=== PATIENT | male | born 1970 | race African-American/Black ===

== ENCOUNTER 2017-08-14 06:33 | Emergency (ER) | payer SELFPAY ==
[~2017-08-14] VITALS: Ht 175.3 cm; Wt 125.2 kg
[~2017-08-14 06:33] MED LIST: ALLO300T PO; ASPI-39 PO; ATOR40TA59 PO; CLON0.1T PO; COLC0.6T34 PO; FAMO-63 PO; GLIM4TAB2 PO; HYDR-2762 PO; LABE200T2 PO; MAGN400T22 PO; METF-620 PO; MODA200T2 PO; NIFE60TA14 PO; NIFE90TA PO; ONDA4TAB7 PO; RAMI10CA PO
[2017-08-14] MEDS ORDERED: LABETALOL HCL 100 MG TABLET. PO STA (07:35)
--- NOTE | 2017-08-14 07:42 | PHYS DOC ---
Past Medical History Past Medical History: Diabetes-Type II, Hypertension, Other Additional Past Medical Histor: SLEEP APNEA, GOUT Past Surgical History: Other Additional Past Surgical Histo: HAND, FINGERS, TOES, BX CARPAL TUNNEL, L KNEE Alcohol Use: Sober Drug Use: None Adult General Chief Complaint Chief Complaint: NAUSEA/VOMITING/DIARRHA HPI HPI Patient is a 46 year old female with history of diabetes type 2, hypertension, who presents today with nausea vomiting and diarrhea one week ago. Patient states the symptoms subsided bite 2 days ago he started having nausea and a productive cough. Patient denies any fever. Denies any hematemesis or melena. Denies any abdominal pain. Review of Systems Review of Systems Constitutional: Denies fever or chills [] Eyes: Denies change in visual acuity, redness, or eye pain [] HENT: Denies nasal congestion or sore throat [] Respiratory: Reports productive cough, denies shortness of breath [] Cardiovascular: No additional information not addressed in HPI [] GI: Reports nausea vomiting and diarrhea, denies any abdominal pain : Denies dysuria or hematuria [] Musculoskeletal: Denies back pain or joint pain [] Integument: Denies rash or skin lesions [] Neurologic: Denies headache, focal weakness or sensory changes [] All other systems were reviewed and found to be within normal limits, except as documented in this note. Current Medications Current Medications Current Medications Medications (Trade) Dose Ordered Sig/Sandra Start Time Stop Time Status Last Admin Dose Admin Clonidine HCl (Catapres) 0.1 mg 1X ONCE 08/14/17 07:45 08/14/17 07:49 DC 08/14/17 08:24 0.1 MG Glimepiride (Amaryl) 4 mg DAILY 08/14/17 09:00 Labetalol HCl (Trandate) 150 mg 1X STAT 08/14/17 07:35 08/14/17 07:49 DC 08/14/17 08:25 150 MG Lisinopril (Prinivil) 20 mg 1X ONCE 08/14/17 07:45 08/14/17 07:49 DC 08/14/17 08:24 20 MG Metformin HCl (Glucophage) 1,000 mg 1X STAT 08/14/17 08:48 08/14/17 08:51 DC Nifedipine (Procardia Xl) 90 mg 1X STAT 08/14/17 07:35 08/14/17 07:49 DC 08/14/17 08:26 90 MG Ondansetron HCl (Zofran) 4 mg 1X ONCE 08/14/17 07:45 08/14/17 07:49 DC 08/14/17 08:20 4 MG Sodium Chloride 1,000 ml @ 1,000 mls/hr 1X ONCE 08/14/17 07:45 08/14/17 08:44 DC Allergies Allergies Allergies Coded Allergies Type Severity Reaction Last Updated Verified lovastatin Adverse Reaction Intermediate SEE COMMENT 06/11/15 Yes Physical Exam Physical Exam Constitutional: Well developed, well nourished, no acute distress, non-toxic appearance. [] HENT: Normocephalic, atraumatic, bilateral external ears normal, oropharynx moist, no oral exudates, nose normal. [] Eyes: PERRLA, EOMI, conjunctiva normal, no discharge. [] Neck: Normal range of motion, no tenderness, supple, no stridor. [] Cardiovascular:Heart rate regular rhythm, no murmur [] Lungs & Thorax: Bilateral breath sounds clear to auscultation [] Abdomen: Bowel sounds normal, soft, no tenderness, no masses, no pulsatile masses. [] Skin: Warm, dry, no erythema, no rash. [] Back: No tenderness, no CVA tenderness. [] Extremities: No tenderness, no cyanosis, no clubbing, ROM intact, no edema. [] Neurologic: Alert and oriented X 3, normal motor function, normal sensory function, no focal deficits noted. [] Psychologic: Affect normal, judgement normal, mood normal. [] Current Patient Data Vital Signs Vital Signs Date Time Temp Pulse Resp B/P (MAP) Pulse Ox O2 Delivery O2 Flow Rate FiO2 08/14/17 09:02 98 18 166/112 (130) 98 Room Air 08/14/17 07:23 98.2 98.2 Lab Values Laboratory Tests Test 08/14/17 07:50 08/14/17 08:35 White Blood Count 6.7 x10^3/uL (4.0-11.0) Red Blood Count 5.19 x10^6/uL (4.30-5.70) Hemoglobin 13.5 g/dL (13.0-17.5) Hematocrit 42.4 % (39.0-53.0) Mean Corpuscular Volume 82 fL (79-100) Mean Corpuscular Hemoglobin 26 pg (25-35) Mean Corpuscular Hemoglobin Concent 32 g/dL (31-37) Red Cell Distribution Width 12.6 % (11.5-14.5) Platelet Count 196 x10^3/uL (140-400) Neutrophils (%) (Auto) 69 % (31-73) Lymphocytes (%) (Auto) 22 % (24-48) L Monocytes (%) (Auto) 7 % (0-9) Eosinophils (%) (Auto) 1 % (0-3) Basophils (%) (Auto) 1 % (0-3) Neutrophils # (Auto) 4.6 x10^3uL (1.8-7.7) Lymphocytes # (Auto) 1.5 x10^3/uL (1.0-4.8) Monocytes # (Auto) 0.5 x10^3/uL (0.0-1.1) Eosinophils # (Auto) 0.1 x10^3/uL (0.0-0.7) Basophils # (Auto) 0.0 x10^3/uL (0.0-0.2) Sodium Level 135 mmol/L (136-145) L Potassium Level 3.6 mmol/L (3.5-5.1) Chloride Level 96 mmol/L (98-107) L Carbon Dioxide Level 31 mmol/L (21-32) Anion Gap 8 (6-14) Blood Urea Nitrogen 8 mg/dL (8-26) Creatinine 1.2 mg/dL (0.7-1.3) Estimated GFR (Cockcroft-Gault) 78.2 BUN/Creatinine Ratio 7 (6-20) Glucose Level 427 mg/dL (70-99) H Calcium Level 8.9 mg/dL (8.5-10.1) Total Bilirubin 0.7 mg/dL (0.2-1.0) Aspartate Amino Transferase (AST) 14 U/L (15-37) L Alanine Aminotransferase (ALT) 30 U/L (16-63) Alkaline Phosphatase 104 U/L (46-116) Total Protein 7.1 g/dL (6.4-8.2) Albumin 3.3 g/dL (3.4-5.0) L Albumin/Globulin Ratio 0.9 (1.0-1.7) L Lipase 166 U/L (73-393) Ethyl Alcohol Level < 10 mg/dL (0-10) Urine Opiates Screen Neg (NEG) Urine Methadone Screen Neg (NEG) Urine Barbiturates Neg (NEG) Urine Phencyclidine Screen Neg (NEG) Urine Amphetamine/Methamphetamine Neg (NEG) Urine Benzodiazepines Screen Neg (NEG) Urine Cocaine Screen Neg (NEG) Urine Cannabinoids Screen Neg (NEG) Urine Ethyl Alcohol Neg (NEG) Laboratory Tests 08/14/17 07:50 Laboratory Tests 08/14/17 07:50 EKG EKG [] Radiology/Procedures Radiology/Procedures []PROCEDURE: CHEST PA & LATERAL Chest x-ray Indication: Cough and fever Technique: PA and lateral views of the chest Comparison: Previous study from 02/19/2016 Findings: Heart is normal in size. Lungs are clear. No pneumothorax or pleural effusion. Visualized bony thorax is within normal limits. Impression: No acute cardiopulmonary process. DICTATED and SIGNED BY: NELA RIVERA DO DATE: 08/14/17817 CC: ADRIAN BARCLAY MD; BRUCE GARZON APRN; NON,STAFF ~ Course & Med Decision Making Course & Med Decision Making Pertinent Labs and Imaging studies reviewed. (See chart for details) This is a 46-year-old male patient presenting with nausea vomiting and diarrhea that occurred a week ago, currently his main symptoms are nausea and a productive cough. He arrived in the ED with a blood pressure of 207/137, he states he has not taken his blood pressure medicines for 2 days. Patient denies any chest pain or shortness of breath. Denies any headache. We ordered his blood pressure medicines including lisinopril, labetalol clonidine and Nifedipine. BP is down to 149/97 when i was in the room. CBC no acute findings, CMP with glucose of 427 with normal anion gap. and sodium 135 he has not taken these medications for 2 days. Patient was given his metformin and glimepiride in the ED and one liter of fluid. I talked to patient about the importance of compliance with his medications. Chest x-ray was negative for any acute findings. His cough is probably viral. Details of vomiting and diarrhea probably viral. Discharged with Zofran albuterol inhaler and Tessalon Perles. Recommended following up with the PCP next week. Provided return precautions and discharged in stable. Dragon Disclaimer Dragon Disclaimer This electronic medical record was generated, in whole or in part, using a voice recognition dictation system. Departure Departure Impression: Primary Impression: Cough Additional Impressions: Hypertension, accelerated Nausea and vomiting Diarrhea Hyperglycemia Disposition: 01 HOME, SELF-CARE Condition: STABLE Referrals: ADRIAN BARCLAY MD (PCP) follow up with your doctor next week Patient Instructions: Cough, Adult, [id number], Diabetes Meal Planning Guide , Diabetes and Exercise-SportsMed, Diarrhea, Ilxs-to-Wnhr, Hypertension, Nausea and Vomiting Additional Instructions: You were seen with a cough. Your chest x-ray is negative for any acute findings , your cough is likely viral. We will put you on albuterol inhaler and Tessalon Perles. We also put you on Zofran for nausea and vomiting. The diarrhea has subsided. Typically nausea vomiting and diarrhea of viral. Push fluids and maintain good hand hygiene at home. Follow-up with your doctor next week. Scripts Benzonatate (TESSALON PERLE) 100 Mg Capsule 1 CAP PO TID, #30 CAP Prov: BRUCE GARZON APRN 08/14/17 Albuterol Sulfate (Proair Respiclick) 90 Mcg Aer.pow.ba 1 PUFF IH PRN Q6HRS Y for SHORTNESS OF BREATH, #1 INHALER Prov: BRUCE GARZON APRN 08/14/17 Ondansetron (ZOFRAN ODT) 4 Mg Tab.rapdis 1 TAB SL Q8HRS, #15 TAB Prov: BRUCE GARZON APRN 08/14/17 Problem Qualifiers Additional Impressions: Nausea and vomiting Vomiting type: unspecified Vomiting Intractability: unspecified Qualified Codes: R11.2 - Nausea with vomiting, unspecified Diarrhea Diarrhea type: unspecified type Qualified Codes: R19.7 - Diarrhea, unspecified BRUCE GARZON APRN Aug 14, 2017 07:42
[2017-08-14] MEDS ORDERED: cloNIDine HCL 0.1 MG TABLET PO ONE (07:45)
[2017-08-14] MEDS ORDERED: IV NORMAL SALINE 1000ML BAG 1,000 ML IV ONE ×2 (07:45)
[2017-08-14] MEDS ORDERED: LISINOPRIL 10 MG TABLET PO ONE (07:45)
[2017-08-14] MEDS ORDERED: ONDANSETRON PF 4 MG/2 ML VIAL. IV ONE (07:45)
[2017-08-14 08:12] LABS: BASO % 1 % (0-3); EOS % 1 % (0-3); HEMATOCRIT 42.4 % (39.0-53.0); HEMOGLOBIN 13.5 g/dL (13.0-17.5); LYMPH # 1.5 x10^3/uL (1.0-4.8); LYMPH % 22 % (24-48); MEAN CORPUSCULAR HEMOGLOBIN 26 pg (25-35); MEAN CORPUSCULAR HGB CONC 32 g/dL (31-37); MEAN CORPUSCULAR VOLUME 82 fL (79-100); MONO % 7 % (0-9); NEUT % 69 % (31-73); PLATELET COUNT 196 x10^3/uL (140-400); RED BLOOD COUNT 5.19 x10^6/uL (4.30-5.70); RED CELL DISTRIBUTION WIDTH 12.6 % (11.5-14.5); WHITE BLOOD COUNT 6.7 x10^3/uL (4.0-11.0)
[2017-08-14 08:21] LABS: CALCIUM 8.9 mg/dL (8.5-10.1); CREATININE 1.2 mg/dL (0.7-1.3); GFR 78.2; POTASSIUM 3.6 mmol/L (3.5-5.1)
--- NOTE | 2017-08-14 08:23 | RAD ---
Chest x-ray Indication: Cough and fever Technique: PA and lateral views of the chest Comparison: Previous study from 02/19/2016 Findings: Heart is normal in size. Lungs are clear. No pneumothorax or pleural effusion. Visualized bony thorax is within normal limits. Impression: No acute cardiopulmonary process.
[2017-08-14 08:33] LABS: ALBUMIN 3.3 g/dL (3.4-5.0); ALBUMIN/GLOBULIN RATIO 0.9 (1.0-1.7); TOTAL BILIRUBIN 0.7 mg/dL (0.2-1.0); TOTAL PROTEIN 7.1 g/dL (6.4-8.2)
[2017-08-14 08:50] LABS: BILIRUBIN,URINE NEGATIVE (NEG); GLUCOSE,URINE >=1000 mg/dL (NEG); NITRITE,URINE NEGATIVE (NEG); PROTEIN,URINE NEGATIVE (NEG-TRACE); UROBILINOGEN,URINE 0.2 mg/dL (0.2 mg/dL)
[2017-08-14 09:00] LABS: BARBITURATES NEG (NEG); BENZODIAZEPINES NEG (NEG); CANNABINOIDS NEG (NEG); COCAINE NEG (NEG); METHADONE NEG (NEG); OPIATES NEG (NEG); PHENCYCLIDINE NEG (NEG)
[2017-08-14] MEDS ORDERED: GLIMEPIRIDE 2 MG TABLET. PO SCH (09:00)
[2017-08-14 09:26] LABS: BACTERIA,URINE FEW /HPF (0-FEW); RBC,URINE OCC /HPF (0-2); SQUAMOUS EPITHELIAL CELL,UR OCC /LPF; WBC,URINE RARE /HPF (0-4)
[2017-08-14] MEDS ORDERED: BENZ100C PO (09:32)
[2017-08-14] MEDS ORDERED: PROAIR RESPICL90 MCG IH (09:32)
[2017-08-14] MEDS ORDERED: ONDA4TAB10 SL (09:32)
[2017-08-14 10:13] VITALS: BP 133/84
== END 2017-08-14 10:57 | disposition home or self-care (01) ==
LOC: ER 06:33
DX: R05 Cough (principal); I10 Essential (primary) hypertension; R11.2 Nausea with vomiting, unspecified; R19.7 Diarrhea, unspecified; E11.65 Type 2 diabetes mellitus with hyperglycemia; R50.9 Fever, unspecified; G47.30 Sleep apnea, unspecified; M10.9 Gout, unspecified; Z88.8 Allergy status to other drugs, medicaments and biological substances
CPT/HCPCS: 36415; 71020; 80053; 80307; 81001; 83690; 85025; 96361; 96374; 99285; G0480; J2405; J7030; G0479

== ENCOUNTER 2017-08-26 14:28 | Inpatient (IN) | payer SELFPAY ==
[2017-08-26] VITALS (13 sets, daily range): BP systolic 140–185; BP diastolic 68–121
[~2017-08-26] VITALS: Ht 175.3 cm; Wt 126.1 kg
[~2017-08-26 14:28] MED LIST changes: +BENZ100C PO; +ONDA4TAB10 SL; +PROAIR RESPICL90 MCG IH
--- NOTE | 2017-08-26 15:47 | RAD ---
Portable chest, 08/26/2017: History: Cough, dyspnea Comparison is made to a study from 08/14/2017. The heart appears to be within normal limits in size. Mild patchy right parahilar infiltrates have developed. The underlying pulmonary vascularity is obscured. There is only minimal streaky atelectasis/infiltrate in the left base. No pleural fluid is evident. IMPRESSION: Mild right parahilar infiltrates have developed suggesting pneumonia versus pulmonary edema.
[2017-08-26 15:54] LABS: BASO % 1 % (0-3); EOS % 1 % (0-3); HEMATOCRIT 37.9 % (39.0-53.0); HEMOGLOBIN 12.1 g/dL (13.0-17.5); LYMPH # 1.4 x10^3/uL (1.0-4.8); LYMPH % 17 % (24-48); MEAN CORPUSCULAR HEMOGLOBIN 26 pg (25-35); MEAN CORPUSCULAR HGB CONC 32 g/dL (31-37); MEAN CORPUSCULAR VOLUME 82 fL (79-100); MONO % 5 % (0-9); NEUT % 77 % (31-73); PLATELET COUNT 314 x10^3/uL (140-400); RED BLOOD COUNT 4.64 x10^6/uL (4.30-5.70); RED CELL DISTRIBUTION WIDTH 13.4 % (11.5-14.5); WHITE BLOOD COUNT 8.4 x10^3/uL (4.0-11.0)
--- NOTE | 2017-08-26 16:02 | EKG ---
[facility] [address] [place] [address] Test Date: 2017-08-26 Test Time: 14:51:21 Pat Name: LATONYA MERAZ Department: Room: Gender: M Referral And Information Aide: : 1970 Requested By: KARLIE CHURCHILL Order Number: [id number] Reading MD: Jamil Rueda MD Measurements Intervals [place] Rate: 102 P: 15 AR: 192 QRS: 19 QRSD: 90 T: 64 QT: 390 QTc: 513 Interpretive Statements SINUS TACHYCARDIA NON-SPECIFIC ST/T CHANGES Electronically Signed On 09-01-2017 14:17:16 BLACKENER by Jamil Rueda MD
[2017-08-26 16:07] LABS: CALCIUM 8.6 mg/dL (8.5-10.1); GFR 96.5; POTASSIUM 3.6 mmol/L (3.5-5.1)
[2017-08-26 16:13] LABS: ALBUMIN 2.8 g/dL (3.4-5.0); ALBUMIN/GLOBULIN RATIO 0.7 (1.0-1.7); TOTAL BILIRUBIN 0.7 mg/dL (0.2-1.0)
[2017-08-26] MEDS ORDERED: AZITHROMYCIN 500 MG in IV NORMAL SALINE 250ML 250 ML IV ONE (16:15)
[2017-08-26] MEDS ORDERED: FUROSEMIDE 40 MG/4 ML VIAL. IVP ONE (16:15)
[2017-08-26] MEDS ORDERED: NITROGLYCERIN OINT 1 GM PACKET. TP ONE (16:15)
[2017-08-26] MEDS ORDERED: AZITHRMYCN 500MG IVPB FOR OMNI 250 ML IV ONE (16:15)
[2017-08-26] MEDS ORDERED: CONTRAST GIVEN MC PRN (16:30)
[2017-08-26] MEDS ORDERED: IOHEXOL 300 MG/ML 100ML VIAL. IV ONE (16:30)
--- NOTE | 2017-08-26 16:48 | PHYS DOC ---
Past Medical History Past Medical History: Diabetes-Type II, Hypertension, Other Additional Past Medical Histor: SLEEP APNEA, GOUT Past Surgical History: Other Additional Past Surgical Histo: HAND, FINGERS, TOES, BX CARPAL TUNNEL, L KNEE Alcohol Use: Sober Drug Use: None Adult General Chief Complaint Chief Complaint: SHORTNESS OF BREATH HPI HPI Patient is a 46 year old male who presents with two-week history of progressively worse dyspnea that accelerated and got worse over the last 3 days that started off as URI symptoms and cough and has progressed [place]: Now presents the emergency department with hypoxia from the doctor's office with sats in the 80s.. No previous symptoms similar to this. No chest pain fever nausea vomiting or diarrhea. Medical history includes sleep apnea type 2 diabetes and hypertension. Reports normal urinary output. PCP is Dr. Jones Review of Systems Review of Systems Constitutional: Denies fever or chills [] Eyes: Denies change in visual acuity, redness, or eye pain [] HENT: Denies nasal congestion or sore throat [] Respiratory: Denies cough or shortness of breath [] Cardiovascular: No additional information not addressed in HPI [] GI: Denies abdominal pain, nausea, vomiting, bloody stools or diarrhea [] : Denies dysuria or hematuria [] Musculoskeletal: Denies back pain or joint pain [] Integument: Denies rash or skin lesions [] Neurologic: Denies headache, focal weakness or sensory changes [] Endocrine: Denies polyuria or polydipsia [] All other systems were reviewed and found to be within normal limits, except as documented in this note. Current Medications Current Medications Current Medications Medications (Trade) Dose Ordered Sig/Sandra Start Time Stop Time Status Last Admin Dose Admin Azithromycin 250 ml @ 250 mls/hr 1X ONCE 08/26/17 16:15 08/26/17 17:14 DC 08/26/17 17:27 250 MLS/HR Azithromycin 500 mg/Sodium Chloride 250 ml @ 250 mls/hr 1X ONCE 08/26/17 16:15 08/26/17 17:14 Cancel Ceftriaxone Sodium 50 ml @ 100 mls/hr 1X ONCE 08/26/17 16:15 08/26/17 16:44 DC 08/26/17 17:07 100 MLS/HR Furosemide (Lasix) 40 mg 1X ONCE 08/26/17 16:15 08/26/17 16:16 DC 12/13/17 17:02 40 MG Info (Do NOT chart on this entry -- for MONITORING) 1 each PRN DAILY PRN 08/26/17 16:30 08/28/17 16:29 Iohexol (Omnipaque 300 Mg/ml) 75 ml 1X ONCE 08/26/17 16:30 08/26/17 16:31 DC Nitroglycerin (Nitro-Bid Oint) 1 inch 1X ONCE 08/26/17 16:15 08/26/17 16:16 DC 08/26/17 17:05 1 INCH Nitroglycerin (Nitrostat) 0.4 mg PRN Q5MIN PRN 08/26/17 16:15 08/26/17 17:48 0.4 MG Allergies Allergies Allergies Coded Allergies Type Severity Reaction Last Updated Verified lovastatin Adverse Reaction Intermediate SEE COMMENT 06/11/15 Yes Physical Exam Physical Exam Constitutional: Well developed, well nourished, no acute distress, non-toxic appearance. [] HENT: Normocephalic, atraumatic, bilateral external ears normal, oropharynx moist, no oral exudates, nose normal. [] Eyes: PERRLA, EOMI, conjunctiva normal, no discharge. [] Neck: Normal range of motion, no tenderness, supple, no stridor. [] Cardiovascular:Heart rate regular rhythm, no murmur [] Lungs & Thorax: Bilateral breath sounds clear to auscultation [] Abdomen: Bowel sounds normal, soft, no tenderness, no masses, no pulsatile masses. [] Skin: Warm, dry, no erythema, no rash. [] Back: No tenderness, no CVA tenderness. [] Extremities: No tenderness, no cyanosis, no clubbing, ROM intact, no edema. [] Neurologic: Alert and oriented X 3, normal motor function, normal sensory function, no focal deficits noted. [] Psychologic: Affect normal, judgement normal, mood normal. [] Current Patient Data Vital Signs Vital Signs Date Time Temp Pulse Resp B/P (MAP) Pulse Ox O2 Delivery O2 Flow Rate FiO2 08/26/17 16:30 98 26 173/124 (140) 100 Nasal Cannula 4.0 08/26/17 14:34 98.6 98.6 Lab Values Laboratory Tests Test 08/26/17 14:45 08/26/17 15:28 Lactic Acid Level 1.8 mmol/L (0.4-2.0) White Blood Count 8.4 x10^3/uL (4.0-11.0) Red Blood Count 4.64 x10^6/uL (4.30-5.70) Hemoglobin 12.1 g/dL (13.0-17.5) L Hematocrit 37.9 % (39.0-53.0) L Mean Corpuscular Volume 82 fL (79-100) Mean Corpuscular Hemoglobin 26 pg (25-35) Mean Corpuscular Hemoglobin Concent 32 g/dL (31-37) Red Cell Distribution Width 13.4 % (11.5-14.5) Platelet Count 314 x10^3/uL (140-400) Neutrophils (%) (Auto) 77 % (31-73) H Lymphocytes (%) (Auto) 17 % (24-48) L Monocytes (%) (Auto) 5 % (0-9) Eosinophils (%) (Auto) 1 % (0-3) Basophils (%) (Auto) 1 % (0-3) Neutrophils # (Auto) 6.5 x10^3uL (1.8-7.7) Lymphocytes # (Auto) 1.4 x10^3/uL (1.0-4.8) Monocytes # (Auto) 0.4 x10^3/uL (0.0-1.1) Eosinophils # (Auto) 0.1 x10^3/uL (0.0-0.7) Basophils # (Auto) 0.0 x10^3/uL (0.0-0.2) Sodium Level 139 mmol/L (136-145) Potassium Level 3.6 mmol/L (3.5-5.1) Chloride Level 101 mmol/L (98-107) Carbon Dioxide Level 32 mmol/L (21-32) Anion Gap 6 (6-14) Blood Urea Nitrogen 10 mg/dL (8-26) Creatinine 1.0 mg/dL (0.7-1.3) Estimated GFR (Cockcroft-Gault) 96.5 BUN/Creatinine Ratio 10 (6-20) Glucose Level 143 mg/dL (70-99) H Calcium Level 8.6 mg/dL (8.5-10.1) Total Bilirubin 0.7 mg/dL (0.2-1.0) Aspartate Amino Transferase (AST) 26 U/L (15-37) Alanine Aminotransferase (ALT) 52 U/L (16-63) Alkaline Phosphatase 112 U/L (46-116) Troponin I Quantitative < 0.017 ng/mL (0.000-0.055) FY-Vdv-N-Type Natriuretic Peptide 582 pg/mL (0-124) H Total Protein 7.0 g/dL (6.4-8.2) Albumin 2.8 g/dL (3.4-5.0) L Albumin/Globulin Ratio 0.7 (1.0-1.7) L Laboratory Tests 08/26/17 15:28 Laboratory Tests 08/26/17 15:28 EKG EKG EKG sinus tachycardia rate of 12 no STEMI QTC 513 my interpretation[] Radiology/Procedures Radiology/Procedures Chest x-ray shows multilobar infiltrates and cardiomegaly possible pneumonia and /or CHF images reviewed by me interpretation reviewed by radiology[] Course & Med Decision Making Course & Med Decision Making Pertinent Labs and Imaging studies reviewed. (See chart for details) [] Dragon Disclaimer Dragon Disclaimer This electronic medical record was generated, in whole or in part, using a voice recognition dictation system. Departure Departure Impression: Primary Impression: Pneumonia Additional Impressions: CHF (congestive heart failure) Hypoxia Disposition: ADMITTED INPATIENT Condition: STABLE Referrals: ADRIAN BARCLAY MD (PCP) Problem Qualifiers KARLIE CHURCHILL MD Aug 26, 2017 16:48
[2017-08-26] MEDS ORDERED: MORPHINE SULFATE 2 MG/ML DISP.SYRIN. IV PRN (17:00)
[2017-08-26] MEDS ORDERED: ONDANSETRON PF 4 MG/2 ML VIAL. IV PRN (17:00)
--- NOTE | 2017-08-26 17:18 | RAD ---
CTA of the chest with contrast, 08/26/2017: History: Shortness of breath, recent pulmonary emboli, patient on blood thinners Multidetector CT imaging was performed following an IV bolus injection of iodinated contrast material. Multiplanar reconstructions were produced including coronal and sagittal MIP images. No filling defects are seen in the central pulmonary arteries to suggest pulmonary emboli. The heart is enlarged. Minimal coronary artery calcification is present. The thoracic aorta is unremarkable. There are tiny scattered nodular densities in the mediastinal fat similar to those seen on 06/10/2015. There is mild right paratracheal, subcarinal and right hilar adenopathy. The nodes are slightly larger than on the previous exam. There is a small amount of left-sided pleural fluid and a moderate volume of right-sided pleural fluid. There are moderate dense patchy infiltrates in the lungs, most extensive in the right parahilar region. There is considerable interlobular septal thickening, particularly in the lower chest, most compatible with interstitial pulmonary edema. There are are also hazy groundglass type opacities in the lung bases. IMPRESSION: 1. No CT evidence of central pulmonary emboli. 2. Moderate pulmonary infiltrates, right greater than left, and interlobular septal thickening most compatible with pulmonary edema. A component of pneumonia cannot be excluded. 3. Small left pleural effusion and moderate sized right pleural effusion. 4. Mild mediastinal and right hilar adenopathy. PQRS Compliance Statement: One or more of the following individualized dose reduction techniques were utilized for this examination: 1. Automated exposure control 2. Adjustment of the mA and/or kV according to patient size 3. Use of iterative reconstruction technique
[2017-08-26] MEDS: NITROGLYCERIN SUBLINGUAL 0.4 MG BOTTLE OF 25. SL PRN ×3 (17:36→17:48)
[2017-08-26] MEDS ORDERED: NITROGLYCERIN PREMIX 250 ML IV ONE ×2 (17:45→17:47)
--- NOTE | 2017-08-26 19:39 | PDOC1 ---
History and Physical Date of Admission Date of Admission DATE: 08/26/17 TIME: 19:34 History of Present Illness History of Present Illness HPI HPI Patient is a 46 year old male who presents with two-week history of progressively worse dyspnea that accelerated and got worse over the last 3 days that started as URI symptoms and cough and has progressed MT: Now presents WITH hypoxia from the doctor's office with sats in the 80s.. No previous symptoms similar to this. No chest pain fever nausea vomiting or diarrhea. IS NONCOMPLIANT WITH CPAP Medical history includes sleep apnea type 2 diabetes and hypertension. Reports normal urinary output. PCP is Dr. Jones SEEN IN ER WITH PULMONARY EDEMA ON CT CHEST Review of Systems Review of Systems Constitutional: Denies fever or chills [] Eyes: Denies change in visual acuity, redness, or eye pain [] HENT: Denies nasal congestion or sore throat [] Respiratory: Denies cough or shortness of breath [] Cardiovascular: No additional information not addressed in HPI [] GI: Denies abdominal pain, nausea, vomiting, bloody stools or diarrhea [] : Denies dysuria or hematuria [] Musculoskeletal: Denies back pain or joint pain [] Integument: Denies rash or skin lesions [] Neurologic: Denies headache, focal weakness or sensory changes [] Endocrine: Denies polyuria or polydipsia [] 14 POINT systems were reviewed and found to be within normal limits, except as documented in this note. Current Medications Current Medications Medications (Trade) Dose Ordered Sig/Sandra Start Time Stop Time Status Last Admin Dose Admin Azithromycin 250 ml @ 250 mls/hr 1X ONCE 08/26/17 16:15 08/26/17 17:14 Azithromycin 500 mg/Sodium Chloride 250 ml @ 250 mls/hr 1X ONCE 08/26/17 16:15 08/26/17 17:14 Cancel Ceftriaxone Sodium 50 ml @ 100 mls/hr 1X ONCE 08/26/17 16:15 08/26/17 16:44 DC Furosemide (Lasix) 40 mg 1X ONCE 08/26/17 16:15 08/26/17 16:16 DC Info (Do NOT chart on this entry -- for MONITORING) 1 each PRN DAILY PRN 08/26/17 16:30 08/28/17 16:29 Iohexol (Omnipaque 300 Mg/ml) 75 ml 1X ONCE 08/26/17 16:30 08/26/17 16:31 DC Nitroglycerin (Nitro-Bid Oint) 1 inch 1X ONCE 08/26/17 16:15 08/26/17 16:16 DC Nitroglycerin (Nitrostat) 0.4 mg PRN Q5MIN PRN 08/26/17 16:15 Allergies Allergies Allergies Coded Allergies Type Severity Reaction Last Updated Verified lovastatin Adverse Reaction Intermediate SEE COMMENT 06/11/15 Yes Physical Exam Physical Exam Constitutional: Well developed, well nourished, no acute distress, non-toxic appearance. [] HENT: Normocephalic, atraumatic, bilateral external ears normal, oropharynx moist, no oral exudates, nose normal. [] Eyes: PERRLA, EOMI, conjunctiva normal, no discharge. [] Neck: Normal range of motion, no tenderness, supple, no stridor. [] Cardiovascular:Heart rate regular rhythm, no murmur [] Lungs & Thorax: Bilateral breath sounds BASILAR CRACKLES[] Abdomen: Bowel sounds normal, soft, no tenderness, no masses, no pulsatile masses. [] Skin: Warm, dry, no erythema, no rash. [] Back: No tenderness, no CVA tenderness. [] Extremities: No tenderness, no cyanosis, no clubbing, ROM intact, no edema. [] Neurologic: Alert and oriented X 3, normal motor function, normal sensory function, no focal deficits noted. [] Psychologic: Affect normal, judgement normal, mood normal. [] Past Medical History Cardiovascular: HTN, Hyperlipidemia CENTRAL NERVOUS SYSTEM: Other Endocrine: Diabetes Social History ALCOHOL: rare Drugs: None Current Problem List Problem List Problems Medical Problems: (1) CHF (congestive heart failure) Status: Acute (2) Hypoxia Status: Acute (3) Pneumonia Status: Acute Problems: Current Medications Current Medications Current Medications Ceftriaxone Sodium 50 ml @ 100 mls/hr 1X ONCE IV Last administered on 17:07; Start 08/26/17 at 16:15; Stop 08/26/17 at 16:44; Status DC Azithromycin 500 mg/Sodium Chloride 250 ml @ 250 mls/hr 1X ONCE IV ; Start at 16:15; Stop 08/26/17 at 17:14; Status Cancel Furosemide (Lasix) 40 mg 1X ONCE IVP Last administered on 08/26/17 17:02; Start 08/26/17 at 16:15; Stop 08/26/17 at 16:16; Status DC Nitroglycerin (Nitrostat) 0.4 mg PRN Q5MIN PRN SL CHEST PAIN Last administered on 08/26/17 17:48; Start 08/26/17 at 16:15 Nitroglycerin (Nitro-Bid Oint) 1 inch 1X ONCE TP Last administered on 17:05; Start 08/26/17 at 16:15; Stop 08/26/17 at 16:16; Status DC Azithromycin 250 ml @ 250 mls/hr 1X ONCE IV Last administered on 08/26/17 17:27; Start 08/26/17 at 16:15; Stop 08/26/17 at 17:14; Status DC Iohexol (Omnipaque 300 Mg/ml) 75 ml 1X ONCE IV ; Start 08/26/17 at 16:30; Stop 08/26/17 at 16:31; Status DC Info (Do NOT chart on this entry -- for MONITORING) 1 each PRN DAILY PRN MC SEE COMMENTS; Start 08/26/17 at 16:30; Stop 08/28/17 at 16:29 Ondansetron HCl (Zofran) 4 mg PRN Q8HRS PRN IV NAUSEA/VOMITING; Start at 17:00; Stop 08/27/17 at 16:59 Morphine Sulfate 2 mg PRN Q2HR PRN IV PAIN; Start 08/26/17 at 17:00; Stop at 16:59 Nitroglycerin/ Dextrose 250 ml @ 0 mls/hr 1X ONCE IV Last administered on 17:53; Start 08/26/17 at 17:45; Stop 08/26/17 at 17:46; Status DC Nitroglycerin/ Dextrose 250 ml @ As Directed STK-MED ONCE IV ; Start 08/26/17 at 17:47; Stop 08/26/17 at 17:48; Status DC Active Scripts Active Tessalon Perle (Benzonatate) 100 Mg Capsule 1 Cap PO TID Proair Respiclick (Albuterol Sulfate) 90 Mcg Aer.pow.ba 1 Puff IH PRN Q6HRS PRN Zofran Odt (Ondansetron) 4 Mg Tab.rapdis 1 Tab SL Q8HRS Zofran (Ondansetron Hcl) 4 Mg Tablet 4 Mg PO BID PRN Pepcid (Famotidine) 20 Mg Tablet 20 Mg PO BID Colcrys (Colchicine) 0.6 Mg Tablet 0.6 Mg PO UD Take 2 tablets x1 then 1 tab 1 hour later. Do not repeat for 3 days. May take 1 tab daily after 3 days. Hydrocodone-Apap 7.5-325 (Hydrocodone Bit/Acetaminophen) 1 Each Tablet 1-2 Tab PO Q4-6HRS Reported Atorvastatin Calcium 40 Mg Tablet 1 Tab PO QHS Nifedipine Er (Nifedipine) 60 Mg Tablet.er 90 Mg PO DAILY Gary Chewable (Aspirin) 81 Mg Tab.chew 81 Mg PO Modafinil 200 Mg Tablet 200 Mg PO BID Metformin Hcl 1,000 Mg Tablet 1,000 Mg PO BID Labetalol Hcl 200 Mg Tablet 300 Mg PO BID Glimepiride 4 Mg Tablet 4 Mg PO DAILY Allopurinol 300 Mg Tablet 300 Mg PO DAILY Ramipril 10 Mg Capsule 20 Mg PO DAILY Clonidine Hcl 0.1 Mg Tablet 0.1 Mg PO TID Allergies Allergies: Coded Allergies: lovastatin (Verified Adverse Reaction, Intermediate, SEE COMMENT, 06/11/15) body aches Vitals Vitals Vital Signs Date Time Temp Pulse Resp B/P (MAP) Pulse Ox O2 Delivery O2 Flow Rate FiO2 08/26/17 18:20 118 28 158/111 (127) 100 Nasal Cannula 4.0 08/26/17 14:34 98.6 98.6 Labs Labs Laboratory Tests Test 08/26/17 14:45 08/26/17 15:28 Lactic Acid Level 1.8 mmol/L (0.4-2.0) White Blood Count 8.4 x10^3/uL (4.0-11.0) Red Blood Count 4.64 x10^6/uL (4.30-5.70) Hemoglobin 12.1 g/dL (13.0-17.5) Hematocrit 37.9 % (39.0-53.0) Mean Corpuscular Volume 82 fL (79-100) Mean Corpuscular Hemoglobin 26 pg (25-35) Mean Corpuscular Hemoglobin Concent 32 g/dL (31-37) Red Cell Distribution Width 13.4 % (11.5-14.5) Platelet Count 314 x10^3/uL (140-400) Neutrophils (%) (Auto) 77 % (31-73) Lymphocytes (%) (Auto) 17 % (24-48) Monocytes (%) (Auto) 5 % (0-9) Eosinophils (%) (Auto) 1 % (0-3) Basophils (%) (Auto) 1 % (0-3) Neutrophils # (Auto) 6.5 x10^3uL (1.8-7.7) Lymphocytes # (Auto) 1.4 x10^3/uL (1.0-4.8) Monocytes # (Auto) 0.4 x10^3/uL (0.0-1.1) Eosinophils # (Auto) 0.1 x10^3/uL (0.0-0.7) Basophils # (Auto) 0.0 x10^3/uL (0.0-0.2) Sodium Level 139 mmol/L (136-145) Potassium Level 3.6 mmol/L (3.5-5.1) Chloride Level 101 mmol/L (98-107) Carbon Dioxide Level 32 mmol/L (21-32) Anion Gap 6 (6-14) Blood Urea Nitrogen 10 mg/dL (8-26) Creatinine 1.0 mg/dL (0.7-1.3) Estimated GFR (Cockcroft-Gault) 96.5 BUN/Creatinine Ratio 10 (6-20) Glucose Level 143 mg/dL (70-99) Calcium Level 8.6 mg/dL (8.5-10.1) Total Bilirubin 0.7 mg/dL (0.2-1.0) Aspartate Amino Transf (AST/SGOT) 26 U/L (15-37) Alanine Aminotransferase (ALT/SGPT) 52 U/L (16-63) Alkaline Phosphatase 112 U/L (46-116) Troponin I Quantitative < 0.017 ng/mL (0.000-0.055) FT-Vya-J-Type Natriuretic Peptide 582 pg/mL (0-124) Total Protein 7.0 g/dL (6.4-8.2) Albumin 2.8 g/dL (3.4-5.0) Albumin/Globulin Ratio 0.7 (1.0-1.7) Laboratory Tests Test 08/26/17 14:45 08/26/17 15:28 Lactic Acid Level 1.8 mmol/L (0.4-2.0) White Blood Count 8.4 x10^3/uL (4.0-11.0) Red Blood Count 4.64 x10^6/uL (4.30-5.70) Hemoglobin 12.1 g/dL (13.0-17.5) Hematocrit 37.9 % (39.0-53.0) Mean Corpuscular Volume 82 fL (79-100) Mean Corpuscular Hemoglobin 26 pg (25-35) Mean Corpuscular Hemoglobin Concent 32 g/dL (31-37) Red Cell Distribution Width 13.4 % (11.5-14.5) Platelet Count 314 x10^3/uL (140-400) Neutrophils (%) (Auto) 77 % (31-73) Lymphocytes (%) (Auto) 17 % (24-48) Monocytes (%) (Auto) 5 % (0-9) Eosinophils (%) (Auto) 1 % (0-3) Basophils (%) (Auto) 1 % (0-3) Neutrophils # (Auto) 6.5 x10^3uL (1.8-7.7) Lymphocytes # (Auto) 1.4 x10^3/uL (1.0-4.8) Monocytes # (Auto) 0.4 x10^3/uL (0.0-1.1) Eosinophils # (Auto) 0.1 x10^3/uL (0.0-0.7) Basophils # (Auto) 0.0 x10^3/uL (0.0-0.2) Sodium Level 139 mmol/L (136-145) Potassium Level 3.6 mmol/L (3.5-5.1) Chloride Level 101 mmol/L (98-107) Carbon Dioxide Level 32 mmol/L (21-32) Anion Gap 6 (6-14) Blood Urea Nitrogen 10 mg/dL (8-26) Creatinine 1.0 mg/dL (0.7-1.3) Estimated GFR (Cockcroft-Gault) 96.5 BUN/Creatinine Ratio 10 (6-20) Glucose Level 143 mg/dL (70-99) Calcium Level 8.6 mg/dL (8.5-10.1) Total Bilirubin 0.7 mg/dL (0.2-1.0) Aspartate Amino Transf (AST/SGOT) 26 U/L (15-37) Alanine Aminotransferase (ALT/SGPT) 52 U/L (16-63) Alkaline Phosphatase 112 U/L (46-116) Troponin I Quantitative < 0.017 ng/mL (0.000-0.055) KS-Rdc-Z-Type Natriuretic Peptide 582 pg/mL (0-124) Total Protein 7.0 g/dL (6.4-8.2) Albumin 2.8 g/dL (3.4-5.0) Albumin/Globulin Ratio 0.7 (1.0-1.7) Images Images PATIENT: LATONYA MERAZ ACCOUNT: [id number] : 1970 LOCATION: ER AGE: 46 SEX: M EXAM STATUS: REG ER ORD. PHYSICIAN: KARLIE CHURCHILL MD REASON: eval for PE vs chf/pneumonia PROCEDURE: CT ANGIOGRAPHY CHEST CTA of the chest with contrast, 08/26/2017: History: Shortness of breath, recent pulmonary emboli, patient on blood thinners Multidetector CT imaging was performed following an IV bolus injection of iodinated contrast material. Multiplanar reconstructions were produced including coronal and sagittal MIP images. No filling defects are seen in the central pulmonary arteries to suggest pulmonary emboli. The heart is enlarged. Minimal coronary artery calcification is present. The thoracic aorta is unremarkable. There are tiny scattered nodular densities in the mediastinal fat similar to those seen on 06/10/2015. There is mild right paratracheal, subcarinal and right hilar adenopathy. The nodes are slightly larger than on the previous exam. There is a small amount of left-sided pleural fluid and a moderate volume of right-sided pleural fluid. There are moderate dense patchy infiltrates in the lungs, most extensive in the right parahilar region. There is considerable interlobular septal thickening, particularly in the lower chest, most compatible with interstitial pulmonary edema. There are are also hazy groundglass type opacities in the lung bases. IMPRESSION: 1. No CT evidence of central pulmonary emboli. 2. Moderate pulmonary infiltrates, right greater than left, and interlobular septal thickening most compatible with pulmonary edema. A component of pneumonia cannot be excluded. 3. Small left pleural effusion and moderate sized right pleural effusion. 4. Mild mediastinal and right hilar adenopathy. VTE Prophylaxis Ordered VTE Prophylaxis Devices: No VTE Pharmacological Prophylaxi: Yes Assessment/Plan Assessment/Plan IMPRESSION 1. CHF WITH ACUTE PULMONARY EDEMA 2. Possible pneumonia/ pneumonitis 3. morbid obesity 4. acute hypoxic respiratory failure 5. hypertensive urgency 6. obstructive sleep apnea with CPAP NONCOMPLIANCE plan 1. lasix drip 5 MG / HR 2. icu bed 3. o2 support prn 4. serial troponin i 5. echo 6. cardiology consult 7. PULM CONSULT 8. TSH 9. LOVENOX DVT prophylaxis 10. restart home meds 43 min cc time DUC GRACIA MD Aug 26, 2017 19:39
[2017-08-26] MEDS ORDERED: FUROSEMIDE INJ 100 MG in IV NORMAL SALINE 100ML 100 ML IV PRN (20:00)
[2017-08-26] MEDS ORDERED: hydrALAZINE 20 MG/ML VIAL. IVP PRN (20:00)
[2017-08-26] MEDS: LABETALOL HCL 200 MG TABLET PO SCH (20:19)
[2017-08-26] MEDS: FAMOTIDINE 20 MG TABLET. PO SCH (20:19)
[2017-08-26] MEDS: ATORVASTATIN CALCIUM 40 MG TABLET. PO SCH (20:19)
[2017-08-26] MEDS: cloNIDine HCL 0.1 MG TABLET PO SCH (20:21)
[2017-08-26] MEDS: BENZONATATE 100 MG CAPSULE. PO SCH (20:21)
[2017-08-26] MEDS: ENOXAPARIN 40 MG/0.4 ML SYRINGE. SQ SCH (20:22)
[2017-08-27] VITALS (17 sets, daily range): BP systolic 109–157; BP diastolic 69–105
[2017-08-27] MEDS ORDERED: oxyCODONE/APAP 5/325 1 TAB TABLET PO PRN (09:00)
[2017-08-27] MEDS ORDERED: guaiFENesin DM 200MG/20MG 10 ML SYRUP PO PRN (09:00)
[2017-08-27] MEDS ORDERED: ALBUTEROL SULFATE 2.5 MG/3 ML NEBU. NEB PRN (09:00)
[2017-08-27] MEDS: ENOXAPARIN 40 MG/0.4 ML SYRINGE. SQ SCH ×2 (09:04→20:30)
[2017-08-27] MEDS: ONDANSETRON ODT 4 MG TAB.RAPDIS. PO SCH (09:05)
[2017-08-27] MEDS: FAMOTIDINE 20 MG TABLET. PO SCH ×2 (09:05→20:27)
[2017-08-27] MEDS: LISINOPRIL 40 MG TABLET. PO SCH (09:05)
[2017-08-27] MEDS: LABETALOL HCL 200 MG TABLET PO SCH ×2 (09:06→20:29)
[2017-08-27] MEDS: GLIMEPIRIDE 2 MG TABLET. PO SCH (09:06)
[2017-08-27] MEDS: ALLOPURINOL 300 MG TABLET. PO SCH (09:06)
[2017-08-27] MEDS: BENZONATATE 100 MG CAPSULE. PO SCH ×3 (09:07→20:27)
[2017-08-27] MEDS: ASPIRIN CHEWABLE 81 MG TABLET. PO SCH (09:07)
[2017-08-27] MEDS: cloNIDine HCL 0.1 MG TABLET PO SCH ×3 (09:12→20:27)
--- NOTE | 2017-08-27 12:02 | PDOC2 ---
CARDIAC CONSULT DATE OF CONSULT Date of Consult DATE: 08/27/17 TIME: 11:54 REASON FOR CONSULT Reason for Consult: CHF/HTN REFERRING PHYSICIAN Referring Physician: Fullbright SOURCE Source: Chart review, Patient HISTORY OF PRESENT ILLNESS HISTORY OF PRESENT ILLNESS This is a pleasant 46 yo male admitted for complains of SOA. Reports that he was in ED last Thursday and was noted with high BP. He was given Rx and was sent home. Over the weekend, he started feeling SOA, DRAPER with increasing leg edema. Has nonproductive cough. He thought that this was just an extension of his URI that happened about 2 weeks ago. He did see his PCP and recommended for him to go to ED. He has been compliant with his medications. Denies any CP, frequent dizziness, palpitations. No prior CAD, VTE, falls, injury or any prior arrhythmias. PAST MEDICAL HISTORY Cardiovascular: HTN, Hyperlipidemia Pulmonary: Other (YANG) Musculoskeletal: Osteoarthritis, Other (morbid obesity) Rheumatologic: Gout Endocrine: Diabetes (2) PAST SURGICAL HISTORY Past Surgical History: Other (carpal tunnel decompression) FAMILY HISTORY Family History: Hypertension SOCIAL HISTORY Smoke: No ALCOHOL: none Drugs: None Lives: with Family CURRENT MEDICATIONS CURRENT MEDICATIONS Current Medications Medications (Trade) Dose Ordered Sig/Sandra Route PRN Reason Start Time Stop Time Status Last Admin Dose Admin Ceftriaxone Sodium 50 ml @ 100 mls/hr 1X ONCE IV 08/26/17 16:15 08/26/17 16:44 DC 08/26/17 17:07 Furosemide (Lasix) 40 mg 1X ONCE IVP 08/26/17 16:15 08/26/17 16:16 DC 08/26/17 17:02 Nitroglycerin (Nitrostat) 0.4 mg PRN Q5MIN PRN SL CHEST PAIN 08/26/17 16:15 08/26/17 17:48 Nitroglycerin (Nitro-Bid Oint) 1 inch 1X ONCE TP 08/26/17 16:15 08/26/17 16:16 DC 08/26/17 17:05 Azithromycin 250 ml @ 250 mls/hr 1X ONCE IV 08/26/17 16:15 08/26/17 17:14 DC 08/26/17 17:27 Nitroglycerin/ Dextrose 250 ml @ 0 mls/hr 1X ONCE IV 08/26/17 17:45 08/26/17 17:46 DC 08/26/17 17:53 Furosemide 100 mg/ Sodium Chloride 100 ml @ 0 mls/hr CONT PRN IV SEE I/O RECORD 08/26/17 20:00 08/26/17 20:33 Allopurinol (Zyloprim) 300 mg DAILY PO 08/27/17 09:00 08/27/17 09:06 Aspirin (Children'S Aspirin) 81 mg DAILY07 PO 08/27/17 07:00 08/27/17 09:07 Atorvastatin Calcium (Lipitor) 40 mg QHS PO 08/26/17 21:00 08/26/17 20:19 Benzonatate (Tessalon Perle) 100 mg TID PO 08/26/17 21:00 08/27/17 09:07 Clonidine HCl (Catapres) 0.1 mg TID PO 08/26/17 21:00 08/27/17 09:12 Famotidine (Pepcid) 20 mg BID PO 08/26/17 21:00 08/27/17 09:05 Labetalol HCl (Trandate) 300 mg BID PO 08/26/17 21:00 08/27/17 09:06 Ondansetron HCl (Zofran Odt) 4 mg DAILY PO 08/27/17 09:00 08/27/17 09:05 Glimepiride (Amaryl) 4 mg DAILYWBKFT PO 08/27/17 08:00 08/27/17 09:06 Nifedipine (Procardia Xl) 90 mg DAILY PO 08/27/17 09:00 08/27/17 09:07 Lisinopril (Prinivil) 40 mg DAILY PO 08/27/17 09:00 08/27/17 09:05 Enoxaparin Sodium (Lovenox 40mg Syringe) 40 mg BID SQ 08/26/17 21:00 08/27/17 09:04 ALLERGIES ALLERGIES: Coded Allergies: lovastatin (Verified Adverse Reaction, Intermediate, SEE COMMENT, 06/11/15) body aches ROS Review of System 14 point ROS evaluated with pertinent positives noted per HPI VITALS VITALS Vital Signs Date Time Temp Pulse Resp B/P (MAP) Pulse Ox O2 Delivery O2 Flow Rate FiO2 08/27/17 10:02 93 Room Air 08/27/17 09:12 99 154/103 08/27/17 06:00 22 2.0 08/27/17 04:00 98.6 98.6 LABS Lab: Laboratory Tests Test 08/26/17 14:45 08/26/17 15:28 08/27/17 08:25 Lactic Acid Level 1.8 mmol/L (0.4-2.0) White Blood Count 8.4 x10^3/uL (4.0-11.0) Red Blood Count 4.64 x10^6/uL (4.30-5.70) Hemoglobin 12.1 g/dL (13.0-17.5) Hematocrit 37.9 % (39.0-53.0) Mean Corpuscular Volume 82 fL (79-100) Mean Corpuscular Hemoglobin 26 pg (25-35) Mean Corpuscular Hemoglobin Concent 32 g/dL (31-37) Red Cell Distribution Width 13.4 % (11.5-14.5) Platelet Count 314 x10^3/uL (140-400) Neutrophils (%) (Auto) 77 % (31-73) Lymphocytes (%) (Auto) 17 % (24-48) Monocytes (%) (Auto) 5 % (0-9) Eosinophils (%) (Auto) 1 % (0-3) Basophils (%) (Auto) 1 % (0-3) Neutrophils # (Auto) 6.5 x10^3uL (1.8-7.7) Lymphocytes # (Auto) 1.4 x10^3/uL (1.0-4.8) Monocytes # (Auto) 0.4 x10^3/uL (0.0-1.1) Eosinophils # (Auto) 0.1 x10^3/uL (0.0-0.7) Basophils # (Auto) 0.0 x10^3/uL (0.0-0.2) Sodium Level 139 mmol/L (136-145) Potassium Level 3.6 mmol/L (3.5-5.1) Chloride Level 101 mmol/L (98-107) Carbon Dioxide Level 32 mmol/L (21-32) Anion Gap 6 (6-14) Blood Urea Nitrogen 10 mg/dL (8-26) Creatinine 1.0 mg/dL (0.7-1.3) Estimated GFR (Cockcroft-Gault) 96.5 BUN/Creatinine Ratio 10 (6-20) Glucose Level 143 mg/dL (70-99) Calcium Level 8.6 mg/dL (8.5-10.1) Total Bilirubin 0.7 mg/dL (0.2-1.0) Aspartate Amino Transf (AST/SGOT) 26 U/L (15-37) Alanine Aminotransferase (ALT/SGPT) 52 U/L (16-63) Alkaline Phosphatase 112 U/L (46-116) Troponin I Quantitative < 0.017 ng/mL (0.000-0.055) HB-Xdh-T-Type Natriuretic Peptide 582 pg/mL (0-124) Total Protein 7.0 g/dL (6.4-8.2) Albumin 2.8 g/dL (3.4-5.0) Albumin/Globulin Ratio 0.7 (1.0-1.7) Thyroid Stimulating Hormone (TSH) 1.280 uIU/mL (0.358-3.74) Glucose (Fingerstick) 120 mg/dL (70-99) ASSESSMENT/PLAN ASSESSMENT/PLAN 1. Acute CHF with possible diastolic dysfunction 2. Accelerated HTN: improved. 3. YANG: noncompliant with CPAP 4. DM2/HLP 5. Morbid obesity Recommendations 1. TTE. Continue current BP regimen 2. Continue with lasix therapy 3. Mg and lipid panel 4. Discussed CPAP compliance. Wt loss. Problems: VALERIY VANESSA APRN Aug 27, 2017 12:02
--- NOTE | 2017-08-27 12:02 | PDOC ---
PROGRESS NOTES Chief Complaint Chief Complaint 1. CHF WITH ACUTE PULMONARY EDEMA 2. Possible pneumonia/ pneumonitis 3. morbid obesity 4. acute hypoxic respiratory failure 5. hypertensive urgency 6. obstructive sleep apnea with CPAP NONCOMPLIANCE History of Present Illness History of Present Illness Doing okay, seen in ICU. Not needing the BiPAP He claims he has a CPAP at home and admits to noncompliance He denies any sick travel but there is some sick contacts at home. He has been having this chronic cough and URI symptoms. For the past 2 weeks but no fevers at home. Status post Rocephin at emergency room. BNP IV 82, TSH normal, albumin 2.8 PLAN: We'll continue IV Rocephin for now. Okay to transfer out of ICU. Continue Lasix. Follow cardiology recommendation possible echocardiogram. Vitals Vitals Vital Signs Date Time Temp Pulse Resp B/P (MAP) Pulse Ox O2 Delivery O2 Flow Rate FiO2 08/27/17 10:02 93 Room Air 08/27/17 09:12 99 154/103 08/27/17 06:00 22 2.0 08/27/17 04:00 98.6 98.6 Physical Exam General: Alert, Oriented X3, Cooperative Heart: Regular rate, Normal S1, Normal S2 Lungs: Clear Abdomen: Normal bowel sounds, Soft Extremities: No clubbing, No cyanosis Skin: No rashes, No breakdown Labs LABS Laboratory Tests Test 08/26/17 14:45 08/26/17 15:28 08/27/17 08:25 08/27/17 11:43 Lactic Acid Level 1.8 mmol/L (0.4-2.0) White Blood Count 8.4 x10^3/uL (4.0-11.0) Red Blood Count 4.64 x10^6/uL (4.30-5.70) Hemoglobin 12.1 g/dL (13.0-17.5) Hematocrit 37.9 % (39.0-53.0) Mean Corpuscular Volume 82 fL (79-100) Mean Corpuscular Hemoglobin 26 pg (25-35) Mean Corpuscular Hemoglobin Concent 32 g/dL (31-37) Red Cell Distribution Width 13.4 % (11.5-14.5) Platelet Count 314 x10^3/uL (140-400) Neutrophils (%) (Auto) 77 % (31-73) Lymphocytes (%) (Auto) 17 % (24-48) Monocytes (%) (Auto) 5 % (0-9) Eosinophils (%) (Auto) 1 % (0-3) Basophils (%) (Auto) 1 % (0-3) Neutrophils # (Auto) 6.5 x10^3uL (1.8-7.7) Lymphocytes # (Auto) 1.4 x10^3/uL (1.0-4.8) Monocytes # (Auto) 0.4 x10^3/uL (0.0-1.1) Eosinophils # (Auto) 0.1 x10^3/uL (0.0-0.7) Basophils # (Auto) 0.0 x10^3/uL (0.0-0.2) Sodium Level 139 mmol/L (136-145) Potassium Level 3.6 mmol/L (3.5-5.1) Chloride Level 101 mmol/L (98-107) Carbon Dioxide Level 32 mmol/L (21-32) Anion Gap 6 (6-14) Blood Urea Nitrogen 10 mg/dL (8-26) Creatinine 1.0 mg/dL (0.7-1.3) Estimated GFR (Cockcroft-Gault) 96.5 BUN/Creatinine Ratio 10 (6-20) Glucose Level 143 mg/dL (70-99) Calcium Level 8.6 mg/dL (8.5-10.1) Total Bilirubin 0.7 mg/dL (0.2-1.0) Aspartate Amino Transf (AST/SGOT) 26 U/L (15-37) Alanine Aminotransferase (ALT/SGPT) 52 U/L (16-63) Alkaline Phosphatase 112 U/L (46-116) Troponin I Quantitative < 0.017 ng/mL (0.000-0.055) KG-Fna-M-Type Natriuretic Peptide 582 pg/mL (0-124) Total Protein 7.0 g/dL (6.4-8.2) Albumin 2.8 g/dL (3.4-5.0) Albumin/Globulin Ratio 0.7 (1.0-1.7) Thyroid Stimulating Hormone (TSH) 1.280 uIU/mL (0.358-3.74) Glucose (Fingerstick) 120 mg/dL (70-99) 208 mg/dL (70-99) Review of Systems Review of Systems A 14 point ROS was completed with the following noted as positive: Other systems reviewed and negative. \CONSTITUTIONAL: No fever or chills EYES: No recent changes SKIN: No rash or itching CARDIOVASCULAR: No chest pain, syncope, palpitations, or edema RESPIRATORY: No SOB or cough GASTROINTESTINAL: No nausea, vomiting or abdominal pain NEUROLOGICAL: No headaches or weakness ENDOCRINE: No cold or heat intolerance GENITOURINARY: No urgency or frequency of urination MUSCULOSKELETAL: No back pain or joint pain LYMPHATICS: No enlarged lymph nodes PSYCHIATRIC: No anxiety or depression Assessment and Plan Assessmemt and Plan Problems Medical Problems: (1) CHF (congestive heart failure) Status: Acute (2) Hypoxia Status: Acute (3) Pneumonia Status: Acute Problems: Comment Review of Relevant I have reviewed the following items pascual (where applicable) has been applied. Labs Laboratory Tests Test 08/26/17 14:45 08/26/17 15:28 08/27/17 08:25 08/27/17 11:43 Lactic Acid Level 1.8 mmol/L (0.4-2.0) White Blood Count 8.4 x10^3/uL (4.0-11.0) Red Blood Count 4.64 x10^6/uL (4.30-5.70) Hemoglobin 12.1 g/dL (13.0-17.5) Hematocrit 37.9 % (39.0-53.0) Mean Corpuscular Volume 82 fL (79-100) Mean Corpuscular Hemoglobin 26 pg (25-35) Mean Corpuscular Hemoglobin Concent 32 g/dL (31-37) Red Cell Distribution Width 13.4 % (11.5-14.5) Platelet Count 314 x10^3/uL (140-400) Neutrophils (%) (Auto) 77 % (31-73) Lymphocytes (%) (Auto) 17 % (24-48) Monocytes (%) (Auto) 5 % (0-9) Eosinophils (%) (Auto) 1 % (0-3) Basophils (%) (Auto) 1 % (0-3) Neutrophils # (Auto) 6.5 x10^3uL (1.8-7.7) Lymphocytes # (Auto) 1.4 x10^3/uL (1.0-4.8) Monocytes # (Auto) 0.4 x10^3/uL (0.0-1.1) Eosinophils # (Auto) 0.1 x10^3/uL (0.0-0.7) Basophils # (Auto) 0.0 x10^3/uL (0.0-0.2) Sodium Level 139 mmol/L (136-145) Potassium Level 3.6 mmol/L (3.5-5.1) Chloride Level 101 mmol/L (98-107) Carbon Dioxide Level 32 mmol/L (21-32) Anion Gap 6 (6-14) Blood Urea Nitrogen 10 mg/dL (8-26) Creatinine 1.0 mg/dL (0.7-1.3) Estimated GFR (Cockcroft-Gault) 96.5 BUN/Creatinine Ratio 10 (6-20) Glucose Level 143 mg/dL (70-99) Calcium Level 8.6 mg/dL (8.5-10.1) Total Bilirubin 0.7 mg/dL (0.2-1.0) Aspartate Amino Transf (AST/SGOT) 26 U/L (15-37) Alanine Aminotransferase (ALT/SGPT) 52 U/L (16-63) Alkaline Phosphatase 112 U/L (46-116) Troponin I Quantitative < 0.017 ng/mL (0.000-0.055) AB-Ejw-G-Type Natriuretic Peptide 582 pg/mL (0-124) Total Protein 7.0 g/dL (6.4-8.2) Albumin 2.8 g/dL (3.4-5.0) Albumin/Globulin Ratio 0.7 (1.0-1.7) Thyroid Stimulating Hormone (TSH) 1.280 uIU/mL (0.358-3.74) Glucose (Fingerstick) 120 mg/dL (70-99) 208 mg/dL (70-99) Laboratory Tests Test 08/26/17 14:45 08/26/17 15:28 08/27/17 08:25 08/27/17 11:43 Lactic Acid Level 1.8 mmol/L (0.4-2.0) White Blood Count 8.4 x10^3/uL (4.0-11.0) Red Blood Count 4.64 x10^6/uL (4.30-5.70) Hemoglobin 12.1 g/dL (13.0-17.5) Hematocrit 37.9 % (39.0-53.0) Mean Corpuscular Volume 82 fL (79-100) Mean Corpuscular Hemoglobin 26 pg (25-35) Mean Corpuscular Hemoglobin Concent 32 g/dL (31-37) Red Cell Distribution Width 13.4 % (11.5-14.5) Platelet Count 314 x10^3/uL (140-400) Neutrophils (%) (Auto) 77 % (31-73) Lymphocytes (%) (Auto) 17 % (24-48) Monocytes (%) (Auto) 5 % (0-9) Eosinophils (%) (Auto) 1 % (0-3) Basophils (%) (Auto) 1 % (0-3) Neutrophils # (Auto) 6.5 x10^3uL (1.8-7.7) Lymphocytes # (Auto) 1.4 x10^3/uL (1.0-4.8) Monocytes # (Auto) 0.4 x10^3/uL (0.0-1.1) Eosinophils # (Auto) 0.1 x10^3/uL (0.0-0.7) Basophils # (Auto) 0.0 x10^3/uL (0.0-0.2) Sodium Level 139 mmol/L (136-145) Potassium Level 3.6 mmol/L (3.5-5.1) Chloride Level 101 mmol/L (98-107) Carbon Dioxide Level 32 mmol/L (21-32) Anion Gap 6 (6-14) Blood Urea Nitrogen 10 mg/dL (8-26) Creatinine 1.0 mg/dL (0.7-1.3) Estimated GFR (Cockcroft-Gault) 96.5 BUN/Creatinine Ratio 10 (6-20) Glucose Level 143 mg/dL (70-99) Calcium Level 8.6 mg/dL (8.5-10.1) Total Bilirubin 0.7 mg/dL (0.2-1.0) Aspartate Amino Transf (AST/SGOT) 26 U/L (15-37) Alanine Aminotransferase (ALT/SGPT) 52 U/L (16-63) Alkaline Phosphatase 112 U/L (46-116) Troponin I Quantitative < 0.017 ng/mL (0.000-0.055) UT-Opz-B-Type Natriuretic Peptide 582 pg/mL (0-124) Total Protein 7.0 g/dL (6.4-8.2) Albumin 2.8 g/dL (3.4-5.0) Albumin/Globulin Ratio 0.7 (1.0-1.7) Thyroid Stimulating Hormone (TSH) 1.280 uIU/mL (0.358-3.74) Glucose (Fingerstick) 120 mg/dL (70-99) 208 mg/dL (70-99) Medications Current Medications Ceftriaxone Sodium 50 ml @ 100 mls/hr 1X ONCE IV Last administered on 17:07; Start 08/26/17 at 16:15; Stop 08/26/17 at 16:44; Status DC Azithromycin 500 mg/Sodium Chloride 250 ml @ 250 mls/hr 1X ONCE IV ; Start at 16:15; Stop 08/26/17 at 17:14; Status Cancel Furosemide (Lasix) 40 mg 1X ONCE IVP Last administered on 08/26/17 17:02; Start 08/26/17 at 16:15; Stop 08/26/17 at 16:16; Status DC Nitroglycerin (Nitrostat) 0.4 mg PRN Q5MIN PRN SL CHEST PAIN Last administered on 08/26/17 17:48; Start 08/26/17 at 16:15 Nitroglycerin (Nitro-Bid Oint) 1 inch 1X ONCE TP Last administered on 17:05; Start 08/26/17 at 16:15; Stop 08/26/17 at 16:16; Status DC Azithromycin 250 ml @ 250 mls/hr 1X ONCE IV Last administered on 08/26/17 17:27; Start 08/26/17 at 16:15; Stop 08/26/17 at 17:14; Status DC Iohexol (Omnipaque 300 Mg/ml) 75 ml 1X ONCE IV ; Start 08/26/17 at 16:30; Stop 08/26/17 at 16:31; Status DC Info (Do NOT chart on this entry -- for MONITORING) 1 each PRN DAILY PRN MC SEE COMMENTS; Start 08/26/17 at 16:30; Stop 08/28/17 at 16:29 Ondansetron HCl (Zofran) 4 mg PRN Q8HRS PRN IV NAUSEA/VOMITING; Start at 17:00; Stop 08/27/17 at 16:59 Morphine Sulfate 2 mg PRN Q2HR PRN IV PAIN; Start 08/26/17 at 17:00; Stop at 16:59 Nitroglycerin/ Dextrose 250 ml @ 0 mls/hr 1X ONCE IV Last administered on 17:53; Start 08/26/17 at 17:45; Stop 08/26/17 at 17:46; Status DC Nitroglycerin/ Dextrose 250 ml @ As Directed STK-MED ONCE IV ; Start 08/26/17 at 17:47; Stop 08/26/17 at 17:48; Status DC Furosemide 100 mg/ Sodium Chloride 100 ml @ 0 mls/hr CONT PRN IV SEE I/O RECORD Last administered on 08/26/17 20:33; Start 08/26/17 at 20:00 Hydralazine HCl (Apresoline Inj) 10 mg PRN Q4HRS PRN IVP ELEVATED BP, SEE COMMENTS; Start 08/26/17 at 20:00 Allopurinol (Zyloprim) 300 mg DAILY PO Last administered on 08/27/17 09:06; Start 08/27/17 at 09:00 Aspirin (Children'S Aspirin) 81 mg DAILY07 PO Last administered on 08/27/17 09:07; Start 08/27/17 at 07:00 Atorvastatin Calcium (Lipitor) 40 mg QHS PO Last administered on 08/26/17 20: 19; Start 08/26/17 at 21:00 Benzonatate (Tessalon Perle) 100 mg TID PO Last administered on 08/27/17 09: 07; Start 08/26/17 at 21:00 Clonidine HCl (Catapres) 0.1 mg TID PO Last administered on 08/27/17 09:12; Start 08/26/17 at 21:00 Famotidine (Pepcid) 20 mg BID PO Last administered on 08/27/17 09:05; Start 08/26/17 at 21:00 Labetalol HCl (Trandate) 300 mg BID PO Last administered on 08/27/17 09:06; Start 08/26/17 at 21:00 Metformin HCl (Glucophage) 1,000 mg BIDWMEALS PO ; Start 08/29/17 at 08:00 Ondansetron HCl (Zofran Odt) 4 mg DAILY PO Last administered on 08/27/17 09: 05; Start 08/27/17 at 09:00 Glimepiride (Amaryl) 4 mg DAILYWBKFT PO Last administered on 08/27/17 09:06; Start 08/27/17 at 08:00 Nifedipine (Procardia Xl) 90 mg DAILY PO Last administered on 08/27/17 09:07 ; Start 08/27/17 at 09:00 Lisinopril (Prinivil) 40 mg DAILY PO Last administered on 08/27/17 09:05; Start 08/27/17 at 09:00 Enoxaparin Sodium (Lovenox 40mg Syringe) 40 mg BID SQ Last administered on 09:04; Start 08/26/17 at 21:00 Albuterol Sulfate (Ventolin Neb Soln) 2.5 mg PRN Q4HRS PRN NEB SHORTNESS OF BREATH; Start 08/27/17 at 09:00 Guaifenesin (Robitussin Dm) 10 ml PRN Q6HRS PRN PO COUGH; Start 08/27/17 at 09 :00 Oxycodone/ Acetaminophen (Percocet 5/325) 1 tab PRN Q4HRS PRN PO PAIN; Start 08/27/17 at 09:00 Active Scripts Active Tessalon Perle (Benzonatate) 100 Mg Capsule 1 Cap PO TID Proair Respiclick (Albuterol Sulfate) 90 Mcg Aer.pow.ba 1 Puff IH PRN Q6HRS PRN Zofran Odt (Ondansetron) 4 Mg Tab.rapdis 1 Tab SL Q8HRS Zofran (Ondansetron Hcl) 4 Mg Tablet 4 Mg PO BID PRN Pepcid (Famotidine) 20 Mg Tablet 20 Mg PO BID Colcrys (Colchicine) 0.6 Mg Tablet 0.6 Mg PO UD Take 2 tablets x1 then 1 tab 1 hour later. Do not repeat for 3 days. May take 1 tab daily after 3 days. Hydrocodone-Apap 7.5-325 (Hydrocodone Bit/Acetaminophen) 1 Each Tablet 1-2 Tab PO Q4-6HRS Reported Atorvastatin Calcium 40 Mg Tablet 1 Tab PO QHS Nifedipine Er (Nifedipine) 60 Mg Tablet.er 90 Mg PO DAILY Gary Chewable (Aspirin) 81 Mg Tab.chew 81 Mg PO Modafinil 200 Mg Tablet 200 Mg PO BID Metformin Hcl 1,000 Mg Tablet 1,000 Mg PO BID Labetalol Hcl 200 Mg Tablet 300 Mg PO BID Glimepiride 4 Mg Tablet 4 Mg PO DAILY Allopurinol 300 Mg Tablet 300 Mg PO DAILY Ramipril 10 Mg Capsule 20 Mg PO DAILY Clonidine Hcl 0.1 Mg Tablet 0.1 Mg PO TID Vitals/I & O Vital Sign - Last 24 Hours 08/26/17 08/26/17 08/26/17 08/26/17 14:34 15:30 16:30 17:00 Temp 98.6 98.6 Pulse 108 100 98 98 Resp 20 26 B/P (MAP) 208/134 (158) 196/123 (147) 173/124 (140) 189/30 (82) Pulse Ox 77 100 100 100 O2 Delivery Room Air Nasal Cannula Nasal Cannula Nasal Cannula O2 Flow Rate 4.0 4.0 4.0 08/26/17 08/26/17 08/26/17 08/26/17 17:05 17:30 17:36 17:42 Pulse 102 106 114 128 Resp B/P (MAP) 195/133 202/36 (91) 202/136 206/141 Pulse Ox 100 O2 Delivery Nasal Cannula O2 Flow Rate 4.0 08/26/17 08/26/17 08/26/17 08/26/17 17:45 17:48 18:00 18:15 Pulse 116 116 116 116 Resp 29 28 B/P (MAP) 175/122 (139) 175/122 172/118 (136) 160/115 (130) Pulse Ox 99 99 100 O2 Delivery Nasal Cannula Nasal Cannula Nasal Cannula O2 Flow Rate 4.0 4.0 4.0 08/26/17 08/26/17 08/26/17 08/26/17 18:20 19:00 19:10 19:15 Temp 98.0 98.0 Pulse 118 110 108 Resp 28 18 22 B/P (MAP) 158/111 (127) 165/94 (117) 159/101 (120) Pulse Ox 100 98 97 O2 Delivery Nasal Cannula Room Air O2 Flow Rate 4.0 4.0 4.0 08/26/17 08/26/17 08/26/17 08/26/17 19:30 19:45 20:00 20:00 Pulse 110 110 108 Resp B/P (MAP) 175/121 (139) 169/118 (135) 157/110 (126) Pulse Ox 96 95 95 O2 Flow Rate 4.0 4.0 4.0 4.0 08/26/17 08/26/17 08/26/17 08/26/17 20:15 20:19 20:21 20:30 Pulse 108 108 110 112 B/P (MAP) 185/94 (124) 185/94 185/94 174/98 (123) Pulse Ox 96 95 O2 Flow Rate 4.0 4.0 08/26/17 08/26/17 08/26/17 08/26/17 20:45 21:00 21:30 22:00 Pulse 104 106 110 100 Resp B/P (MAP) 173/110 (131) 173/96 (121) 151/96 (114) 140/68 (92) Pulse Ox 96 95 96 96 O2 Flow Rate 4.0 4.0 4.0 4.0 08/26/17 08/26/17 08/26/17 08/27/17 23:00 23:59 23:59 01:00 Temp 98.8 98.8 Pulse 99 98 97 Resp B/P (MAP) 150/86 (107) 142/96 (111) 150/89 (109) Pulse Ox 96 96 94 O2 Flow Rate 4.0 4.0 4.0 4.0 08/27/17 08/27/17 08/27/17 08/27/17 02:00 03:00 04:00 04:00 Temp 98.6 98.6 Pulse 94 95 103 Resp B/P (MAP) 143/93 (110) 155/98 (117) 142/94 (110) Pulse Ox 94 96 96 O2 Flow Rate 4.0 4.0 4.0 4.0 08/27/17 08/27/17 08/27/17 08/27/17 05:00 06:00 09:05 09:06 Pulse 90 94 94 94 Resp 22 22 B/P (MAP) 153/91 (111) 143/99 (114) 150/65 154/103 Pulse Ox 96 96 O2 Flow Rate 4.0 2.0 08/27/17 08/27/17 08/27/17 09:07 09:12 10:02 Pulse 99 99 B/P (MAP) 154/103 154/103 Pulse Ox 93 O2 Delivery Room Air Intake and Output 08/26/17 08/26/17 08/27/17 15:00 23:00 07:00 Intake Total 600 ml 12 ml Output Total 3270 ml 1860 ml Balance -2670 ml -1848 ml MARJORIE HUDSON MD Aug 27, 2017 12:01
--- NOTE | 2017-08-27 12:29 | CONS ---
DATE OF CONSULTATION: ATTENDING PHYSICIAN: Gil Lakhani MD REASON FOR CONSULTATION: Respiratory failure. HISTORY OF PRESENT ILLNESS: The patient is a 46-year-old obese male with no significant history of tobacco use. He presented with increasing dyspnea. He also had a mild cough with some chest congestion. No fever. He was noted to be hypoxic with saturation in the 80s. His chest x-ray was consistent with asymmetric congestive heart failure. He underwent CT chest, which was reviewed by me, there were bilateral pleural effusions. There were also moderate pulmonary infiltrates, more on the right than on the left, and also interlobular septal thickening consistent with pulmonary edema. He has felt better since he has been diuresed. He was also placed empirically on antibiotics. PAST MEDICAL HISTORY: History of congestive heart failure. No history of tobacco use. History of hypertension. PAST SURGICAL HISTORY: No recent surgeries. ALLERGIES: LOVASTATIN. MEDICATIONS: Reviewed as listed in the MRAD. REVIEW OF SYSTEMS: Twelve-point system obtained. Pertinent positives discussed in my history of present illness, otherwise noncontributory. All systems that were negative were reviewed as well. SOCIAL HISTORY: Nonsmoker. PHYSICAL EXAMINATION: VITAL SIGNS: Reviewed. Blood pressure 153/91, pulse ox 96% on 4 liters. NECK: Supple. LUNGS: Diminished breath sounds. CARDIOVASCULAR: Regular rate and rhythm. ABDOMEN: Soft, obese. EXTREMITIES: With 1+ pitting edema. LABORATORY DATA: Reviewed. White cell count 8.4, hemoglobin 12.1. IMPRESSION: 1. Acute hypoxic respiratory failure secondary to acute systolic and diastolic heart failure. 2. Clinically less likely pneumonia. 3. Abnormal echo with an ejection fraction of 40-45% and diastolic dysfunction. 4. Hypertension, suboptimal control, triggering congestive heart failure. RECOMMENDATIONS: 1. Continue to wean off oxygen. 2. Diuresis. 3. We will deescalate antibiotic soon. 4. Follow chest x-ray in next 24 hours. 5. Follow Cardiology recommendations. 6. Weight loss is advised. Critical care time 35 minutes. LAVELL HOWELL MD DR: AIMEE/alva JOB#: [id number] / [id number]
[2017-08-27] MEDS ORDERED: DEXTROSE 50% 25 GM / 50ML DISP.SYRIN. IV PRN ×2 (13:00→13:15)
[2017-08-27] MEDS ORDERED: cefTRIAXone IV Push 1 GM VIAL. IVP SCH (13:00)
--- NOTE | 2017-08-27 14:24 | CARD ---
APPROVED REPORT EXAM: Two-dimensional and M-mode echocardiogram with Doppler and color Doppler. Other Information Quality : Good INDICATION Dyspnea Congestive Heart Failure 2D DIMENSIONS Left Atrium(2D)4.1 (1.6-4.0cm)IVSd1.5 (0.7-1.1cm) Aortic Root(2D)3.3 (2.0-3.7cm)LVDd6.0 (3.9-5.9cm) LVOT Diameter2.0 (1.8-2.4cm)PWd1.6 (0.7-1.1cm) LVDs4.8 (2.5-4.0cm)FS (%) 19.6 % SV71.0 mlLVEF(%)39.5 (>50%) Aortic Valve AoV Peak Mateo.168.9cm/sAoV VTI26.1cm AO Peak GR.11.4mmHgLVOT Peak Mateo.100.1cm/s AO Mean GR.6mmHgAVA (VMAX)1.83cm2 GIORGI (VTI)1.90cm2 Mitral Valve MV E Jyuykjbd779.1cm/sMV DECEL [id number] MV A Xkecnvzr25.3cm/sE/A Ratio3.0 Tricuspid Valve TR P. Yuysqowk518ah/sRAP [id number] TR Peak Gr.87klOqEFPJ26ybDx LEFT VENTRICLE The Left Ventricle is mildly dilated. There is moderate concentric left ventricular hypertrophy. Left ventricle systolic function is severely impaired. EF 25-30% There is global hypokinesis of the left ventricle. [place] appears akinetic. Tissue Doppler imaging reveals moderate left ventricular diastolic dysfunction. RIGHT VENTRICLE The right ventricle is normal size. The right ventricular systolic function is normal. ATRIA The left atrium is mildly dilated. The right atrium size is normal. The interatrial septum is intact with no evidence for an atrial septal defect or patent foramen ovale as noted on 2-D or Doppler imagi ng. AORTIC VALVE The aortic valve is calcified but opens well. Doppler and Color Flow revealed trace to mild aortic re gurgitation. There is no significant aortic valvular stenosis. MITRAL VALVE The mitral valve is calcified but opens well. There is no evidence of mitral valve prolapse. There is no mitral valve stenosis. Doppler and Color-flow revealed mild mitral regurgitation. TRICUSPID VALVE The tricuspid valve is normal in structure. Doppler and Color Flow revealed mild tricuspid regurgitat ion. There is no pulmonary hypertension. The PA pressure was estimated at 23 mmHg. There is no tricus pid valve prolapse or vegetation. There is no tricuspid valve stenosis. PULMONIC VALVE Doppler and Color Flow revealed trace pulmonic valvular regurgitation. There is no pulmonic valvular stenosis. GREAT VESSELS The aortic root is normal in size. The ascending aorta is normal in size. The IVC is mildly dilated i n size and collapses >50% with inspiration. PERICARDIAL EFFUSION Possible moderate right sided pleural effusion present. There is no evidence of significant pericardi al effusion. Critical Notification Critical Value: No <Conclusion> Left ventricle systolic function is severely impaired. EF 25-30% There is global hypokinesis of the left ventricle. [place] appears akinetic. Tissue Doppler imaging reveals moderate left ventricular diastolic dysfunction.
[2017-08-27 14:29] LABS: OBC FLU VALID
[2017-08-27] MEDS ORDERED: MAGNESIUM SULFATE 2GM 50 ML IV ONE (15:00)
[2017-08-27] MEDS ORDERED: INSULIN ASPART 300 UNITS/3 ML INSULN.PEN SQ SCH (17:00)
[2017-08-27] MEDS: INSULIN ASPART 300 UNITS/3 ML INSULN.PEN SQ SCH (17:56)
[2017-08-27] MEDS ORDERED: FUROSEMIDE 40 MG/4 ML VIAL. IVP ONE (19:30)
[2017-08-27] MEDS ORDERED: POTASSIUM CHLORIDE 20 MEQ TABLET.ER. PO ONE (19:30)
[2017-08-27] MEDS: LACTOBACILLUS RHAMNOSUS GG 1 CAPSULE. PO SCH (20:26)
[2017-08-27] MEDS: ATORVASTATIN CALCIUM 40 MG TABLET. PO SCH (20:27)
[2017-08-27 23:24] LABS: BARBITURATES NEG (NEG); BENZODIAZEPINES NEG (NEG); CANNABINOIDS NEG (NEG); COCAINE NEG (NEG); METHADONE NEG (NEG); OPIATES NEG (NEG); PHENCYCLIDINE NEG (NEG)
[2017-08-28 03:10] VITALS: BP 117/82
[2017-08-28 04:48] LABS: CALCIUM 8.6 mg/dL (8.5-10.1); GFR 96.5; MAGNESIUM 1.7 mg/dL (1.8-2.4); POTASSIUM 3.5 mmol/L (3.5-5.1)
[2017-08-28] MEDS: ASPIRIN CHEWABLE 81 MG TABLET. PO SCH (05:29)
[2017-08-28 07:00] VITALS: BP 115/78
--- NOTE | 2017-08-28 07:57 | RAD ---
Frontal view of the Chest 08/28/2017 9:00 AM Indication: Congestive heart failure Comparison: Comparison radiograph August 26, 2017 Findings: Lordotic projection noted, similar to prior exam. No pneumothorax or significant effusion is identified. There is interval improvement of interstitial edema and central vascular congestion. Mild residual edema or infiltrate in right upper lung noted. Heart size is mildly enlarged. No acute osseous changes are identified. Impression: Interval improved interstitial edema and central vascular congestion. Mild residual infiltrate or edema is seen in the right upper lung
[2017-08-28] MEDS: INSULIN ASPART 300 UNITS/3 ML INSULN.PEN SQ SCH ×3 (08:00→18:48)
[2017-08-28] MEDS ORDERED: POTASSIUM CHLORIDE 20 MEQ TABLET.ER. PO SCH (08:00)
[2017-08-28] MEDS: POTASSIUM CHLORIDE 20 MEQ TABLET.ER. PO SCH (08:00)
[2017-08-28] MEDS: GLIMEPIRIDE 2 MG TABLET. PO SCH (08:00)
[2017-08-28] MEDS: FUROSEMIDE 40 MG/4 ML VIAL. IVP SCH (08:59)
[2017-08-28] MEDS: ENOXAPARIN 40 MG/0.4 ML SYRINGE. SQ SCH (08:59)
[2017-08-28] MEDS: FAMOTIDINE 20 MG TABLET. PO SCH ×2 (09:00→21:31)
[2017-08-28] MEDS: BENZONATATE 100 MG CAPSULE. PO SCH ×3 (09:00→21:31)
[2017-08-28] MEDS: LACTOBACILLUS RHAMNOSUS GG 1 CAPSULE. PO SCH ×2 (09:00→21:32)
[2017-08-28] MEDS: LABETALOL HCL 200 MG TABLET PO SCH ×2 (09:00→21:34)
--- NOTE | 2017-08-28 09:43 | PDOC ---
CARDIO Progress Notes Date and Time Date of Service 08/28/2017 Time of Evaluation 0915 Subjective Subjective: No Chest Pain, No shortness of breath, No Palpitations Vitals Vitals Vital Signs Date Time Temp Pulse Resp B/P (MAP) Pulse Ox O2 Delivery O2 Flow Rate FiO2 08/28/17 08:00 Nasal Cannula 2.0 08/28/17 07:00 98.0 86 18 115/78 (90) 94 98.0 Weight Weight [ ] Input and Output Intake and Output Intake and Output 08/28/17 06:59 Intake Total 990 ml Output Total 1150 ml Balance -160 ml Intake Oral 990 ml Output Urine Total 1150 ml # Voids 1 Laboratory Labs Laboratory Tests Test 08/27/17 11:43 08/27/17 13:00 08/27/17 13:15 08/27/17 16:34 Glucose (Fingerstick) 208 mg/dL (70-99) 152 mg/dL (70-99) Magnesium Level 1.4 mg/dL (1.8-2.4) Triglycerides Level 82 mg/dL (0-150) Cholesterol Level 148 mg/dL (0-200) LDL Cholesterol, Calculated 95 mg/dL (0-100) VLDL Cholesterol, Calculated 16 mg/dL (0-40) Non-HDL Cholesterol Calculated 111 mg/dL (0-129) HDL Cholesterol 37 mg/dL (40-60) Cholesterol/HDL Ratio 4.0 Influenza Type A Antigen Negative (NEGATIVE) Influenza Type B Antigen Negative (NEGATIVE) Test 08/27/17 21:11 08/27/17 21:13 08/28/17 03:30 08/28/17 07:40 Glucose (Fingerstick) 264 mg/dL (70-99) 156 mg/dL (70-99) Urine Opiates Screen Neg (NEG) Urine Methadone Screen Neg (NEG) Urine Barbiturates Neg (NEG) Urine Phencyclidine Screen Neg (NEG) Urine Amphetamine/Methamphetamine Neg (NEG) Urine Benzodiazepines Screen Neg (NEG) Urine Cocaine Screen Neg (NEG) Urine Cannabinoids Screen Neg (NEG) Urine Ethyl Alcohol Neg (NEG) Sodium Level 141 mmol/L (136-145) Potassium Level 3.5 mmol/L (3.5-5.1) Chloride Level 100 mmol/L (98-107) Carbon Dioxide Level 33 mmol/L (21-32) Anion Gap 8 (6-14) Blood Urea Nitrogen 11 mg/dL (8-26) Creatinine 1.0 mg/dL (0.7-1.3) Estimated GFR (Cockcroft-Gault) 96.5 Glucose Level 162 mg/dL (70-99) Calcium Level 8.6 mg/dL (8.5-10.1) Magnesium Level 1.7 mg/dL (1.8-2.4) Microbiology Micro Microbiology 08/26/17 Blood Culture - Preliminary, Resulted NO GROWTH AFTER 1 DAY Physical Exam HEENT: Neck Supple W Full Motion Chest: Symmetric Heart: S1S2, RRR (SR without significant rhythm ectopies) Abdomen: Soft N/T Extremities: No Calf Tenderness Neurology: alert, oriented, follow commands Assessment Assessment 1. Acute CHF with systolic/diastolic dysfunction 2. Accelerated HTN: controlled 3. YANG: noncompliant with CPAP 4. DM2/HLP 5. Morbid obesity 6. Cardiomyopathy: EF 25-30% NEW. [place] appears akinetic Recommendations 1. DC nifedipine. Start on metoprolol and eventually change to coreg and optimize BB Monitor BP will titrate to DC gradually the clonidine. 2. Continue with lasix therapy. Start on statin 3. Replace Mg and K. 4. Discussed CPAP compliance. Wt loss. 2gm Na diet FR 2L. 5. MPI today, likely 2 day 6. Will continue with optimization. VALERIY VANESSA APRN Aug 28, 2017 09:43
[2017-08-28] MEDS ORDERED: MAGNESIUM SULFATE 2GM 50 ML IV ONE (10:00)
[2017-08-28] MEDS ORDERED: POTASSIUM CHLORIDE 20 MEQ TABLET.ER. PO ONE (10:00)
[2017-08-28] MEDS: METOPROLOL TART IMMED RELEASE 25 MG TABLET. PO SCH ×2 (10:00→21:32)
[2017-08-28 10:54] VITALS: BP 110/77
[2017-08-28] MEDS ORDERED: REGADENOSON 0.4 MG/5 ML DISP.SYRIN. IV ONE (11:15)
--- NOTE | 2017-08-28 13:47 | PDOC ---
PROGRESS NOTES Chief Complaint Chief Complaint Acute hypoxic respir failure ASSESSMENT AND PLAN: 1. CHF exacerbation: systolic (EF25-30%) -NEW. meds changed as per card recommendations. MPI pending. stop Abx 2. HTN urgency: better controlled 3. HLD: start statin 4. Hypomagnesemia: replete IV 5. DM2: well controlled on current regimen 6. YANG: noncompliant with CPAP 7. Morbid obesity History of Present Illness History of Present Illness feels better, no SOB. no CP. no OG Vitals Vitals Vital Signs Date Time Temp Pulse Resp B/P (MAP) Pulse Ox O2 Delivery O2 Flow Rate FiO2 08/28/17 10:54 98.2 94 18 110/77 (88) 94 Nasal Cannula 2.0 98.2 Physical Exam General: Alert, Oriented X3, Cooperative, No acute distress Heart: Regular rate Lungs: Clear Abdomen: Normal bowel sounds, Soft Extremities: No edema Skin: No rashes Labs LABS Laboratory Tests Test 08/27/17 16:34 08/27/17 21:11 08/27/17 21:13 08/28/17 03:30 Glucose (Fingerstick) 152 mg/dL (70-99) 264 mg/dL (70-99) Urine Opiates Screen Neg (NEG) Urine Methadone Screen Neg (NEG) Urine Barbiturates Neg (NEG) Urine Phencyclidine Screen Neg (NEG) Urine Amphetamine/Methamphetamine Neg (NEG) Urine Benzodiazepines Screen Neg (NEG) Urine Cocaine Screen Neg (NEG) Urine Cannabinoids Screen Neg (NEG) Urine Ethyl Alcohol Neg (NEG) Sodium Level 141 mmol/L (136-145) Potassium Level 3.5 mmol/L (3.5-5.1) Chloride Level 100 mmol/L (98-107) Carbon Dioxide Level 33 mmol/L (21-32) Anion Gap 8 (6-14) Blood Urea Nitrogen 11 mg/dL (8-26) Creatinine 1.0 mg/dL (0.7-1.3) Estimated GFR (Cockcroft-Gault) 96.5 Glucose Level 162 mg/dL (70-99) Calcium Level 8.6 mg/dL (8.5-10.1) Magnesium Level 1.7 mg/dL (1.8-2.4) Test 08/28/17 07:40 08/28/17 11:47 Glucose (Fingerstick) 156 mg/dL (70-99) 150 mg/dL (70-99) DALLIN RIVERS MD Aug 28, 2017 13:47
[2017-08-28] MEDS ORDERED: FAMOTIDINE 20 MG TABLET. PO SCH (14:00)
[2017-08-28] MEDS ORDERED: ENOXAPARIN 40 MG/0.4 ML SYRINGE. SQ SCH (14:00)
--- NOTE | 2017-08-28 14:12 | PDOC ---
PULMONARY PROGRESS NOTES Subjective feels better Vitals Vital Signs Date Time Temp Pulse Resp B/P (MAP) Pulse Ox O2 Delivery O2 Flow Rate FiO2 08/28/17 10:54 98.2 94 18 110/77 (88) 94 Nasal Cannula 2.0 98.2 General: Alert, No acute distress Lungs: Clear Cardiovascular: S1 Abdomen: Soft Neuro Exam: Alert Extremities: Other (1+edema) Labs Laboratory Tests Test 08/26/17 14:45 08/26/17 15:28 08/27/17 06:00 08/27/17 08:25 Lactic Acid Level 1.8 mmol/L (0.4-2.0) White Blood Count 8.4 x10^3/uL (4.0-11.0) Red Blood Count 4.64 x10^6/uL (4.30-5.70) Hemoglobin 12.1 g/dL (13.0-17.5) Hematocrit 37.9 % (39.0-53.0) Mean Corpuscular Volume 82 fL (79-100) Mean Corpuscular Hemoglobin 26 pg (25-35) Mean Corpuscular Hemoglobin Concent 32 g/dL (31-37) Red Cell Distribution Width 13.4 % (11.5-14.5) Platelet Count 314 x10^3/uL (140-400) Neutrophils (%) (Auto) 77 % (31-73) Lymphocytes (%) (Auto) 17 % (24-48) Monocytes (%) (Auto) 5 % (0-9) Eosinophils (%) (Auto) 1 % (0-3) Basophils (%) (Auto) 1 % (0-3) Neutrophils # (Auto) 6.5 x10^3uL (1.8-7.7) Lymphocytes # (Auto) 1.4 x10^3/uL (1.0-4.8) Monocytes # (Auto) 0.4 x10^3/uL (0.0-1.1) Eosinophils # (Auto) 0.1 x10^3/uL (0.0-0.7) Basophils # (Auto) 0.0 x10^3/uL (0.0-0.2) Sodium Level 139 mmol/L (136-145) Potassium Level 3.6 mmol/L (3.5-5.1) Chloride Level 101 mmol/L (98-107) Carbon Dioxide Level 32 mmol/L (21-32) Anion Gap 6 (6-14) Blood Urea Nitrogen 10 mg/dL (8-26) Creatinine 1.0 mg/dL (0.7-1.3) Estimated GFR (Cockcroft-Gault) 96.5 BUN/Creatinine Ratio 10 (6-20) Glucose Level 143 mg/dL (70-99) Calcium Level 8.6 mg/dL (8.5-10.1) Total Bilirubin 0.7 mg/dL (0.2-1.0) Aspartate Amino Transf (AST/SGOT) 26 U/L (15-37) Alanine Aminotransferase (ALT/SGPT) 52 U/L (16-63) Alkaline Phosphatase 112 U/L (46-116) Troponin I Quantitative < 0.017 ng/mL (0.000-0.055) QD-Oyg-M-Type Natriuretic Peptide 582 pg/mL (0-124) Total Protein 7.0 g/dL (6.4-8.2) Albumin 2.8 g/dL (3.4-5.0) Albumin/Globulin Ratio 0.7 (1.0-1.7) Thyroid Stimulating Hormone (TSH) 1.280 uIU/mL (0.358-3.74) Nasal Screen MRSA (PCR) Negative (Negative) Glucose (Fingerstick) 120 mg/dL (70-99) Test 08/27/17 11:43 08/27/17 13:00 08/27/17 13:15 08/27/17 16:34 Glucose (Fingerstick) 208 mg/dL (70-99) 152 mg/dL (70-99) Magnesium Level 1.4 mg/dL (1.8-2.4) Triglycerides Level 82 mg/dL (0-150) Cholesterol Level 148 mg/dL (0-200) LDL Cholesterol, Calculated 95 mg/dL (0-100) VLDL Cholesterol, Calculated 16 mg/dL (0-40) Non-HDL Cholesterol Calculated 111 mg/dL (0-129) HDL Cholesterol 37 mg/dL (40-60) Cholesterol/HDL Ratio 4.0 Influenza Type A Antigen Negative (NEGATIVE) Influenza Type B Antigen Negative (NEGATIVE) Test 08/27/17 21:11 08/27/17 21:13 08/28/17 03:30 08/28/17 07:40 Glucose (Fingerstick) 264 mg/dL (70-99) 156 mg/dL (70-99) Urine Opiates Screen Neg (NEG) Urine Methadone Screen Neg (NEG) Urine Barbiturates Neg (NEG) Urine Phencyclidine Screen Neg (NEG) Urine Amphetamine/Methamphetamine Neg (NEG) Urine Benzodiazepines Screen Neg (NEG) Urine Cocaine Screen Neg (NEG) Urine Cannabinoids Screen Neg (NEG) Urine Ethyl Alcohol Neg (NEG) Sodium Level 141 mmol/L (136-145) Potassium Level 3.5 mmol/L (3.5-5.1) Chloride Level 100 mmol/L (98-107) Carbon Dioxide Level 33 mmol/L (21-32) Anion Gap 8 (6-14) Blood Urea Nitrogen 11 mg/dL (8-26) Creatinine 1.0 mg/dL (0.7-1.3) Estimated GFR (Cockcroft-Gault) 96.5 Glucose Level 162 mg/dL (70-99) Calcium Level 8.6 mg/dL (8.5-10.1) Magnesium Level 1.7 mg/dL (1.8-2.4) Test 08/28/17 11:47 Glucose (Fingerstick) 150 mg/dL (70-99) Laboratory Tests Test 08/27/17 16:34 08/27/17 21:11 08/27/17 21:13 08/28/17 03:30 Glucose (Fingerstick) 152 mg/dL (70-99) 264 mg/dL (70-99) Urine Opiates Screen Neg (NEG) Urine Methadone Screen Neg (NEG) Urine Barbiturates Neg (NEG) Urine Phencyclidine Screen Neg (NEG) Urine Amphetamine/Methamphetamine Neg (NEG) Urine Benzodiazepines Screen Neg (NEG) Urine Cocaine Screen Neg (NEG) Urine Cannabinoids Screen Neg (NEG) Urine Ethyl Alcohol Neg (NEG) Sodium Level 141 mmol/L (136-145) Potassium Level 3.5 mmol/L (3.5-5.1) Chloride Level 100 mmol/L (98-107) Carbon Dioxide Level 33 mmol/L (21-32) Anion Gap 8 (6-14) Blood Urea Nitrogen 11 mg/dL (8-26) Creatinine 1.0 mg/dL (0.7-1.3) Estimated GFR (Cockcroft-Gault) 96.5 Glucose Level 162 mg/dL (70-99) Calcium Level 8.6 mg/dL (8.5-10.1) Magnesium Level 1.7 mg/dL (1.8-2.4) Test 08/28/17 07:40 08/28/17 11:47 Glucose (Fingerstick) 156 mg/dL (70-99) 150 mg/dL (70-99) Medications Active Scripts Medications Dose Route/Sig Max Daily Dose Days Date Category Dose Instructions Tessalon Perle (Benzonatate) 100 Mg Capsule 1 Cap PO TID 08/14/17 Rx Proair Respiclick (Albuterol Sulfate) 90 Mcg Aer.pow.ba 1 Puff IH PRN Q6HRS PRN 08/14/17 Rx Zofran Odt (Ondansetron) 4 Mg Tab.rapdis 1 Tab SL Q8HRS 08/14/17 Rx Zofran (Ondansetron Hcl) 4 Mg Tablet 4 Mg PO BID PRN 05/07/16 Rx Pepcid (Famotidine) 20 Mg Tablet 20 Mg PO BID 05/07/16 Rx Colcrys (Colchicine) 0.6 Mg Tablet 0.6 Mg PO UD 02/05/16 Rx Take 2 tablets x1 then 1 tab 1 hour later. Do not repeat for 3 days. May take 1 tab daily after 3 days. Atorvastatin Calcium 40 Mg Tablet 1 Tab PO QHS 06/10/15 Reported Hydrocodone-Apap 7.5-325 (Hydrocodone Bit/Acetaminophen) 1 Each Tablet 1-2 Tab PO Q4-6HRS 01/05/15 Rx Nifedipine Er (Nifedipine) 60 Mg Tablet.er 90 Mg PO DAILY 01/02/15 Reported Gary Chewable (Aspirin) 81 Mg Tab.chew 81 Mg PO 05/01/14 Reported Modafinil 200 Mg Tablet 200 Mg PO BID 05/01/14 Reported Metformin Hcl 1,000 Mg Tablet 1,000 Mg PO BID 05/01/14 Reported Labetalol Hcl 200 Mg Tablet 300 Mg PO BID 05/01/14 Reported Glimepiride 4 Mg Tablet 4 Mg PO DAILY 05/01/14 Reported Allopurinol 300 Mg Tablet 300 Mg PO DAILY 05/01/14 Reported Ramipril 10 Mg Capsule 20 Mg PO DAILY 05/01/14 Reported Clonidine Hcl 0.1 Mg Tablet 0.1 Mg PO TID 05/01/14 Reported Impression . 1. Acute hypoxic respiratory failure secondary to acute systolic and diastolic heart failure. 2. Clinically less likely pneumonia. 3. Abnormal echo with an ejection fraction of 25-30% and diastolic dysfunction. 4. Hypertension, suboptimal control, triggering congestive heart failure. Plan . 1. Continue to wean off oxygen. 2. Diuresis 3. dc antibiotic. cxr clear post diuresis 4. No further pulmonary recommendations. 5. Follow Cardiology recommendations. 6. Weight loss is advised. will sign off LAVELL HOWELL MD Aug 28, 2017 14:12
[2017-08-28 15:00] VITALS: BP 141/94
[2017-08-28] MEDS: ALLOPURINOL 300 MG TABLET. PO SCH (15:08)
[2017-08-28] MEDS: ONDANSETRON ODT 4 MG TAB.RAPDIS. PO SCH (15:08)
[2017-08-28] MEDS: LISINOPRIL 40 MG TABLET. PO SCH (15:09)
[2017-08-28 19:26] VITALS: BP 114/74
[2017-08-28] MEDS ORDERED: ATORVASTATIN CALCIUM 20 MG TABLET PO SCH (21:00)
[2017-08-28] MEDS: ATORVASTATIN CALCIUM 40 MG TABLET. PO SCH (21:31)
[2017-08-28] MEDS: cloNIDine HCL 0.1 MG TABLET PO SCH (21:33)
[2017-08-28 23:55] VITALS: BP 146/94
[2017-08-29 03:44] VITALS: BP 112/65
[2017-08-29 07:00] VITALS: BP 137/61
--- NOTE | 2017-08-29 07:07 | PDOC ---
CARDIO Progress Notes Date and Time Date of Service 08/29/2017 Time of Evaluation 0650 Subjective Subjective: No Chest Pain, No shortness of breath, No Palpitations Vitals Vitals Vital Signs Date Time Temp Pulse Resp B/P (MAP) Pulse Ox O2 Delivery O2 Flow Rate FiO2 08/29/17 03:44 98.7 73 18 112/65 (81) 91 Nasal Cannula 2.0 98.7 Weight Weight [ ] Input and Output Intake and Output Intake and Output 08/29/17 07:00 Intake Total 1200 ml Output Total 550 ml Balance 650 ml Intake Oral 1200 ml Output Urine Total 550 ml Laboratory Labs Laboratory Tests Test 08/28/17 07:40 08/28/17 11:47 08/28/17 17:17 08/28/17 22:00 Glucose (Fingerstick) 156 mg/dL (70-99) 150 mg/dL (70-99) 194 mg/dL (70-99) 162 mg/dL (70-99) Microbiology Micro Microbiology 08/26/17 Blood Culture - Preliminary, Resulted NO GROWTH AFTER 2 DAYS Physical Exam HEENT: Neck Supple W Full Motion Chest: Symmetric LUNGS: Other (faint basial crackles) Heart: S1S2, RRR (SR without significant rhythm ectopies) Abdomen: Soft N/T Extremities: No Calf Tenderness, Other (2+ bilateral LE pitting edema) Neurology: alert, oriented, follow commands Assessment Assessment 1. Acute CHF with systolic/diastolic dysfunction: compensated 2. Accelerated HTN: controlled 3. YANG: noncompliant with CPAP 4. DM2/HLP 5. Morbid obesity 6. Cardiomyopathy: EF 25-30% NEW. [place] appears akinetic Recommendations 1. Continue with current regimen, no nifedipine. Uptitrate metoprolol per BP trend and eventually change to coreg. Will continue to titrate off po clonidine as an outpt for BB transition. 2. Continue with lasix therapy transition to PO tomorrow 3. Replace Mg and K as warranted. BMP, Mg today 4. Again Discussed CPAP compliance. Wt loss. 2gm Na diet FR 2L, home BP monitoring to be reinforced by staff 5. MPI completion today, if no reversible defects, then may DC this afternoon. 6. Pt has financial constraints. I did have significant discussion regarding treatment compliance. Also mentioned about lifevest but due to financial issues, pt wont be able to afford this. AICD is a consideration pending his compliance and will reassess in 3 months for consideration Also discussed appointments and encourage to follow up in 3-4 weeks VALERIY VANESSA APRN Aug 29, 2017 07:07
[2017-08-29 07:42] LABS: BASO % 0 % (0-3); EOS % 3 % (0-3); HEMATOCRIT 37.1 % (39.0-53.0); HEMOGLOBIN 11.6 g/dL (13.0-17.5); LYMPH # 1.3 x10^3/uL (1.0-4.8); LYMPH % 22 % (24-48); MEAN CORPUSCULAR HEMOGLOBIN 26 pg (25-35); MEAN CORPUSCULAR HGB CONC 31 g/dL (31-37); MEAN CORPUSCULAR VOLUME 82 fL (79-100); MONO % 8 % (0-9); NEUT % 67 % (31-73); PLATELET COUNT 359 x10^3/uL (140-400); RED BLOOD COUNT 4.51 x10^6/uL (4.30-5.70); RED CELL DISTRIBUTION WIDTH 13.6 % (11.5-14.5); WHITE BLOOD COUNT 6.1 x10^3/uL (4.0-11.0)
[2017-08-29 07:57] LABS: CALCIUM 8.6 mg/dL (8.5-10.1); CREATININE 0.9 mg/dL (0.7-1.3); POTASSIUM 3.9 mmol/L (3.5-5.1)
[2017-08-29] MEDS: POTASSIUM CHLORIDE 20 MEQ TABLET.ER. PO SCH (08:00)
[2017-08-29] MEDS: INSULIN ASPART 300 UNITS/3 ML INSULN.PEN SQ SCH ×2 (08:00→11:10)
[2017-08-29] MEDS ORDERED: FUROSEMIDE 40 MG TABLET. PO SCH (09:00)
[2017-08-29] MEDS ORDERED: ENOXAPARIN 40 MG/0.4 ML SYRINGE. SQ SCH (09:00)
[2017-08-29] MEDS ORDERED: POTA20TA4 PO (09:29)
[2017-08-29] MEDS ORDERED: FURO40TA4 PO (09:29)
[2017-08-29] MEDS ORDERED: METO25TA4 PO (09:29)
--- NOTE | 2017-08-29 09:35 | PDOC3 ---
Discharge Summary Visit Information Date of Admission: Aug 26, 2017 Date of Discharge: Aug 29, 2017 Admitting Diagnosis: shortness of breath Final Diagnosis ASSESSMENT AND PLAN: 1. CHF exacerbation: systolic (EF25-30%) -NEW diagnosis, . meds changed 2. HTN urgency: better controlled 3. HLD: start statin 4. Hypomagnesemia: replete IV 5. DM2: well controlled on current regimen 6. YANG: noncompliant with CPAP 7. Morbid obesity Problems Medical Problems: (1) CHF (congestive heart failure) Status: Acute (2) Hypoxia Status: Acute (3) Pneumonia Status: Acute Brief Hospital Course Allergies Allergies Coded Allergies Type Severity Reaction Last Updated Verified No Known Medication Allergies Allergy Unknown 08/28/17 Yes lovastatin Adverse Reaction Intermediate SEE COMMENT 06/11/15 Yes Vital Signs Vital Signs Date Time Temp Pulse Resp B/P (MAP) Pulse Ox O2 Delivery O2 Flow Rate FiO2 08/29/17 07:00 98.1 84 20 137/61 (86) 94 Nasal Cannula 2.0 98.1 Lab Results Laboratory Tests Test 08/27/17 11:43 08/27/17 13:00 08/27/17 13:15 08/27/17 16:34 Glucose (Fingerstick) 208 mg/dL (70-99) 152 mg/dL (70-99) Magnesium Level 1.4 mg/dL (1.8-2.4) Triglycerides Level 82 mg/dL (0-150) Cholesterol Level 148 mg/dL (0-200) LDL Cholesterol, Calculated 95 mg/dL (0-100) VLDL Cholesterol, Calculated 16 mg/dL (0-40) Non-HDL Cholesterol Calculated 111 mg/dL (0-129) HDL Cholesterol 37 mg/dL (40-60) Cholesterol/HDL Ratio 4.0 Influenza Type A Antigen Negative (NEGATIVE) Influenza Type B Antigen Negative (NEGATIVE) Test 08/27/17 21:11 08/27/17 21:13 08/28/17 03:30 08/28/17 07:40 Glucose (Fingerstick) 264 mg/dL (70-99) 156 mg/dL (70-99) Urine Opiates Screen Neg (NEG) Urine Methadone Screen Neg (NEG) Urine Barbiturates Neg (NEG) Urine Phencyclidine Screen Neg (NEG) Urine Amphetamine/Methamphetamine Neg (NEG) Urine Benzodiazepines Screen Neg (NEG) Urine Cocaine Screen Neg (NEG) Urine Cannabinoids Screen Neg (NEG) Urine Ethyl Alcohol Neg (NEG) Sodium Level 141 mmol/L (136-145) Potassium Level 3.5 mmol/L (3.5-5.1) Chloride Level 100 mmol/L (98-107) Carbon Dioxide Level 33 mmol/L (21-32) Anion Gap 8 (6-14) Blood Urea Nitrogen 11 mg/dL (8-26) Creatinine 1.0 mg/dL (0.7-1.3) Estimated GFR (Cockcroft-Gault) 96.5 Glucose Level 162 mg/dL (70-99) Calcium Level 8.6 mg/dL (8.5-10.1) Magnesium Level 1.7 mg/dL (1.8-2.4) Test 08/28/17 11:47 08/28/17 17:17 08/28/17 22:00 08/29/17 07:10 Glucose (Fingerstick) 150 mg/dL (70-99) 194 mg/dL (70-99) 162 mg/dL (70-99) White Blood Count 6.1 x10^3/uL (4.0-11.0) Red Blood Count 4.51 x10^6/uL (4.30-5.70) Hemoglobin 11.6 g/dL (13.0-17.5) Hematocrit 37.1 % (39.0-53.0) Mean Corpuscular Volume 82 fL (79-100) Mean Corpuscular Hemoglobin 26 pg (25-35) Mean Corpuscular Hemoglobin Concent 31 g/dL (31-37) Red Cell Distribution Width 13.6 % (11.5-14.5) Platelet Count 359 x10^3/uL (140-400) Neutrophils (%) (Auto) 67 % (31-73) Lymphocytes (%) (Auto) 22 % (24-48) Monocytes (%) (Auto) 8 % (0-9) Eosinophils (%) (Auto) 3 % (0-3) Basophils (%) (Auto) 0 % (0-3) Neutrophils # (Auto) 4.1 x10^3uL (1.8-7.7) Lymphocytes # (Auto) 1.3 x10^3/uL (1.0-4.8) Monocytes # (Auto) 0.5 x10^3/uL (0.0-1.1) Eosinophils # (Auto) 0.2 x10^3/uL (0.0-0.7) Basophils # (Auto) 0.0 x10^3/uL (0.0-0.2) Sodium Level 139 mmol/L (136-145) Potassium Level 3.9 mmol/L (3.5-5.1) Chloride Level 100 mmol/L (98-107) Carbon Dioxide Level 34 mmol/L (21-32) Anion Gap 5 (6-14) Blood Urea Nitrogen 10 mg/dL (8-26) Creatinine 0.9 mg/dL (0.7-1.3) Estimated GFR (Cockcroft-Gault) 109.0 Glucose Level 172 mg/dL (70-99) Calcium Level 8.6 mg/dL (8.5-10.1) Magnesium Level 2.0 mg/dL (1.8-2.4) Test 08/29/17 08:02 Glucose (Fingerstick) 164 mg/dL (70-99) Laboratory Tests Test 08/28/17 11:47 08/28/17 17:17 08/28/17 22:00 08/29/17 07:10 Glucose (Fingerstick) 150 mg/dL (70-99) 194 mg/dL (70-99) 162 mg/dL (70-99) White Blood Count 6.1 x10^3/uL (4.0-11.0) Red Blood Count 4.51 x10^6/uL (4.30-5.70) Hemoglobin 11.6 g/dL (13.0-17.5) Hematocrit 37.1 % (39.0-53.0) Mean Corpuscular Volume 82 fL (79-100) Mean Corpuscular Hemoglobin 26 pg (25-35) Mean Corpuscular Hemoglobin Concent 31 g/dL (31-37) Red Cell Distribution Width 13.6 % (11.5-14.5) Platelet Count 359 x10^3/uL (140-400) Neutrophils (%) (Auto) 67 % (31-73) Lymphocytes (%) (Auto) 22 % (24-48) Monocytes (%) (Auto) 8 % (0-9) Eosinophils (%) (Auto) 3 % (0-3) Basophils (%) (Auto) 0 % (0-3) Neutrophils # (Auto) 4.1 x10^3uL (1.8-7.7) Lymphocytes # (Auto) 1.3 x10^3/uL (1.0-4.8) Monocytes # (Auto) 0.5 x10^3/uL (0.0-1.1) Eosinophils # (Auto) 0.2 x10^3/uL (0.0-0.7) Basophils # (Auto) 0.0 x10^3/uL (0.0-0.2) Sodium Level 139 mmol/L (136-145) Potassium Level 3.9 mmol/L (3.5-5.1) Chloride Level 100 mmol/L (98-107) Carbon Dioxide Level 34 mmol/L (21-32) Anion Gap 5 (6-14) Blood Urea Nitrogen 10 mg/dL (8-26) Creatinine 0.9 mg/dL (0.7-1.3) Estimated GFR (Cockcroft-Gault) 109.0 Glucose Level 172 mg/dL (70-99) Calcium Level 8.6 mg/dL (8.5-10.1) Magnesium Level 2.0 mg/dL (1.8-2.4) Test 08/29/17 08:02 Glucose (Fingerstick) 164 mg/dL (70-99) Brief Hospital Course Mr. Cordova is a 46 old obese male with no significant history of tobacco use , admitted with increasing dyspnea. He was noted to be His chest x-ray was consistent with asymmetric congestive heart failure. CT chest, had bilateral pleural effusions. Echo showed EF 25%, sx imrpoved with lasix, toprol, better heart failure management Stress test done before discharge, results pending Discharge Information Follow Up: Weeks Disposition/Orders: D/C to Home Scheduled Allopurinol (Allopurinol), 300 MG PO DAILY, (Reported) Atorvastatin Calcium (Atorvastatin Calcium), 1 TAB PO QHS, (Reported) Benzonatate (Tessalon Perle), 1 CAP PO TID Clonidine Hcl (Clonidine Hcl), 0.1 MG PO TID, (Reported) Colchicine (Colcrys), 0.6 MG PO UD Famotidine (Pepcid), 20 MG PO BID Glimepiride (Glimepiride), 4 MG PO DAILY, (Reported) Hydrocodone Bit/Acetaminophen (Hydrocodone-Apap 7.5-325 ), 1-2 TAB PO Q4-6HRS Labetalol Hcl (Labetalol Hcl), 300 MG PO BID, (Reported) Metformin Hcl (Metformin Hcl), 1,000 MG PO BID, (Reported) Modafinil (Modafinil), 200 MG PO BID, (Reported) Nifedipine (Nifedipine Er), 90 MG PO DAILY, (Reported) Ondansetron (Zofran Odt), 1 TAB SL Q8HRS Ramipril (Ramipril), 20 MG PO DAILY, (Reported) Scheduled PRN Albuterol Sulfate (Proair Respiclick), 1 PUFF IH PRN Q6HRS PRN for SHORTNESS OF BREATH Ondansetron Hcl (Zofran), 4 MG PO BID PRN for NAUSEA/VOMITING Miscellaneous Medications Aspirin (Gary Chewable), 81 MG PO, (Reported) Patient Instructions Patient Instructions >3 0 min NKECHI LANDA MD Aug 29, 2017 09:35
[2017-08-29] MEDS: FUROSEMIDE 40 MG/4 ML VIAL. IVP SCH (11:01)
[2017-08-29] MEDS: FAMOTIDINE 20 MG TABLET. PO SCH (11:01)
[2017-08-29] MEDS: BENZONATATE 100 MG CAPSULE. PO SCH ×2 (11:01→14:00)
[2017-08-29] MEDS: ALLOPURINOL 300 MG TABLET. PO SCH (11:01)
[2017-08-29] MEDS: LABETALOL HCL 200 MG TABLET PO SCH (11:03)
[2017-08-29] MEDS: ASPIRIN CHEWABLE 81 MG TABLET. PO SCH (11:03)
[2017-08-29] MEDS: ONDANSETRON ODT 4 MG TAB.RAPDIS. PO SCH (11:03)
[2017-08-29] MEDS: GLIMEPIRIDE 2 MG TABLET. PO SCH (11:04)
[2017-08-29] MEDS: LISINOPRIL 40 MG TABLET. PO SCH (11:05)
[2017-08-29] MEDS: LACTOBACILLUS RHAMNOSUS GG 1 CAPSULE. PO SCH (11:06)
[2017-08-29] MEDS: cloNIDine HCL 0.1 MG TABLET PO SCH (11:06)
[2017-08-29] MEDS: METOPROLOL TART IMMED RELEASE 25 MG TABLET. PO SCH (11:07)
[2017-08-29 12:00] VITALS: BP 131/92
--- NOTE | 2017-08-29 13:41 | RAD ---
APPROVED REPORT Test Type: Pharmacological Stress Nurse/Tech: Jailyn Osborne Test Indications: cardiomyopathy Cardiac History: HTN, See EMR Medications: See EMR Medical History: HTN, on blood thinner, See EMR Resting ECG: SR with T inversion in lead II Resting Heart Rate: 90 bpm Resting Blood Pressure: 112/65mmHg Pretest Chest Pain: No chest pain Nurse/Tech Notes S1, S2 wnl. lungs cta. Pt denies any pain or sob. Consent: The procedure was explained to the patient in lay terms. Informed consent was witnessed. Nic eout was entered into AWAK. History and Stress Test performed by RT Cortez (R) (N) Pharm. Details Pharmacologic stress testing was performed using 0.4mg per 5ml of regadenoson given intravenously ove r 7-10 seconds. Stress Symptoms none POST EXERCISE Reason for Termination: Infusion complete Max HR: 106 bpm Max Blood Pressure: 121/71mmHg Chest Pain: No. Arrhythmia: No. ST Change: No. INTERPRETATION Stress EKG Conclusion: The resting EKG shows a sinus rhythm, nonspecific ST segment changes and a mil dly prolonged QT. The stress EKG shows no significant changes from baseline. No EKG evidence of stressed induced ischemia. Imaging Protocol IMAGE PROTOCOL: Stress Tc-99m/rest Tc-99m 2 days Rest: Stress: Viability: Radiopharm.Tc99m [id number] Sestamibi Dose33.1mCi 33mCi Duration 15min. 15min. Img Date 08/29/2017 08/28/2017 Inj-Img Qvzu29erb. 60min. Rest Admin Site:IV - Right HandAdministrator:BRYN Lobo Stress Admin Site: IV - Right AntecubitalAdministrator: RT Malcom (R)(N) STRESS DATA End Diast. Vol.244.5mlAv. Heart Rate95.0bpm End Syst. Vol.145.5mlCO Index BSA0.0L/min Myocardial Mixg038.5gEject. Zslsklij70.5% Stress Rates Pk. Fill Rate2.45EDV/secLVtime Pk. Fill 72.62msec Pk. Empty Rate2.31ESV/secLVtime Pk. Kawjp368.94msec 1/3 Pk. Fill1.77EDV/sec Stress Scores Regional WT2.00Summed WT28.00 Regional WM0.00Summed WM15.00 LV Perfusion The stress scans showed mild inferior wall thinning. The rest scans showed mild inferior wall thinning. Nuclear imaging shows no reversible ischemia. Nuclear imaging shows mild fixed inferior wall thickening possibly due to a small previous infarct or diaphragmatic attenuation. Wall Motion Ventricular systolic fluid systolic function is decreased on a global basis. Left ventricular ejectio n fraction is 40%. LV Perf. Quant 17 Seg. SSS2.50 17 Seg. SRS4.00 17 Seg. SDS1.00 Stress Defect Extent (% LAD)0.95Rest Defect Extent (% LAD)2.50Rev. Defect Extent (% LAD)0.00 Stress Defect Extent (% LCX) 0.00Rest Defect Extent (% LCX)0.00Rev. Defect Extent (% LCX)0.00 Stress Defect Extent (% RCA)6.65Rest Defect Extent (% RCA)20.00Rev. Defect Extent (% RCA)0.00 Stress Defect Extent (% CELIA)1.75Rest Defect Extent (% CELIA)6.70Rev. Defect Extent (% CELIA)0.00 Conclusion 1. Abnormal baseline EKG but no EKG evidence of stressed induced ischemia. 2. Nuclear imaging shows no reversible ischemia. 3. Nuclear imaging shows fixed inferior wall thinning probably due to diaphragmatic attenuation but a small infarct cannot be excluded. 4. LV systolic function is decreased on a global basis with an ejection fraction of 40%. 5. Moderate to moderately low risk Lexiscan nuclear stress test.
[2017-08-29 15:00] VITALS: BP 124/84
[2017-08-30] MEDS ORDERED: FUROSEMIDE 40 MG TABLET. PO SCH (09:00)
== END 2017-08-29 17:11 | disposition home or self-care (01) | DRG 291 ==
LOC: ER 14:28 → 5 NORTH 16:57 → 1 WEST ICU 18:22 → 6 SOUTH 08-27 15:02
PROVIDERS: ADMIT Family Medicine; ATTEND Family Medicine
DX: I50.43 Acute on chronic combined systolic (congestive) and diastolic (congestive) heart failure (principal); J96.01 Acute respiratory failure with hypoxia; I42.9 Cardiomyopathy, unspecified; I11.0 Hypertensive heart disease with heart failure; E66.01 Morbid (severe) obesity due to excess calories; E83.42 Hypomagnesemia; E11.9 Type 2 diabetes mellitus without complications; E78.5 Hyperlipidemia, unspecified; E87.6 Hypokalemia; M19.90 Unspecified osteoarthritis, unspecified site; G47.33 Obstructive sleep apnea (adult) (pediatric); I16.0 Hypertensive urgency; M10.9 Gout, unspecified; Z82.49 Family history of ischemic heart disease and other diseases of the circulatory system; Z86.711 Personal history of pulmonary embolism; Z91.19 Patient's noncompliance with other medical treatment and regimen; Z88.8 Allergy status to other drugs, medicaments and biological substances; Z79.899 Other long term (current) drug therapy
CPT/HCPCS: 36415; 71010; 71275; 78452; 80048; 80053; 80061; 80307; 82962; 83605; 83735; 83880; 84443; 84484; 85025; 87040; 87641; 87804; 93005; 93017; 93306; 94620; 96365; 96368; 96374; 96375; 96376; A9500; J0456; J0690; J0696; J1650; J1815; J1940; J2785; J3490; J7060; Q0162; 99285-25; G0479

== ENCOUNTER → 2017-12-21 | Outpatient (CLI) | payer OTHER | END | disposition home or self-care (01) | LOC: ECHO 08:36 | DX: I42.9 Cardiomyopathy, unspecified (principal); I51.7 Cardiomegaly | CPT/HCPCS: 93306 ==

== ENCOUNTER 2018-12-01 11:58 | Inpatient (IN) | payer OTHER ==
[~2018-12-01] VITALS: Ht 175.3 cm; Wt 124.7 kg
[~2018-12-01 11:58] MED LIST changes: +FURO40TA4 PO; -HYDR-2762 PO; +HYDR-2765 PO; -LABE200T2 PO; +LABE200T4 PO; -METF-620 PO; +METF10007 PO; +METO25TA4 PO; +POTA20TA4 PO; -RAMI10CA PO; +RAMI10CA53 PO
[2018-12-01] MEDS ORDERED: dilTIAZem IV PUSH 25 MG/5 ML VIAL IVP ONE (12:15)
--- NOTE | 2018-12-01 12:19 | EKG ---
[facility] [address] [place] [address] Test Date: 2018-12-01 Test Time: 12:06:30 Pat Name: LATONYA MERAZ Department: Room: Gender: M [employer] Department: [place] : 1970 Requested By: BETHANY FLORES Order Number: [id number] Reading MD: Jamil Rueda MD Measurements Intervals [place] Rate: 150 P: 90 IA: 66 QRS: -8 QRSD: 86 T: -70 QT: 312 QTc: 495 Interpretive Statements ATRIAL FIBRILLATION/SVT NON-SPECIFIC ST/T CHANGES Electronically Signed On 12-03-2018 16:29:26 CDT by Jamil Rueda MD
[2018-12-01 12:20] LABS: BASO # 0.1 x10^3/uL (0.0-0.2); BASO % 1 % (0-3); EOS % 0 % (0-3); HEMATOCRIT 38.9 % (39.0-53.0); HEMOGLOBIN 12.2 g/dL (13.0-17.5); LYMPH # 1.7 x10^3/uL (1.0-4.8); LYMPH % 21 % (24-48); MEAN CORPUSCULAR HEMOGLOBIN 26 pg (25-35); MEAN CORPUSCULAR HGB CONC 31 g/dL (31-37); MEAN CORPUSCULAR VOLUME 82 fL (79-100); MONO # 0.4 x10^3/uL (0.0-1.1); MONO % 5 % (0-9); NEUT # 5.8 x10^3uL (1.8-7.7); NEUT % 73 % (31-73); PLATELET COUNT 246 x10^3/uL (140-400); RED BLOOD COUNT 4.74 x10^6/uL (4.30-5.70); RED CELL DISTRIBUTION WIDTH 13.3 % (11.5-14.5)
--- NOTE | 2018-12-01 12:23 | EKG ---
[facility] [address] [place] [address] Test Date: 2018-12-01 Test Time: 12:14:19 Pat Name: LATONYA MERAZ Department: Room: Gender: M [employer]: [place] : 1970 Requested By: BETHANY FLORES Order Number: [id number] Reading MD: Jamil Rueda MD Measurements Intervals [place] Rate: 121 P: [place]: QRS: 34 QRSD: 86 T: 124 QT: 312 QTc: 445 Interpretive Statements ATRIAL FLUTTER NON-SPECIFIC ST/T CHANGES Electronically Signed On 12-03-2018 16:29:36 CDT by Jamil Rueda MD
[2018-12-01 12:29] LABS: PROTHROMBIN TIME PATIENT 13.3 SEC (11.7-14.0)
[2018-12-01 12:39] LABS: CALCIUM 9.1 mg/dL (8.5-10.1); CREATININE 1.4 mg/dL (0.7-1.3); GFR 64.9
[2018-12-01 12:43] LABS: ALBUMIN 3.4 g/dL (3.4-5.0); ALBUMIN/GLOBULIN RATIO 0.9 (1.0-1.7); MAGNESIUM 1.5 mg/dL (1.8-2.4); TOTAL BILIRUBIN 0.7 mg/dL (0.2-1.0); TOTAL PROTEIN 7.4 g/dL (6.4-8.2)
--- NOTE | 2018-12-01 12:43 | RAD ---
Examination: PORTABLE CHEST 1V History: CHEST PAIN Comparison/Correlation: 08/28/2017 portable chest x-ray exam Findings: Portable upright frontal view of the chest was obtained. Heart size and pulmonary vasculature are normal. No infiltrate or pleural effusion. No pneumothorax. Bony structures are unremarkable. Impression: No active disease. Electronically signed by: Rylan Morocho MD (12/01/2018 12:40 PM) [id number]
[2018-12-01] MEDS: dilTIAZem INJ 125 MG in IV DEXTROSE 5% 100ML 100 ML IV PRN ×2 (12:47→21:19)
[2018-12-01] MEDS ORDERED: MAGNESIUM SULFATE 2GM 50 ML IV ONE (13:15)
--- NOTE | 2018-12-01 13:29 | PHYS DOC ---
Past Medical History Past Medical History: Diabetes-Type II, Hypertension, Other Additional Past Medical Histor: SLEEP APNEA, GOUT Past Surgical History: Other Additional Past Surgical Histo: HAND, FINGERS, TOES, BX CARPAL TUNNEL, L KNEE Alcohol Use: Sober Drug Use: None Adult General Chief Complaint Chief Complaint: CHEST PAIN HPI HPI Patient is a 48 year old presented to ER today for evaluation of heart palpitation off and on for several weeks. Patient also feels short of air with exertion. Patient denies any chest pain, no abdominal pain, no nausea vomiting. he denies any cough or fever. Review of Systems Review of Systems Constitutional: Denies fever or chills [] Eyes: Denies change in visual acuity, redness, or eye pain [] HENT: Denies nasal congestion or sore throat [] Respiratory: Denies cough or shortness of breath [] Cardiovascular: No additional information not addressed in HPI [] GI: Denies abdominal pain, nausea, vomiting, bloody stools or diarrhea [] : Denies dysuria or hematuria [] Musculoskeletal: Denies back pain or joint pain [] Integument: Denies rash or skin lesions [] Neurologic: Denies headache, focal weakness or sensory changes [] Endocrine: Denies polyuria or polydipsia [] All other systems were reviewed and found to be within normal limits, except as documented in this note. Current Medications Current Medications Current Medications Medications (Trade) Dose Ordered Sig/[facility] Start Time Stop Time Status Last Admin Dose Admin Diltiazem HCl (Cardizem Iv Push) 20 mg 1X ONCE 12/01/18 12:15 12/01/18 12:18 DC 12/01/18 12:45 20 MG Diltiazem HCl 125 mg/Dextrose 125 ml @ 5 mls/hr CONT PRN 12/01/18 12:45 12/01/18 12:47 5 MLS/HR Magnesium Sulfate 50 ml @ 25 mls/hr 1X ONCE 12/01/18 13:15 12/01/18 15:14 DC 12/01/18 13:49 25 MLS/HR Allergies Allergies Physical Exam Physical Exam Constitutional: Well developed, well nourished, no acute distress, non-toxic appearance. [] HENT: Normocephalic, atraumatic, bilateral external ears normal, oropharynx moist, no oral exudates, nose normal. [] Eyes: PERRLA, EOMI, conjunctiva normal, no discharge. [] Neck: Normal range of motion, no tenderness, supple, no stridor. [] Cardiovascular:irregular irregular rhythm, Tachycardia, no murmur [] Lungs & Thorax: Bilateral breath sounds clear to auscultation [] Abdomen: Bowel sounds normal, soft, no tenderness, no masses, no pulsatile masses. [] Skin: Warm, dry, no erythema, no rash. [] Back: No tenderness, no CVA tenderness. [] Extremities: No tenderness, no cyanosis, no clubbing, ROM intact, no edema. [] Neurologic: Alert and oriented X 3, normal motor function, normal sensory function, no focal deficits noted. [] Psychologic: Affect normal, judgement normal, mood normal. [] Current Patient Data Vital Signs Vital Signs Date Time Temp Pulse Resp B/P (MAP) Pulse Ox O2 Delivery O2 Flow Rate FiO2 12/01/18 13:20 76 20 139/98 (112) 95 Room Air 12/01/18 12:05 98.3 98.3 Lab Values Laboratory Tests Test 12/01/18 06:08 12/01/18 12:05 12/01/18 12:14 Triglycerides Level 65 mg/dL (0-150) Cholesterol Level 197 mg/dL (0-200) LDL Cholesterol, Calculated 136 mg/dL (0-100) H VLDL Cholesterol, Calculated 13 mg/dL (0-40) Non-HDL Cholesterol Calculated 149 mg/dL (0-129) H HDL Cholesterol 48 mg/dL (40-60) Cholesterol/HDL Ratio 4.1 White Blood Count 8.0 x10^3/uL (4.0-11.0) Red Blood Count 4.74 x10^6/uL (4.30-5.70) Hemoglobin 12.2 g/dL (13.0-17.5) L Hematocrit 38.9 % (39.0-53.0) L Mean Corpuscular Volume 82 fL (79-100) Mean Corpuscular Hemoglobin 26 pg (25-35) Mean Corpuscular Hemoglobin Concent 31 g/dL (31-37) Red Cell Distribution Width 13.3 % (11.5-14.5) Platelet Count 246 x10^3/uL (140-400) Neutrophils (%) (Auto) 73 % (31-73) Lymphocytes (%) (Auto) 21 % (24-48) L Monocytes (%) (Auto) 5 % (0-9) Eosinophils (%) (Auto) 0 % (0-3) Basophils (%) (Auto) 1 % (0-3) Neutrophils # (Auto) 5.8 x10^3uL (1.8-7.7) Lymphocytes # (Auto) 1.7 x10^3/uL (1.0-4.8) Monocytes # (Auto) 0.4 x10^3/uL (0.0-1.1) Eosinophils # (Auto) 0.0 x10^3/uL (0.0-0.7) Basophils # (Auto) 0.1 x10^3/uL (0.0-0.2) Prothrombin Time 13.3 SEC (11.7-14.0) Prothrombin Time INR 1.0 (0.8-1.1) PTT 30 SEC (24-38) Sodium Level 136 mmol/L (136-145) Potassium Level 4.0 mmol/L (3.5-5.1) Chloride Level 96 mmol/L (98-107) L Carbon Dioxide Level 31 mmol/L (21-32) Anion Gap 9 (6-14) Blood Urea Nitrogen 17 mg/dL (8-26) Creatinine 1.4 mg/dL (0.7-1.3) H Estimated GFR (Cockcroft-Gault) 64.9 BUN/Creatinine Ratio 12 (6-20) Glucose Level 424 mg/dL (70-99) H Calcium Level 9.1 mg/dL (8.5-10.1) Magnesium Level 1.5 mg/dL (1.8-2.4) L Total Bilirubin 0.7 mg/dL (0.2-1.0) Aspartate Amino Transferase (AST) 38 U/L (15-37) H Alanine Aminotransferase (ALT) 61 U/L (16-63) Alkaline Phosphatase 135 U/L (46-116) H Creatine Kinase 231 U/L (39-308) Creatine Kinase MB (Mass) 3.8 ng/mL (0.0-3.6) H Creatine Kinase MB Relative Index 1.6 % (0-4) Troponin I Quantitative < 0.017 ng/mL (0.000-0.055) NH-Xwi-U-Type Natriuretic Peptide 1000 pg/mL (0-124) H Total Protein 7.4 g/dL (6.4-8.2) Albumin 3.4 g/dL (3.4-5.0) Albumin/Globulin Ratio 0.9 (1.0-1.7) L Lipase 137 U/L (73-393) Thyroid Stimulating Hormone (TSH) 1.899 uIU/mL (0.358-3.74) POC Troponin I 0.01 ng/ml (<0.08) Laboratory Tests 12/01/18 12:05 Laboratory Tests 12/01/18 12:05 EKG EKG EKG WAS READ BY THIS PHYSICIAN AT 1208, RATE OF 150 BPM, ATRIAL FLUTTER. NO STEMI. Radiology/Procedures Radiology/Procedures chest xray: no acute disease. Course & Med Decision Making Course & Med Decision Making Pertinent Labs and Imaging studies reviewed. (See chart for details) [] Dragon Disclaimer Dragon Disclaimer This electronic medical record was generated, in whole or in part, using a voice recognition dictation system. Departure Departure Impression: Primary Impression: Atrial flutter with rapid ventricular response Disposition: ADMITTED INPATIENT Admitting Physician: Sacha Mendez Condition: STABLE Referrals: ADRIAN BARCLAY MD (PCP) BETHANY FLORES DO Dec 01, 2018 13:29
[2018-12-01] MEDS ORDERED: ONDANSETRON PF 4 MG/2 ML VIAL. IV PRN (13:45)
[2018-12-01 15:18] LABS: CHOLESTEROL/HDL RATIO 4.1
--- NOTE | 2018-12-01 15:29 | PDOC2 ---
CARDIAC CONSULT DATE OF CONSULT Date of Consult DATE: 12/01/18 TIME: 15:20 REASON FOR CONSULT Reason for Consult: Atrial flutter REFERRING PHYSICIAN Referring Physician: Ion SOURCE Source: Chart review, Patient HISTORY OF PRESENT ILLNESS HISTORY OF PRESENT ILLNESS This is a pleasant 48 yo mael admitted for complains of chest pain and palpitations. Reports that he has been having intermittent palpitations in the last month. Also with some dizzy spells at times. No falls or any injury. His medications in the EMR is inaccurate and will try to obtain his accurate med list. He reports that last night he felt palpitations which stayed and did not get better. He was feeling SOA and felt some chest tightness. Also felt some cramp to his right neck. He drinks adequately. No recent fever chills but has been feeling some hot flushed at times. He has DM but has not been checking his BG. Also has YANG but has not been using his CPAP. He has been complaint with his medications though. No past hx of arrhythmia but with past CHF and no definitive CAD in the past. PAST MEDICAL HISTORY Past Medical History Cardiovascular: HTN, Hyperlipidemia Pulmonary: Other (YANG), pneumonia Musculoskeletal: Osteoarthritis, Other (morbid obesity) Rheumatologic: Gout Endocrine: Diabetes (2) PAST SURGICAL HISTORY Past Surgical History Left knee arthroscopy carpal tunnel decompression FAMILY HISTORY Family History: Hypertension SOCIAL HISTORY Smoke: No ALCOHOL: none Drugs: None Lives: with Family CURRENT MEDICATIONS CURRENT MEDICATIONS Current Medications Medications (Trade) Dose Ordered Sig/Sandra Route PRN Reason Start Time Stop Time Status Last Admin Dose Admin Diltiazem HCl (Cardizem Iv Push) 20 mg 1X ONCE IVP 12/01/18 12:15 12/01/18 12:18 DC 12/01/18 12:45 Diltiazem HCl 125 mg/Dextrose 125 ml @ 5 mls/hr CONT PRN IV SEE I/O RECORD 12/01/18 12:45 12/01/18 12:47 Magnesium Sulfate 50 ml @ 25 mls/hr 1X ONCE IV 12/01/18 13:15 12/01/18 15:14 DC 12/01/18 13:49 ALLERGIES ALLERGIES: Coded Allergies: No Known Medication Allergies (Verified Allergy, Unknown, 08/28/17) lovastatin (Verified Adverse Reaction, Intermediate, SEE COMMENT, 06/11/15) body aches ROS Review of System 14 point ROS evaluated with pertinent positives noted per HPI PHYSICAL EXAM General: Alert, Oriented X3, Cooperative, No acute distress HEENT: Atraumatic, Mucous membr. moist/pink Lungs: Clear to auscultation, Normal air movement Heart: Regular rate (4: atrial flutter) Abdomen: Soft, No tenderness, Other (truncal obesity) Extremities: No cyanosis Skin: No breakdown, No significant lesion Neuro: Normal speech, Sensation intact Psych/Mental Status: Mental status NL, Mood NL MUSCULOSKELETAL: Osteoarthritic changes both hands VITALS VITALS Vital Signs Date Time Temp Pulse Resp B/P (MAP) Pulse Ox O2 Delivery O2 Flow Rate FiO2 12/01/18 14:20 76 20 144/96 (112) 94 Room Air 12/01/18 12:05 98.3 98.3 LABS Lab: Laboratory Tests Test 12/01/18 06:08 12/01/18 12:05 12/01/18 12:14 Triglycerides Level 65 mg/dL (0-150) Cholesterol Level 197 mg/dL (0-200) LDL Cholesterol, Calculated 136 mg/dL (0-100) VLDL Cholesterol, Calculated 13 mg/dL (0-40) Non-HDL Cholesterol Calculated 149 mg/dL (0-129) HDL Cholesterol 48 mg/dL (40-60) Cholesterol/HDL Ratio 4.1 White Blood Count 8.0 x10^3/uL (4.0-11.0) Red Blood Count 4.74 x10^6/uL (4.30-5.70) Hemoglobin 12.2 g/dL (13.0-17.5) Hematocrit 38.9 % (39.0-53.0) Mean Corpuscular Volume 82 fL (79-100) Mean Corpuscular Hemoglobin 26 pg (25-35) Mean Corpuscular Hemoglobin Concent 31 g/dL (31-37) Red Cell Distribution Width 13.3 % (11.5-14.5) Platelet Count 246 x10^3/uL (140-400) Neutrophils (%) (Auto) 73 % (31-73) Lymphocytes (%) (Auto) 21 % (24-48) Monocytes (%) (Auto) 5 % (0-9) Eosinophils (%) (Auto) 0 % (0-3) Basophils (%) (Auto) 1 % (0-3) Neutrophils # (Auto) 5.8 x10^3uL (1.8-7.7) Lymphocytes # (Auto) 1.7 x10^3/uL (1.0-4.8) Monocytes # (Auto) 0.4 x10^3/uL (0.0-1.1) Eosinophils # (Auto) 0.0 x10^3/uL (0.0-0.7) Basophils # (Auto) 0.1 x10^3/uL (0.0-0.2) Prothrombin Time 13.3 SEC (11.7-14.0) Prothromb Time International Ratio 1.0 (0.8-1.1) Activated Partial Thromboplast Time 30 SEC (24-38) Sodium Level 136 mmol/L (136-145) Potassium Level 4.0 mmol/L (3.5-5.1) Chloride Level 96 mmol/L (98-107) Carbon Dioxide Level 31 mmol/L (21-32) Anion Gap 9 (6-14) Blood Urea Nitrogen 17 mg/dL (8-26) Creatinine 1.4 mg/dL (0.7-1.3) Estimated GFR (Cockcroft-Gault) 64.9 BUN/Creatinine Ratio 12 (6-20) Glucose Level 424 mg/dL (70-99) Calcium Level 9.1 mg/dL (8.5-10.1) Magnesium Level 1.5 mg/dL (1.8-2.4) Total Bilirubin 0.7 mg/dL (0.2-1.0) Aspartate Amino Transf (AST/SGOT) 38 U/L (15-37) Alanine Aminotransferase (ALT/SGPT) 61 U/L (16-63) Alkaline Phosphatase 135 U/L (46-116) Creatine Kinase 231 U/L (39-308) Creatine Kinase MB (Mass) 3.8 ng/mL (0.0-3.6) Creatine Kinase MB Relative Index 1.6 % (0-4) Troponin I Quantitative < 0.017 ng/mL (0.000-0.055) LC-Etr-J-Type Natriuretic Peptide 1000 pg/mL (0-124) Total Protein 7.4 g/dL (6.4-8.2) Albumin 3.4 g/dL (3.4-5.0) Albumin/Globulin Ratio 0.9 (1.0-1.7) Lipase 137 U/L (73-393) Thyroid Stimulating Hormone (TSH) 1.899 uIU/mL (0.358-3.74) Bedside Troponin I 0.01 ng/ml (<0.08) ECHOCARDIOGRAM ECHOCARDIOGRAM <Conclusion> Left ventricle systolic function is low normal. The Ejection Fraction is 50-55%. There is normal LV segmental wall motion. The IVC is dilated and collapses <50% with inspiration. DATE: 12/21/17 1349 STRESS TEST STRESS TEST Conclusion 1. Abnormal baseline EKG but no EKG evidence of stressed induced ischemia. 2. Nuclear imaging shows no reversible ischemia. 3. Nuclear imaging shows fixed inferior wall thinning probably due to diaphragmatic attenuation but a small infarct cannot be excluded. 4. LV systolic function is decreased on a global basis with an ejection fraction of 40%. 5. Moderate to moderately low risk Lexiscan nuclear stress test. DATE: 08/29/17 1340 ASSESSMENT/PLAN ASSESSMENT/PLAN 1. Atrial flutter with RVR: Rate better with cardizem drip. 4:1 rate controlled. NEW 2. Chest pain: due to above 3. HTN: controlled 4. DM2: BG not controlled, has not been checking his BG at home per PCP1. 5. Chronic diastolic CHF: compensated 6. HLP 7. Morbid obesity Recommendations 1. Inaccurate meds. Discussed with staff to obtain accurate med list. TTE 2. Continue cardizem drip. Start on Heparin drip and will consider for JOSE/CVN tomorrow. 3. Replace Mg. Will review eds once updated and resume as appropriate 4. Encouraged to be compliant with his home CPAP. 5. Wt loss and better BG control. Dietitian consult. VALERIY VANESSA APRN Dec 01, 2018 15:29
[2018-12-01] MEDS ORDERED: HEPARIN for IV BOLUS 10,000 UNIT/10 ML VIAL. IV PRN (15:30)
--- NOTE | 2018-12-01 15:49 | HP ---
ADMIT DATE: 12/01/2018 CHIEF COMPLAINT: Chest discomfort, palpitations, shortness of breath. HISTORY OF PRESENT ILLNESS: The patient is a pleasant 48-year-old male who had shortness of breath, palpitations and chest discomfort, rates it at 10/10. He has associated anxiety. When he got to the ER, we have noticed that he is in atrial flutter with a rapid ventricular response. I discussed the case with the ER physician. We are going to admit the patient, do a full cardiac workup and consult Cardiology. PAST MEDICAL HISTORY: Diabetes, hypertension, sleep apnea, gout. He has had surgery on his hands and toes and carpal tunnel surgery, left knee surgery. Probable prior arrhythmias (he is on multiple drugs that have a negative chronotropic effect). ALLERGIES: LOVASTATIN. FAMILY HISTORY: Hypertension. SOCIAL HISTORY: He still works. He is . He does not drink, smoke or take drugs. MEDICATIONS: Reviewed. He is on ProAir, atorvastatin, clonidine, labetalol, metoprolol, nifedipine, ramipril, aspirin, hydrocodone. Modafinil, potassium, Lasix, Tessalon, Zofran, Pepcid, metformin, allopurinol. REVIEW OF SYSTEMS: GENERAL: No history of weight change, weakness or fevers. SKIN: No bruising, hair changes or rashes. EYES: No blurred, double or loss of vision. NOSE AND THROAT: No history of nosebleeds, hoarseness or sore throat. HEART: He complains of palpitations. LUNGS: Denies cough, hemoptysis, wheezing or shortness of breath. GASTROINTESTINAL: Denies changes in appetite, nausea, vomiting, diarrhea or constipation. GENITOURINARY: No history of frequency, urgency, hesitancy or nocturia. NEUROLOGIC: Denies history of numbness, tingling, tremor or weakness. PSYCHIATRIC: No history of panic, anxiety or depression. ENDOCRINE: No history of heat or cold intolerance, polyuria or polydipsia. EXTREMITIES: Denies muscle weakness, joint pain, pain on walking or stiffness. PHYSICAL EXAMINATION: VITAL SIGNS: Temperature afebrile, pulse 140-100, respirations 20, blood pressure 124/86. GENERAL: He is alert, cooperative. His is present. HEART: Distant S1, S2, it is irregular, tachycardic. LUNGS: Clear. ABDOMEN: Soft, obese. EXTREMITIES: Trace edema. SKIN: No rash. ENDOCRINE: No thyromegaly. LYMPHATICS: No cervical nodes. HEMATOPOIETIC: No bruising. PSYCHIATRIC: Stable. LABORATORY DATA: Hemoglobin is 12. Creatinine is 1.4, glucose is 424, alkaline phosphatase little high at 135. CK-MB 38, creatinine kinase 231. BNP 1000. Troponin is 0. INR is 1. ASSESSMENT AND PLAN: Atrial flutter with rapid ventricular response, anemia, chronic renal insufficiency, hyperglycemia. Acute on chronic systolic and diastolic heart failure, elevated alkaline phosphatase and AST. Hypomagnesemia. The patient has been admitted. We will consult Cardiology, cardiac monitoring, serial enzymes, serial EKGs, echocardiogram, home meds, deep venous thrombosis prophylaxis. Full code. Replace his magnesium. Consult GI for the transaminitis. Frequent labs. PROGNOSIS: Guarded. NOHELIAL Ting HOOD DO DR: EUFEMIA/alva JOB#: [id number] / [id number]
[2018-12-01] MEDS: HEPARIN 25,000UTS/500ML PREMIX 500 ML IV PRN ×2 (16:03→22:41)
[2018-12-01] MEDS ORDERED: POTA20TA82 PO (16:21)
[2018-12-01] MEDS ORDERED: AMLO5TAB10 PO (16:21)
[2018-12-01] MEDS ORDERED: HEPARIN for IV BOLUS 10,000 UNIT/10 ML VIAL. IV ONE (17:00)
--- NOTE | 2018-12-01 17:18 | PDOC2 ---
GI CONSULT Reason For Consult: Transaminitis HPI: HPI: 48 y/o admitted w/ atrial flutter. Reports SOA, chest pain (describes as "racing and fluttering"), and dizziness x 1 month, worsening. GI asked to see for AST 38, Alk Phos 135. He denies reflux/heartburn, dysphagia, n/v, hematemesis, abd pain, diarrhea, constipation, hematochezia, melena, or change in appetite. Lost ~14 pounds recently intentionally. Reports EGD years ago (not sure where) for "an infection in my stomach when I used to drink a lot" - denies PUD, H. pylori does not sound familiar to him. Recalls taking a pill for awhile. Reports normal colonoscopy (says "at [facility]") a couple years ago. No GB, liver, or pancreas history. Normal liver on CT in 2016. No NSAIDs. PMH: PMH: HTN, HLD, YANG (doesn't use CPAP), OA, DM, gout bilateral CTR, left knee surgery, right toe surgery FH: Family History: Cancer (cousin - stomach) Social History: Smoke: No ALCOHOL: none (used drink drink heavily, none since 1999) Drugs: None ROS: GEN: Denies fevers, chills, sweats HEENT: Denies blurred vision, sore throat CV: +chest pain RESP: +SOA GI: Per HPI : Denies hematuria, dysuria ENDO: Denies weight changes NEURO: +dizziness MSK: Denies weakness, joint pain/swelling SKIN: Denies jaundice, pruritus Vitals: Vitals: Vital Signs Date Time Temp Pulse Resp B/P (MAP) Pulse Ox O2 Delivery O2 Flow Rate FiO2 12/01/18 14:20 76 20 144/96 (112) 94 Room Air 12/01/18 12:05 98.3 98.3 Labs: Labs: Laboratory Tests Test 12/01/18 06:08 12/01/18 12:05 12/01/18 12:14 Triglycerides Level 65 mg/dL (0-150) Cholesterol Level 197 mg/dL (0-200) LDL Cholesterol, Calculated 136 mg/dL (0-100) VLDL Cholesterol, Calculated 13 mg/dL (0-40) Non-HDL Cholesterol Calculated 149 mg/dL (0-129) HDL Cholesterol 48 mg/dL (40-60) Cholesterol/HDL Ratio 4.1 White Blood Count 8.0 x10^3/uL (4.0-11.0) Red Blood Count 4.74 x10^6/uL (4.30-5.70) Hemoglobin 12.2 g/dL (13.0-17.5) Hematocrit 38.9 % (39.0-53.0) Mean Corpuscular Volume 82 fL (79-100) Mean Corpuscular Hemoglobin 26 pg (25-35) Mean Corpuscular Hemoglobin Concent 31 g/dL (31-37) Red Cell Distribution Width 13.3 % (11.5-14.5) Platelet Count 246 x10^3/uL (140-400) Neutrophils (%) (Auto) 73 % (31-73) Lymphocytes (%) (Auto) 21 % (24-48) Monocytes (%) (Auto) 5 % (0-9) Eosinophils (%) (Auto) 0 % (0-3) Basophils (%) (Auto) 1 % (0-3) Neutrophils # (Auto) 5.8 x10^3uL (1.8-7.7) Lymphocytes # (Auto) 1.7 x10^3/uL (1.0-4.8) Monocytes # (Auto) 0.4 x10^3/uL (0.0-1.1) Eosinophils # (Auto) 0.0 x10^3/uL (0.0-0.7) Basophils # (Auto) 0.1 x10^3/uL (0.0-0.2) Prothrombin Time 13.3 SEC (11.7-14.0) Prothromb Time International Ratio 1.0 (0.8-1.1) Activated Partial Thromboplast Time 30 SEC (24-38) Sodium Level 136 mmol/L (136-145) Potassium Level 4.0 mmol/L (3.5-5.1) Chloride Level 96 mmol/L (98-107) Carbon Dioxide Level 31 mmol/L (21-32) Anion Gap 9 (6-14) Blood Urea Nitrogen 17 mg/dL (8-26) Creatinine 1.4 mg/dL (0.7-1.3) Estimated GFR (Cockcroft-Gault) 64.9 BUN/Creatinine Ratio 12 (6-20) Glucose Level 424 mg/dL (70-99) Calcium Level 9.1 mg/dL (8.5-10.1) Magnesium Level 1.5 mg/dL (1.8-2.4) Total Bilirubin 0.7 mg/dL (0.2-1.0) Aspartate Amino Transf (AST/SGOT) 38 U/L (15-37) Alanine Aminotransferase (ALT/SGPT) 61 U/L (16-63) Alkaline Phosphatase 135 U/L (46-116) Creatine Kinase 231 U/L (39-308) Creatine Kinase MB (Mass) 3.8 ng/mL (0.0-3.6) Creatine Kinase MB Relative Index 1.6 % (0-4) Troponin I Quantitative < 0.017 ng/mL (0.000-0.055) SP-Pcr-D-Type Natriuretic Peptide 1000 pg/mL (0-124) Total Protein 7.4 g/dL (6.4-8.2) Albumin 3.4 g/dL (3.4-5.0) Albumin/Globulin Ratio 0.9 (1.0-1.7) Lipase 137 U/L (73-393) Thyroid Stimulating Hormone (TSH) 1.899 uIU/mL (0.358-3.74) Bedside Troponin I 0.01 ng/ml (<0.08) Allergies: Uncoded Allergies: flu vacc (Allergy, Severe, 12/01/18) Medications: Current Medications Medications (Trade) Dose Ordered Sig/Sandra Route PRN Reason Start Time Stop Time Status Last Admin Dose Admin Diltiazem HCl (Cardizem Iv Push) 20 mg 1X ONCE IVP 12/01/18 12:15 12/01/18 12:18 DC 12/01/18 12:45 Diltiazem HCl 125 mg/Dextrose 125 ml @ 5 mls/hr CONT PRN IV SEE I/O RECORD 12/01/18 12:45 12/01/18 12:47 Magnesium Sulfate 50 ml @ 25 mls/hr 1X ONCE IV 12/01/18 13:15 12/01/18 15:14 DC 12/01/18 13:49 Heparin Sodium/ Dextrose 500 ml @ 20 mls/hr CONT PRN IV SEE I/O RECORD 12/01/18 15:30 12/01/18 16:03 Imaging: Imaging: CXR Impression: No active disease. PE: GEN: NAD HEENT: Atraumatic, PERRL LUNGS: CTAB anteriorly HEART: irregular ABD: obese, NABS, non-tender, soft EXTREMITY: No edema SKIN: No rashes, no jaundice NEURO/PSYCH: A & O 3 A/P: A/P: Atrial flutter Mildly elevated AST and Alk Phos - h/o obesity, DM, HLD, and alcohol use ( though now sober) Mild anemia, AGUSTÍN H/o "stomach infection" CRC screen - reportedly normal a couple years ago -- Continue per cardiology. Check Hep serologies and abd US. GARRETT TEMPLE Dec 01, 2018 17:18
--- NOTE | 2018-12-01 18:56 | NUR ---
Call placed to Dr Mendez regarding patients home medications. Orders received. Will continue.
[2018-12-01 19:00] VITALS: BP 147/101
[2018-12-01] MEDS ORDERED: ANTI-COAG MONITOR BY PHARMACY. MC PRN (19:00)
[2018-12-01] MEDS ORDERED: DEXTROSE 50% 25 GM / 50ML DISP.SYRIN. IV PRN ×2 (19:00)
--- NOTE | 2018-12-01 19:11 | NUR ---
pt arrived to floor at 1430 via gurney in stable condition. pt is alert and oriented. pt is not complaining of any pain. is at bedside. pt ambulated to bathroom without any difficulties. pt is on cardizem drip at 5ml/hr. pt is in aflutter. will continue to monitor. Addendum: 12/01/18 at 1914 by JACLYN CLEANING RN RN received report from cori bueno in er
[2018-12-01 20:09] VITALS: BP 149/100
[2018-12-01] MEDS: METOPROLOL TART IMMED RELEASE 25 MG TABLET. PO SCH (20:12)
[2018-12-01] MEDS: LISINOPRIL 10 MG TABLET PO SCH (20:12)
[2018-12-01 20:45] VITALS: BP 155/103
[2018-12-01] MEDS ORDERED: LABETALOL HCL 100 MG TABLET. PO SCH (21:00)
[2018-12-01] MEDS ORDERED: INSULIN REGULAR 100 UNIT/ML 3ML VIAL. IV ONE (21:15)
[2018-12-01] MEDS ORDERED: INSULIN LISPRO 300 UNITS/3 ML INSULN.PEN. SQ ONE (21:30)
[2018-12-01 21:46] VITALS: BP 157/106
[2018-12-01 23:00] VITALS: BP 184/120
[2018-12-02] VITALS (11 sets, daily range): BP systolic 129–194; BP diastolic 90–134
--- NOTE | 2018-12-02 01:14 | NUR ---
Pt blood pressure 190/136. Call to Dr Reynolds told of patient converting to Sinus Rhythm. Orders received Will continue to monitor.
[2018-12-02] MEDS ORDERED: NITROGLYCERIN OINT 1 GM PACKET. TP ONE (01:30)
[2018-12-02] MEDS ORDERED: LISINOPRIL 20 MG TABLET PO ONE (01:30)
[2018-12-02 04:21] LABS: HEMOGLOBIN A1C 15.4 % (4.8-5.6)
[2018-12-02 05:23] LABS: HEMATOCRIT 35.9 % (39.0-53.0); HEMOGLOBIN 11.4 g/dL (13.0-17.5); RED BLOOD COUNT 4.36 x10^6/uL (4.30-5.70); RED CELL DISTRIBUTION WIDTH 13.5 % (11.5-14.5); WHITE BLOOD COUNT 6.5 x10^3/uL (4.0-11.0)
[2018-12-02 05:41] LABS: ALBUMIN 2.8 g/dL (3.4-5.0); DIRECT BILIRUBIN 0.2 mg/dL (0.0-0.2); TOTAL BILIRUBIN 0.8 mg/dL (0.2-1.0); TOTAL PROTEIN 6.7 g/dL (6.4-8.2)
[2018-12-02] MEDS: GLIMEPIRIDE 2 MG TABLET. PO SCH (07:53)
[2018-12-02] MEDS: dilTIAZem INJ 125 MG in IV DEXTROSE 5% 100ML 100 ML IV PRN (07:53)
[2018-12-02] MEDS: FUROSEMIDE 40 MG TABLET. PO SCH (07:53)
[2018-12-02] MEDS: LISINOPRIL 10 MG TABLET PO SCH ×2 (07:54→20:10)
[2018-12-02] MEDS: POTASSIUM CHLORIDE 20 MEQ TABLET.ER. PO SCH (07:55)
[2018-12-02] MEDS: ASPIRIN CHEWABLE 81 MG TABLET. PO SCH (07:55)
[2018-12-02] MEDS: METOPROLOL TART IMMED RELEASE 25 MG TABLET. PO SCH ×2 (07:55→20:10)
[2018-12-02] MEDS: INSULIN LISPRO 300 UNITS/3 ML INSULN.PEN. SQ SCH ×3 (07:56→17:35)
[2018-12-02] MEDS ORDERED: amLODIPine BESYLATE 5 MG TABLET PO SCH (09:00)
--- NOTE | 2018-12-02 10:42 | EKG ---
[facility] [address] [place] [address] Test Date: 2018-12-02 Test Time: 10:33:33 Pat Name: LATONYA MERAZ Department: Room: 246 1 Gender: M [employer]: MARJORIE : 1970 Requested By: DOUG TEJEDA Order Number: [id number] Reading MD: Jamil Rueda MD Measurements Intervals [place] Rate: 75 P: 52 NV: 250 QRS: 31 QRSD: 86 T: 66 QT: 416 QTc: 467 Interpretive Statements SINUS RHYTHM PROLONGED NV INTERVAL Electronically Signed On 12-03-2018 17:22:02 CDT by Jamil Rueda MD
--- NOTE | 2018-12-02 11:55 | CARD ---
MR#: [id number] Date of Study: 12/02/2018 Ordering Physician: VALERIY VANESSA, Referring Physician: GIA HOOD Tech: Arin Faustin ANNIKA APPROVED REPORT EXAM: Two-dimensional and M-mode echocardiogram with Doppler and color Doppler. Other Information Quality : GoodHR: 68bpm Rhythm : NSR INDICATION Cardiomyopathy 2D DIMENSIONS RVDd3.1 (2.9-3.5cm)Left Atrium(2D)3.9 (1.6-4.0cm) IVSd1.2 (0.7-1.1cm)Aortic Root(2D)3.3 (2.0-3.7cm) LVDd5.5 (3.9-5.9cm)LVOT Diameter2.1 (1.8-2.4cm) PWd1.3 (0.7-1.1cm)LVDs4.2 (2.5-4.0cm) FS (%) 23.4 %SV68.8 ml LVEF(%)45.0 (>50%) M-Mode DIMENSIONS Left Atrium(MM)3.95 (2.5-4.0cm)Aortic Root3.54 (2.2-3.7cm) Aortic Valve AoV Peak Mateo.122.4cm/sAoV VTI22.3cm AO Peak GR.6.0mmHgLVOT Peak Mateo.88.6cm/s AO Mean GR.3mmHgAVA (VMAX)2.57cm2 GIORGI (VTI)2.60cm2 Mitral Valve MV E Wtmkmxbu143.3cm/sMV DECEL [id number] MV A Piqhyhwc90.7cm/sE/A Ratio2.0 MV A Jtnnckzb01nw Pulmonary Valve PV Peak Mzlpxyfi67.4cm/s Tricuspid Valve TR P. Wnuxlbzl521xb/sRAP SZOJJANP93oaHl TR Peak Gr.50wpHdGQNH55zfWc LEFT VENTRICLE The left ventricle is normal size. There is mild concentric left ventricular hypertrophy. Left ventri jose systolic function is severely impaired. EF 25-30%. There is global hypokinesis of the left ventri jose. Tissue Doppler imaging reveals moderate left ventricular diastolic dysfunction. RIGHT VENTRICLE The right ventricle is normal size. There is normal right ventricular wall thickness. The right ventr icular systolic function is normal. ATRIA The left atrium is borderline dilated. The right atrium size is normal. The interatrial septum is int act with no evidence for an atrial septal defect or patent foramen ovale as noted on 2-D or Doppler i maging. AORTIC VALVE The aortic valve is thickened but opens well. The aortic valve is trileaflet. Doppler and Color Flow revealed trace aortic regurgitation. There is no significant aortic valvular stenosis. There is no ao rtic valvular vegetation. MITRAL VALVE The mitral valve is thickened but opens well. There is no evidence of mitral valve prolapse. There is no mitral valve stenosis. Doppler and Color-flow revealed trace mitral regurgitation. TRICUSPID VALVE The tricuspid valve is normal in structure and function. Doppler and Color Flow revealed trace tricus pid regurgitation. The PA pressure was estimated at 28 mmHg. There is no tricuspid valve prolapse or vegetation. There is no tricuspid valve stenosis. PULMONIC VALVE The pulmonary valve is normal in structure and function. Doppler and Color Flow revealed trace pulmon ic valvular regurgitation. There is no pulmonic valvular stenosis. GREAT VESSELS The aortic root is normal in size. The ascending aorta is normal in size. The IVC is dilated and aaron apses <50% with inspiration. PERICARDIAL EFFUSION There is no evidence of significant pericardial effusion. Critical Notification Critical Value: No <Conclusion> Left ventricle systolic function is severely impaired. EF 25-30%. There is global hypokinesis of the left ventricle. Signed by : Jamil Rueda, Electronically Approved : 12/02/2018 11:55:18
--- NOTE | 2018-12-02 11:59 | PDOC ---
PROGRESS NOTES History of Present Illness History of Present Illness ASSESSMENT AND PLAN: Atrial flutter with rapid ventricular response, anemia, chronic renal insufficiency, UNCONTROLLED DIABETES hyperglycemia. Acute on chronic systolic and diastolic heart failure, elevated alkaline phosphatase and AST. Hypomagnesemia. MORBID OBESITY admitted. consult Cardiology, CVC cardiac monitoring, serial enzymes, serial EKGs, echocardiogram, home meds, deep venous thrombosis prophylaxis. Full code. Replace magnesium. Consult GI //transaminitis. Frequent labs. ABDOMINAL SONO 35 MIN VISIT > 50% of time with exam, chart review, lab review, pt care coordination Vitals Vitals Vital Signs Date Time Temp Pulse Resp B/P (MAP) Pulse Ox O2 Delivery O2 Flow Rate FiO2 12/02/18 08:00 Room Air 12/02/18 07:55 74 180/117 12/02/18 07:00 98.2 95 98.2 12/01/18 14:20 20 Physical Exam General: Alert, Oriented X3, Cooperative, No acute distress Heart: Regular rate (4: atrial flutter) Lungs: Clear Abdomen: Normal bowel sounds, Soft, No tenderness, Other (truncal obesity) Extremities: No clubbing, No cyanosis Skin: No breakdown, No significant lesion Labs LABS PROCEDURE: PORTABLE CHEST 1V Examination: PORTABLE CHEST 1V History: CHEST PAIN Comparison/Correlation: 08/28/2017 portable chest x-ray exam Findings: Portable upright frontal view of the chest was obtained. Heart size and pulmonary vasculature are normal. No infiltrate or pleural effusion. No pneumothorax. Bony structures are unremarkable. Impression: No active disease. Electronically signed by: Rylan Morocho MD (12/01/2018 12:40 PM) [id number] Laboratory Tests Test 12/01/18 12:05 12/01/18 12:14 12/01/18 20:11 12/01/18 22:00 White Blood Count 8.0 x10^3/uL (4.0-11.0) Red Blood Count 4.74 x10^6/uL (4.30-5.70) Hemoglobin 12.2 g/dL (13.0-17.5) Hematocrit 38.9 % (39.0-53.0) Mean Corpuscular Volume 82 fL (79-100) Mean Corpuscular Hemoglobin 26 pg (25-35) Mean Corpuscular Hemoglobin Concent 31 g/dL (31-37) Red Cell Distribution Width 13.3 % (11.5-14.5) Platelet Count 246 x10^3/uL (140-400) Neutrophils (%) (Auto) 73 % (31-73) Lymphocytes (%) (Auto) 21 % (24-48) Monocytes (%) (Auto) 5 % (0-9) Eosinophils (%) (Auto) 0 % (0-3) Basophils (%) (Auto) 1 % (0-3) Neutrophils # (Auto) 5.8 x10^3uL (1.8-7.7) Lymphocytes # (Auto) 1.7 x10^3/uL (1.0-4.8) Monocytes # (Auto) 0.4 x10^3/uL (0.0-1.1) Eosinophils # (Auto) 0.0 x10^3/uL (0.0-0.7) Basophils # (Auto) 0.1 x10^3/uL (0.0-0.2) Prothrombin Time 13.3 SEC (11.7-14.0) Prothromb Time International Ratio 1.0 (0.8-1.1) Activated Partial Thromboplast Time 30 SEC (24-38) Sodium Level 136 mmol/L (136-145) Potassium Level 4.0 mmol/L (3.5-5.1) Chloride Level 96 mmol/L (98-107) Carbon Dioxide Level 31 mmol/L (21-32) Anion Gap 9 (6-14) Blood Urea Nitrogen 17 mg/dL (8-26) Creatinine 1.4 mg/dL (0.7-1.3) Estimated GFR (Cockcroft-Gault) 64.9 BUN/Creatinine Ratio 12 (6-20) Glucose Level 424 mg/dL (70-99) Hemoglobin A1c 15.4 % (4.8-5.6) Calcium Level 9.1 mg/dL (8.5-10.1) Magnesium Level 1.5 mg/dL (1.8-2.4) Total Bilirubin 0.7 mg/dL (0.2-1.0) Aspartate Amino Transf (AST/SGOT) 38 U/L (15-37) Alanine Aminotransferase (ALT/SGPT) 61 U/L (16-63) Alkaline Phosphatase 135 U/L (46-116) Creatine Kinase 231 U/L (39-308) Creatine Kinase MB (Mass) 3.8 ng/mL (0.0-3.6) Creatine Kinase MB Relative Index 1.6 % (0-4) Troponin I Quantitative < 0.017 ng/mL (0.000-0.055) AO-Uvm-G-Type Natriuretic Peptide 1000 pg/mL (0-124) Total Protein 7.4 g/dL (6.4-8.2) Albumin 3.4 g/dL (3.4-5.0) Albumin/Globulin Ratio 0.9 (1.0-1.7) Lipase 137 U/L (73-393) Thyroid Stimulating Hormone (TSH) 1.899 uIU/mL (0.358-3.74) Hepatitis A IgM Antibody Nonreactive (Nonreactive) Hepatitis B Surface Antigen Nonreactive (Nonreactive) Hepatitis B Core IgM Antibody Nonreactive (Nonreactive) Hepatitis C IgG Antibody Nonreactive (Nonreactive) Bedside Troponin I 0.01 ng/ml (<0.08) Glucose (Fingerstick) 389 mg/dL (70-99) Heparin Anti-Xa Act, Unfractionated 0.17 IU/mL (0.30-0.70) Test 12/02/18 05:15 12/02/18 05:17 12/02/18 07:56 Iron Level 58 ug/dL (65-175) Total Iron Binding Capacity 296 ug/dL (250-450) Iron Saturation 20 % (15-34) White Blood Count 6.5 x10^3/uL (4.0-11.0) Red Blood Count 4.36 x10^6/uL (4.30-5.70) Hemoglobin 11.4 g/dL (13.0-17.5) Hematocrit 35.9 % (39.0-53.0) Mean Corpuscular Volume 82 fL (79-100) Mean Corpuscular Hemoglobin 26 pg (25-35) Mean Corpuscular Hemoglobin Concent 32 g/dL (31-37) Red Cell Distribution Width 13.5 % (11.5-14.5) Platelet Count 233 x10^3/uL (140-400) Heparin Anti-Xa Act, Unfractionated 0.33 IU/mL (0.30-0.70) Total Bilirubin 0.8 mg/dL (0.2-1.0) Direct Bilirubin 0.2 mg/dL (0.0-0.2) Aspartate Amino Transf (AST/SGOT) 28 U/L (15-37) Alanine Aminotransferase (ALT/SGPT) 55 U/L (16-63) Alkaline Phosphatase 98 U/L (46-116) Total Protein 6.7 g/dL (6.4-8.2) Albumin 2.8 g/dL (3.4-5.0) Glucose (Fingerstick) 249 mg/dL (70-99) Assessment and Plan Assessmemt and Plan Problems Medical Problems: (1) Atrial flutter with rapid ventricular response Status: Acute Comment Review of Relevant I have reviewed the following items pascual (where applicable) has been applied. Labs Laboratory Tests Test 12/01/18 06:08 12/01/18 12:05 12/01/18 12:14 12/01/18 20:11 Triglycerides Level 65 mg/dL (0-150) Cholesterol Level 197 mg/dL (0-200) LDL Cholesterol, Calculated 136 mg/dL (0-100) VLDL Cholesterol, Calculated 13 mg/dL (0-40) Non-HDL Cholesterol Calculated 149 mg/dL (0-129) HDL Cholesterol 48 mg/dL (40-60) Cholesterol/HDL Ratio 4.1 White Blood Count 8.0 x10^3/uL (4.0-11.0) Red Blood Count 4.74 x10^6/uL (4.30-5.70) Hemoglobin 12.2 g/dL (13.0-17.5) Hematocrit 38.9 % (39.0-53.0) Mean Corpuscular Volume 82 fL (79-100) Mean Corpuscular Hemoglobin 26 pg (25-35) Mean Corpuscular Hemoglobin Concent 31 g/dL (31-37) Red Cell Distribution Width 13.3 % (11.5-14.5) Platelet Count 246 x10^3/uL (140-400) Neutrophils (%) (Auto) 73 % (31-73) Lymphocytes (%) (Auto) 21 % (24-48) Monocytes (%) (Auto) 5 % (0-9) Eosinophils (%) (Auto) 0 % (0-3) Basophils (%) (Auto) 1 % (0-3) Neutrophils # (Auto) 5.8 x10^3uL (1.8-7.7) Lymphocytes # (Auto) 1.7 x10^3/uL (1.0-4.8) Monocytes # (Auto) 0.4 x10^3/uL (0.0-1.1) Eosinophils # (Auto) 0.0 x10^3/uL (0.0-0.7) Basophils # (Auto) 0.1 x10^3/uL (0.0-0.2) Prothrombin Time 13.3 SEC (11.7-14.0) Prothromb Time International Ratio 1.0 (0.8-1.1) Activated Partial Thromboplast Time 30 SEC (24-38) Sodium Level 136 mmol/L (136-145) Potassium Level 4.0 mmol/L (3.5-5.1) Chloride Level 96 mmol/L (98-107) Carbon Dioxide Level 31 mmol/L (21-32) Anion Gap 9 (6-14) Blood Urea Nitrogen 17 mg/dL (8-26) Creatinine 1.4 mg/dL (0.7-1.3) Estimated GFR (Cockcroft-Gault) 64.9 BUN/Creatinine Ratio 12 (6-20) Glucose Level 424 mg/dL (70-99) Hemoglobin A1c 15.4 % (4.8-5.6) Calcium Level 9.1 mg/dL (8.5-10.1) Magnesium Level 1.5 mg/dL (1.8-2.4) Total Bilirubin 0.7 mg/dL (0.2-1.0) Aspartate Amino Transf (AST/SGOT) 38 U/L (15-37) Alanine Aminotransferase (ALT/SGPT) 61 U/L (16-63) Alkaline Phosphatase 135 U/L (46-116) Creatine Kinase 231 U/L (39-308) Creatine Kinase MB (Mass) 3.8 ng/mL (0.0-3.6) Creatine Kinase MB Relative Index 1.6 % (0-4) Troponin I Quantitative < 0.017 ng/mL (0.000-0.055) BI-Mxj-G-Type Natriuretic Peptide 1000 pg/mL (0-124) Total Protein 7.4 g/dL (6.4-8.2) Albumin 3.4 g/dL (3.4-5.0) Albumin/Globulin Ratio 0.9 (1.0-1.7) Lipase 137 U/L (73-393) Thyroid Stimulating Hormone (TSH) 1.899 uIU/mL (0.358-3.74) Hepatitis A IgM Antibody Nonreactive (Nonreactive) Hepatitis B Surface Antigen Nonreactive (Nonreactive) Hepatitis B Core IgM Antibody Nonreactive (Nonreactive) Hepatitis C IgG Antibody Nonreactive (Nonreactive) Bedside Troponin I 0.01 ng/ml (<0.08) Glucose (Fingerstick) 389 mg/dL (70-99) Test 12/01/18 22:00 12/02/18 05:15 12/02/18 05:17 12/02/18 07:56 Heparin Anti-Xa Act, Unfractionated 0.17 IU/mL (0.30-0.70) 0.33 IU/mL (0.30-0.70) Iron Level 58 ug/dL (65-175) Total Iron Binding Capacity 296 ug/dL (250-450) Iron Saturation 20 % (15-34) White Blood Count 6.5 x10^3/uL (4.0-11.0) Red Blood Count 4.36 x10^6/uL (4.30-5.70) Hemoglobin 11.4 g/dL (13.0-17.5) Hematocrit 35.9 % (39.0-53.0) Mean Corpuscular Volume 82 fL (79-100) Mean Corpuscular Hemoglobin 26 pg (25-35) Mean Corpuscular Hemoglobin Concent 32 g/dL (31-37) Red Cell Distribution Width 13.5 % (11.5-14.5) Platelet Count 233 x10^3/uL (140-400) Total Bilirubin 0.8 mg/dL (0.2-1.0) Direct Bilirubin 0.2 mg/dL (0.0-0.2) Aspartate Amino Transf (AST/SGOT) 28 U/L (15-37) Alanine Aminotransferase (ALT/SGPT) 55 U/L (16-63) Alkaline Phosphatase 98 U/L (46-116) Total Protein 6.7 g/dL (6.4-8.2) Albumin 2.8 g/dL (3.4-5.0) Glucose (Fingerstick) 249 mg/dL (70-99) Laboratory Tests Test 12/01/18 12:05 12/01/18 12:14 12/01/18 20:11 12/01/18 22:00 White Blood Count 8.0 x10^3/uL (4.0-11.0) Red Blood Count 4.74 x10^6/uL (4.30-5.70) Hemoglobin 12.2 g/dL (13.0-17.5) Hematocrit 38.9 % (39.0-53.0) Mean Corpuscular Volume 82 fL (79-100) Mean Corpuscular Hemoglobin 26 pg (25-35) Mean Corpuscular Hemoglobin Concent 31 g/dL (31-37) Red Cell Distribution Width 13.3 % (11.5-14.5) Platelet Count 246 x10^3/uL (140-400) Neutrophils (%) (Auto) 73 % (31-73) Lymphocytes (%) (Auto) 21 % (24-48) Monocytes (%) (Auto) 5 % (0-9) Eosinophils (%) (Auto) 0 % (0-3) Basophils (%) (Auto) 1 % (0-3) Neutrophils # (Auto) 5.8 x10^3uL (1.8-7.7) Lymphocytes # (Auto) 1.7 x10^3/uL (1.0-4.8) Monocytes # (Auto) 0.4 x10^3/uL (0.0-1.1) Eosinophils # (Auto) 0.0 x10^3/uL (0.0-0.7) Basophils # (Auto) 0.1 x10^3/uL (0.0-0.2) Prothrombin Time 13.3 SEC (11.7-14.0) Prothromb Time International Ratio 1.0 (0.8-1.1) Activated Partial Thromboplast Time 30 SEC (24-38) Sodium Level 136 mmol/L (136-145) Potassium Level 4.0 mmol/L (3.5-5.1) Chloride Level 96 mmol/L (98-107) Carbon Dioxide Level 31 mmol/L (21-32) Anion Gap 9 (6-14) Blood Urea Nitrogen 17 mg/dL (8-26) Creatinine 1.4 mg/dL (0.7-1.3) Estimated GFR (Cockcroft-Gault) 64.9 BUN/Creatinine Ratio 12 (6-20) Glucose Level 424 mg/dL (70-99) Hemoglobin A1c 15.4 % (4.8-5.6) Calcium Level 9.1 mg/dL (8.5-10.1) Magnesium Level 1.5 mg/dL (1.8-2.4) Total Bilirubin 0.7 mg/dL (0.2-1.0) Aspartate Amino Transf (AST/SGOT) 38 U/L (15-37) Alanine Aminotransferase (ALT/SGPT) 61 U/L (16-63) Alkaline Phosphatase 135 U/L (46-116) Creatine Kinase 231 U/L (39-308) Creatine Kinase MB (Mass) 3.8 ng/mL (0.0-3.6) Creatine Kinase MB Relative Index 1.6 % (0-4) Troponin I Quantitative < 0.017 ng/mL (0.000-0.055) DU-Lsf-D-Type Natriuretic Peptide 1000 pg/mL (0-124) Total Protein 7.4 g/dL (6.4-8.2) Albumin 3.4 g/dL (3.4-5.0) Albumin/Globulin Ratio 0.9 (1.0-1.7) Lipase 137 U/L (73-393) Thyroid Stimulating Hormone (TSH) 1.899 uIU/mL (0.358-3.74) Hepatitis A IgM Antibody Nonreactive (Nonreactive) Hepatitis B Surface Antigen Nonreactive (Nonreactive) Hepatitis B Core IgM Antibody Nonreactive (Nonreactive) Hepatitis C IgG Antibody Nonreactive (Nonreactive) Bedside Troponin I 0.01 ng/ml (<0.08) Glucose (Fingerstick) 389 mg/dL (70-99) Heparin Anti-Xa Act, Unfractionated 0.17 IU/mL (0.30-0.70) Test 12/02/18 05:15 12/02/18 05:17 12/02/18 07:56 Iron Level 58 ug/dL (65-175) Total Iron Binding Capacity 296 ug/dL (250-450) Iron Saturation 20 % (15-34) White Blood Count 6.5 x10^3/uL (4.0-11.0) Red Blood Count 4.36 x10^6/uL (4.30-5.70) Hemoglobin 11.4 g/dL (13.0-17.5) Hematocrit 35.9 % (39.0-53.0) Mean Corpuscular Volume 82 fL (79-100) Mean Corpuscular Hemoglobin 26 pg (25-35) Mean Corpuscular Hemoglobin Concent 32 g/dL (31-37) Red Cell Distribution Width 13.5 % (11.5-14.5) Platelet Count 233 x10^3/uL (140-400) Heparin Anti-Xa Act, Unfractionated 0.33 IU/mL (0.30-0.70) Total Bilirubin 0.8 mg/dL (0.2-1.0) Direct Bilirubin 0.2 mg/dL (0.0-0.2) Aspartate Amino Transf (AST/SGOT) 28 U/L (15-37) Alanine Aminotransferase (ALT/SGPT) 55 U/L (16-63) Alkaline Phosphatase 98 U/L (46-116) Total Protein 6.7 g/dL (6.4-8.2) Albumin 2.8 g/dL (3.4-5.0) Glucose (Fingerstick) 249 mg/dL (70-99) Medications Current Medications Diltiazem HCl (Cardizem Iv Push) 20 mg 1X ONCE IVP Last administered on at 12:45; Start 12/01/18 at 12:15; Stop 12/01/18 at 12:18; Status DC Diltiazem HCl 125 mg/Dextrose 125 ml @ 5 mls/hr CONT PRN IV SEE I/O RECORD Last administered on 12/02/18at 07:53; Start 12/01/18 at 12:45 Magnesium Sulfate 50 ml @ 25 mls/hr 1X ONCE IV Last administered on 12/01/18at 13:49; Start 12/01/18 at 13:15; Stop 12/01/18 at 15:14; Status DC Ondansetron HCl (Zofran) 4 mg PRN Q8HRS PRN IV NAUSEA/VOMITING; Start 12/01/18 at 13:45; Stop 12/02/18 at 13:44 Heparin Sodium/ Dextrose 500 ml @ 20 mls/hr CONT PRN IV SEE I/O RECORD Last administered on 12/01/18at 22:41; Start 12/01/18 at 15:30 Heparin Sodium (Porcine) (Heparin Sodium) 3,000 unit PRN Q6HRS PRN IV FOR UFH LEVEL LESS THAN 0.2 Last administered on 12/01/18at 22:36; Start 12/01/18 at 15: 30 Heparin Sodium (Porcine) (Heparin Sodium) 4,000 unit 1X ONCE IV Last administered on 12/01/18at 17:23; Start 12/01/18 at 17:00; Stop 12/01/18 at 17:01 ; Status DC Amlodipine Besylate (Norvasc) 5 mg BID PO ; Start 12/02/18 at 09:00; Stop at 09:00; Status DC Aspirin (Children'S Aspirin) 81 mg DAILY PO Last administered on 12/02/18at 07: 55; Start 12/02/18 at 09:00 Furosemide (Lasix) 40 mg DAILY PO Last administered on 12/02/18at 07:53; Start 12/02/18 at 09:00 Metoprolol Tartrate (Lopressor) 25 mg BID PO Last administered on 12/02/18at 07: 55; Start 12/01/18 at 21:00 Glimepiride (Amaryl) 4 mg DAILY08 PO Last administered on 12/02/18at 07:53; Start 12/02/18 at 08:00 Labetalol HCl (Trandate) 300 mg BID PO ; Start 12/01/18 at 21:00; Stop 12/01/18 at 21:00; Status DC Potassium Chloride (Klor-Con) 20 meq DAILYWBKFT PO Last administered on at 07:55; Start 12/02/18 at 08:00 Lisinopril (Prinivil) 10 mg BID PO Last administered on 12/02/18at 07:54; Start 12/01/18 at 21:00 Dextrose (Dextrose 50%-Water Syringe) 12.5 gm PRN Q15MIN PRN IV SEE COMMENTS; Start 12/01/18 at 19:00; Status UNV Insulin Human Lispro (HumaLOG) 0-5 UNITS TIDWMEALS SQ ; Start 12/02/18 at 08:00 Dextrose (Dextrose 50%-Water Syringe) 12.5 gm PRN Q15MIN PRN IV SEE COMMENTS; Start 12/01/18 at 19:00 Info (Anti-Coagulation Monitoring By Pharmacy) 1 each PRN DAILY PRN MC SEE COMMENTS; Start 12/01/18 at 19:00 Insulin Human Regular (HumuLIN R VIAL) 4 unit 1X ONCE IV ; Start 12/01/18 at 21 :15; Stop 12/01/18 at 21:16; Status UNV Insulin Human Lispro (HumaLOG) 4 units ONCE ONCE SQ Last administered on at 21:26; Start 12/01/18 at 21:30; Stop 12/01/18 at 21:31; Status DC Nitroglycerin (Nitro-Bid Oint) 2 inch 1X ONCE TP Last administered on at 01:29; Start 12/02/18 at 01:30; Stop 12/02/18 at 01:31; Status DC Lisinopril (Prinivil) 20 mg 1X ONCE PO Last administered on 12/02/18at 01:28; Start 12/02/18 at 01:30; Stop 12/02/18 at 01:31; Status DC Active Scripts Active Metoprolol Tartrate 25 Mg Tablet 25 Mg PO BID Furosemide 40 Mg Tablet 40 Mg PO DAILY Reported Amlodipine Besylate 5 Mg Tablet 5 Mg PO BID Potassium Chloride 20 Meq Tablet.er 20 Meq PO DAILY Gary Chewable (Aspirin) 81 Mg Tab.chew 81 Mg PO Metformin Hcl 1,000 Mg Tablet 1,000 Mg PO DAILY Labetalol Hcl 200 Mg Tablet 300 Mg PO BID Glimepiride 4 Mg Tablet 4 Mg PO DAILY Ramipril 10 Mg Capsule 10 Mg PO BID Vitals/I & O Vital Sign - Last 24 Hours 12/01/18 12/01/18 12/01/18 12/01/18 12:05 12:12 12:35 12:45 Temp 98.3 98.3 Pulse 146 146 120 147 Resp 20 20 20 B/P (MAP) 123/102 (109) 124/105 (111) 127/89 (102) 127/89 Pulse Ox 95 96 97 O2 Delivery Room Air Room Air Room Air 12/01/18 12/01/18 12/01/18 12/01/18 12:50 13:20 13:50 14:20 Pulse 100 76 76 76 Resp 20 20 20 20 B/P (MAP) 124/86 (99) 139/98 (112) 130/100 (110) 144/96 (112) Pulse Ox 96 95 96 94 O2 Delivery Room Air Room Air Room Air Room Air 12/01/18 12/01/18 12/01/18 12/01/18 15:00 19:00 19:25 20:09 Pulse 104 76 B/P (MAP) 147/101 (116) 149/100 (116) O2 Delivery Room Air Room Air 12/01/18 12/01/18 12/01/18 12/01/18 20:12 20:12 20:45 21:46 Pulse 76 76 75 75 B/P (MAP) 149/100 149/100 155/103 (120) 157/106 (123) 12/01/18 12/02/18 12/02/18 12/02/18 23:00 00:09 00:34 01:28 Pulse 76 75 75 75 B/P (MAP) 184/120 (141) 171/112 (131) 179/121 (140) 190/136 12/02/18 12/02/18 12/02/18 12/02/18 01:29 02:04 03:00 04:04 Pulse 78 71 B/P (MAP) 190/136 183/130 (147) 194/134 (154) 173/115 (134) 12/02/18 12/02/18 12/02/18 12/02/18 05:06 07:00 07:54 07:55 Temp 98.2 98.2 Pulse 72 74 73 74 B/P (MAP) 176/111 (132) 180/117 (138) 180/117 180/117 Pulse Ox 95 O2 Delivery Room Air 12/02/18 08:00 O2 Delivery Room Air Intake and Output 12/01/18 12/01/18 12/02/18 14:59 22:59 06:59 Intake Total 430 ml 200 ml Output Total 450 ml Balance -20 ml 200 ml DUC GRACIA MD Dec 02, 2018 11:59
--- NOTE | 2018-12-02 12:13 | PDOC ---
Subjective: Subjective: Feels fine, not too talkative. Objective: Vital Signs: Vital Signs Date Time Temp Pulse Resp B/P (MAP) Pulse Ox O2 Delivery O2 Flow Rate FiO2 12/02/18 11:00 98.0 73 129/90 (103) 97 Room Air 98.0 12/01/18 14:20 20 Labs: Laboratory Tests Test 12/01/18 12:14 12/01/18 20:11 12/01/18 22:00 12/02/18 05:15 Bedside Troponin I 0.01 ng/ml Glucose (Fingerstick) 389 mg/dL Heparin Anti-Xa Act, Unfractionated 0.17 IU/mL Iron Level 58 ug/dL Total Iron Binding Capacity 296 ug/dL Iron Saturation 20 % Test 12/02/18 05:17 12/02/18 07:56 12/02/18 12:02 White Blood Count 6.5 x10^3/uL Red Blood Count 4.36 x10^6/uL Hemoglobin 11.4 g/dL Hematocrit 35.9 % Mean Corpuscular Volume 82 fL Mean Corpuscular Hemoglobin 26 pg Mean Corpuscular Hemoglobin Concent 32 g/dL Red Cell Distribution Width 13.5 % Platelet Count 233 x10^3/uL Heparin Anti-Xa Act, Unfractionated 0.33 IU/mL Total Bilirubin 0.8 mg/dL Direct Bilirubin 0.2 mg/dL Aspartate Amino Transf (AST/SGOT) 28 U/L Alanine Aminotransferase (ALT/SGPT) 55 U/L Alkaline Phosphatase 98 U/L Total Protein 6.7 g/dL Albumin 2.8 g/dL Glucose (Fingerstick) 249 mg/dL 315 mg/dL Imaging: Abd US pending Echo <Conclusion> Left ventricle systolic function is severely impaired. EF 25-30%. There is global hypokinesis of the left ventricle. PE: GEN: NAD, sitting on edge of bed w/ family visiting LUNGS: room air ABD: S/ND/NT NEURO/PSYCH: A & O 3 A/P: Atrial flutter Mildly elevated AST and Alk Phos - resolved, viral Hep panel neg Mild anemia - not iron deficient -- US pending. Continue per cardiology. GARRETT TEMPLE Dec 02, 2018 12:13
--- NOTE | 2018-12-02 12:51 | NUR ---
SS following up with discharge planning. SS reviewed pt chart. Pt is from home with spouse and is currently on room air. No discharge needs noted at this time. SS will continue to follow for pending discharge needs.
--- NOTE | 2018-12-02 12:54 | PDOC ---
CARDIO Progress Notes Date and Time Date of Service 12/02/18 Subjective Subjective: No Chest Pain, No shortness of breath, No Palpitations Vitals Vitals Vital Signs Date Time Temp Pulse Resp B/P (MAP) Pulse Ox O2 Delivery O2 Flow Rate FiO2 12/02/18 11:00 98.0 73 129/90 (103) 97 Room Air 98.0 12/01/18 14:20 20 Weight Weight [ ] Input and Output Intake and Output Intake and Output 12/02/18 06:59 Intake Total 630 ml Output Total 450 ml Balance 180 ml Intake Oral 630 ml Output Urine Total 450 ml Laboratory Labs Laboratory Tests Test 12/01/18 20:11 12/01/18 22:00 12/02/18 05:15 12/02/18 05:17 Glucose (Fingerstick) 389 mg/dL (70-99) Heparin Anti-Xa Act, Unfractionated 0.17 IU/mL (0.30-0.70) 0.33 IU/mL (0.30-0.70) Iron Level 58 ug/dL (65-175) Total Iron Binding Capacity 296 ug/dL (250-450) Iron Saturation 20 % (15-34) White Blood Count 6.5 x10^3/uL (4.0-11.0) Red Blood Count 4.36 x10^6/uL (4.30-5.70) Hemoglobin 11.4 g/dL (13.0-17.5) Hematocrit 35.9 % (39.0-53.0) Mean Corpuscular Volume 82 fL (79-100) Mean Corpuscular Hemoglobin 26 pg (25-35) Mean Corpuscular Hemoglobin Concent 32 g/dL (31-37) Red Cell Distribution Width 13.5 % (11.5-14.5) Platelet Count 233 x10^3/uL (140-400) Total Bilirubin 0.8 mg/dL (0.2-1.0) Direct Bilirubin 0.2 mg/dL (0.0-0.2) Aspartate Amino Transf (AST/SGOT) 28 U/L (15-37) Alanine Aminotransferase (ALT/SGPT) 55 U/L (16-63) Alkaline Phosphatase 98 U/L (46-116) Total Protein 6.7 g/dL (6.4-8.2) Albumin 2.8 g/dL (3.4-5.0) Test 12/02/18 07:56 12/02/18 11:50 12/02/18 12:02 Glucose (Fingerstick) 249 mg/dL (70-99) 315 mg/dL (70-99) Heparin Anti-Xa Act, Unfractionated 0.11 IU/mL (0.30-0.70) Physical Exam HEENT: Neck Supple W Full Motion Chest: Symmetric LUNGS: Clear to Auscultation Heart: S1S2, RRR Abdomen: Soft N/T, Other (obese) Extremities: No Calf Tenderness Neurology: alert, oriented, follow commands Assessment Assessment 1. Atrial flutter with RVR; converted to NSR overnight with cardizem gtt ad oral metoprolol. On heparin gtt 2. Chest pain: AMI ruled out. Most probably due to above. 3. HTN: labile this am 4. DM2: uncontrolled 5. Chronic diastolic CHF: compensated 6. HLP 7. Morbid obesity/YANG; not complaint with CPAP Recommendations Covert Cardizem to oral Discontinue heparin gtt. [id number] 3 correlating with a 3.2% risk for stroke. Will start Eliquis for stroke prophylaxis and arrange for outpatient event monitor to note AFIB burden and guide OAC therapy. Discussed/encouraged compliance with CPAP Weight loss Supportive care. Follow up in our office with Dr. Donald as previously scheduled. DOUG TEJEDA APRN Dec 02, 2018 12:54
--- NOTE | 2018-12-02 23:12 | NUR ---
Dr. Rueda notified regarding patient elevated BP 156/106 and patient not on any anticoagulant. Dr. Rueda returned call no orders received cardiology will follow up with patient in the AM.
[2018-12-03 03:41] VITALS: BP 148/105
[2018-12-03 07:27] VITALS: BP 160/101
[2018-12-03] MEDS: GLIMEPIRIDE 2 MG TABLET. PO SCH (07:53)
[2018-12-03] MEDS: POTASSIUM CHLORIDE 20 MEQ TABLET.ER. PO SCH (07:54)
[2018-12-03] MEDS: ASPIRIN CHEWABLE 81 MG TABLET. PO SCH (07:54)
[2018-12-03] MEDS: FUROSEMIDE 40 MG TABLET. PO SCH (07:54)
[2018-12-03] MEDS: METOPROLOL TART IMMED RELEASE 25 MG TABLET. PO SCH (07:55)
[2018-12-03] MEDS: LISINOPRIL 10 MG TABLET PO SCH (07:55)
[2018-12-03] MEDS: INSULIN LISPRO 300 UNITS/3 ML INSULN.PEN. SQ SCH ×2 (08:01→11:49)
[2018-12-03 09:04] VITALS: BP 154/98
--- NOTE | 2018-12-03 09:06 | RAD ---
Indication:ELEVATED LFTS TECHNIQUE: Grayscale, color Doppler and spectral waveform is of the abdomen obtained. COMPARISON:None FINDINGS:Visualized pancreas is within normal limits. Pancreatic tail not visualized due to overlying bowel gas. IVC is within normal limits. No aortic aneurysm. Liver is mildly enlarged measuring 19 cm in longest dimension with mildly increased echogenicity. Right kidney measures 10 cm in length without hydronephrosis. No gallstones, pericholecystic fluid or gallbladder wall thickening. Main portal vein is patent with hepatopedal flow. CBD measures 3 mm in diameter and is within normal limits. Spleen measures 10 cm in length and is normal in size. Left kidney measures 12 cm in length without hydronephrosis. IMPRESSION: 1. Mild hepatomegaly with hepatic steatosis. 2. No cholelithiasis. Electronically signed by: Perfecto Mckeon DO (12/03/2018 9:03 AM) [facility]
[2018-12-03] MEDS ORDERED: LISINOPRIL 10 MG TABLET PO ONE (09:15)
--- NOTE | 2018-12-03 09:20 | PDOC ---
CARDIO Progress Notes Date and Time Date of Service 12/03/18 Time of Evaluation 0915 Subjective Subjective: No Chest Pain, No shortness of breath, No Palpitations Vitals Vitals Vital Signs Date Time Temp Pulse Resp B/P (MAP) Pulse Ox O2 Delivery O2 Flow Rate FiO2 12/03/18 09:04 70 154/98 (116) 12/03/18 08:04 Room Air 12/03/18 07:27 96.4 17 92 96.4 Weight Weight [ ] Input and Output Intake and Output Intake and Output 12/03/18 07:00 Intake Total 700 ml Balance 700 ml Intake Oral 700 ml # Voids 2 # Bowel Movements 1 Laboratory Labs Laboratory Tests Test 12/02/18 11:50 12/02/18 12:02 12/02/18 17:05 12/02/18 20:10 Heparin Anti-Xa Act, Unfractionated 0.11 IU/mL (0.30-0.70) Glucose (Fingerstick) 315 mg/dL (70-99) 158 mg/dL (70-99) 250 mg/dL (70-99) Test 12/03/18 07:09 Glucose (Fingerstick) 221 mg/dL (70-99) Physical Exam HEENT: Neck Supple W Full Motion Chest: Symmetric LUNGS: Clear to Auscultation Heart: S1S2, RRR Abdomen: Soft N/T, Other (obese) Extremities: No Calf Tenderness Neurology: alert, oriented, follow commands Assessment Assessment 1. Atrial flutter with RVR; converted to NSR and is maintaining. 2. Chest pain: AMI ruled out. Most probably due to above. 3. HTN: elevated 4. DM2: uncontrolled 5. Chronic diastolic CHF: compensated 6. HLP 7. Morbid obesity/YANG; not complaint with CPAP Recommendations Continue Cardizem and BB for rate control Increase ACEi for better BP control [id number] 3 correlating with a 3.2% risk for stroke. Eliquis for stroke prophylaxis. Will arrange from outpatient event monitor to note AFIB burden and guide OAC therapy. Discussed/encouraged compliance with CPAP Weight loss Supportive care. Follow up in our office with Dr. Donald as scheduled. DOUG TEJEDA APRN Dec 03, 2018 09:20
[2018-12-03] MEDS ORDERED: APIXABAN 5 MG TABLET. PO SCH (10:00)
--- NOTE | 2018-12-03 10:43 | PDOC ---
PROGRESS NOTES History of Present Illness History of Present Illness ASSESSMENT AND PLAN: Atrial flutter with rapid ventricular response, anemia, chronic renal insufficiency, UNCONTROLLED DIABETES hyperglycemia. Acute on chronic systolic and diastolic heart failure, elevated alkaline phosphatase and AST. Hypomagnesemia. MORBID OBESITY UNCONTROLLED HTN admitted. consult Cardiology, CVC cardiac monitoring, serial enzymes, serial EKGs, echocardiogram, home meds, deep venous thrombosis prophylaxis. Full code. Replace magnesium. Consult GI //transaminitis. Frequent labs. ABDOMINAL SONO INC LISINOPRIL TO 20 MG PO BID D/C TODAY, D/C PLANNING 32 MIN 35 MIN VISIT > 50% of time with exam, chart review, lab review, pt care coordination Vitals Vitals Vital Signs Date Time Temp Pulse Resp B/P (MAP) Pulse Ox O2 Delivery O2 Flow Rate FiO2 12/03/18 09:27 74 154/98 12/03/18 08:04 Room Air 12/03/18 07:27 96.4 17 92 96.4 Physical Exam General: Alert, Oriented X3, Cooperative, No acute distress Heart: Regular rate (4: atrial flutter), Normal S1 Lungs: Clear Abdomen: Normal bowel sounds, Soft, No tenderness, Other (truncal obesity) Extremities: No clubbing, No cyanosis Skin: No breakdown, No significant lesion Labs LABS Laboratory Tests Test 12/02/18 11:50 12/02/18 12:02 12/02/18 17:05 12/02/18 20:10 Heparin Anti-Xa Act, Unfractionated 0.11 IU/mL (0.30-0.70) Glucose (Fingerstick) 315 mg/dL (70-99) 158 mg/dL (70-99) 250 mg/dL (70-99) Test 12/03/18 07:09 Glucose (Fingerstick) 221 mg/dL (70-99) Assessment and Plan Assessmemt and Plan Problems Medical Problems: (1) Atrial flutter with rapid ventricular response Status: Acute Comment Review of Relevant I have reviewed the following items pascual (where applicable) has been applied. Labs Laboratory Tests Test 12/01/18 12:05 12/01/18 12:14 12/01/18 20:11 12/01/18 22:00 White Blood Count 8.0 x10^3/uL (4.0-11.0) Red Blood Count 4.74 x10^6/uL (4.30-5.70) Hemoglobin 12.2 g/dL (13.0-17.5) Hematocrit 38.9 % (39.0-53.0) Mean Corpuscular Volume 82 fL (79-100) Mean Corpuscular Hemoglobin 26 pg (25-35) Mean Corpuscular Hemoglobin Concent 31 g/dL (31-37) Red Cell Distribution Width 13.3 % (11.5-14.5) Platelet Count 246 x10^3/uL (140-400) Neutrophils (%) (Auto) 73 % (31-73) Lymphocytes (%) (Auto) 21 % (24-48) Monocytes (%) (Auto) 5 % (0-9) Eosinophils (%) (Auto) 0 % (0-3) Basophils (%) (Auto) 1 % (0-3) Neutrophils # (Auto) 5.8 x10^3uL (1.8-7.7) Lymphocytes # (Auto) 1.7 x10^3/uL (1.0-4.8) Monocytes # (Auto) 0.4 x10^3/uL (0.0-1.1) Eosinophils # (Auto) 0.0 x10^3/uL (0.0-0.7) Basophils # (Auto) 0.1 x10^3/uL (0.0-0.2) Prothrombin Time 13.3 SEC (11.7-14.0) Prothromb Time International Ratio 1.0 (0.8-1.1) Activated Partial Thromboplast Time 30 SEC (24-38) Sodium Level 136 mmol/L (136-145) Potassium Level 4.0 mmol/L (3.5-5.1) Chloride Level 96 mmol/L (98-107) Carbon Dioxide Level 31 mmol/L (21-32) Anion Gap 9 (6-14) Blood Urea Nitrogen 17 mg/dL (8-26) Creatinine 1.4 mg/dL (0.7-1.3) Estimated GFR (Cockcroft-Gault) 64.9 BUN/Creatinine Ratio 12 (6-20) Glucose Level 424 mg/dL (70-99) Hemoglobin A1c 15.4 % (4.8-5.6) Calcium Level 9.1 mg/dL (8.5-10.1) Magnesium Level 1.5 mg/dL (1.8-2.4) Total Bilirubin 0.7 mg/dL (0.2-1.0) Aspartate Amino Transf (AST/SGOT) 38 U/L (15-37) Alanine Aminotransferase (ALT/SGPT) 61 U/L (16-63) Alkaline Phosphatase 135 U/L (46-116) Creatine Kinase 231 U/L (39-308) Creatine Kinase MB (Mass) 3.8 ng/mL (0.0-3.6) Creatine Kinase MB Relative Index 1.6 % (0-4) Troponin I Quantitative < 0.017 ng/mL (0.000-0.055) QS-Mga-D-Type Natriuretic Peptide 1000 pg/mL (0-124) Total Protein 7.4 g/dL (6.4-8.2) Albumin 3.4 g/dL (3.4-5.0) Albumin/Globulin Ratio 0.9 (1.0-1.7) Lipase 137 U/L (73-393) Thyroid Stimulating Hormone (TSH) 1.899 uIU/mL (0.358-3.74) Hepatitis A IgM Antibody Nonreactive (Nonreactive) Hepatitis B Surface Antigen Nonreactive (Nonreactive) Hepatitis B Core IgM Antibody Nonreactive (Nonreactive) Hepatitis C IgG Antibody Nonreactive (Nonreactive) Bedside Troponin I 0.01 ng/ml (<0.08) Glucose (Fingerstick) 389 mg/dL (70-99) Heparin Anti-Xa Act, Unfractionated 0.17 IU/mL (0.30-0.70) Test 12/02/18 05:15 12/02/18 05:17 12/02/18 07:56 12/02/18 11:50 Iron Level 58 ug/dL (65-175) Total Iron Binding Capacity 296 ug/dL (250-450) Iron Saturation 20 % (15-34) White Blood Count 6.5 x10^3/uL (4.0-11.0) Red Blood Count 4.36 x10^6/uL (4.30-5.70) Hemoglobin 11.4 g/dL (13.0-17.5) Hematocrit 35.9 % (39.0-53.0) Mean Corpuscular Volume 82 fL (79-100) Mean Corpuscular Hemoglobin 26 pg (25-35) Mean Corpuscular Hemoglobin Concent 32 g/dL (31-37) Red Cell Distribution Width 13.5 % (11.5-14.5) Platelet Count 233 x10^3/uL (140-400) Heparin Anti-Xa Act, Unfractionated 0.33 IU/mL (0.30-0.70) 0.11 IU/mL (0.30-0.70) Total Bilirubin 0.8 mg/dL (0.2-1.0) Direct Bilirubin 0.2 mg/dL (0.0-0.2) Aspartate Amino Transf (AST/SGOT) 28 U/L (15-37) Alanine Aminotransferase (ALT/SGPT) 55 U/L (16-63) Alkaline Phosphatase 98 U/L (46-116) Total Protein 6.7 g/dL (6.4-8.2) Albumin 2.8 g/dL (3.4-5.0) Glucose (Fingerstick) 249 mg/dL (70-99) Test 12/02/18 12:02 12/02/18 17:05 12/02/18 20:10 12/03/18 07:09 Glucose (Fingerstick) 315 mg/dL (70-99) 158 mg/dL (70-99) 250 mg/dL (70-99) 221 mg/dL (70-99) Laboratory Tests Test 12/02/18 11:50 12/02/18 12:02 12/02/18 17:05 12/02/18 20:10 Heparin Anti-Xa Act, Unfractionated 0.11 IU/mL (0.30-0.70) Glucose (Fingerstick) 315 mg/dL (70-99) 158 mg/dL (70-99) 250 mg/dL (70-99) Test 12/03/18 07:09 Glucose (Fingerstick) 221 mg/dL (70-99) Medications Current Medications Diltiazem HCl (Cardizem Iv Push) 20 mg 1X ONCE IVP Last administered on at 12:45; Start 12/01/18 at 12:15; Stop 12/01/18 at 12:18; Status DC Diltiazem HCl 125 mg/Dextrose 125 ml @ 5 mls/hr CONT PRN IV SEE I/O RECORD Last administered on 12/02/18 07:53; Start 12/01/18 at 12:45; Stop 12/02/18 at 15:49; Status DC Magnesium Sulfate 50 ml @ 25 mls/hr 1X ONCE IV Last administered on 12/01/18at 13:49; Start 12/01/18 at 13:15; Stop 12/01/18 at 15:14; Status DC Ondansetron HCl (Zofran) 4 mg PRN Q8HRS PRN IV NAUSEA/VOMITING; Start 12/01/18 at 13:45; Stop 12/02/18 at 13:44; Status DC Heparin Sodium/ Dextrose 500 ml @ 20 mls/hr CONT PRN IV SEE I/O RECORD Last administered on 12/01/18at 22:41; Start 12/01/18 at 15:30; Stop 12/02/18 at 16:04 ; Status DC Heparin Sodium (Porcine) (Heparin Sodium) 3,000 unit PRN Q6HRS PRN IV FOR UFH LEVEL LESS THAN 0.2 Last administered on 12/01/18at 22:36; Start 12/01/18 at 15: 30; Stop 12/03/18 at 09:18; Status DC Heparin Sodium (Porcine) (Heparin Sodium) 4,000 unit 1X ONCE IV Last administered on 12/01/18at 17:23; Start 12/01/18 at 17:00; Stop 12/01/18 at 17:01 ; Status DC Amlodipine Besylate (Norvasc) 5 mg BID PO ; Start 12/02/18 at 09:00; Stop at 09:00; Status DC Aspirin (Children'S Aspirin) 81 mg DAILY PO Last administered on 12/03/18at 07: 54; Start 12/02/18 at 09:00 Furosemide (Lasix) 40 mg DAILY PO Last administered on 12/03/18 07:54; Start 12/02/18 at 09:00 Metoprolol Tartrate (Lopressor) 25 mg BID PO Last administered on 12/03/18 07: 55; Start 12/01/18 at 21:00 Glimepiride (Amaryl) 4 mg DAILY08 PO Last administered on 12/03/18 07:53; Start 12/02/18 at 08:00 Labetalol HCl (Trandate) 300 mg BID PO ; Start 12/01/18 at 21:00; Stop 12/01/18 at 21:00; Status DC Potassium Chloride (Klor-Con) 20 meq DAILYWBKFT PO Last administered on at 07:54; Start 12/02/18 at 08:00 Lisinopril (Prinivil) 10 mg BID PO Last administered on 12/03/18at 07:55; Start 12/01/18 at 21:00; Stop 12/03/18 at 09:17; Status DC Dextrose (Dextrose 50%-Water Syringe) 12.5 gm PRN Q15MIN PRN IV SEE COMMENTS; Start 12/01/18 at 19:00; Status UNV Insulin Human Lispro (HumaLOG) 0-5 UNITS TIDWMEALS SQ Last administered on 12/03at 08:01; Start 12/02/18 at 08:00 Dextrose (Dextrose 50%-Water Syringe) 12.5 gm PRN Q15MIN PRN IV SEE COMMENTS; Start 12/01/18 at 19:00 Info (Anti-Coagulation Monitoring By Pharmacy) 1 each PRN DAILY PRN MC SEE COMMENTS; Start 12/01/18 at 19:00 Insulin Human Regular (HumuLIN R VIAL) 4 unit 1X ONCE IV ; Start 12/01/18 at 21 :15; Stop 12/01/18 at 21:16; Status UNV Insulin Human Lispro (HumaLOG) 4 units ONCE ONCE SQ Last administered on at 21:26; Start 12/01/18 at 21:30; Stop 12/01/18 at 21:31; Status DC Nitroglycerin (Nitro-Bid Oint) 2 inch 1X ONCE TP Last administered on at 01:29; Start 12/02/18 at 01:30; Stop 12/02/18 at 01:31; Status DC Lisinopril (Prinivil) 20 mg 1X ONCE PO Last administered on 12/02/18at 01:28; Start 12/02/18 at 01:30; Stop 12/02/18 at 01:31; Status DC Diltiazem HCl (Cardizem 24hr Cd) 240 mg 1X ONCE PO Last administered on at 14:43; Start 12/02/18 at 09:00; Stop 12/02/18 at 14:13; Status DC Diltiazem HCl (Cardizem 24hr Cd) 240 mg 1X ONCE PO ; Start 12/02/18 at 14:45; Stop 12/02/18 at 14:46; Status DC Diltiazem HCl (Cardizem 24hr Cd) 240 mg DAILY PO Last administered on at 07:54; Start 12/03/18 at 09:00 Apixaban (Eliquis) 5 mg BID PO Last administered on 12/03/18at 09:26; Start at 10:00 Lisinopril (Prinivil) 20 mg BID PO ; Start 12/03/18 at 21:00 Lisinopril (Prinivil) 10 mg 1X ONCE PO Last administered on 12/03/18at 09:27; Start 12/03/18 at 09:15; Stop 12/03/18 at 09:19; Status DC Active Scripts Active Metoprolol Tartrate 25 Mg Tablet 25 Mg PO BID Furosemide 40 Mg Tablet 40 Mg PO DAILY Reported Amlodipine Besylate 5 Mg Tablet 5 Mg PO BID Potassium Chloride 20 Meq Tablet.er 20 Meq PO DAILY Gary Chewable (Aspirin) 81 Mg Tab.chew 81 Mg PO Metformin Hcl 1,000 Mg Tablet 1,000 Mg PO DAILY Labetalol Hcl 200 Mg Tablet 300 Mg PO BID Glimepiride 4 Mg Tablet 4 Mg PO DAILY Ramipril 10 Mg Capsule 10 Mg PO BID Vitals/I & O Vital Sign - Last 24 Hours 12/02/18 12/02/18 12/02/18 12/02/18 11:00 14:43 15:06 19:00 Temp 98.0 98.1 98.3 98.0 98.1 98.3 Pulse 73 81 78 78 Resp 18 B/P (MAP) 129/90 (103) 138/92 138/92 (107) 149/103 (118) Pulse Ox 97 93 92 O2 Delivery Room Air Room Air Room Air 12/02/18 12/02/18 12/02/18 12/02/18 20:00 20:10 20:10 23:06 Temp 98.6 98.6 Pulse 80 80 70 Resp 18 B/P (MAP) 149/103 149/103 156/106 (123) Pulse Ox 91 O2 Delivery Room Air Room Air 12/03/18 12/03/18 12/03/18/22/19 03:41 07:27 07:54 07:55 Temp 97.7 96.4 97.7 96.4 Pulse 78 76 69 69 Resp 17 17 B/P (MAP) 148/105 (119) 160/101 (120) 160/101 160/101 Pulse Ox 93 92 O2 Delivery Room Air Room Air 12/03/18 12/03/18 12/03/18 12/03/18 07:55 08:04 09:04 09:27 Pulse 69 70 74 B/P (MAP) 160/101 154/98 (116) 154/98 O2 Delivery Room Air Intake and Output 12/02/18 12/02/18 12/03/18 15:00 23:00 07:00 Intake Total 250 ml 450 ml 0 ml Balance 250 ml 450 ml 0 ml DUC GRACIA MD Dec 03, 2018 10:43
[2018-12-03 11:02] VITALS: BP 149/96
--- NOTE | 2018-12-03 11:50 | PDOC ---
Subjective: Subjective: Asked if he was feeling okay. "I guess." Objective: Objective: No GI concerns per RN, probable DC today. Vital Signs: Vital Signs Date Time Temp Pulse Resp B/P (MAP) Pulse Ox O2 Delivery O2 Flow Rate FiO2 12/03/18 11:02 97.2 68 17 149/96 (113) 93 Room Air 97.2 Labs: Laboratory Tests Test 12/02/18 11:50 12/02/18 12:02 12/02/18 17:05 12/02/18 20:10 Heparin Anti-Xa Act, Unfractionated 0.11 IU/mL Glucose (Fingerstick) 315 mg/dL 158 mg/dL 250 mg/dL Test 12/03/18 07:09 12/03/18 10:48 Glucose (Fingerstick) 221 mg/dL 234 mg/dL Imaging: Abd US IMPRESSION: 1. Mild hepatomegaly with hepatic steatosis. 2. No cholelithiasis. PE: GEN: NAD, sitting on edge of bed NEURO/PSYCH: A & O 3, not talkative, flat A/P: Atrial flutter converted to sinus Hepatic steatosis Uncontrolled DM -- DC per primary. GARRETT TEMPLE Dec 03, 2018 11:50
--- NOTE | 2018-12-03 14:42 | PDOC3 ---
Discharge Summary Date of Admission: Dec 01, 2018 Date of Discharge: Dec 03, 2018 Follow-Up: 3-5 days Admitting Diagnosis comment: DISCHARGE DX Atrial flutter with rapid ventricular response, anemia, chronic renal insufficiency, UNCONTROLLED DIABETES hyperglycemia. Acute on chronic systolic and diastolic heart failure, elevated alkaline phosphatase and AST. Hypomagnesemia. MORBID OBESITY UNCONTROLLED HTN admitted. consult Cardiology, CVC cardiac monitoring, serial enzymes, serial EKGs, echocardiogram, home meds, deep venous thrombosis prophylaxis. Full code. Replace magnesium. Consult GI //transaminitis. Frequent labs. ABDOMINAL SONO INC LISINOPRIL TO 20 MG PO BID D/C TODAY, D/C PLANNING 32 MIN 32 MIN VISIT D/C PLANNING > 50% of time with exam, chart review, lab review, pt care coordination Vitals Vitals Vital Signs Date Time Temp Pulse Resp B/P (MAP) Pulse Ox O2 Delivery O2 Flow Rate FiO2 12/03/18 09:27 74 154/98 12/03/18 08:04 Room Air 12/03/18 07:27 96.4 17 92 96.4 Physical Exam General: Alert, Oriented X3, Cooperative, No acute distress Heart: Regular rate (4: atrial flutter), Normal S1 Lungs: Clear Abdomen: Normal bowel sounds, Soft, No tenderness, Other (truncal obesity) Extremities: No clubbing, No cyanosis Skin: No breakdown, No significant lesion FINAL DIAGNOSIS Problems Medical Problems: (1) Atrial flutter with rapid ventricular response Status: Acute Brief Hospital Course Mr. Cordova is a 48 old [sex] who presented with [ ATRIAL FLUTTER] CONDITION AT DISCHARGE: Improved Discharge Medications Current Medications Diltiazem HCl (Cardizem Iv Push) 20 mg 1X ONCE IVP Last administered on at 12:45; Start 12/01/18 at 12:15; Stop 12/01/18 at 12:18; Status DC Diltiazem HCl 125 mg/Dextrose 125 ml @ 5 mls/hr CONT PRN IV SEE I/O RECORD Last administered on 12/02/18at 07:53; Start 12/01/18 at 12:45; Stop 12/02/18 at 15:49; Status DC Magnesium Sulfate 50 ml @ 25 mls/hr 1X ONCE IV Last administered on 12/01/18at 13:49; Start 12/01/18 at 13:15; Stop 12/01/18 at 15:14; Status DC Ondansetron HCl (Zofran) 4 mg PRN Q8HRS PRN IV NAUSEA/VOMITING; Start 12/01/18 at 13:45; Stop 12/02/18 at 13:44; Status DC Heparin Sodium/ Dextrose 500 ml @ 20 mls/hr CONT PRN IV SEE I/O RECORD Last administered on 12/01/18at 22:41; Start 12/01/18 at 15:30; Stop 12/02/18 at 16:04 ; Status DC Heparin Sodium (Porcine) (Heparin Sodium) 3,000 unit PRN Q6HRS PRN IV FOR UFH LEVEL LESS THAN 0.2 Last administered on 12/01/18at 22:36; Start 12/01/18 at 15: 30; Stop 12/03/18 at 09:18; Status DC Heparin Sodium (Porcine) (Heparin Sodium) 4,000 unit 1X ONCE IV Last administered on 12/01/18at 17:23; Start 12/01/18 at 17:00; Stop 12/01/18 at 17:01 ; Status DC Amlodipine Besylate (Norvasc) 5 mg BID PO ; Start 12/02/18 at 09:00; Stop at 09:00; Status DC Aspirin (Children'S Aspirin) 81 mg DAILY PO Last administered on 12/03/18at 07: 54; Start 12/02/18 at 09:00 Furosemide (Lasix) 40 mg DAILY PO Last administered on 12/03/18at 07:54; Start 12/02/18 at 09:00 Metoprolol Tartrate (Lopressor) 25 mg BID PO Last administered on 12/03/18at 07: 55; Start 12/01/18 at 21:00 Glimepiride (Amaryl) 4 mg DAILY08 PO Last administered on 12/03/18at 07:53; Start 12/02/18 at 08:00 Labetalol HCl (Trandate) 300 mg BID PO ; Start 12/01/18 at 21:00; Stop 12/01/18 at 21:00; Status DC Potassium Chloride (Klor-Con) 20 meq DAILYWBKFT PO Last administered on at 07:54; Start 12/02/18 at 08:00 Lisinopril (Prinivil) 10 mg BID PO Last administered on 12/03/18at 07:55; Start 12/01/18 at 21:00; Stop 12/03/18 at 09:17; Status DC Dextrose (Dextrose 50%-Water Syringe) 12.5 gm PRN Q15MIN PRN IV SEE COMMENTS; Start 12/01/18 at 19:00; Status UNV Insulin Human Lispro (HumaLOG) 0-5 UNITS TIDWMEALS SQ Last administered on 12/03at 11:49; Start 12/02/18 at 08:00 Dextrose (Dextrose 50%-Water Syringe) 12.5 gm PRN Q15MIN PRN IV SEE COMMENTS; Start 12/01/18 at 19:00 Info (Anti-Coagulation Monitoring By Pharmacy) 1 each PRN DAILY PRN MC SEE COMMENTS; Start 12/01/18 at 19:00 Insulin Human Regular (HumuLIN R VIAL) 4 unit 1X ONCE IV ; Start 12/01/18 at 21 :15; Stop 12/01/18 at 21:16; Status UNV Insulin Human Lispro (HumaLOG) 4 units ONCE ONCE SQ Last administered on at 21:26; Start 12/01/18 at 21:30; Stop 12/01/18 at 21:31; Status DC Nitroglycerin (Nitro-Bid Oint) 2 inch 1X ONCE TP Last administered on at 01:29; Start 12/02/18 at 01:30; Stop 12/02/18 at 01:31; Status DC Lisinopril (Prinivil) 20 mg 1X ONCE PO Last administered on 12/02/18at 01:28; Start 12/02/18 at 01:30; Stop 12/02/18 at 01:31; Status DC Diltiazem HCl (Cardizem 24hr Cd) 240 mg 1X ONCE PO Last administered on at 14:43; Start 12/02/18 at 09:00; Stop 12/02/18 at 14:13; Status DC Diltiazem HCl (Cardizem 24hr Cd) 240 mg 1X ONCE PO ; Start 12/02/18 at 14:45; Stop 12/02/18 at 14:46; Status DC Diltiazem HCl (Cardizem 24hr Cd) 240 mg DAILY PO Last administered on at 07:54; Start 12/03/18 at 09:00 Apixaban (Eliquis) 5 mg BID PO Last administered on 12/03/18at 09:26; Start at 10:00 Lisinopril (Prinivil) 20 mg BID PO ; Start 12/03/18 at 21:00 Lisinopril (Prinivil) 10 mg 1X ONCE PO Last administered on 12/03/18at 09:27; Start 12/03/18 at 09:15; Stop 12/03/18 at 09:19; Status DC Hydralazine HCl (Apresoline) 50 mg BID PO ; Start 12/03/18 at 21:00 Active Scripts Active Metoprolol Tartrate 25 Mg Tablet 25 Mg PO BID Furosemide 40 Mg Tablet 40 Mg PO DAILY Reported Amlodipine Besylate 5 Mg Tablet 5 Mg PO BID Potassium Chloride 20 Meq Tablet.er 20 Meq PO DAILY Gary Chewable (Aspirin) 81 Mg Tab.chew 81 Mg PO Metformin Hcl 1,000 Mg Tablet 1,000 Mg PO DAILY Labetalol Hcl 200 Mg Tablet 300 Mg PO BID Glimepiride 4 Mg Tablet 4 Mg PO DAILY Ramipril 10 Mg Capsule 10 Mg PO BID Vital Signs Vital Signs Date Time Temp Pulse Resp B/P (MAP) Pulse Ox O2 Delivery O2 Flow Rate FiO2 12/03/18 11:02 97.2 68 17 149/96 (113) 93 Room Air 97.2 Labs Laboratory Tests Test 12/01/18 20:11 12/01/18 22:00 12/02/18 05:15 12/02/18 05:17 Glucose (Fingerstick) 389 mg/dL (70-99) Heparin Anti-Xa Act, Unfractionated 0.17 IU/mL (0.30-0.70) 0.33 IU/mL (0.30-0.70) Iron Level 58 ug/dL (65-175) Total Iron Binding Capacity 296 ug/dL (250-450) Iron Saturation 20 % (15-34) White Blood Count 6.5 x10^3/uL (4.0-11.0) Red Blood Count 4.36 x10^6/uL (4.30-5.70) Hemoglobin 11.4 g/dL (13.0-17.5) Hematocrit 35.9 % (39.0-53.0) Mean Corpuscular Volume 82 fL (79-100) Mean Corpuscular Hemoglobin 26 pg (25-35) Mean Corpuscular Hemoglobin Concent 32 g/dL (31-37) Red Cell Distribution Width 13.5 % (11.5-14.5) Platelet Count 233 x10^3/uL (140-400) Total Bilirubin 0.8 mg/dL (0.2-1.0) Direct Bilirubin 0.2 mg/dL (0.0-0.2) Aspartate Amino Transf (AST/SGOT) 28 U/L (15-37) Alanine Aminotransferase (ALT/SGPT) 55 U/L (16-63) Alkaline Phosphatase 98 U/L (46-116) Total Protein 6.7 g/dL (6.4-8.2) Albumin 2.8 g/dL (3.4-5.0) Test 12/02/18 07:56 12/02/18 11:50 12/02/18 12:02 12/02/18 17:05 Glucose (Fingerstick) 249 mg/dL (70-99) 315 mg/dL (70-99) 158 mg/dL (70-99) Heparin Anti-Xa Act, Unfractionated 0.11 IU/mL (0.30-0.70) Test 12/02/18 20:10 12/03/18 07:09 12/03/18 10:48 Glucose (Fingerstick) 250 mg/dL (70-99) 221 mg/dL (70-99) 234 mg/dL (70-99) Laboratory Tests Test 12/02/18 17:05 12/02/18 20:10 12/03/18 07:09 12/03/18 10:48 Glucose (Fingerstick) 158 mg/dL (70-99) 250 mg/dL (70-99) 221 mg/dL (70-99) 234 mg/dL (70-99) Allergies Allergies Coded Allergies Type Severity Reaction Last Updated Verified Influenza Virus Vaccines Allergy Severe 12/02/18 Yes Disposition/Orders: D/C to Home Patient Instructions D/C PLANNING 34 MIN DUC GRACIA MD Dec 03, 2018 14:42
[2018-12-03] MEDS ORDERED: HYDR-2869 PO (14:47)
[2018-12-03] MEDS ORDERED: DILTIAZEM HCL PO (14:47)
[2018-12-03] MEDS ORDERED: APIX5TAB PO (14:47)
[2018-12-03] MEDS ORDERED: LISI-334 PO (14:50)
--- NOTE | 2018-12-03 14:50 | DISCH ---
DISCHARGE INSTRUCTIONS Condition on Discharge Condition on Discharge: Stable Activity After Discharge Activity Instructions for Disc: Activity as tolerated Lifting Instructions after Dis: No heavy lifting Exercise Instruction after Dis: Walk 10 min, 3 x per day, Progress as tolerated Driving Instructions after Dis: Do not drive Weight Bearing Status after Di: As tolerated Diet after Discharge Diet after Discharge: Cardiac, Diabetic No Calorie Level Checks after Discharge Checks after discharge: Check blood press - daily Contacting the DR. after DC Call your doctor for: If your condition worsens Treatment/Equipment after DC Adaptive Equipment Issued: None DUC GRACIA MD Dec 03, 2018 14:50
[2018-12-03 15:00] VITALS: BP 174/106
[2018-12-03] MEDS ORDERED: LISINOPRIL 20 MG TABLET PO SCH (21:00)
== END 2018-12-03 16:05 | disposition home or self-care (01) | DRG 291 ==
LOC: ER 11:58 → 2 SOUTH 13:28
PROVIDERS: ADMIT Internal Medicine; ATTEND Internal Medicine
DX: I13.0 Hypertensive heart and chronic kidney disease with heart failure and stage 1 through stage 4 chronic kidney disease, or unspecified chronic kidney disease (principal); I50.43 Acute on chronic combined systolic (congestive) and diastolic (congestive) heart failure; I48.92 Unspecified atrial flutter; Z68.41 Body mass index [BMI] 40.0-44.9, adult; N17.9 Acute kidney failure, unspecified; M10.9 Gout, unspecified; G47.33 Obstructive sleep apnea (adult) (pediatric); F41.9 Anxiety disorder, unspecified; E11.65 Type 2 diabetes mellitus with hyperglycemia; N18.9 Chronic kidney disease, unspecified; E11.22 Type 2 diabetes mellitus with diabetic chronic kidney disease; E83.42 Hypomagnesemia; E78.5 Hyperlipidemia, unspecified; M19.90 Unspecified osteoarthritis, unspecified site; E66.01 Morbid (severe) obesity due to excess calories; K76.0 Fatty (change of) liver, not elsewhere classified; D64.9 Anemia, unspecified; Z82.49 Family history of ischemic heart disease and other diseases of the circulatory system; Z88.8 Allergy status to other drugs, medicaments and biological substances; Z79.01 Long term (current) use of anticoagulants; Z88.7 Allergy status to serum and vaccine
CPT/HCPCS: 36415; 71045; 76700; 80053; 80061; 80076; 82550; 82553; 82962; 83036; 83540; 83550; 83690; 83735; 83880; 84443; 84484; 85025; 85027; 85520; 85610; 85730; 86705; 86709; 86803; 87340; 93005; 93306; 96365; 96375; J1644; J1815; J3475; J3490; 99285-25

== ENCOUNTER 2018-12-27 20:43 | Inpatient (IN) | payer OTHER ==
[~2018-12-27] VITALS: Ht 175.3 cm; Wt 125.0 kg
[~2018-12-27 20:43] MED LIST changes: +AMLO5TAB10 PO; +APIX5TAB PO; +DILTIAZEM HCL PO; +HYDR-2869 PO; +LISI-334 PO; +POTA20TA82 PO
[2018-12-28] VITALS (7 sets, daily range): BP systolic 156–190; BP diastolic 77–124
[2018-12-28] MEDS ORDERED: MAGNESIUM OXIDE 400 MG TABLET PO ONE (00:45)
[2018-12-28] MEDS ORDERED: MAGNESIUM SULFATE 1GM 100 ML IV ONE ×2 (00:45→00:52)
[2018-12-28] MEDS ORDERED: IPRATRPIUM/ALBUTEROL 0.5/2.5MG 3 ML NEBU. NEB ONE (00:45)
[2018-12-28] MEDS ORDERED: MAGNESIUM OXIDE 400 MG TABLET ONE (00:52)
[2018-12-28] MEDS ORDERED: IPRATRPIUM/ALBUTEROL 0.5/2.5MG 3 ML NEBU. ONE (00:53)
[2018-12-28 01:37] LABS: ALBUMIN 3.3 g/dL (3.4-5.0); ALBUMIN/GLOBULIN RATIO 0.9 (1.0-1.7); CALCIUM 8.7 mg/dL (8.5-10.1); GFR 95.7; POTASSIUM 3.6 mmol/L (3.5-5.1); TOTAL BILIRUBIN 0.2 mg/dL (0.2-1.0)
[2018-12-28 01:38] LABS: MAGNESIUM 1.3 mg/dL (1.8-2.4)
[2018-12-28 01:40] LABS: BASO % 0 % (0-3); EOS % 1 % (0-3); HEMATOCRIT 38.5 % (39.0-53.0); HEMOGLOBIN 12.1 g/dL (13.0-17.5); LYMPH # 2.1 x10^3/uL (1.0-4.8); LYMPH % 27 % (24-48); MEAN CORPUSCULAR HEMOGLOBIN 26 pg (25-35); MEAN CORPUSCULAR HGB CONC 32 g/dL (31-37); MEAN CORPUSCULAR VOLUME 82 fL (79-100); MONO # 0.6 x10^3/uL (0.0-1.1); MONO % 7 % (0-9); NEUT # 5.1 x10^3uL (1.8-7.7); NEUT % 65 % (31-73); PLATELET COUNT 250 x10^3/uL (140-400); RED BLOOD COUNT 4.69 x10^6/uL (4.30-5.70); RED CELL DISTRIBUTION WIDTH 13.7 % (11.5-14.5); WHITE BLOOD COUNT 7.9 x10^3/uL (4.0-11.0)
[2018-12-28 01:41] LABS: BACTERIA,URINE 0 /HPF (0-FEW); BILIRUBIN,URINE NEGATIVE (NEG); CLARITY,URINE CLEAR; COLOR,URINE YELLOW; HYALINE CASTS, URINE OCCASIONAL /HPF; NITRITE,URINE NEGATIVE (NEG); PH,URINE 6.5; PROTEIN,URINE NEGATIVE (NEG-TRACE); RBC,URINE OCC /HPF (0-2); SQUAMOUS EPITHELIAL CELL,UR FEW /LPF; WBC,URINE OCC /HPF (0-4)
[2018-12-28] MEDS: IV NORMAL SALINE 1000ML BAG 1,000 ML IV SCH ×2 (08:44→18:54)
--- NOTE | 2018-12-28 08:58 | PDOC2 ---
CARDIAC CONSULT DATE OF CONSULT Date of Consult DATE: 12/28/18 TIME: 08:48 REASON FOR CONSULT Reason for Consult: Chest pain REFERRING PHYSICIAN Referring Physician: Yakov SOURCE Source: Chart review, Patient HISTORY OF PRESENT ILLNESS HISTORY OF PRESENT ILLNESS This is a pleasant 48 yo male admitted for complains of chest pain. He has been having chest tightness in the last week and some jaw tightness. Also reports of SOA and occasional sensation of palpitations. Reports on nausea but no vomiting. Reports no recent falls or injury. He has not been checking his BG and BP and has missed his appointment citing that he forgot. He has been complaint with his meds as he reports and also his CPAP. He has been working on trying to lose wt. PAST MEDICAL HISTORY Past Medical History Cardiovascular: HTN, Hyperlipidemia, cardiomyopathy, PAFIB, CHF Pulmonary: Other (YANG), pneumonia Musculoskeletal: Osteoarthritis, Other (morbid obesity) Rheumatologic: Gout Endocrine: Diabetes (2) PAST SURGICAL HISTORY Past Surgical History Left knee arthroscopy carpal tunnel decompression FAMILY HISTORY Family History: Hypertension SOCIAL HISTORY Smoke: No ALCOHOL: none Drugs: None Lives: with Family CURRENT MEDICATIONS CURRENT MEDICATIONS Current Medications Medications (Trade) Dose Ordered Sig/Sandra Route PRN Reason Start Time Stop Time Status Last Admin Dose Admin Albuterol/ Ipratropium (Duoneb) 3 ml 1X ONCE NEB 12/28/18 00:45 12/28/18 02:30 DC 12/28/18 00:55 Sodium Chloride 1,000 ml @ 100 mls/hr Q10H IV 12/28/18 08:45 12/28/18 08:44 ALLERGIES ALLERGIES: Coded Allergies: Influenza Virus Vaccines (Verified Allergy, Severe, 12/02/18) ROS Review of System 14 point ROS evaluated with pertinent positives noted per HPI PHYSICAL EXAM General: Alert, Oriented X3, Cooperative, No acute distress HEENT: Atraumatic, Mucous membr. moist/pink Lungs: Clear to auscultation, Normal air movement Heart: Regular rate, Other (distnat heart sounds) Abdomen: Soft, No tenderness Extremities: No cyanosis, Other (1-2+ bilateral Le pitting edema) Skin: No breakdown, No significant lesion Neuro: Normal speech, Sensation intact Psych/Mental Status: Mental status NL, Mood NL MUSCULOSKELETAL: Osteoarthritic changes both hands VITALS VITALS Vital Signs Date Time Temp Pulse Resp B/P (MAP) Pulse Ox O2 Delivery O2 Flow Rate FiO2 12/28/18 07:00 98.0 87 16 156/102 (120) 96 Room Air 98.0 LABS Lab: Laboratory Tests Test 12/27/18 22:00 12/27/18 23:15 12/28/18 06:30 12/28/18 07:35 White Blood Count 7.9 x10^3/uL (4.0-11.0) Red Blood Count 4.69 x10^6/uL (4.30-5.70) Hemoglobin 12.1 g/dL (13.0-17.5) Hematocrit 38.5 % (39.0-53.0) Mean Corpuscular Volume 82 fL (79-100) Mean Corpuscular Hemoglobin 26 pg (25-35) Mean Corpuscular Hemoglobin Concent 32 g/dL (31-37) Red Cell Distribution Width 13.7 % (11.5-14.5) Platelet Count 250 x10^3/uL (140-400) Neutrophils (%) (Auto) 65 % (31-73) Lymphocytes (%) (Auto) 27 % (24-48) Monocytes (%) (Auto) 7 % (0-9) Eosinophils (%) (Auto) 1 % (0-3) Basophils (%) (Auto) 0 % (0-3) Neutrophils # (Auto) 5.1 x10^3uL (1.8-7.7) Lymphocytes # (Auto) 2.1 x10^3/uL (1.0-4.8) Monocytes # (Auto) 0.6 x10^3/uL (0.0-1.1) Eosinophils # (Auto) 0.0 x10^3/uL (0.0-0.7) Basophils # (Auto) 0.0 x10^3/uL (0.0-0.2) Sodium Level 140 mmol/L (136-145) Potassium Level 3.6 mmol/L (3.5-5.1) Chloride Level 102 mmol/L (98-107) Carbon Dioxide Level 31 mmol/L (21-32) Anion Gap 7 (6-14) Blood Urea Nitrogen 13 mg/dL (8-26) Creatinine 1.0 mg/dL (0.7-1.3) Estimated GFR (Cockcroft-Gault) 95.7 BUN/Creatinine Ratio 13 (6-20) Glucose Level 88 mg/dL (70-99) Calcium Level 8.7 mg/dL (8.5-10.1) Magnesium Level 1.3 mg/dL (1.8-2.4) Total Bilirubin 0.2 mg/dL (0.2-1.0) Aspartate Amino Transf (AST/SGOT) 12 U/L (15-37) Alanine Aminotransferase (ALT/SGPT) 21 U/L (16-63) Alkaline Phosphatase 86 U/L (46-116) Troponin I Quantitative < 0.017 ng/mL (0.000-0.055) < 0.017 ng/mL (0.000-0.055) PC-Itj-Y-Type Natriuretic Peptide 60 pg/mL (0-124) Total Protein 7.0 g/dL (6.4-8.2) Albumin 3.3 g/dL (3.4-5.0) Albumin/Globulin Ratio 0.9 (1.0-1.7) Urine Collection Type Unknown Urine Color Yellow Urine Clarity Clear Urine pH 6.5 Urine Specific [place] 1.025 Urine Protein Negative mg/dL (NEG-TRACE) Urine Glucose (UA) Negative mg/dL (NEG) Urine Ketones (Stick) Trace mg/dL (NEG) Urine Blood Negative (NEG) Urine Nitrite Negative (NEG) Urine Bilirubin Negative (NEG) Urine Urobilinogen Dipstick 1.0 mg/dL (0.2 mg/dL) Urine Leukocyte Esterase Negative (NEG) Urine RBC Occ /HPF (0-2) Urine WBC Occ /HPF (0-4) Urine Squamous Epithelial Cells Few /LPF Urine Bacteria 0 /HPF (0-FEW) Urine Hyaline Casts Occasional /HPF Urine Mucus Mod /LPF Glucose (Fingerstick) 98 mg/dL (70-99) ECHOCARDIOGRAM ECHOCARDIOGRAM <Conclusion> Left ventricle systolic function is severely impaired. EF 25-30%. There is global hypokinesis of the left ventricle. DATE: 12/02/18 1155 STRESS TEST STRESS TEST Conclusion 1. Abnormal baseline EKG but no EKG evidence of stressed induced ischemia. 2. Nuclear imaging shows no reversible ischemia. 3. Nuclear imaging shows fixed inferior wall thinning probably due to diaphragmatic attenuation but a small infarct cannot be excluded. 4. LV systolic function is decreased on a global basis with an ejection fraction of 40%. 5. Moderate to moderately low risk Lexiscan nuclear stress test. DATE: 08/29/17 1340 ASSESSMENT/PLAN ASSESSMENT/PLAN 1. Chest pain: UA features 2. PAF: SR 3. HTN: labile 4. DM2: Recent A1C at 15.4 5. HLP 6. Morbid obesity/YANG; noted previously as not complaint with CPAP 7. Hypomagnesemia 8. Cardiomyopathy: EF 25% with prior AFIB RVR from recent admission Recommendations Limited TTE Restart home BP meds. hold eliquis. replace Mg. ASA, statin LHC, risks and benefits explained and agreeable to proceed tomorrow. Dietitian consult Discussed home BG and BP monitoring complaince. VALERIY VANESSA APRN Dec 28, 2018 08:58
[2018-12-28 09:19] LABS: CALCIUM 8.8 mg/dL (8.5-10.1); GFR 95.7; MAGNESIUM 1.7 mg/dL (1.8-2.4); POTASSIUM 3.9 mmol/L (3.5-5.1)
--- NOTE | 2018-12-28 09:22 | EKG ---
[facility] [address] [place] [address] Test Date: 2018-12-28 Test Time: 09:16:56 Pat Name: LATONYA MERAZ Department: Room: 260 1 Gender: M Control Room Helper: ANTONIETA : 1970 Requested By: VALERIY VANESSA Order Number: [id number] Reading MD: Ezekiel Matthews Measurements Intervals [place] Rate: 74 P: 53 AL: 232 QRS: 32 QRSD: 86 T: 43 QT: 396 QTc: 444 Interpretive Statements SINUS RHYTHM PROLONGED AL INTERVAL NON SPECIFIC T ABNORMALITY ABNORMAL ECG Electronically Signed On 01-03-2019 13:04:22 CDT by Ezekiel Matthews
[2018-12-28 09:25] LABS: PROTHROMBIN TIME PATIENT 13.2 SEC (11.7-14.0)
[2018-12-28] MEDS: ASPIRIN CHEWABLE 81 MG TABLET. PO SCH (09:25)
[2018-12-28] MEDS: METOPROLOL TART IMMED RELEASE 25 MG TABLET. PO SCH ×2 (09:26→20:27)
[2018-12-28] MEDS: LISINOPRIL 20 MG TABLET PO SCH ×2 (09:26→20:28)
[2018-12-28] MEDS: FUROSEMIDE 40 MG TABLET. PO SCH (09:27)
--- NOTE | 2018-12-28 09:36 | EKG ---
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
[2018-12-28] MEDS ORDERED: MAGNESIUM SULFATE 2GM 50 ML IV ONE (10:30)
--- NOTE | 2018-12-28 10:56 | CARD ---
MR#: [id number] Date of Study: 12/28/2018 Ordering Physician: VALERIY VANESSA, Referring Physician: XUAN GERONIMO Tech: Arin Faustin RDCS APPROVED REPORT EXAM: LIMITED Two-dimensional and M-mode echocardiogram. Other Information Quality : GoodHR: 70bpm Rhythm : NSR INDICATION Dyspnea 2D DIMENSIONS RVDd3.5 (2.9-3.5cm)Left Atrium(2D)3.9 (1.6-4.0cm) IVSd1.6 (0.7-1.1cm)Aortic Root(2D)3.8 (2.0-3.7cm) LVDd5.3 (3.9-5.9cm)PWd1.2 (0.7-1.1cm) LVDs4.1 (2.5-4.0cm)FS (%) 22.6 % SV62.1 mlLVEF(%)45.1 (>50%) LEFT VENTRICLE The left ventricle is normal size. There is mild to moderate concentric left ventricular hypertrophy. Left ventricle systolic function is mildly impaired. The Ejection Fraction is 45%. There is global h ypokinesis of the left ventricle. RIGHT VENTRICLE The right ventricle is borderline dilated. There is normal right ventricular wall thickness. Systolic function is borderline reduced. ATRIA The left atrium is borderline dilated. The right atrium size is normal. The interatrial septum is int act with no evidence for an atrial septal defect or patent foramen ovale as noted on 2-D or Doppler i maging. AORTIC VALVE The aortic valve is normal in structure and function. The aortic valve is trileaflet. MITRAL VALVE The mitral valve is normal in structure and function. There is no evidence of mitral valve prolapse. There is no mitral valve stenosis. Doppler and Color-flow revealed trace mitral regurgitation. TRICUSPID VALVE The tricuspid valve is normal in structure and function. Doppler and Color Flow revealed no tricuspid valve regurgitation noted. There is no tricuspid valve prolapse or vegetation. PULMONIC VALVE The pulmonic valve is not well visualized. GREAT VESSELS The aortic root is mildly enlarged. PERICARDIAL EFFUSION There is no evidence of significant pericardial effusion. Critical Notification Critical Value: No <Conclusion> Left ventricle systolic function is mildly impaired. The Ejection Fraction is 45%. Doppler and Color-flow revealed trace mitral regurgitation. There is no evidence of significant pericardial effusion. Signed by : Ezekiel Matthews, Electronically Approved : 12/28/2018 10:55:26
[2018-12-28] MEDS: POTASSIUM CHLORIDE 20 MEQ TABLET.ER. PO SCH (11:52)
[2018-12-28] MEDS ORDERED: LABETALOL 20 MG/4 ML DISP.SYRIN. IVP ONE (12:15)
--- NOTE | 2018-12-28 13:04 | NUR ---
SS following for discharge planning. SS reviewed pt chart. Pt is from home with spouse and is currently on room air. No discharge needs noted at this time. SS will continue to follow for discharge planning.
--- NOTE | 2018-12-28 14:13 | PDOC1 ---
History and Physical Date of Admission Date of Admission DATE: 12/28/18 TIME: 13:55 Identification/Chief Complaint Chief Complaint chest pain Problems: (1) Chest pain (2) Hypomagnesemia (3) Dyspnea Source Source: Patient History of Present Illness History of Present Illness 48 yo male with chief complaint of midsternal CP with associated jaw tightness since 1 week. hx of HTN, Hyperlipidemia, cardiomyopathy, PAFIB, CHF. reports compliance with medications. EKG without acute changes, no elevated trop. no falls or association with chest pain. hospitalist called for ACS rule out Past Medical History Cardiovascular: HTN, Hyperlipidemia Pulmonary: Other CENTRAL NERVOUS SYSTEM: Other Musculoskeletal: Osteoarthritis, Other Rheumatologic: Gout Endocrine: Diabetes Past Surgical History Past Surgical History: Other Family History Family History: Hypertension Social History Smoke: No ALCOHOL: none Drugs: None Current Problem List Problem List Problems Medical Problems: (1) Chest pain Status: Acute Current Medications Current Medications Current Medications Albuterol/ Ipratropium (Duoneb) 3 ml 1X ONCE NEB Last administered on at 00:55; Start 12/28/18 at 00:45; Stop 12/28/18 at 02:30; Status DC Magnesium Oxide (Magnesium Oxide) 400 mg 1X ONCE PO ; Start 12/28/18 at 00:45; Stop 12/28/18 at 02:30; Status DC Magnesium Sulfate/ Dextrose 100 ml @ 100 mls/hr 1X ONCE IV ; Start 12/28/18 at 00:45; Stop 12/28/18 at 02:30; Status DC Sodium Chloride 1,000 ml @ 100 mls/hr Q10H IV Last administered on 12/28/18at 08:44; Start 12/28/18 at 08:45 Aspirin (Children'S Aspirin) 81 mg DAILY PO Last administered on 12/28/18at 09: 25; Start 12/28/18 at 09:00 Furosemide (Lasix) 40 mg DAILY PO Last administered on 12/28/18at 09:27; Start 12/28/18 at 09:00 Lisinopril (Prinivil) 20 mg BID PO Last administered on 12/28/18at 09:26; Start 12/28/18 at 09:00 Metoprolol Tartrate (Lopressor) 25 mg BID PO Last administered on 12/28/18at 09: 26; Start 12/28/18 at 09:00 Potassium Chloride (Klor-Con) 20 meq DAILYWBKFT PO Last administered on at 11:52; Start 12/28/18 at 08:00 Hydralazine HCl (Apresoline) 50 mg TID PO Last administered on 12/28/18at 09:27 ; Start 12/28/18 at 09:00 Atorvastatin Calcium (Lipitor) 40 mg QHS PO ; Start 12/28/18 at 21:00 Magnesium Sulfate 50 ml @ 25 mls/hr 1X ONCE IV Last administered on 12/28/18at 11:48; Start 12/28/18 at 10:30; Stop 12/28/18 at 12:29; Status DC Labetalol HCl (Normodyne Iv Push) 20 mg 1X ONCE IVP Last administered on at 12:45; Start 12/28/18 at 12:15; Stop 12/28/18 at 12:24; Status DC Active Scripts Active Lisinopril 20 Mg Tablet 1 Tab PO BID 30 Days [Diltiazem Hcl] 240 MG Cap.er.24h 240 Mg PO DAILY 30 Days Hydralazine Hcl 50 Mg Tablet 50 Mg PO BID 30 Days Eliquis (Apixaban) 5 Mg Tablet 5 Mg PO BID 30 Days Metoprolol Tartrate 25 Mg Tablet 25 Mg PO BID Furosemide 40 Mg Tablet 40 Mg PO DAILY Reported Potassium Chloride 20 Meq Tablet.er 20 Meq PO DAILY Gary Chewable (Aspirin) 81 Mg Tab.chew 81 Mg PO Metformin Hcl 1,000 Mg Tablet 1,000 Mg PO DAILY Glimepiride 4 Mg Tablet 4 Mg PO DAILY Allergies Allergies: Coded Allergies: Influenza Virus Vaccines (Verified Allergy, Severe, 12/02/18) ROS Review of System CONSTITUTIONAL: No fever or chills EYES: No recent changes SKIN: No rash or itching CARDIOVASCULAR: No chest pain, syncope, palpitations, or edema RESPIRATORY: No SOB or cough GASTROINTESTINAL: No nausea, vomiting or abdominal pain NEUROLOGICAL: No headaches or weakness ENDOCRINE: No cold or heat intolerance GENITOURINARY: No urgency or frequency of urination MUSCULOSKELETAL: No back pain or joint pain LYMPHATICS: No enlarged lymph nodes PSYCHIATRIC: No anxiety or depression Physical Exam Physical Exam GENERAL: No apparent distress. Alert and oriented. HEENT: Head normocephalic, atraumatic. NECK: Supple LUNGS: Clear to auscultation. HEART: RRR, S1, S2 present, pulses intact ABDOMEN: Soft, positive bowel sounds. EXTREMITIES: No cyanosis or edema. NEUROLOGIC: Normal speech, normal tone PSYCHIATRIC: Normal affect, normal mood. SKIN: No ulceration. Vitals Vitals Vital Signs Date Time Temp Pulse Resp B/P (MAP) Pulse Ox O2 Delivery O2 Flow Rate FiO2 12/28/18 12:45 83 170/106 12/28/18 11:00 98.2 18 96 Room Air 98.2 Labs Labs Laboratory Tests Test 12/27/18 22:00 12/27/18 23:15 12/28/18 06:30 12/28/18 07:35 White Blood Count 7.9 x10^3/uL (4.0-11.0) Red Blood Count 4.69 x10^6/uL (4.30-5.70) Hemoglobin 12.1 g/dL (13.0-17.5) Hematocrit 38.5 % (39.0-53.0) Mean Corpuscular Volume 82 fL (79-100) Mean Corpuscular Hemoglobin 26 pg (25-35) Mean Corpuscular Hemoglobin Concent 32 g/dL (31-37) Red Cell Distribution Width 13.7 % (11.5-14.5) Platelet Count 250 x10^3/uL (140-400) Neutrophils (%) (Auto) 65 % (31-73) Lymphocytes (%) (Auto) 27 % (24-48) Monocytes (%) (Auto) 7 % (0-9) Eosinophils (%) (Auto) 1 % (0-3) Basophils (%) (Auto) 0 % (0-3) Neutrophils # (Auto) 5.1 x10^3uL (1.8-7.7) Lymphocytes # (Auto) 2.1 x10^3/uL (1.0-4.8) Monocytes # (Auto) 0.6 x10^3/uL (0.0-1.1) Eosinophils # (Auto) 0.0 x10^3/uL (0.0-0.7) Basophils # (Auto) 0.0 x10^3/uL (0.0-0.2) Sodium Level 140 mmol/L (136-145) 141 mmol/L (136-145) Potassium Level 3.6 mmol/L (3.5-5.1) 3.9 mmol/L (3.5-5.1) Chloride Level 102 mmol/L (98-107) 102 mmol/L (98-107) Carbon Dioxide Level 31 mmol/L (21-32) 31 mmol/L (21-32) Anion Gap 7 (6-14) 8 (6-14) Blood Urea Nitrogen 13 mg/dL (8-26) 16 mg/dL (8-26) Creatinine 1.0 mg/dL (0.7-1.3) 1.0 mg/dL (0.7-1.3) Estimated GFR (Cockcroft-Gault) 95.7 95.7 BUN/Creatinine Ratio 13 (6-20) Glucose Level 88 mg/dL (70-99) 89 mg/dL (70-99) Calcium Level 8.7 mg/dL (8.5-10.1) 8.8 mg/dL (8.5-10.1) Magnesium Level 1.3 mg/dL (1.8-2.4) 1.7 mg/dL (1.8-2.4) Total Bilirubin 0.2 mg/dL (0.2-1.0) Aspartate Amino Transf (AST/SGOT) 12 U/L (15-37) Alanine Aminotransferase (ALT/SGPT) 21 U/L (16-63) Alkaline Phosphatase 86 U/L (46-116) Troponin I Quantitative < 0.017 ng/mL (0.000-0.055) < 0.017 ng/mL (0.000-0.055) VO-Etm-O-Type Natriuretic Peptide 60 pg/mL (0-124) Total Protein 7.0 g/dL (6.4-8.2) Albumin 3.3 g/dL (3.4-5.0) Albumin/Globulin Ratio 0.9 (1.0-1.7) Urine Collection Type Unknown Urine Color Yellow Urine Clarity Clear Urine pH 6.5 Urine Specific [place] 1.025 Urine Protein Negative mg/dL (NEG-TRACE) Urine Glucose (UA) Negative mg/dL (NEG) Urine Ketones (Stick) Trace mg/dL (NEG) Urine Blood Negative (NEG) Urine Nitrite Negative (NEG) Urine Bilirubin Negative (NEG) Urine Urobilinogen Dipstick 1.0 mg/dL (0.2 mg/dL) Urine Leukocyte Esterase Negative (NEG) Urine RBC Occ /HPF (0-2) Urine WBC Occ /HPF (0-4) Urine Squamous Epithelial Cells Few /LPF Urine Bacteria 0 /HPF (0-FEW) Urine Hyaline Casts Occasional /HPF Urine Mucus Mod /LPF Prothrombin Time 13.2 SEC (11.7-14.0) Prothromb Time International Ratio 1.0 (0.8-1.1) Glucose (Fingerstick) 98 mg/dL (70-99) Laboratory Tests Test 12/27/18 22:00 12/27/18 23:15 12/28/18 06:30 12/28/18 07:35 White Blood Count 7.9 x10^3/uL (4.0-11.0) Red Blood Count 4.69 x10^6/uL (4.30-5.70) Hemoglobin 12.1 g/dL (13.0-17.5) Hematocrit 38.5 % (39.0-53.0) Mean Corpuscular Volume 82 fL (79-100) Mean Corpuscular Hemoglobin 26 pg (25-35) Mean Corpuscular Hemoglobin Concent 32 g/dL (31-37) Red Cell Distribution Width 13.7 % (11.5-14.5) Platelet Count 250 x10^3/uL (140-400) Neutrophils (%) (Auto) 65 % (31-73) Lymphocytes (%) (Auto) 27 % (24-48) Monocytes (%) (Auto) 7 % (0-9) Eosinophils (%) (Auto) 1 % (0-3) Basophils (%) (Auto) 0 % (0-3) Neutrophils # (Auto) 5.1 x10^3uL (1.8-7.7) Lymphocytes # (Auto) 2.1 x10^3/uL (1.0-4.8) Monocytes # (Auto) 0.6 x10^3/uL (0.0-1.1) Eosinophils # (Auto) 0.0 x10^3/uL (0.0-0.7) Basophils # (Auto) 0.0 x10^3/uL (0.0-0.2) Sodium Level 140 mmol/L (136-145) 141 mmol/L (136-145) Potassium Level 3.6 mmol/L (3.5-5.1) 3.9 mmol/L (3.5-5.1) Chloride Level 102 mmol/L (98-107) 102 mmol/L (98-107) Carbon Dioxide Level 31 mmol/L (21-32) 31 mmol/L (21-32) Anion Gap 7 (6-14) 8 (6-14) Blood Urea Nitrogen 13 mg/dL (8-26) 16 mg/dL (8-26) Creatinine 1.0 mg/dL (0.7-1.3) 1.0 mg/dL (0.7-1.3) Estimated GFR (Cockcroft-Gault) 95.7 95.7 BUN/Creatinine Ratio 13 (6-20) Glucose Level 88 mg/dL (70-99) 89 mg/dL (70-99) Calcium Level 8.7 mg/dL (8.5-10.1) 8.8 mg/dL (8.5-10.1) Magnesium Level 1.3 mg/dL (1.8-2.4) 1.7 mg/dL (1.8-2.4) Total Bilirubin 0.2 mg/dL (0.2-1.0) Aspartate Amino Transf (AST/SGOT) 12 U/L (15-37) Alanine Aminotransferase (ALT/SGPT) 21 U/L (16-63) Alkaline Phosphatase 86 U/L (46-116) Troponin I Quantitative < 0.017 ng/mL (0.000-0.055) < 0.017 ng/mL (0.000-0.055) BJ-Mix-V-Type Natriuretic Peptide 60 pg/mL (0-124) Total Protein 7.0 g/dL (6.4-8.2) Albumin 3.3 g/dL (3.4-5.0) Albumin/Globulin Ratio 0.9 (1.0-1.7) Urine Collection Type Unknown Urine Color Yellow Urine Clarity Clear Urine pH 6.5 Urine Specific [place] 1.025 Urine Protein Negative mg/dL (NEG-TRACE) Urine Glucose (UA) Negative mg/dL (NEG) Urine Ketones (Stick) Trace mg/dL (NEG) Urine Blood Negative (NEG) Urine Nitrite Negative (NEG) Urine Bilirubin Negative (NEG) Urine Urobilinogen Dipstick 1.0 mg/dL (0.2 mg/dL) Urine Leukocyte Esterase Negative (NEG) Urine RBC Occ /HPF (0-2) Urine WBC Occ /HPF (0-4) Urine Squamous Epithelial Cells Few /LPF Urine Bacteria 0 /HPF (0-FEW) Urine Hyaline Casts Occasional /HPF Urine Mucus Mod /LPF Prothrombin Time 13.2 SEC (11.7-14.0) Prothromb Time International Ratio 1.0 (0.8-1.1) Glucose (Fingerstick) 98 mg/dL (70-99) VTE Prophylaxis Ordered VTE Prophylaxis Devices: No VTE Pharmacological Prophylaxi: Yes Assessment/Plan Assessment/Plan ASSESSMENT Unstable Angina Hx of PAF HTN: DM2: A1C 15.4 HLP Morbid obesity/OSAP Hypomagnesemia Cardiomyopathy: EF 25% from prior AFIB RVR from recent admission Plan follow on tele cards consult check TTE Restart home BP meds. replace Mg. ASA, statin [facility] planned for trae hold eloquis DM education NPO past midnight XUAN Alcantara MD Dec 28, 2018 14:13
[2018-12-28 14:58] LABS: CHOLESTEROL/HDL RATIO 3.5
[2018-12-28] MEDS ORDERED: APIXABAN 5 MG TABLET. PO SCH (15:00)
[2018-12-28] MEDS ORDERED: metFORMIN 500 MG TABLET PO SCH (17:00)
[2018-12-28] MEDS: ATORVASTATIN CALCIUM 40 MG TABLET. PO SCH (20:26)
[2018-12-29] VITALS (21 sets, daily range): BP systolic 142–178; BP diastolic 86–111
[2018-12-29 02:13] LABS: HEMOGLOBIN A1C 13.1 % (4.8-5.6)
[2018-12-29 05:44] LABS: CALCIUM 8.3 mg/dL (8.5-10.1); CREATININE 0.9 mg/dL (0.7-1.3); GFR 108.1; MAGNESIUM 1.7 mg/dL (1.8-2.4); POTASSIUM 3.7 mmol/L (3.5-5.1)
[2018-12-29] MEDS: ASPIRIN CHEWABLE 81 MG TABLET. PO SCH (07:38)
[2018-12-29] MEDS: LISINOPRIL 20 MG TABLET PO SCH ×2 (07:39→21:36)
[2018-12-29] MEDS ORDERED: HEPARIN for ARTERIAL LINE 1,500 ML ONE (07:44)
[2018-12-29] MEDS ORDERED: IOHEXOL 300 MG/ML 100ML VIAL. ONE (07:44)
[2018-12-29] MEDS ORDERED: LIDOCAINE 1% Multi-Dose 20 ML VIAL. ONE (07:44)
[2018-12-29] MEDS ORDERED: DEXTROSE 50% 25 GM / 50ML DISP.SYRIN. IV PRN (08:00)
[2018-12-29] MEDS: IV NORMAL SALINE 1000ML BAG 1,000 ML IV SCH (08:14)
[2018-12-29] MEDS: METOPROLOL TART IMMED RELEASE 25 MG TABLET. PO SCH ×2 (08:23→21:36)
--- NOTE | 2018-12-29 08:29 | RAD ---
Chest, 2 views, 12/27/2018: HISTORY: Chest pain, shortness of breath Comparison is made to a study from 12/01/2018. The heart size and pulmonary vascularity are within normal limits. No pulmonary infiltrate is seen. There is no evidence of pleural fluid. Moderate spurring is present in the spine. IMPRESSION: No acute cardiopulmonary abnormality is detected. Electronically signed by: Harry Grewal MD (12/29/2018 8:26 AM) [facility]
--- NOTE | 2018-12-29 11:52 | PDOC ---
PROGRESS NOTES Chief Complaint Chief Complaint ASSESSMENT Unstable Angina Hx of PAF HTN: DM2: A1C 15.4 HLP Morbid obesity/OSAP Hypomagnesemia Cardiomyopathy: EF 25% from prior AFIB RVR from recent admission Plan follow on tele check TTE: Left ventricle systolic function is mildly impaired; The Ejection Fraction is 45%. Restarted home BP meds. replaced Mg. ASA, statin [facility] planned for today hold eloquis DM education dc today if [facility] normal Vitals Vitals Vital Signs Date Time Temp Pulse Resp B/P (MAP) Pulse Ox O2 Delivery O2 Flow Rate FiO2 12/29/18 11:15 98.0 74 16 164/101 (122) 97 Room Air 98.0 Physical Exam General: Alert, Oriented X3, Cooperative, No acute distress Heart: Regular rate, Other (distnat heart sounds) Lungs: Clear Abdomen: Soft, No tenderness Extremities: No cyanosis, Other (1-2+ bilateral Le pitting edema) Skin: No breakdown, No significant lesion Labs LABS Laboratory Tests Test 12/28/18 17:17 12/28/18 21:04 12/29/18 03:35 12/29/18 07:19 Glucose (Fingerstick) 214 mg/dL (70-99) 184 mg/dL (70-99) 167 mg/dL (70-99) Sodium Level 139 mmol/L (136-145) Potassium Level 3.7 mmol/L (3.5-5.1) Chloride Level 101 mmol/L (98-107) Carbon Dioxide Level 28 mmol/L (21-32) Anion Gap 10 (6-14) Blood Urea Nitrogen 14 mg/dL (8-26) Creatinine 0.9 mg/dL (0.7-1.3) Estimated GFR (Cockcroft-Gault) 108.1 Glucose Level 132 mg/dL (70-99) Calcium Level 8.3 mg/dL (8.5-10.1) Magnesium Level 1.7 mg/dL (1.8-2.4) Assessment and Plan Assessmemt and Plan Problems Medical Problems: (1) Chest pain Status: Acute Comment Review of Relevant I have reviewed the following items pascual (where applicable) has been applied. Labs Laboratory Tests Test 12/27/18 22:00 12/27/18 23:15 12/28/18 06:30 12/28/18 07:35 White Blood Count 7.9 x10^3/uL (4.0-11.0) Red Blood Count 4.69 x10^6/uL (4.30-5.70) Hemoglobin 12.1 g/dL (13.0-17.5) Hematocrit 38.5 % (39.0-53.0) Mean Corpuscular Volume 82 fL (79-100) Mean Corpuscular Hemoglobin 26 pg (25-35) Mean Corpuscular Hemoglobin Concent 32 g/dL (31-37) Red Cell Distribution Width 13.7 % (11.5-14.5) Platelet Count 250 x10^3/uL (140-400) Neutrophils (%) (Auto) 65 % (31-73) Lymphocytes (%) (Auto) 27 % (24-48) Monocytes (%) (Auto) 7 % (0-9) Eosinophils (%) (Auto) 1 % (0-3) Basophils (%) (Auto) 0 % (0-3) Neutrophils # (Auto) 5.1 x10^3uL (1.8-7.7) Lymphocytes # (Auto) 2.1 x10^3/uL (1.0-4.8) Monocytes # (Auto) 0.6 x10^3/uL (0.0-1.1) Eosinophils # (Auto) 0.0 x10^3/uL (0.0-0.7) Basophils # (Auto) 0.0 x10^3/uL (0.0-0.2) Sodium Level 140 mmol/L (136-145) 141 mmol/L (136-145) Potassium Level 3.6 mmol/L (3.5-5.1) 3.9 mmol/L (3.5-5.1) Chloride Level 102 mmol/L (98-107) 102 mmol/L (98-107) Carbon Dioxide Level 31 mmol/L (21-32) 31 mmol/L (21-32) Anion Gap 7 (6-14) 8 (6-14) Blood Urea Nitrogen 13 mg/dL (8-26) 16 mg/dL (8-26) Creatinine 1.0 mg/dL (0.7-1.3) 1.0 mg/dL (0.7-1.3) Estimated GFR (Cockcroft-Gault) 95.7 95.7 BUN/Creatinine Ratio 13 (6-20) Glucose Level 88 mg/dL (70-99) 89 mg/dL (70-99) Calcium Level 8.7 mg/dL (8.5-10.1) 8.8 mg/dL (8.5-10.1) Magnesium Level 1.3 mg/dL (1.8-2.4) 1.7 mg/dL (1.8-2.4) Total Bilirubin 0.2 mg/dL (0.2-1.0) Aspartate Amino Transf (AST/SGOT) 12 U/L (15-37) Alanine Aminotransferase (ALT/SGPT) 21 U/L (16-63) Alkaline Phosphatase 86 U/L (46-116) Troponin I Quantitative < 0.017 ng/mL (0.000-0.055) < 0.017 ng/mL (0.000-0.055) RG-Mqj-[id number]-Type Natriuretic Peptide 60 pg/mL (0-124) Total Protein 7.0 g/dL (6.4-8.2) Albumin 3.3 g/dL (3.4-5.0) Albumin/Globulin Ratio 0.9 (1.0-1.7) Urine Collection Type Unknown Urine Color Yellow Urine Clarity Clear Urine pH 6.5 Urine Specific [place] 1.025 Urine Protein Negative mg/dL (NEG-TRACE) Urine Glucose (UA) Negative mg/dL (NEG) Urine Ketones (Stick) Trace mg/dL (NEG) Urine Blood Negative (NEG) Urine Nitrite Negative (NEG) Urine Bilirubin Negative (NEG) Urine Urobilinogen Dipstick 1.0 mg/dL (0.2 mg/dL) Urine Leukocyte Esterase Negative (NEG) Urine RBC Occ /HPF (0-2) Urine WBC Occ /HPF (0-4) Urine Squamous Epithelial Cells Few /LPF Urine Bacteria 0 /HPF (0-FEW) Urine Hyaline Casts Occasional /HPF Urine Mucus Mod /LPF Prothrombin Time 13.2 SEC (11.7-14.0) Prothromb Time International Ratio 1.0 (0.8-1.1) Hemoglobin A1c 13.1 % (4.8-5.6) Triglycerides Level 38 mg/dL (0-150) Cholesterol Level 212 mg/dL (0-200) LDL Cholesterol, Calculated 144 mg/dL (0-100) VLDL Cholesterol, Calculated 8 mg/dL (0-40) Non-HDL Cholesterol Calculated 152 mg/dL (0-129) HDL Cholesterol 60 mg/dL (40-60) Cholesterol/HDL Ratio 3.5 Thyroid Stimulating Hormone (TSH) 1.590 uIU/mL (0.358-3.74) Glucose (Fingerstick) 98 mg/dL (70-99) Test 12/28/18 11:26 12/28/18 17:17 12/28/18 21:04 12/29/18 03:35 Glucose (Fingerstick) 104 mg/dL (70-99) 214 mg/dL (70-99) 184 mg/dL (70-99) Sodium Level 139 mmol/L (136-145) Potassium Level 3.7 mmol/L (3.5-5.1) Chloride Level 101 mmol/L (98-107) Carbon Dioxide Level 28 mmol/L (21-32) Anion Gap 10 (6-14) Blood Urea Nitrogen 14 mg/dL (8-26) Creatinine 0.9 mg/dL (0.7-1.3) Estimated GFR (Cockcroft-Gault) 108.1 Glucose Level 132 mg/dL (70-99) Calcium Level 8.3 mg/dL (8.5-10.1) Magnesium Level 1.7 mg/dL (1.8-2.4) Test 12/29/18 07:19 Glucose (Fingerstick) 167 mg/dL (70-99) Laboratory Tests Test 12/28/18 17:17 12/28/18 21:04 12/29/18 03:35 12/29/18 07:19 Glucose (Fingerstick) 214 mg/dL (70-99) 184 mg/dL (70-99) 167 mg/dL (70-99) Sodium Level 139 mmol/L (136-145) Potassium Level 3.7 mmol/L (3.5-5.1) Chloride Level 101 mmol/L (98-107) Carbon Dioxide Level 28 mmol/L (21-32) Anion Gap 10 (6-14) Blood Urea Nitrogen 14 mg/dL (8-26) Creatinine 0.9 mg/dL (0.7-1.3) Estimated GFR (Cockcroft-Gault) 108.1 Glucose Level 132 mg/dL (70-99) Calcium Level 8.3 mg/dL (8.5-10.1) Magnesium Level 1.7 mg/dL (1.8-2.4) Medications Current Medications Albuterol/ Ipratropium (Duoneb) 3 ml 1X ONCE NEB Last administered on at 00:55; Start 12/28/18 at 00:45; Stop 12/28/18 at 02:30; Status DC Magnesium Oxide (Magnesium Oxide) 400 mg 1X ONCE PO ; Start 12/28/18 at 00:45; Stop 12/28/18 at 02:30; Status DC Magnesium Sulfate/ Dextrose 100 ml @ 100 mls/hr 1X ONCE IV ; Start 12/28/18 at 00:45; Stop 12/28/18 at 02:30; Status DC Sodium Chloride 1,000 ml @ 75 mls/hr [id number] IV Last administered on at 08:44; Start 12/28/18 at 08:45 Aspirin (Children'S Aspirin) 81 mg DAILY PO Last administered on 12/29/18 07: 38; Start 12/28/18 at 09:00 Furosemide (Lasix) 40 mg DAILY PO Last administered on 12/28/18 09:27; Start 12/28/18 at 09:00 Lisinopril (Prinivil) 20 mg BID PO Last administered on 12/29/18at 07:39; Start 12/28/18 at 09:00 Metoprolol Tartrate (Lopressor) 25 mg BID PO Last administered on 12/29/18 08: 23; Start 12/28/18 at 09:00 Potassium Chloride (Klor-Con) 20 meq DAILYWBKFT PO Last administered on at 11:52; Start 12/28/18 at 08:00 Hydralazine HCl (Apresoline) 50 mg TID PO Last administered on 12/29/18 07:38 ; Start 12/28/18 at 09:00 Atorvastatin Calcium (Lipitor) 40 mg QHS PO Last administered on 12/28/18at 20: 26; Start 12/28/18 at 21:00 Magnesium Sulfate 50 ml @ 25 mls/hr 1X ONCE IV Last administered on 12/28/18at 11:48; Start 12/28/18 at 10:30; Stop 12/28/18 at 12:29; Status DC Labetalol HCl (Normodyne Iv Push) 20 mg 1X ONCE IVP Last administered on at 12:45; Start 12/28/18 at 12:15; Stop 12/28/18 at 12:24; Status DC Apixaban (Eliquis) 5 mg BID PO ; Start 12/28/18 at 15:00; Stop 12/28/18 at 15:00 ; Status DC Glimepiride (Amaryl) 4 mg DAILY PO ; Start 12/29/18 at 09:00 Metformin HCl (Glucophage) 1,000 mg DAILYWBKFT PO ; Start 12/28/18 at 17:00; Stop 12/28/18 at 17:00; Status DC Diltiazem HCl (Cardizem 24hr Cd) 240 mg DAILY PO Last administered on at 08:23; Start 12/28/18 at 15:00 Iohexol (Omnipaque 300 Mg/ml) 100 ml STK-MED ONCE .ROUTE ; Start 12/29/18 at 07: 44; Stop 12/29/18 at 07:45; Status DC Lidocaine HCl (Lidocaine 1% 20ml Vial) 20 ml STK-MED ONCE .ROUTE ; Start at 07:44; Stop 12/29/18 at 07:45; Status DC Heparin Sodium/ Sodium Chloride 1,500 ml @ As Directed STK-MED ONCE .ROUTE ; Start 12/29/18 at 07:44; Stop 12/29/18 at 07:45; Status DC Dextrose (Dextrose 50%-Water Syringe) 12.5 gm PRN Q15MIN PRN IV SEE COMMENTS; Start 12/29/18 at 08:00 Active Scripts Active Lisinopril 20 Mg Tablet 1 Tab PO BID 30 Days [Diltiazem Hcl] 240 MG Cap.er.24h 240 Mg PO DAILY 30 Days Hydralazine Hcl 50 Mg Tablet 50 Mg PO BID 30 Days Eliquis (Apixaban) 5 Mg Tablet 5 Mg PO BID 30 Days Metoprolol Tartrate 25 Mg Tablet 25 Mg PO BID Furosemide 40 Mg Tablet 40 Mg PO DAILY Reported Potassium Chloride 20 Meq Tablet.er 20 Meq PO DAILY Gary Chewable (Aspirin) 81 Mg Tab.chew 81 Mg PO Metformin Hcl 1,000 Mg Tablet 1,000 Mg PO DAILY Glimepiride 4 Mg Tablet 4 Mg PO DAILY Vitals/I & O Vital Sign - Last 24 Hours 12/28/18 12/28/18 12/28/18 12/28/18 12:45 15:02 15:05 15:09 Temp 98.1 98.1 Pulse 83 81 81 81 Resp 16 B/P (MAP) 170/106 166/103 (124) 166/103 166/103 Pulse Ox 96 O2 Delivery Room Air 12/28/18 12/28/18 12/28/18 12/28/18 19:25 20:00 20:27 20:27 Temp 98.3 98.3 Pulse 81 81 81 Resp 18 B/P (MAP) 190/115 (140) 190/115 190/115 Pulse Ox 94 O2 Delivery Room Air Room Air 12/28/18 12/28/18 12/28/18 12/29/18 20:28 23:05 23:42 03:43 Temp 98.2 98.0 98.2 98.0 Pulse 81 78 65 75 Resp B/P (MAP) 190/115 182/124 (143) 166/109 (128) 157/104 (121) Pulse Ox 95 95 O2 Delivery Room Air Room Air 12/29/18 12/29/18 12/29/18 12/29/18 07:00 07:38 07:39 08:00 Temp 97.6 97.6 Pulse 69 90 70 18 B/P (MAP) 156/106 (123) 156/106 156/106 Pulse Ox 97 O2 Delivery Room Air Room Air 12/29/18 12/29/18 12/29/18 08:23 08:23 11:15 Temp 98.0 98.0 Pulse 92 78 74 Resp 16 B/P (MAP) 156/106 156/106 164/101 (122) Pulse Ox 97 O2 Delivery Room Air Intake and Output 12/28/18 12/28/18 12/29/18 15:00 23:00 07:00 Intake Total 360 ml 360 ml 1000 ml Output Total 950 ml 800 ml 1250 ml Balance -590 ml -440 ml -250 ml XUAN GERONIMO MD Dec 29, 2018 11:52
[2018-12-29] MEDS ORDERED: fentaNYL PF VIAL 100 MCG/2 ML VIAL ONE (13:41)
[2018-12-29] MEDS ORDERED: MIDAZOLAM HCL/PF 5 MG/5 ML VIAL. ONE (13:41)
--- NOTE | 2018-12-29 13:45 | PDOC ---
MODERATE SEDATION ASSESSMENT RISKS/ALTERNATIVES Risks/Alternatives Risks and alternatives of this type of sedation and procedure discussed with: RISK/ALTERNATIVES: Patient H & P ON CHART H & P H & P on chart and reviewed for co-morbid conditions and appropriate labs. H&P ON CHART: Yes STATUS PREG STATUS ASSESSED: N/A MEDS/ALLERGIES REVIEWED Meds/Allergies Reviewed Medications and Allergies including time and route of recently administered narcotics and sedatives. MEDS/ALLERGIES REVIEWED: Yes ASA RATING ASA RATING: II AIRWAY ASSESSMENT Airway Assessment Airway patency, oral function limitations, presence of caps, crowns, dentures, partials, and ability to extend neck assessed. AIRWAY ASSESSMENT: Yes MALLAMPATI SCORE MALLAMPATI SCORE: II PRE-SEDATION ASSESSMENT PRE-SEDATION ASSESSMENT: Yes WILLIAMS REAL MD Dec 29, 2018 13:45
[2018-12-29] MEDS ORDERED: NITROGLYCERIN OINT 1 GM PACKET. ONE (13:52)
[2018-12-29] MEDS ORDERED: MIDAZOLAM HCL/PF 5 MG/5 ML VIAL. IV ONE (14:00)
[2018-12-29] MEDS ORDERED: LIDOCAINE 1% Multi-Dose 20 ML VIAL. INJ ONE (14:00)
[2018-12-29] MEDS ORDERED: NITROGLYCERIN OINT 1 GM PACKET. TP ONE (14:00)
[2018-12-29] MEDS ORDERED: fentaNYL PF VIAL 100 MCG/2 ML VIAL IV ONE (14:00)
[2018-12-29] MEDS ORDERED: CONTRAST GIVEN. MC PRN (14:00)
[2018-12-29] MEDS ORDERED: IOHEXOL 300 MG/ML 100ML VIAL. IART ONE (14:00)
[2018-12-29] MEDS ORDERED: hydrALAZINE 20 MG/ML VIAL. ONE (14:14)
[2018-12-29] MEDS ORDERED: hydrALAZINE 20 MG/ML VIAL. IVP ONE (14:30)
[2018-12-29] MEDS ORDERED: IV NORMAL SALINE 1000ML BAG 1,000 ML IV SCH (14:32)
[2018-12-29] MEDS ORDERED: 0.9 % SODIUM CHLORIDE 10 ML DISP.SYRIN. IV PRN (14:45)
[2018-12-29] MEDS ORDERED: NITROGLYCERIN SUBLINGUAL 0.4 MG BOTTLE OF 25. SL PRN (14:45)
--- NOTE | 2018-12-29 14:50 | NUR ---
Patient arrived back to room from cardiac cath at 1450. Patient alert but a little drowsy. R groin dressing CDI. Pulses present. BLE warm to touch. No complaints of pain. Patient educated to lay flat for 3 hours. Will continue to monitor.
--- NOTE | 2018-12-29 16:46 | CARD ---
MR#: [id number] Date of Study: 12/29/2018 Ordering Physician: WILLIAMS REYNOLDS, Referring Physician: Beni PILLAI: Deirdre Byers RT (R) APPROVED REPORT Procedures Left heart catheterization Selective coronary angiogram Left ventriculogram The patient is a 48-year-old male with systolic heart failure secondary to decreased ejection fractio n. He was admitted with episodes of chest pain. In this setting cardiac catheterization was recommend ed. Risks and benefits of the procedure were discussed with the patient. He agreed to proceed. After informed consent was obtained the patient was brought to the heart catheterization lab. The are a of the right femoral artery was prepared usual manner with Betadine, sterile draping and local anes thetic. An 18-gauge needle was used to enter the right femoral artery, a wire placed the 6 Persian she ath placed over the wire. With the assistance the J-wire for exchanges a 6 Persian JL4 diagnostic cath eter was used to engage the left system and sequential injections in various views were obtained. A 6 Persian Ishmael right diagnostic catheter was used to engage the right coronary artery system and se quential injections in various views were obtained. A pigtail catheter was advanced to the left ventr icle. Pressures were obtained. A 30 KWON left ventriculogram was performed. Pullback pressures were m easured. The catheter was removed the patient. Injection of the sheath showed normal placement. The s millie was removed and sealed with an Angio-Seal product. The patient was moved to the holding area in stable condition. Findings. Hemodynamics. Left ventricular pressures of 150/6, 14. Aortic root pressure 148/86. Coronaries. Left main. Left main was a normal-size vessel with no lesions. Left anterior descending. The left anterior descending was a moderate to moderately large vessel with normal distribution. It had a proximal 25% lesion, a mid 20% lesion and a distal 25% lesion. Left circumflex. The left circumflex was a large dominant vessel. Obtuse marginal 1 branch had a 20% lesion. In the mid left circumflex there is a 20% lesion. Right coronary artery. The right coronary was a moderately large vessel but nondominant. It had a mid 3035% lesion. Left ventriculogram. The left ventricle showed global hypokinesis most significant near the apex. Ejection fraction was 3 5-40%. <Conclusion> Mild coronary artery disease in the left anterior descending and left circumflex vessels. Moderate coronary artery disease in the right coronary artery. Decreased ejection fraction at 35-40%. Signed by : Williams Reynolds MD Electronically Approved : 12/29/2018 16:45:25
[2018-12-29] MEDS: FUROSEMIDE 40 MG TABLET. PO SCH (17:00)
[2018-12-29] MEDS: POTASSIUM CHLORIDE 20 MEQ TABLET.ER. PO SCH (17:01)
[2018-12-29] MEDS: GLIMEPIRIDE 2 MG TABLET. PO SCH (17:11)
[2018-12-29] MEDS: ATORVASTATIN CALCIUM 40 MG TABLET. PO SCH (21:37)
[2018-12-30] VITALS (23 sets, daily range): BP systolic 122–196; BP diastolic 49–123
--- NOTE | 2018-12-30 03:43 | NUR ---
Pts B/P at 0300 VS, 196/123, paged Dr. Donald for medication orders. Call back received and nitro gtt ordered for systolic less than 150. Will initiate and continue to monitor closely.
[2018-12-30] MEDS ORDERED: NITROGLYCERIN PREMIX 250 ML IV PRN (04:00)
[2018-12-30] MEDS: GLIMEPIRIDE 2 MG TABLET. PO SCH (08:33)
[2018-12-30] MEDS: POTASSIUM CHLORIDE 20 MEQ TABLET.ER. PO SCH (08:33)
[2018-12-30] MEDS: LISINOPRIL 20 MG TABLET PO SCH (08:34)
[2018-12-30] MEDS: FUROSEMIDE 40 MG TABLET. PO SCH (08:34)
[2018-12-30] MEDS: METOPROLOL TART IMMED RELEASE 25 MG TABLET. PO SCH (08:34)
[2018-12-30] MEDS: ASPIRIN CHEWABLE 81 MG TABLET. PO SCH (08:35)
[2018-12-30] MEDS ORDERED: METOPROLOL TART IMMED RELEASE 25 MG TABLET. PO SCH (12:30)
[2018-12-30] MEDS ORDERED: CARVEDILOL 12.5 MG TABLET. PO SCH (12:30)
[2018-12-30] MEDS ORDERED: amLODIPine BESYLATE 10 MG TABLET PO SCH (12:30)
--- NOTE | 2018-12-30 12:32 | PDOC ---
PROGRESS NOTES Chief Complaint Chief Complaint ASSESSMENT Unstable Angina Hx of PAF HTN: DM2: A1C 15.4 HLP Morbid obesity/OSAP Hypomagnesemia Cardiomyopathy: EF 25% from prior AFIB RVR from recent admission Plan follow on tele check TTE: Left ventricle systolic function is mildly impaired; The Ejection Fraction is 45%. Restarted home BP meds. replaced Mg. ASA, statin [facility] planned for today hold eloquis DM education dc today if [facility] normal History of Present Illness History of Present Illness 48 yo male with chief complaint of midsternal CP with associated jaw tightness since 1 week. hx of HTN, Hyperlipidemia, cardiomyopathy, PAFIB, CHF. reports compliance with medications. EKG without acute changes, no elevated trop. no falls or association with chest pain. 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 Left main was a normal-size vessel with no lesions. Left anterior descending. The left anterior descending was a moderate to moderately large vessel with normal distribution. It had a proximal 25% lesion, a mid 20% lesion and a distal 25% lesion. Left circumflex. The left circumflex was a large dominant vessel. Obtuse marginal 1 branch had a 20% lesion. In the mid left circumflex there is a 20% lesion. Right coronary artery. The right coronary was a moderately large vessel but nondominant. It had a mid 3035% lesion. Left ventriculogram. The left ventricle showed global hypokinesis most significant near the apex. Ejection fraction was 35-40%. He is pain free currently. Had elevated BP overnight, started on NTG GTT per cardiology, still with some BP elevations. Plan: change to coreg 12.5mg BID up hydralazine Vitals Vitals Vital Signs Date Time Temp Pulse Resp B/P (MAP) Pulse Ox O2 Delivery O2 Flow Rate FiO2 12/30/18 10:50 98.1 89 19 155/101 (119) 93 Room Air 98.1 Physical Exam General: Alert, Oriented X3, Cooperative, No acute distress Heart: Regular rate, Other (distnat heart sounds) Lungs: Clear Abdomen: Soft, No tenderness Extremities: No cyanosis, Other (1-2+ bilateral Le pitting edema) Skin: No breakdown, No significant lesion Labs LABS Laboratory Tests Test 12/29/18 16:56 12/29/18 20:28 12/30/18 07:08 12/30/18 11:37 Glucose (Fingerstick) 129 mg/dL (70-99) 198 mg/dL (70-99) 145 mg/dL (70-99) 189 mg/dL (70-99) Assessment and Plan Assessmemt and Plan Problems Medical Problems: (1) Chest pain Status: Acute Comment Review of Relevant I have reviewed the following items pascual (where applicable) has been applied. Labs Laboratory Tests Test 12/28/18 17:17 12/28/18 21:04 12/29/18 03:35 12/29/18 07:19 Glucose (Fingerstick) 214 mg/dL (70-99) 184 mg/dL (70-99) 167 mg/dL (70-99) Sodium Level 139 mmol/L (136-145) Potassium Level 3.7 mmol/L (3.5-5.1) Chloride Level 101 mmol/L (98-107) Carbon Dioxide Level 28 mmol/L (21-32) Anion Gap 10 (6-14) Blood Urea Nitrogen 14 mg/dL (8-26) Creatinine 0.9 mg/dL (0.7-1.3) Estimated GFR (Cockcroft-Gault) 108.1 Glucose Level 132 mg/dL (70-99) Calcium Level 8.3 mg/dL (8.5-10.1) Magnesium Level 1.7 mg/dL (1.8-2.4) Test 12/29/18 12:07 12/29/18 16:56 12/29/18 20:28 12/30/18 07:08 Glucose (Fingerstick) 136 mg/dL (70-99) 129 mg/dL (70-99) 198 mg/dL (70-99) 145 mg/dL (70-99) Test 12/30/18 11:37 Glucose (Fingerstick) 189 mg/dL (70-99) Laboratory Tests Test 12/29/18 16:56 12/29/18 20:28 12/30/18 07:08 12/30/18 11:37 Glucose (Fingerstick) 129 mg/dL (70-99) 198 mg/dL (70-99) 145 mg/dL (70-99) 189 mg/dL (70-99) Medications Current Medications Albuterol/ Ipratropium (Duoneb) 3 ml 1X ONCE NEB Last administered on at 00:55; Start 12/28/18 at 00:45; Stop 12/28/18 at 02:30; Status DC Magnesium Oxide (Magnesium Oxide) 400 mg 1X ONCE PO ; Start 12/28/18 at 00:45; Stop 12/28/18 at 02:30; Status DC Magnesium Sulfate/ Dextrose 100 ml @ 100 mls/hr 1X ONCE IV ; Start 12/28/18 at 00:45; Stop 12/28/18 at 02:30; Status DC Sodium Chloride 1,000 ml @ 75 mls/hr [id number] IV Last administered on at 08:44; Start 12/28/18 at 08:45; Stop 12/29/18 at 19:53; Status DC Aspirin (Children'S Aspirin) 81 mg DAILY PO Last administered on 12/30/18at 08: 35; Start 12/28/18 at 09:00 Furosemide (Lasix) 40 mg DAILY PO Last administered on 12/30/18 08:34; Start 12/28/18 at 09:00 Lisinopril (Prinivil) 20 mg BID PO Last administered on 12/30/18at 08:34; Start 12/28/18 at 09:00 Metoprolol Tartrate (Lopressor) 25 mg BID PO Last administered on 12/30/18 08: 34; Start 12/28/18 at 09:00 Potassium Chloride (Klor-Con) 20 meq DAILYWBKFT PO Last administered on at 08:33; Start 12/28/18 at 08:00 Hydralazine HCl (Apresoline) 50 mg TID PO Last administered on 12/30/18at 08:33 ; Start 12/28/18 at 09:00 Atorvastatin Calcium (Lipitor) 40 mg QHS PO Last administered on 12/29/18at 21: 37; Start 12/28/18 at 21:00 Magnesium Sulfate 50 ml @ 25 mls/hr 1X ONCE IV Last administered on 12/28/18at 11:48; Start 12/28/18 at 10:30; Stop 12/28/18 at 12:29; Status DC Labetalol HCl (Normodyne Iv Push) 20 mg 1X ONCE IVP Last administered on at 12:45; Start 12/28/18 at 12:15; Stop 12/28/18 at 12:24; Status DC Apixaban (Eliquis) 5 mg BID PO ; Start 12/28/18 at 15:00; Stop 12/28/18 at 15:00 ; Status DC Glimepiride (Amaryl) 4 mg DAILY PO Last administered on 12/30/18at 08:33; Start 12/29/18 at 09:00 Metformin HCl (Glucophage) 1,000 mg DAILYWBKFT PO ; Start 12/28/18 at 17:00; Stop 12/28/18 at 17:00; Status DC Diltiazem HCl (Cardizem 24hr Cd) 240 mg DAILY PO Last administered on at 08:35; Start 12/28/18 at 15:00 Iohexol (Omnipaque 300 Mg/ml) 100 ml STK-MED ONCE .ROUTE ; Start 12/29/18 at 07: 44; Stop 12/29/18 at 07:45; Status DC Lidocaine HCl (Lidocaine 1% 20ml Vial) 20 ml STK-MED ONCE .ROUTE ; Start at 07:44; Stop 12/29/18 at 07:45; Status DC Heparin Sodium/ Sodium Chloride 1,500 ml @ As Directed STK-MED ONCE .ROUTE ; Start 12/29/18 at 07:44; Stop 12/29/18 at 07:45; Status DC Dextrose (Dextrose 50%-Water Syringe) 12.5 gm PRN Q15MIN PRN IV SEE COMMENTS; Start 12/29/18 at 08:00 Fentanyl Citrate (Fentanyl 2ml Vial) 100 mcg STK-MED ONCE .ROUTE ; Start at 13:41; Stop 12/29/18 at 13:42; Status DC Midazolam HCl (Versed) 5 mg STK-MED ONCE .ROUTE ; Start 12/29/18 at 13:41; Stop 12/29/18 at 13:42; Status DC Heparin Sodium/ Sodium Chloride (HEPARIN for ARTERIAL LINE FLUSH) 1,000 unit 1X ONCE IART Last administered on 12/29/18at 14:31; Start 12/29/18 at 14:00; Stop 12/29/18 at 14:01; Status DC Heparin Sodium/ Sodium Chloride (HEPARIN for ARTERIAL LINE FLUSH) 1,000 unit 1X ONCE IART Last administered on 12/29/18at 14:31; Start 12/29/18 at 14:00; Stop 12/29/18 at 14:01; Status DC Midazolam HCl (Versed) 5 mg 1X ONCE IV Last administered on 12/29/18at 14:32; Start 12/29/18 at 14:00; Stop 12/29/18 at 14:01; Status DC Fentanyl Citrate (Fentanyl 2ml Vial) 100 mcg 1X ONCE IV Last administered on at 14:33; Start 12/29/18 at 14:00; Stop 12/29/18 at 14:01; Status DC Iohexol (Omnipaque 300 Mg/ml) 100 ml 1X ONCE IART Last administered on at 14:31; Start 12/29/18 at 14:00; Stop 12/29/18 at 14:01; Status DC Lidocaine HCl (Lidocaine 1% 20ml Vial) 20 ml 1X ONCE INJ Last administered on 12/29/18at 14:31; Start 12/29/18 at 14:00; Stop 12/29/18 at 14:01; Status DC Info (CONTRAST GIVEN -- Rx MONITORING) 1 each PRN DAILY PRN MC SEE COMMENTS; Start 12/29/18 at 14:00; Stop 12/31/18 at 13:59 Nitroglycerin (Nitro-Bid Oint) 1 inch STK-MED ONCE .ROUTE ; Start 12/29/18 at 13 :52; Stop 12/29/18 at 13:53; Status DC Nitroglycerin (Nitro-Bid Oint) 2 inch 1X ONCE TP Last administered on at 14:34; Start 12/29/18 at 14:00; Stop 12/29/18 at 14:01; Status DC Hydralazine HCl (Apresoline Inj) 20 mg STK-MED ONCE .ROUTE ; Start 12/29/18 at 14:14; Stop 12/29/18 at 14:15; Status DC Hydralazine HCl (Apresoline Inj) 10 mg 1X ONCE IVP Last administered on at 14:32; Start 12/29/18 at 14:30; Stop 12/29/18 at 14:31; Status DC Sodium Chloride (Normal Saline Flush) 3 ml QSHIFT PRN IV AFTER MEDS AND BLOOD DRAWS; Start 12/29/18 at 14:45 Sodium Chloride 1,000 ml @ 60 mls/hr [id number] IV ; Start 12/29/18 at 14:32; Stop 12/29/18 at 18:31; Status DC Nitroglycerin (Nitrostat) 0.4 mg PRN Q5MIN PRN SL CHEST PAIN; Start 12/29/18 at 14:45 Nitroglycerin/ Dextrose 250 ml @ 1.5 mls/hr CONT PRN IV SEE I/O RECORD Last administered on 12/30/18at 04:32; Start 12/30/18 at 04:00 Magnesium Sulfate/ Dextrose 100 ml @ As Directed STK-MED ONCE IV ; Start at 00:52; Stop 12/30/18 at 11:48; Status DC Magnesium Oxide (Magnesium Oxide) 400 mg STK-MED ONCE .ROUTE ; Start 12/28/18 at 00:52; Stop 12/30/18 at 11:48; Status DC Albuterol/ Ipratropium (Duoneb) 3 ml STK-MED ONCE .ROUTE ; Start 12/28/18 at 00: 53; Stop 12/30/18 at 11:48; Status DC Amlodipine Besylate (Norvasc) 10 mg DAILY PO ; Start 12/30/18 at 12:30 Active Scripts Active Lisinopril 20 Mg Tablet 1 Tab PO BID 30 Days [Diltiazem Hcl] 240 MG Cap.er.24h 240 Mg PO DAILY 30 Days Hydralazine Hcl 50 Mg Tablet 50 Mg PO BID 30 Days Eliquis (Apixaban) 5 Mg Tablet 5 Mg PO BID 30 Days Metoprolol Tartrate 25 Mg Tablet 25 Mg PO BID Furosemide 40 Mg Tablet 40 Mg PO DAILY Reported Potassium Chloride 20 Meq Tablet.er 20 Meq PO DAILY Gary Chewable (Aspirin) 81 Mg Tab.chew 81 Mg PO Metformin Hcl 1,000 Mg Tablet 1,000 Mg PO DAILY Glimepiride 4 Mg Tablet 4 Mg PO DAILY Vitals/I & O Vital Sign - Last 24 Hours 12/29/18 12/29/18 12/29/18 12/29/18 14:27 14:32 14:33 14:34 Pulse 80 82 67 Resp 18 18 B/P (MAP) 165/109 177/105 Pulse Ox 97 96 O2 Delivery Room Air Room Air 4/1712/29/18 12/29/18 12/29/18 14:45 15:00 15:15 15:30 Pulse 80 80 80 80 B/P (MAP) 159/94 (115) 175/92 (119) 177/90 (119) 165/89 (114) 12/29/18 12/29/18 12/29/18 12/29/18 15:35 15:45 16:00 16:15 Temp 97.6 97.6 Pulse 85 75 81 79 Resp 18 B/P (MAP) 142/102 (115) 155/86 (109) 158/88 (111) 155/100 (118) Pulse Ox 95 O2 Delivery Room Air 12/29/18 12/29/18 12/29/18 12/29/18 16:30 16:45 17:00 17:00 Pulse 81 80 94 92 B/P (MAP) 171/96 (121) 160/104 (122) 169/109 (129) 169/109 12/29/18 12/29/18 12/29/18 12/29/18 17:30 18:00 18:30 19:50 Temp 98.5 98.5 Pulse 92 97 100 98 Resp 16 B/P (MAP) 178/95 (122) 173/100 (124) 165/102 (123) 160/105 (123) Pulse Ox 94 O2 Delivery Room Air 12/29/18 12/29/18 12/29/18 12/29/18 20:00 20:00 21:36 21:36 Pulse 78 98 98 B/P (MAP) 160/105 160/105 Pulse Ox 94 O2 Delivery Room Air Room Air 12/29/18 12/29/18 12/30/18 12/30/18 21:36 23:37 03:38 04:30 Temp 98.5 97.9 98.5 97.9 Pulse 98 98 79 74 Resp 16 18 B/P (MAP) 160/105 175/111 (132) 196/123 (147) 144/105 (118) Pulse Ox 96 96 O2 Delivery Room Air Room Air 12/30/18 12/30/18 12/30/18 12/30/18 04:30 04:45 05:00 05:15 Pulse 70 70 76 74 B/P (MAP) 171/104 (126) 171/104 (126) 163/113 (130) 157/110 (126) 12/30/18 12/30/18 12/30/18 12/30/18 05:30 06:00 06:30 06:45 Pulse 74 78 80 80 B/P (MAP) 157/97 (117) 187/113 (137) 122/70 (87) 193/108 (136) 12/30/18 12/30/18 12/30/18 12/30/18 07:00 07:15 07:45 08:00 Temp 97.8 97.8 Pulse 83 84 82 Resp 18 B/P (MAP) 153/93 (113) 149/99 (116) 166/100 (122) Pulse Ox 94 O2 Delivery Room Air Room Air 12/30/18 12/30/18 12/30/18 12/30/18 08:15 08:33 08:34 08:34 Pulse 80 99 99 99 B/P (MAP) 129/49 (75) 164/95 164/95 164/95 12/30/18 12/30/18 12/30/18 12/30/18 08:35 08:45 09:15 09:45 Pulse 99 80 88 83 B/P (MAP) 164/95 165/111 (129) 156/102 (120) 139/103 (115) 12/30/18 10:50 Temp 98.1 98.1 Pulse 89 Resp 19 B/P (MAP) 155/101 (119) Pulse Ox 93 O2 Delivery Room Air Intake and Output 12/29/18 12/29/18 12/30/18 15:00 23:00 07:00 Intake Total 305.5 ml Output Total 650 ml Balance -650 ml 305.5 ml ESTRELLITA EASTMAN MD Dec 30, 2018 12:32
--- NOTE | 2018-12-30 15:04 | PDOC3 ---
Discharge Summary Visit Information Date of Admission: Dec 28, 2018 Date of Discharge: Dec 30, 2018 Admitting Diagnosis: Chest pain Final Diagnosis Problems Medical Problems: (1) Chest pain Status: Acute Brief Hospital Course Allergies Allergies Coded Allergies Type Severity Reaction Last Updated Verified Influenza Virus Vaccines Allergy Severe 12/02/18 Yes Vital Signs Vital Signs Date Time Temp Pulse Resp B/P (MAP) Pulse Ox O2 Delivery O2 Flow Rate FiO2 12/30/18 14:23 87 129/99 12/30/18 10:50 98.1 19 93 Room Air 98.1 Lab Results Laboratory Tests Test 12/28/18 17:17 12/28/18 21:04 12/29/18 03:35 12/29/18 07:19 Glucose (Fingerstick) 214 mg/dL (70-99) 184 mg/dL (70-99) 167 mg/dL (70-99) Sodium Level 139 mmol/L (136-145) Potassium Level 3.7 mmol/L (3.5-5.1) Chloride Level 101 mmol/L (98-107) Carbon Dioxide Level 28 mmol/L (21-32) Anion Gap 10 (6-14) Blood Urea Nitrogen 14 mg/dL (8-26) Creatinine 0.9 mg/dL (0.7-1.3) Estimated GFR (Cockcroft-Gault) 108.1 Glucose Level 132 mg/dL (70-99) Calcium Level 8.3 mg/dL (8.5-10.1) Magnesium Level 1.7 mg/dL (1.8-2.4) Test 12/29/18 12:07 12/29/18 16:56 12/29/18 20:28 12/30/18 07:08 Glucose (Fingerstick) 136 mg/dL (70-99) 129 mg/dL (70-99) 198 mg/dL (70-99) 145 mg/dL (70-99) Test 12/30/18 11:37 Glucose (Fingerstick) 189 mg/dL (70-99) Laboratory Tests Test 12/29/18 16:56 12/29/18 20:28 12/30/18 07:08 12/30/18 11:37 Glucose (Fingerstick) 129 mg/dL (70-99) 198 mg/dL (70-99) 145 mg/dL (70-99) 189 mg/dL (70-99) Brief Hospital Course 48 yo male with chief complaint of midsternal CP with associated jaw tightness since 1 week. hx of HTN, Hyperlipidemia, cardiomyopathy, PAFIB, CHF. reports compliance with medications. EKG without acute changes, no elevated trop. no falls or association with chest pain. 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 Left main was a normal-size vessel with no lesions. Left anterior descending. The left anterior descending was a moderate to moderately large vessel with normal distribution. It had a proximal 25% lesion, a mid 20% lesion and a distal 25% lesion. Left circumflex. The left circumflex was a large dominant vessel. Obtuse marginal 1 branch had a 20% lesion. In the mid left circumflex there is a 20% lesion. Right coronary artery. The right coronary was a moderately large vessel but nondominant. It had a mid 3035% lesion. Left ventriculogram. The left ventricle showed global hypokinesis most significant near the apex. Ejection fraction was 35-40%. He is pain free currently. Had elevated BP overnight, started on NTG GTT per cardiology, still with some BP elevations. Plan: change to coreg 12.5mg BID up hydralazine, add imdur Unstable Angina Hx of PAF HTN: DM2: A1C 15.4 HLP Morbid obesity/OSAP Hypomagnesemia Cardiomyopathy: EF 25% from prior AFIB RVR from recent admission Plan follow on tele check TTE: Left ventricle systolic function is mildly impaired; The Ejection Fraction is 45%. - Coreg, statin, ASA, Imdur, Hydralazine Restarted home BP meds. replaced Mg. ASA, statin hold eliquis DM education dc today if BP comes down Greater than 30 minutes spent on discharge Discharge Information Condition at Discharge: Improved Follow Up: Weeks Disposition/Orders: D/C to Home Scheduled Apixaban (Eliquis) 5 Mg Tablet, 5 MG PO BID for HEART for 30 Days, #60 Prescribed by: DUC GRACIA MD on 12/03/18 1447 Last Action: Continued on 12/28/18 1413 by XUAN GERONIMO MD Furosemide (Furosemide) 40 Mg Tablet, 40 MG PO DAILY, #30 Ref 2 Prescribed by: NKECHI LANDA on 08/29/17 0929 Last Action: Continued on 12/28/18 0859 by VALERIY VANESSA Glimepiride (Glimepiride) 4 Mg Tablet, 4 MG PO DAILY, (Reported) Entered as Reported by: VIDA GONZALEZ on 05/01/14907 Last Action: Converted on 12/28/181412 by XUAN GERONIMO MD Hydralazine Hcl (Hydralazine Hcl) 50 Mg Tablet, 50 MG PO BID for BLOOD PRESSURE for 30 Days, #60 Prescribed by: DUC GRACIA MD on 12/03/18 144 Last Action: Converted on 12/28/18858 by VALERIY VANESSA Lisinopril (Lisinopril) 20 Mg Tablet, 1 TAB PO BID for BLOOD PRESSURE for 30 Days, #60 Ref 5 Prescribed by: DUC GRACIA MD on 12/03/18 1450 Last Action: Continued on 12/28/18858 by VALERIY VANESSA Metformin Hcl (Metformin Hcl) 1,000 Mg Tablet, 1,000 MG PO DAILY for dm, Ref 0 ( Reported) Entered as Reported by: VIDA GONZALEZ on 05/01/14907 Last Action: Converted on 12/28/181412 by XUAN GERONIMO MD Metoprolol Tartrate (Metoprolol Tartrate) 25 Mg Tablet, 25 MG PO BID, #60 Ref 2 Prescribed by: NKECHI LANDA on 08/29/17928 Last Action: Continued on 12/28/18858 by VALERIY VANESSA Potassium Chloride (Potassium Chloride) 20 Meq Tablet.er, 20 MEQ PO DAILY for due to lasix , (Reported) Entered as Reported by: JACLYN CLEANING RN on 12/01/18 1621 Last Action: Converted on 12/28/18858 by VALERIY VANESSA [Diltiazem Hcl] 240 MG CAP.ER.24H, 240 MG PO DAILY for HEART RATE for 30 Days, # 30 Prescribed by: DUC GRACIA MD on 12/03/181446 Last Action: Converted on 12/28/181412 by XUAN GERONIMO MD Miscellaneous Medications Aspirin (Gary Chewable) 81 Mg Tab.chew, 81 MG PO, (Reported) Entered as Reported by: VIDA GONZALEZ on 05/01/14907 Last Action: Continued on 12/28/18858 by ESTRELLITA TAYLOR MD Dec 30, 2018 15:04
[2018-12-30] MEDS ORDERED: ATOR40TA59 PO (15:08)
[2018-12-30] MEDS ORDERED: NITR0.4T SL (15:09)
[2018-12-30] MEDS ORDERED: CARV12.511 PO (15:09)
[2018-12-30] MEDS ORDERED: ISOS30TA4 PO (15:09)
--- NOTE | 2018-12-30 16:30 | NUR ---
Discharge Note: LATONYA MERAZ Discharge instructions and discharge home medications reviewed with Patient and a copy given. All questions have been answered and understanding verbalized. Follow up instructions given to patient. The following instructions and handouts were given: Hypertension, chest pain, post cardiac catheterization, and angioseal care. Discontinued lines and drains: Peripheral IV intact. Patient discharged to Home or Self Care with Family Member via Ambulated
== END 2018-12-30 16:30 | disposition home or self-care (01) | DRG 287 ==
LOC: ER 20:43 → 2 SOUTH 12-28 00:45
PROVIDERS: ADMIT Internal Medicine; ATTEND Internal Medicine
PROC: 4A023N7 Measurement of Cardiac Sampling and Pressure, Left Heart, Percutaneous Approach (ICD-10-PCS; principal; 2018-12-29)
PROC: B2111ZZ Fluoroscopy of Multiple Coronary Arteries using Low Osmolar Contrast (ICD-10-PCS; 2018-12-29)
PROC: B2151ZZ Fluoroscopy of Left Heart using Low Osmolar Contrast (ICD-10-PCS; 2018-12-29)
DX: I25.110 Atherosclerotic heart disease of native coronary artery with unstable angina pectoris (principal); Z68.41 Body mass index [BMI] 40.0-44.9, adult; I50.20 Unspecified systolic (congestive) heart failure; M10.9 Gout, unspecified; M19.90 Unspecified osteoarthritis, unspecified site; E11.9 Type 2 diabetes mellitus without complications; E66.01 Morbid (severe) obesity due to excess calories; E78.5 Hyperlipidemia, unspecified; E83.42 Hypomagnesemia; G47.33 Obstructive sleep apnea (adult) (pediatric); I11.0 Hypertensive heart disease with heart failure; I42.9 Cardiomyopathy, unspecified; I48.0 Paroxysmal atrial fibrillation; Z82.49 Family history of ischemic heart disease and other diseases of the circulatory system; Z87.01 Personal history of pneumonia (recurrent); Z91.19 Patient's noncompliance with other medical treatment and regimen; Z88.7 Allergy status to serum and vaccine; Z79.899 Other long term (current) drug therapy
CPT/HCPCS: 93458; 99285; G0269; 36415; 71046; 80048; 80053; 80061; 81001; 82962; 83036; 83735; 83880; 84443; 84484; 85025; 85610; 93005; 93308; 94640; 99152; 99153; C1760; C1769; C1892; J0360; J1644; J2250; J3010; J3475; J3490; J7030; J7620; Q9967; C1771

== ENCOUNTER 2019-02-09 10:51 | Emergency (ER) | payer OTHER ==
[~2019-02-09] VITALS: Ht 177.8 cm; Wt 121.6 kg
[~2019-02-09 10:51] MED LIST changes: +CARV12.511 PO; +ISOS30TA4 PO; +NITR0.4T SL
[2019-02-09] MEDS ORDERED: IV NORMAL SALINE 250ML 250 ML IV ONE (11:45)
[2019-02-09] MEDS ORDERED: ACETAMINOPHEN 500 MG TABLET PO ONE (11:45)
--- NOTE | 2019-02-09 11:46 | PHYS DOC ---
Past Medical History Past Medical History: CHF, Diabetes-Type II, Hypertension, Other Additional Past Medical Histor: SLEEP APNEA, GOUT Past Surgical History: Other Additional Past Surgical Histo: HAND, FINGERS, TOES, BX CARPAL TUNNEL, L KNEE Alcohol Use: Sober Drug Use: None Adult General Chief Complaint Chief Complaint: HEADACHE HPI HPI Patient is a 48-year-old male with a past history of cardiomyopathy, diabetes, paroxysmal atrial fibrillation on Eliquis, congestive heart failure, and other health problems, who presents to the emergency department for evaluation. He s tates that for the past 3 days, he has had pain all over his body, including a headache. He states the headache feels somewhat more prominent than the pain that the rest of his body but he has not had any other focal pain. He has had some mild shortness of breath but no chest pain per say. He has not had any cough, neck stiffness, numbness, or weakness. He is noted to be febrile, on my assessment the patient's skin feels warm to touch and his oral temperature is 101. He has not taking any anti-pyretics. There are no alleviating or exacerbating factors to his symptoms. Review of Systems Review of Systems Constitutional: Denies fever or chills, however patient is noted to be febrile. [] Eyes: Denies change in visual acuity, redness, or eye pain [] HENT: Denies nasal congestion or sore throat [] Respiratory: Denies cough. Does admit to some mild shortness of breath [] Cardiovascular: No additional information not addressed in HPI [] GI: Denies abdominal pain, nausea, vomiting, bloody stools or diarrhea [] : Denies dysuria or hematuria [] Musculoskeletal: Denies back pain or joint pain [] Integument: Denies rash or skin lesions or open wounds[] Neurologic: Denies , focal weakness or sensory changes. The patient does complain of generalized weakness. [] Endocrine: Denies polyuria or polydipsia [] All other systems were reviewed and found to be within normal limits, except as documented in this note. Current Medications Current Medications Current Medications Medications (Trade) Dose Ordered Sig/Sandra Start Time Stop Time Status Last Admin Dose Admin Acetaminophen (Tylenol) 1,000 mg 1X ONCE 02/09/19 11:45 02/09/19 11:46 DC 02/09/19 11:59 1,000 MG Sodium Chloride 250 ml @ 250 mls/hr 1X ONCE 02/09/19 11:45 02/09/19 12:44 DC 02/09/19 12:00 250 MLS/HR Allergies Allergies Allergies Coded Allergies Type Severity Reaction Last Updated Verified Influenza Virus Vaccines Allergy Severe 12/02/18 Yes Physical Exam Physical Exam PHYSICAL EXAM: CONSTITUTIONAL: Well developed, well nourished HEAD: normocephalic, atraumatic EENT: PERRL, EOMI. Conjunctivae normal color, sclerae non-icteric; moist mucous membranes. The oropharynx is nonerythematous. NECK: Supple, non-tender; no meningismus. LUNGS: Lungs CTA, breathing even and unlabored. Normal air movement. HEART: Regular rate and rhythm, no murmur. There is an S4 gallop. CHEST: No deformity; non-tender ABDOMEN: The abdomen is soft, and non-tender, no masses or bruits. EXTREM: Normal ROM; no deformity, no calf tenderness. Normal pulses palpable in all extremities. There is no pedal edema. SKIN: No rash; no diaphoresis NEURO: Alert; normal speech and cognition; CN's grossly intact; strength grossly intact without focal deficit. Patellar reflexes are 1+ bilaterally. BACK: No CVA TTP. Current Patient Data Vital Signs Vital Signs Date Time Temp Pulse Resp B/P (MAP) Pulse Ox O2 Delivery O2 Flow Rate FiO2 02/09/19 11:22 99.3 111 20 160/98 (118) 96 Room Air 99.3 Lab Values Laboratory Tests Test 02/09/19 11:35 02/09/19 11:41 02/09/19 13:04 White Blood Count 5.6 x10^3/uL (4.0-11.0) Red Blood Count 5.11 x10^6/uL (4.30-5.70) Hemoglobin 13.3 g/dL (13.0-17.5) Hematocrit 42.1 % (39.0-53.0) Mean Corpuscular Volume 82 fL (79-100) Mean Corpuscular Hemoglobin 26 pg (25-35) Mean Corpuscular Hemoglobin Concent 32 g/dL (31-37) Red Cell Distribution Width 13.9 % (11.5-14.5) Platelet Count 203 x10^3/uL (140-400) Neutrophils (%) (Auto) 82 % (31-73) H Lymphocytes (%) (Auto) 6 % (24-48) L Monocytes (%) (Auto) 12 % (0-9) H Eosinophils (%) (Auto) 0 % (0-3) Basophils (%) (Auto) 0 % (0-3) Neutrophils # (Auto) 4.6 x10^3uL (1.8-7.7) Lymphocytes # (Auto) 0.3 x10^3/uL (1.0-4.8) L Monocytes # (Auto) 0.7 x10^3/uL (0.0-1.1) Eosinophils # (Auto) 0.0 x10^3/uL (0.0-0.7) Basophils # (Auto) 0.0 x10^3/uL (0.0-0.2) Segmented Neutrophils % 86 % (35-66) H Band Neutrophils % 1 % (0-9) Lymphocytes % 7 % (24-48) L Monocytes % 6 % (0-10) Platelet Estimate Adequate (ADEQUATE) Prothrombin Time 14.8 SEC (11.7-14.0) H Prothrombin Time INR 1.2 (0.8-1.1) H Sodium Level 138 mmol/L (136-145) Potassium Level 3.7 mmol/L (3.5-5.1) Chloride Level 97 mmol/L (98-107) L Carbon Dioxide Level 30 mmol/L (21-32) Anion Gap 11 (6-14) Blood Urea Nitrogen 15 mg/dL (8-26) Creatinine 1.2 mg/dL (0.7-1.3) Estimated GFR (Cockcroft-Gault) 77.5 BUN/Creatinine Ratio 13 (6-20) Glucose Level 161 mg/dL (70-99) H Calcium Level 9.5 mg/dL (8.5-10.1) Total Bilirubin 1.6 mg/dL (0.2-1.0) H Aspartate Amino Transferase (AST) 25 U/L (15-37) Alanine Aminotransferase (ALT) 36 U/L (16-63) Alkaline Phosphatase 85 U/L (46-116) Creatine Kinase 208 U/L (39-308) Troponin I Quantitative < 0.017 ng/mL (0.000-0.055) YW-Qul-X-Type Natriuretic Peptide 488 pg/mL (0-124) H Total Protein 7.9 g/dL (6.4-8.2) Albumin 3.9 g/dL (3.4-5.0) Albumin/Globulin Ratio 1.0 (1.0-1.7) Lactic Acid Level 1.4 mmol/L (0.4-2.0) Urine Collection Type Unknown Urine Color Yellow Urine Clarity Clear Urine pH 6.0 Urine Specific [place] 1.015 Urine Protein Negative mg/dL (NEG-TRACE) Urine Glucose (UA) Negative mg/dL (NEG) Urine Ketones (Stick) Negative mg/dL (NEG) Urine Blood Negative (NEG) Urine Nitrite Negative (NEG) Urine Bilirubin Negative (NEG) Urine Urobilinogen Dipstick 1.0 mg/dL (0.2 mg/dL) Urine Leukocyte Esterase Negative (NEG) Urine RBC 0 /HPF (0-2) Urine WBC 0 /HPF (0-4) Urine Squamous Epithelial Cells Few /LPF Urine Bacteria 0 /HPF (0-FEW) Laboratory Tests 02/09/19 11:35 Laboratory Tests 02/09/19 11:35 EKG EKG Normal sinus rhythm at a rate of 109 beats for minute, normal axis, normal intervals, low voltage, there are no acute ischemic ST/T changes. Poor anterior R-wave progression is present.[] Radiology/Procedures Radiology/Procedures [PROCEDURE: CHEST PA & LATERAL CHEST PA LATERAL History: Shortness of breath Comparison: December 27, 2018 Findings: 2 views of the chest are submitted. Cardiac silhouette is stable. There is no new pleural fluid, lobar consolidation, pneumothorax. Impression: 1. No acute radiographic abnormality is identified.] PROCEDURE: CT HEAD WO CONTRAST CT HEAD WO CONTRAST Indication: Headache. Severe headache since last night. Exposure: One or more of the following individualized dose reduction techniques were utilized for this examination: 1. Automated exposure control 2. Adjustment of the mA and/or kV according to patient size 3. Use of iterative reconstruction technique. Technique: Standard imaging without intravenous contrast. No prior studies for comparison. FINDINGS: No evidence of acute intracranial hemorrhage, mass effect, midline shift or abnormal extra-axial fluid collection. Guerrero-white matter distinction is maintained. Ventricles and sulci appear symmetric. Visualized orbits appear symmetric. No notable scalp swelling. The visualized sinuses appear clear. No acute skull abnormality. IMPRESSION: No evidence of acute intracranial hemorrhage or mass effect. Consider MRI for further evaluation depending on clinical concern. Course & Med Decision Making Course & Med Decision Making Pertinent Labs and Imaging studies reviewed. (See chart for details) [] 2:30 PM: The patient's condition remains stable. His headache has resolved as has his myalgias. He is feeling better and would like to go home. I discussed the uncertain etiology of his symptoms. Given his unremarkable workup, viral etiology is suspected. However, I am unable to safely perform a lumbar puncture to definitively rule out meningitis due to the patient's use of Xarelto. I did d iscuss overnight observation in the hospital with the patient, but he is feeling better and would like to go home. I discussed the inability to definitively rule out meningitis without further testing, although clinical suspicion is low, and the patient expressed understanding. Dragon Disclaimer Dragon Disclaimer This electronic medical record was generated, in whole or in part, using a voice recognition dictation system. Departure Departure Impression: Primary Impression: FUO (fever of unknown origin) Additional Impression: Viral syndrome Disposition: 01 HOME, SELF-CARE Condition: STABLE Referrals: ADRIAN BARCLAY MD (PCP) Patient Instructions: Fever of Unknown Origin, Headache, FAQs, Viral Syndrome Additional Instructions: Tylenol 650-1000 mg every 6 hours as needed for pain and fever. Return to medical care for any new or worsening symptoms, development of increasing pain, headache, confusion, or any other new, or concerning symptoms. Problem Qualifiers CHUN MARTINES MD February 09, 2019 11:46
[2019-02-09 11:51] LABS: BASO % 0 % (0-3); EOS % 0 % (0-3); HEMATOCRIT 42.1 % (39.0-53.0); HEMOGLOBIN 13.3 g/dL (13.0-17.5); LYMPH # 0.3 x10^3/uL (1.0-4.8); LYMPH % 6 % (24-48); MEAN CORPUSCULAR HEMOGLOBIN 26 pg (25-35); MEAN CORPUSCULAR HGB CONC 32 g/dL (31-37); MEAN CORPUSCULAR VOLUME 82 fL (79-100); MONO # 0.7 x10^3/uL (0.0-1.1); MONO % 12 % (0-9); NEUT # 4.6 x10^3uL (1.8-7.7); NEUT % 82 % (31-73); PLATELET COUNT 203 x10^3/uL (140-400); RED BLOOD COUNT 5.11 x10^6/uL (4.30-5.70); RED CELL DISTRIBUTION WIDTH 13.9 % (11.5-14.5); WHITE BLOOD COUNT 5.6 x10^3/uL (4.0-11.0)
[2019-02-09 12:02] LABS: CALCIUM 9.5 mg/dL (8.5-10.1); CREATININE 1.2 mg/dL (0.7-1.3); GFR 77.5; POTASSIUM 3.7 mmol/L (3.5-5.1)
--- NOTE | 2019-02-09 12:03 | RAD ---
CHEST PA LATERAL History: Shortness of breath Comparison: December 27, 2018 Findings: 2 views of the chest are submitted. Cardiac silhouette is stable. There is no new pleural fluid, lobar consolidation, pneumothorax. Impression: 1. No acute radiographic abnormality is identified. Electronically signed by: Vincent Menchaca MD (02/09/2019 12:01 PM) [facility]
[2019-02-09 12:04] LABS: PROTHROMBIN TIME PATIENT 14.8 SEC (11.7-14.0)
[2019-02-09 12:08] LABS: ALBUMIN 3.9 g/dL (3.4-5.0); TOTAL BILIRUBIN 1.6 mg/dL (0.2-1.0); TOTAL PROTEIN 7.9 g/dL (6.4-8.2)
--- NOTE | 2019-02-09 12:16 | RAD ---
CT HEAD WO CONTRAST Indication: Headache. Severe headache since last night. Exposure: One or more of the following individualized dose reduction techniques were utilized for this examination: 1. Automated exposure control 2. Adjustment of the mA and/or kV according to patient size 3. Use of iterative reconstruction technique. Technique: Standard imaging without intravenous contrast. No prior studies for comparison. FINDINGS: No evidence of acute intracranial hemorrhage, mass effect, midline shift or abnormal extra-axial fluid collection. Guerrero-white matter distinction is maintained. Ventricles and sulci appear symmetric. Visualized orbits appear symmetric. No notable scalp swelling. The visualized sinuses appear clear. No acute skull abnormality. IMPRESSION: No evidence of acute intracranial hemorrhage or mass effect. Consider MRI for further evaluation depending on clinical concern. Electronically signed by: Francisco Ferrara MD (02/09/2019 12:13 PM) [facility]
[2019-02-09 13:13] LABS: BILIRUBIN,URINE NEGATIVE (NEG); CLARITY,URINE CLEAR; COLOR,URINE YELLOW; NITRITE,URINE NEGATIVE (NEG); PROTEIN,URINE NEGATIVE (NEG-TRACE)
[2019-02-09 13:25] LABS: % BANDS 1 % (0-9); % LYMPHS 7 % (24-48); % MONOS 6 % (0-10); % SEGS 86 % (35-66); PLT ESTIMATE ADEQUATE (ADEQUATE)
[2019-02-09 14:05] LABS: BACTERIA,URINE 0 /HPF (0-FEW); RBC,URINE 0 /HPF (0-2); SQUAMOUS EPITHELIAL CELL,UR FEW /LPF; WBC,URINE 0 /HPF (0-4)
--- NOTE | 2019-02-09 14:06 | EKG ---
[facility] [address] [place] [address] Test Date: 2019-02-09 Test Time: 11:19:29 Pat Name: LATONYA MERAZ Department: Room: Gender: M Impression Printer: : [id number] Requested By: CHUN MARTINES Order Number: [id number] Reading MD: Measurements Intervals [place] Rate: 109 P: -114 IN: 138 QRS: 26 QRSD: 88 T: 64 QT: 376 QTc: 508 Interpretive Statements SUPRAVENTRICULAR RHYTHM QRS(T) CONTOUR ABNORMALITY CONSIDER ANTEROSEPTAL MYOCARDIAL DAMAGE POSSIBLY ABNORMAL ECG RI6.01 No previous ECG available for comparison
[2019-02-09 14:30] VITALS: BP 138/80
== END 2019-02-09 15:06 | disposition home or self-care (01) ==
LOC: ER 10:51
DX: B34.9 Viral infection, unspecified (principal); R50.9 Fever, unspecified; I11.9 Hypertensive heart disease without heart failure; I50.9 Heart failure, unspecified; I10 Essential (primary) hypertension; M10.9 Gout, unspecified; Z88.7 Allergy status to serum and vaccine
CPT/HCPCS: 36415; 70450; 71046; 80053; 81001; 82550; 83605; 83880; 84484; 85007; 85025; 85610; 87040; 93005; 99285; J7050; J7030

== ENCOUNTER → 2019-03-24 | Outpatient (CLI) | payer OTHER ==
--- NOTE | 2019-03-24 14:49 | RAD ---
MR#: [id number] Date of Study: 03/24/2019 Ordering Physician: WILLIAMS REAL, Referring Physician: WILLIAMS REAL, Tech: Lenora Camacho RDMS, OSWALDOT, RTR APPROVED REPORT Patient Location : OUT-PATIENT Indications Lower Extremity Edema : Bilateral Findings Grayscale images of the bilateral saphenofemoral junctions do not reveal any obvious evidence of thro mbus. The right great saphenous vein measures 6 mm and the left great saphenous vein measures 5 mm. No refl ux is noted in the bilateral greater and lesser saphenous veins. Critical Notification Critical Value: No <Conclusion> Negative for reflux in the bilateral greater and lesser saphenous veins Signed by : Jamil Rueda, Electronically Approved : 03/24/2019 14:48:28
--- NOTE | 2019-03-24 14:56 | RAD ---
MR#: [id number] Date of Study: 03/24/2019 Ordering Physician: WILLIAMS REAL, Referring Physician: WILLIAMS REAL, Tech: Lenora Camacho RDMS, RVT, RTR APPROVED REPORT Bilateral Lower Extremity Venous Study for DVT Patient Location: OUT-PATIENT Indications Lower Extremity Edema: Bilateral Findings The bilateral lower extremity deep veins were evaluated for thrombus with color Doppler, spectral and grayscale images. On the right the grayscale images of the common femoral, superficial femoral and popliteal veins do n ot demonstrate any evidence of thrombus and these veins appear to be compressible. The below-knee vei ns were not well visualized but grossly appear to be compressible. Spectral imaging and color Doppler do not reveal any evidence of obstruction to flow with normal respirophasic variation above the knee . Below the knee there is spontaneous flow noted. On the left, the grayscale images of the common femoral, superficial femoral and popliteal veins do n ot demonstrate any evidence of thrombus and these veins appear to be compressible. The below-knee vei ns again were not well visualized but grossly appear to be compressible. Spectral imaging and color D oppler do not reveal any evidence of obstruction to flow with normal respirophasic variation above th e knee. The below-knee veins demonstrate spontaneous flow. Critical Notification Critical Value: No <Conclusion> Negative for DVT. Signed by : Jamil Rueda, Electronically Approved : 03/24/2019 14:55:40
== END | disposition home or self-care (01) ==
LOC: US 15:32
PROVIDERS: ATTEND Internal Medicine Cardiovascular Disease
DX: R60.0 Localized edema (principal)
CPT/HCPCS: 93970

== ENCOUNTER → 2019-05-24 | Outpatient (CLI) | payer OTHER ==
[2019-05-24 12:39] LABS: CALCIUM 9.3 mg/dL (8.5-10.1); CREATININE 1.2 mg/dL (0.7-1.3); GFR 77.5; MAGNESIUM 1.5 mg/dL (1.8-2.4); POTASSIUM 3.8 mmol/L (3.5-5.1)
== END | disposition home or self-care (01) ==
LOC: LAB 12:04
PROVIDERS: ATTEND Internal Medicine Cardiovascular Disease
DX: I10 Essential (primary) hypertension (principal); E11.9 Type 2 diabetes mellitus without complications
CPT/HCPCS: 36415; 80048; 83735

== ENCOUNTER → 2019-05-26 | Outpatient (CLI) | payer OTHER ==
--- NOTE | 2019-05-30 10:13 | RAD ---
MR#: [id number] Date of Study: 05/26/2019 Ordering Physician: WILLIAMS REAL, Referring Physician: WILLIAMS REAL, Tech: Lorene Miller RVT, DILSHAD APPROVED REPORT Patient Location: OUT-PATIENT Indications Claudication: PAD Risk Factors Hypertension VELOCITY AND DOPPLER WAVEFORM ANALYSIS RIGHT cm/secWaveformSeverity LEFT cm/secWaveform Severity pCFA 114.8TriphasicpCFA 90.9Triphasic Prof Fem Art. 43.0BiphasicProf Fem Art. 57.1Triphasic Fem Art Prox. 79.1TriphasicFem Art Prox. 102.7Triphasic Fem Art Mid. 83.6TriphasicFem Art Mid. 100.0Triphasic Fem Art Dist. 83.9TriphasicFem Art Dist. 93.5Triphasic Pop Art(Fossa) 65.1TriphasicPop Art(AK) 71.9Triphasic RAILROAD FIRER/FIREMAN Prox. 77.1TriphasicPTA Prox. 60.7Triphasic RAILROAD FIRER/FIREMAN Dist. 73.3TriphasicPTA Dist. 97.6Triphasic Per Art Dist.51.4TriphasicPer Art Dist.46.3Triphasic MARISSA Dist. 29.3TriphasicATA Dist. 33.3Triphasic DPA 19TriphasicDPA 73Triphasic Findings Bilateral lower extremity arterial vessels demonstrate mild calcific plaque. There is mostly triphasi c waveforms throughout the lower extremity is bilaterally. The bilateral anterior tibial velocities a re diminished suggestive of small vessel disease. Otherwise no focal stenosis identified with three-v essel runoff below the knee. Critical Notification Critical Value: No <Conclusion> 1. Probable small vessel disease in the anterior tibial distributions bilaterally without any focal s tenosis identified otherwise. Signed by : Jamil Rueda, Electronically Approved : 05/30/2019 10:12:52
== END | disposition home or self-care (01) ==
LOC: US 15:23
PROVIDERS: ATTEND Internal Medicine Cardiovascular Disease
DX: I70.203 Unspecified atherosclerosis of native arteries of extremities, bilateral legs (principal); I10 Essential (primary) hypertension
CPT/HCPCS: 93925

== ENCOUNTER 2019-08-09 17:56 | Emergency (ER) | payer OTHER ==
[~2019-08-09] VITALS: Ht 177.8 cm; Wt 122.5 kg
[~2019-08-09 17:56] MED LIST changes: -GLIM4TAB2 PO; +GLIM4TAB4 PO; -NITR0.4T SL; +NITR0.4T24 SL
[2019-08-09 18:27] VITALS: BP 174/96
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
--- NOTE | 2019-08-09 19:11 | RAD ---
Exam: CT head INDICATION: Headache TECHNIQUE: Sequential axial images through the head were obtained without the administration of IV contrast. Comparisons: 02/09/2019 FINDINGS: No focal parenchymal lesion or hemorrhage is identified. There is no midline shift or sulcal effacement. No acute vascular territory infarction is identified. Guerrero-white distinction is preserved. The ventricular system is within normal limits without compression hydrocephalus. The basal cisterns are well maintained. The visualized portions of the paranasal sinuses and mastoid air cells are well-pneumatized. No acute fractures. IMPRESSION: No acute intracranial abnormality. Exposure: One or more of the following in the visualized dose reduction techniques were utilized for this examination: 1. Automated exposure control 2. Adjustment of the MA and/or KV according to patient size Use of iterative of reconstructive technique Electronically signed by: Reba Jose MD (08/09/2019 7:09 PM) [facility]
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
== END 2019-08-09 19:53 | disposition home or self-care (01) ==
LOC: ER 17:56
DX: R51 Headache (principal); M54.5 Low back pain; G89.11 Acute pain due to trauma; I48.91 Unspecified atrial fibrillation; E11.9 Type 2 diabetes mellitus without complications; I11.0 Hypertensive heart disease with heart failure; I50.9 Heart failure, unspecified; Z88.7 Allergy status to serum and vaccine; Z79.01 Long term (current) use of anticoagulants; V49.49XD Driver injured in collision with other motor vehicles in traffic accident, subsequent encounter
CPT/HCPCS: 70450; 72131; 99284-25

== ENCOUNTER 2019-09-12 14:09 | Emergency (ER) | payer OTHER ==
[~2019-09-12] VITALS: Ht 175.3 cm; Wt 122.5 kg
[~2019-09-12 14:09] MED LIST changes: -GLIM4TAB4 PO; +GLIM4TAB8 PO; -POTA20TA82 PO
[2019-09-12 15:25] VITALS: BP 160/100
[2019-09-12] MEDS ORDERED: IPRATRPIUM/ALBUTEROL 0.5/2.5MG 3 ML NEBU. NEB ONE (16:00)
--- NOTE | 2019-09-12 16:39 | RAD ---
EXAM: Chest, 2 views. HISTORY: Cough. COMPARISON: 02/09/2019 FINDINGS: 2 views of the chest are obtained. There are areas of increased opacity overlying both lungs due to overlying osseous and pulmonary vascular shadows. No convincing infiltrate, pleural effusion or pneumothorax is seen. The heart is normal in size. IMPRESSION: No acute pulmonary finding. Electronically signed by: Lisa Jain MD (09/12/2019 4:36 PM) [place] [id number]
[2019-09-12] MEDS ORDERED: ALBU2.5V8 IH (17:16)
[2019-09-12] MEDS ORDERED: BENZ100C PO (17:16)
[2019-09-12] MEDS ORDERED: PRED50TA PO (17:16)
--- NOTE | 2019-09-12 17:17 | PHYS DOC ---
Past Medical History Past Medical History: CHF, Diabetes-Type II, Hypertension, Other Additional Past Medical Histor: SLEEP APNEA, GOUT (BRUCE GARZON APRN) Past Surgical History: Other Additional Past Surgical Histo: HAND, FINGERS, TOES, BX CARPAL TUNNEL, L KNEE (BRUCE GARZON APRN) Alcohol Use: Sober Drug Use: None (BRUCE GARZON APRN) Adult General Chief Complaint Chief Complaint: COUGH HPI HPI Patient is a 48 year old male with history of hypertension, diabetes type 2, who presents to the ED today complaining of cough that began one week ago. Patient states he was going to work today and started coughing on the way to work and ended up in the ED. He is also reporting diarrhea and nausea intermittently for 1-2 weeks though he states diarrhea and nausea have subsided, denies fever but reports chills, he reports he missed work yesterday and would like a note for work for today as well as yesterday. (BRUCE GARZON APRN) Review of Systems Review of Systems Constitutional: Denies fever or chills [] Eyes: Denies change in visual acuity, redness, or eye pain [] HENT: Denies nasal congestion or sore throat [] Respiratory: reports cough,shortness of breath [] Cardiovascular: No additional information not addressed in HPI [] GI: Reports nausea and diarrhea.Denies abdominal pain, nausea, bloody stools : Denies dysuria or hematuria [] Musculoskeletal: Denies back pain or joint pain [] Integument: Denies rash or skin lesions [] Neurologic: Denies headache, focal weakness or sensory changes [] All other systems were reviewed and found to be within normal limits, except as documented in this note. (BRUCE GARZON APRN) Current Medications Current Medications Current Medications Medications (Trade) Dose Ordered Sig/Sandra Start Time Stop Time Status Last Admin Dose Admin Albuterol/ Ipratropium (Duoneb) 3 ml 1X ONCE 09/12/19 16:00 09/12/19 16:04 DC 09/12/19 16:12 3 ML (MARCELA CHANDLER DO) Allergies Allergies Allergies Coded Allergies Type Severity Reaction Last Updated Verified Influenza Virus Vaccines Allergy Severe 12/02/18 Yes (MARCELA CHANDLER DO) Physical Exam Physical Exam Constitutional: Well developed, well nourished, no acute distress, non-toxic appearance. [] HENT: Normocephalic, atraumatic, bilateral external ears normal, oropharynx moist, no oral exudates, nose normal. [] Eyes: PERRLA, EOMI, conjunctiva normal, no discharge. [] Neck: Normal range of motion, no tenderness, supple, no stridor. [] Cardiovascular:Heart rate regular rhythm, no murmur [] Lungs & Thorax: Bilateral breath sounds clear to auscultation [] Abdomen: Bowel sounds normal, soft, no tenderness, no masses, no pulsatile masses. [] Skin: Warm, dry, no erythema, no rash. [] Back: No tenderness, no CVA tenderness. [] Extremities: No tenderness, no cyanosis, no clubbing, ROM intact, no edema. [] Neurologic: Alert and oriented X 3, normal motor function, normal sensory function, no focal deficits noted. [] Psychologic: Affect normal, judgement normal, mood normal. [] (BRUCE GARZON APRN) Current Patient Data Vital Signs Vital Signs Date Time Temp Pulse Resp B/P (MAP) Pulse Ox O2 Delivery O2 Flow Rate FiO2 09/12/19 16:12 97 Room Air 09/12/19 15:25 98.7 79 18 160/100 (120) 98.7 (MARCELA CHANDLER DO) EKG EKG [] (BRUCE GARZON APRN) Radiology/Procedures Radiology/Procedures []PROCEDURE: CHEST PA & LATERAL EXAM: Chest, 2 views. HISTORY: Cough. COMPARISON: 02/09/2019 FINDINGS: 2 views of the chest are obtained. There are areas of increased opacity overlying both lungs due to overlying osseous and pulmonary vascular shadows. No convincing infiltrate, pleural effusion or pneumothorax is seen. The heart is normal in size. IMPRESSION: No acute pulmonary finding. Electronically signed by: Lisa De Leon MD (09/12/2019 4:36 PM) [place] [id number] DICTATED and SIGNED BY: LISA DE LEON MD DATE: 09/12/19 1636 (BRUCE GARZON APRN) Course & Med Decision Making Course & Med Decision Making Pertinent Labs and Imaging studies reviewed. (See chart for details) This is a 48-year-old male presenting with a cough for 1 week. He states he missed work yesterday and today and needs a work note. He mentioned he had diarrhea and nausea which have subsided. Chest x-ray is negative, note for work provided and discharged. (BRUCE GARZON APRN) Dragon Disclaimer Dragon Disclaimer This electronic medical record was generated, in whole or in part, using a voice recognition dictation system. (BRUCE GARZON APRN) Departure Departure Impression: Primary Impression: Acute bronchitis Disposition: HOME, SELF-CARE Condition: STABLE Referrals: ADRIAN BARCLAY MD (PCP) follow up with your doctor in 1-2 weeks Patient Instructions: Acute Bronchitis Additional Instructions: You were evaluated in the emergency room, a chest x-ray is negative. Follow-up with your own doctor in 1-2 weeks. Take the medicines ordered as prescribed. 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 I was available for consultation as needed during the patient's visit in the emergency department. I agree with the clinical impression, plan, and disposition. (MARCELA CHANDLER DO) Problem Qualifiers Primary Impression: Acute bronchitis Bronchitis organism: unspecified organism Qualified Codes: J20.9 - Acute bronchitis, unspecified BRUCE GARZON APRN Sep 12, 2019 17:17 MARCELA CHANDLER DO Sep 13, 2019 06:23
== END 2019-09-12 17:21 | disposition home or self-care (01) ==
LOC: ER 14:09
DX: J20.9 Acute bronchitis, unspecified (principal); R19.7 Diarrhea, unspecified; E11.9 Type 2 diabetes mellitus without complications; I11.0 Hypertensive heart disease with heart failure; I50.9 Heart failure, unspecified
CPT/HCPCS: 71046; 94640; 99284; J7620

== ENCOUNTER 2019-12-26 11:53 | Emergency (ER) | payer OTHER ==
[~2019-12-26] VITALS: Ht 177.8 cm; Wt 127.0 kg
[~2019-12-26 11:53] MED LIST changes: +ALBU2.5V8 IH; +PRED50TA PO
[2019-12-26] MEDS ORDERED: IV NORMAL SALINE 1000ML BAG 1,000 ML IV ONE (12:45)
[2019-12-26 13:02] LABS: BASO % 1 % (0-3); EOS % 0 % (0-3); HEMATOCRIT 41.5 % (39.0-53.0); HEMOGLOBIN 13.7 g/dL (13.0-17.5); LYMPH # 1.8 x10^3/uL (1.0-4.8); LYMPH % 32 % (24-48); MEAN CORPUSCULAR HEMOGLOBIN 27 pg (25-35); MEAN CORPUSCULAR HGB CONC 33 g/dL (31-37); MEAN CORPUSCULAR VOLUME 81 fL (79-100); MONO # 0.4 x10^3/uL (0.0-1.1); MONO % 7 % (0-9); NEUT # 3.4 x10^3/uL (1.8-7.7); NEUT % 60 % (31-73); PLATELET COUNT 202 x10^3/uL (140-400); RED BLOOD COUNT 5.09 x10^6/uL (4.30-5.70); RED CELL DISTRIBUTION WIDTH 13.7 % (11.5-14.5); WHITE BLOOD COUNT 5.6 x10^3/uL (4.0-11.0)
[2019-12-26 13:10] LABS: CALCIUM 8.7 mg/dL (8.5-10.1); CREATININE 1.2 mg/dL (0.7-1.3); GFR 77.2; POTASSIUM 3.9 mmol/L (3.5-5.1)
[2019-12-26] MEDS ORDERED: cloNIDine HCL 0.1 MG TABLET PO ONE (13:15)
[2019-12-26 13:16] LABS: ALBUMIN 3.3 g/dL (3.4-5.0); ALBUMIN/GLOBULIN RATIO 0.9 (1.0-1.7); TOTAL BILIRUBIN 0.6 mg/dL (0.2-1.0); TOTAL PROTEIN 6.8 g/dL (6.4-8.2)
[2019-12-26] MEDS ORDERED: CONTRAST GIVEN. MC PRN (13:30)
[2019-12-26] MEDS ORDERED: IOHEXOL 300 MG/ML 100ML VIAL. IV ONE (13:30)
--- NOTE | 2019-12-26 13:50 | RAD ---
CT abdomen and pelvis with contrast. HISTORY: Left-sided lower abdominal pain with diarrhea CT abdomen pelvis was done using 75 mL Omnipaque 300 contrast. Lung bases are free of infiltrates. There is no effusion. There is disc use mild fatty change in the liver. A focal liver lesion is not identified. Spleen and adrenal glands are normal. Pancreas is normal. There is no mass or hydronephrosis in the kidneys. Appendix is normal. Bowel pattern is normal. There is not evidence of a diverticulitis. The bladder is distended. There is no renal or ureteral calculus. There is not evidence of a colitis a hernia is not identified. IMPRESSION: 1. Fatty change in the liver. 2. No renal or ureteral calculus noted. 3. Distended bladder. PQRS Compliance Statement: One or more of the following individualized dose reduction techniques were utilized for this examination: 1. Automated exposure control 2. Adjustment of the mA and/or kV according to patient size 3. Use of iterative reconstruction technique Electronically signed by: Rojelio Hdez MD (12/26/2019 1:47 PM) [id number]
[2019-12-26 13:56] LABS: BILIRUBIN,URINE NEGATIVE (NEG); CLARITY,URINE CLEAR; COLOR,URINE YELLOW; NITRITE,URINE NEGATIVE (NEG); PROTEIN,URINE NEGATIVE (NEG-TRACE)
[2019-12-26 14:00] LABS: BACTERIA,URINE 0 /HPF (0-FEW); RBC,URINE 0 /HPF (0-2); WBC,URINE 0 /HPF (0-4)
--- NOTE | 2019-12-26 14:14 | PHYS DOC ---
Past Medical History Past Medical History: Arthritis, CHF, Diabetes-Type II, Hypertension, Other Additional Past Medical Histor: SLEEP APNEA, GOUT Past Surgical History: Other Additional Past Surgical Histo: HAND, FINGERS, TOES, BX CARPAL TUNNEL, L KNEE Smoking Status: Never Smoker Alcohol Use: Rarely Drug Use: None General Adult EDM: Chief Complaint: DIARRHEA HPI: HPI: Patient is a 49 year old AA male with a history of type 2 diabetes, high blood pressure, CHF, gout and sleep apnea who presents to the emergency department with complaints of several episodes of loose stools today while at work. Patient states his employer sent him to the emergency room to be cleared to become back to work. Patient reports having 3 loose stools while at work this morning, he denies any blood in his stool. Patient denies any nausea, vomiting, dysuria, increased urinary frequency, flank pain, fever, cough, shortness of breath, chest pain, dizziness, sore throat, or palpitations. He currently denies any pain, however, states that the left side of his abdomen and his lower abdomen are tender to palpation. Review of Systems: Review of Systems: Constitutional: Denies fever or chills. [] Eyes: Denies change in visual acuity. [] HENT: Denies nasal congestion or sore throat. [] Respiratory: Denies cough or shortness of breath. [] Cardiovascular: Denies chest pain or edema. [] GI: See HPI : Denies dysuria. [] Musculoskeletal: Denies back pain or joint pain. [] Integument: Denies rash. [] Neurologic: Denies headache, focal weakness or sensory changes. [] Endocrine: Denies polyuria or polydipsia. [] Lymphatic: Denies swollen glands. [] Psychiatric: Denies depression or anxiety. [] Heart Score: Risk Factors: Risk Factors: DM, Current or recent (<one month) smoker, HTN, HLP, family history of CAD, obesity. Risk Scores: Score 0 - 3: 2.5% MACE over next 6 weeks - Discharge Home Score 4 - 6: 20.3% MACE over next 6 weeks - Admit for Clinical Observation Score 7 - 10: 72.7% MACE over next 6 weeks - Early Invasive Strategies Current Medications: Current Medications Medications (Trade) Dose Ordered Sig/Sandra Start Time Stop Time Status Last Admin Dose Admin Clonidine HCl (Catapres) 0.1 mg 1X ONCE 12/26/19 13:15 12/26/19 13:16 DC 12/26/19 13:15 0.1 MG Info (CONTRAST GIVEN -- Rx MONITORING) 1 each PRN DAILY PRN 12/26/19 13:30 12/28/19 13:29 Iohexol (Omnipaque 300 Mg/ml) 75 ml 1X ONCE 12/26/19 13:30 12/26/19 13:31 DC 12/26/19 13:41 75 ML Sodium Chloride 1,000 ml @ 1,000 mls/hr 1X ONCE 12/26/19 12:45 12/26/19 13:44 DC 12/26/19 13:07 1,000 MLS/HR Allergies: Allergies: Allergies Coded Allergies Type Severity Reaction Last Updated Verified Influenza Virus Vaccines Allergy Severe 12/02/18 Yes Physical Exam: PE: Constitutional: Well developed, well nourished, no acute distress, non-toxic appearance, obese. [] HENT: Normocephalic, atraumatic, bilateral external ears normal, oropharynx moist, no oral exudates, nose normal. [] Eyes: PERRLA, EOMI, conjunctiva normal, no discharge. [] Neck: Normal range of motion, no tenderness, supple, no stridor. [] Cardiovascular:Heart rate regular rhythm, no murmur [] Lungs & Thorax: Bilateral breath sounds clear to auscultation, Respirations even and unlabored, no retractions, no respiratory distress [] Abdomen: Bowel sounds normal, soft, no rebound tenderness, no masses, no pulsatile masses; LUQ, LLQ, and RLQ TTP Skin: Warm, dry, no erythema, no rash. [] Back: No CVA tenderness. [] Extremities: No cyanosis, ROM intact, no edema. [] Neurologic: Alert and oriented X 3, no focal deficits noted. [] Psychologic: Affect normal, judgement normal, mood normal. [] Current Patient Data: Labs: Laboratory Tests Test 12/26/19 12:50 12/26/19 13:45 White Blood Count 5.6 x10^3/uL (4.0-11.0) Red Blood Count 5.09 x10^6/uL (4.30-5.70) Hemoglobin 13.7 g/dL (13.0-17.5) Hematocrit 41.5 % (39.0-53.0) Mean Corpuscular Volume 81 fL (79-100) Mean Corpuscular Hemoglobin 27 pg (25-35) Mean Corpuscular Hemoglobin Concent 33 g/dL (31-37) Red Cell Distribution Width 13.7 % (11.5-14.5) Platelet Count 202 x10^3/uL (140-400) Neutrophils (%) (Auto) 60 % (31-73) Lymphocytes (%) (Auto) 32 % (24-48) Monocytes (%) (Auto) 7 % (0-9) Eosinophils (%) (Auto) 0 % (0-3) Basophils (%) (Auto) 1 % (0-3) Neutrophils # (Auto) 3.4 x10^3/uL (1.8-7.7) Lymphocytes # (Auto) 1.8 x10^3/uL (1.0-4.8) Monocytes # (Auto) 0.4 x10^3/uL (0.0-1.1) Eosinophils # (Auto) 0.0 x10^3/uL (0.0-0.7) Basophils # (Auto) 0.0 x10^3/uL (0.0-0.2) Sodium Level 134 mmol/L (136-145) L Potassium Level 3.9 mmol/L (3.5-5.1) Chloride Level 98 mmol/L (98-107) Carbon Dioxide Level 31 mmol/L (21-32) Anion Gap 5 (6-14) L Blood Urea Nitrogen 18 mg/dL (8-26) Creatinine 1.2 mg/dL (0.7-1.3) Estimated GFR (Cockcroft-Gault) 77.2 BUN/Creatinine Ratio 15 (6-20) Glucose Level 420 mg/dL (70-99) H Calcium Level 8.7 mg/dL (8.5-10.1) Total Bilirubin 0.6 mg/dL (0.2-1.0) Aspartate Amino Transferase (AST) 18 U/L (15-37) Alanine Aminotransferase (ALT) 34 U/L (16-63) Alkaline Phosphatase 107 U/L (46-116) Total Protein 6.8 g/dL (6.4-8.2) Albumin 3.3 g/dL (3.4-5.0) L Albumin/Globulin Ratio 0.9 (1.0-1.7) L Urine Collection Type Unknown Urine Color Yellow Urine Clarity Clear Urine pH 6.0 (<5.0-8.0) Urine Specific [place] >=1.030 (1.000-1.030) Urine Protein Negative mg/dL (NEG-TRACE) Urine Glucose (UA) >=1000 mg/dL (NEG) Urine Ketones (Stick) Negative mg/dL (NEG) Urine Blood Negative (NEG) Urine Nitrite Negative (NEG) Urine Bilirubin Negative (NEG) Urine Urobilinogen Dipstick 1.0 mg/dL (0.2 mg/dL) Urine Leukocyte Esterase Negative (NEG) Urine RBC 0 /HPF (0-2) Urine WBC 0 /HPF (0-4) Urine Bacteria 0 /HPF (0-FEW) Laboratory Tests 12/26/19 12:50 Laboratory Tests 12/26/19 12:50 Vital Signs: Vital Signs Date Time Temp Pulse Resp B/P (MAP) Pulse Ox O2 Delivery O2 Flow Rate FiO2 12/26/19 13:15 87 174/106 12/26/19 12:05 98.0 16 98 Room Air 98.0 EKG: EKG: [] Radiology/Procedures: Radiology/Procedures: PROCEDURE: CT ABD PELV W/ IV CONTRST ONLY CT abdomen and pelvis with contrast. HISTORY: Left-sided lower abdominal pain with diarrhea CT abdomen pelvis was done using 75 mL Omnipaque 300 contrast. Lung bases are free of infiltrates. There is no effusion. There is disc use mild fatty change in the liver. A focal liver lesion is not identified. Spleen and adrenal glands are normal. Pancreas is normal. There is no mass or hydronephrosis in the kidneys. Appendix is normal. Bowel pattern is normal. There is not evidence of a diverticulitis. The bladder is distended. There is no renal or ureteral calculus. There is not evidence of a colitis a hernia is not identified. IMPRESSION: 1. Fatty change in the liver. 2. No renal or ureteral calculus noted. 3. Distended bladder.[] Course & Med Decision Making: Course & Med Decision Making Pertinent Labs and Imaging studies reviewed. (See chart for details) Patient is a 49-year-old -[place] male with type 2 diabetes and history of high blood pressure who presented to the emergency room with complaints of left-sided and lower abdominal pain with diarrhea that began today. Work-up included a CBC that was unremarkable; CMP revealed a sodium of 134, initial blood glucose of 420, was otherwise unremarkable; UA revealed greater than 1000 glucose in the urine, no ketones On arrival the patient's blood pressure was 174/106. He was given 0.1 mg of clonidine p.o. and at the time of discharge his blood pressure had decreased to 159/86. Patient was also given 1 L of normal saline, blood glucose after fluids remain 356. The patient was given 6 units of regular insulin IV, recheck of his blood glucose was 216 an hour after the IV insulin was given. The patient reported feeling better. His CT revealed no acute findings. The patient was encouraged to follow-up with his primary care doctor about his high blood pressure and hyperglycemia in addition to the diarrhea and abdominal pain in the next 1 to 2 days. He was instructed to return to the emergency room if he developed a fever or symptoms worsen. Patient verbalized an understanding of home care, medications, follow-up, and return to ED instructions and was in agreement with the plan of care. [] Dragon Disclaimer: Dragon Disclaimer: This electronic medical record was generated, in whole or in part, using a voice recognition dictation system. Departure Departure Impression: Primary Impression: Diarrhea Qualified Codes: R19.7 - Diarrhea, unspecified Additional Impression: Hyperglycemia Disposition: 01 HOME, SELF-CARE Condition: STABLE Referrals: NO PCP (PCP) Patient Instructions: Diarrhea, Diet for Diarrhea, Adult, Hyperglycemia, [id number] Additional Instructions: Continue taking your home medications as prescribed. Recommend clear fluids for the next 24 hours. Then you may advance to bland foods such as bananas, rice, applesauce, and dry toast. Follow-up with your primary care doctor in the next 1-2 days. Return to the emergency room if your symptoms worsen. ANDREY LU ASBESTOS MICROSCOPIST Dec 26, 2019 14:14
[2019-12-26] MEDS ORDERED: INSULIN REGULAR 100 UNIT/ML 3ML VIAL. IV ONE (14:30)
[2019-12-26 15:06] VITALS: BP 159/86
== END 2019-12-26 15:38 | disposition home or self-care (01) ==
LOC: ER 11:53
DX: R19.7 Diarrhea, unspecified (principal); E11.65 Type 2 diabetes mellitus with hyperglycemia; I11.0 Hypertensive heart disease with heart failure; I50.9 Heart failure, unspecified; M10.9 Gout, unspecified; Z88.7 Allergy status to serum and vaccine
CPT/HCPCS: 36415; 74177; 80053; 81001; 82962; 85025; 96361; 96374; 99285; J1815; J7030; Q9967

== ENCOUNTER → 2020-07-02 | Outpatient (CLI) | payer OTHER ==
[~2020-07-02] MED LIST changes: +AMLO-186 PO; -AMLO5TAB10 PO
--- NOTE | 2020-07-02 13:36 | CARD ---
MR#: [id number] Date of Study: 07/02/2020 Ordering Physician: WILLIAMS REAL, Referring Physician: WILLIAMS REAL, Tech: Lenora Porter APPROVED REPORT EXAM: Two-dimensional and M-mode echocardiogram with Doppler and color Doppler. Other Information Quality : AverageHR: 86bpm INDICATION Congestive Heart Failure RISK FACTORS Hypertension Hyperlipidemia 2D DIMENSIONS RVDd3.4 (2.9-3.5cm)Left Atrium(2D)4.3 (1.6-4.0cm) IVSd1.5 (0.7-1.1cm)Aortic Root(2D)3.6 (2.0-3.7cm) LVDd6.2 (3.9-5.9cm)LVOT Diameter2.2 (1.8-2.4cm) PWd1.4 (0.7-1.1cm)LVDs4.5 (2.5-4.0cm) FS (%) 27.5 %SV103.2 ml LVEF(%)52.4 (>50%) Aortic Valve AoV Peak Mateo.169.5cm/sAoV VTI27.3cm AO Peak GR.11.5mmHgLVOT Peak Mateo.119.5cm/s LVOT VTI 25.04cmAO Mean GR.6mmHg GIORGI (VMAX)1.84jh2TLA (VTI)3.35cm2 Mitral Valve MV E Mean Gr.6mmHg Pulmonary Valve PV Peak Oqcezixt94.2cm/sPV Peak Grad.3mmHg Tricuspid Valve TR P. Xexehdtv446ul/sRAP OOKJGVVW0dnSk TR Peak Gr.24mmHg Pulmonary Vein S1 Gltgzwjg73.2cm/sD2 Rohktnnf58.7cm/s PVa [id number] LEFT VENTRICLE The Left Ventricle is borderline dilated. There is mild to moderate concentric left ventricular hyper trophy. The left ventricular systolic function is normal and the ejection fraction is within normal r adolfo. The Ejection Fraction is 50-55%. There is normal LV segmental wall motion. Transmitral Doppler flow pattern is Grade I-abnormal relaxation pattern. RIGHT VENTRICLE The right ventricle is borderline dilated. There is normal right ventricular wall thickness. The righ t ventricular systolic function is normal. ATRIA The left atrium size is normal. The right atrium size is normal. The interatrial septum is intact wit h no evidence for an atrial septal defect or patent foramen ovale as noted on 2-D or Doppler imaging. AORTIC VALVE The aortic valve is not well visualized. The aortic valve is thickened but opens well. Doppler and Co edgar Flow revealed trace aortic regurgitation. Calculated aortic valve area is 3.77 cm2 with maximum p ressure gradient of 14 mmHg and mean pressure gradient of 6 mmHg. MITRAL VALVE The mitral valve is thickened but opens well. There is no evidence of mitral valve prolapse. There is mild mitral valve stenosis wiht a mean gradient of 5.6 mmHg. TRICUSPID VALVE The tricuspid valve is normal in structure and function. Doppler and Color Flow revealed trace tricus pid regurgitation with an estimated PAP of 26 mmHg. There is no tricuspid valve stenosis. PULMONIC VALVE The pulmonic valve is not well visualized. Doppler and Color Flow revealed trace pulmonic valvular re gurgitation. There is no pulmonic valvular stenosis. GREAT VESSELS The aortic root is normal in size. The IVC is normal in size and collapses >50% with inspiration. PERICARDIAL EFFUSION There is no evidence of significant pericardial effusion. Critical Notification Critical Value: No <Conclusion> The left ventricular systolic function is normal and the ejection fraction is within normal range. Th e Ejection Fraction is 50-55%. There is normal LV segmental wall motion. Signed by : Jamil Rueda, Electronically Approved : 07/02/2020 13:35:53
== END ==
LOC: ECHO 09:51
PROVIDERS: ATTEND Internal Medicine Cardiovascular Disease
DX: I50.22 Chronic systolic (congestive) heart failure (principal); I51.7 Cardiomegaly
CPT/HCPCS: 93306

== ENCOUNTER 2020-12-10 11:42 | Emergency (ER) | payer OTHER ==
[~2020-12-10] VITALS: Ht 175.3 cm; Wt 100.0 kg
[~2020-12-10 11:42] MED LIST changes: +AMLO10TA4 PO; -ISOS30TA4 PO; +ISOS30TA68 PO; -LISI-334 PO; +LISI20TA18 PO
[2020-12-10 11:43] VITALS: BP 168/108
--- NOTE | 2020-12-10 12:07 | PHYS DOC ---
Past Medical History Past Medical History: Arthritis, CHF, Diabetes-Type II, Hypertension, Other Additional Past Medical Histor: SLEEP APNEA, GOUT Past Surgical History: Knee Replacement, Other Additional Past Surgical Histo: HAND, FINGERS, TOES, BX CARPAL TUNNEL, L KNEE, Head inj as child Smoking Status: Never Smoker Alcohol Use: Rarely Drug Use: None General Adult EDM: Chief Complaint: KNEE INJURY HPI: HPI: Patient is a 50 year old male with hx of DMII, HTN, gout, CHF, who presents with 10/10 throbbing pain to bilateral knees for three days. Pain is worse on weight bearing. He states he was unable to go to work today due to the pain. He states resting helps the pain. He states the pain radiates bilateral lower extremities. Denies any injuries. Denies any numbness or tingling bilateral lower extremities. Review of Systems: Review of Systems: Constitutional: Denies fever or chills. [] : Denies dysuria. [] Musculoskeletal: Reports bilateral knee pain. Denies back pain Integument: Denies rash. [] Neurologic: Denies headache, focal weakness or sensory changes. [] Psychiatric: Denies depression or anxiety. [] Heart Score: C/O Chest Pain: N/A Risk Factors: Risk Factors: DM, Current or recent (<one month) smoker, HTN, HLP, family history of CAD, obesity. Risk Scores: Score 0 - 3: 2.5% MACE over next 6 weeks - Discharge Home Score 4 - 6: 20.3% MACE over next 6 weeks - Admit for Clinical Observation Score 7 - 10: 72.7% MACE over next 6 weeks - Early Invasive Strategies Allergies: Allergies: Allergies Coded Allergies Type Severity Reaction Last Updated Verified Influenza Virus Vaccines Allergy Severe 12/02/18 Yes Physical Exam: PE: Constitutional: Well developed, well nourished, no acute distress, non-toxic appearance. [] Abdomen: Bowel sounds normal, soft, no tenderness, no masses, no pulsatile masses. [] Skin: Warm, dry, no erythema, no rash. [] Back: No tenderness, no CVA tenderness. [] Extremities: Overweight patient. Bilateral lower extremities with no obvious deformity. Old healed surgical incision noted on the medial aspect of the left patella, full range of motion to bilateral knees. Crepitus noted to bilateral knees during exam. +2 bilateral pedal pulses. Cap refill less than 2 seconds to bilateral lower extremities. Neurologic: Alert and oriented X 3, normal motor function, normal sensory funct ion, no focal deficits noted. [] Psychologic: Affect normal, judgement normal, mood normal. [] Current Patient Data: Vital Signs: Vital Signs Date Time Temp Pulse Resp B/P (MAP) Pulse Ox O2 Delivery O2 Flow Rate FiO2 12/10/20 11:43 98.2 85 18 168/108 (128) 95 Room Air 98.2 EKG: EKG: [] Radiology/Procedures: Radiology/Procedures: []PROCEDURE: KNEE BILAT 4V Bilateral knees 4 views each. HISTORY: Pain Left knee 4 views were taken left knee. There is evidence of osteoarthritis. There is joint space narrowing in the medial joint compartment. There is hypertrophic spurring in all 3 compartments. There is no acute fracture. Right knee 4 views were taken of the right knee. There is mild joint space narrowing medially. There is no acute fracture. There is slight spurring. There is mild spurring on the patella. IMPRESSION: 1. Severe osteoarthritis left knee. 2. Mild arthritis right knee. Electronically signed by: Rojelio Hdez MD (12/10/2020 12:48 PM) [id number] DICTATED and SIGNED BY: ROJELIO HDEZ MD DATE: 12/10/20 [id number] 0 Course & Med Decision Making: Course & Med Decision Making Pertinent Labs and Imaging studies reviewed. (See chart for details) This is a 50-year-old male patient presented to the ED today with bilateral knee pain for 3 days, no known injury. Bilateral knee x-rays interpreted by radiologist were noted for severe osteoarthritis to the left knee as well as mild arthritis of the right knee. Results were communicated to patient. Discharge to home with diclofenac. Follow-up with orthopedic doctor in 1 to 2 weeks. Dragon Disclaimer: Dragon Disclaimer: This electronic medical record was generated, in whole or in part, using a voice recognition dictation system. Departure Departure Impression: Primary Impression: Degenerative arthritis of knee, bilateral Qualified Codes: M17.0 - Bilateral primary osteoarthritis of knee Disposition: 01 DC HOME SELF CARE/HOMELESS Condition: STABLE Referrals: ADRIAN BARCLAY MD (PCP) CLEO HODGSON MD follow up in 1-2 weeks Patient Instructions: Arthritis, Degenerative-Brief Additional Instructions: You were evaluated in the emergency room, you were noted to have arthritis in both of your knees. Please follow-up with the provided orthopedic doctor in 1 to 2 weeks. You can use [id number] knee brace as needed. Try to ice and elevate bilateral knees. Scripts Diclofenac Potassium (DICLOFENAC POTASSIUM) 50 Mg Tablet 1 TAB PO BID, #20 TAB 0 Refills Prov: BRUCE GARZON APRN 12/10/20 Methylprednisolone (MEDROL) 4 Mg Tab.ds.pk 1 PKG PO UD, #1 PKG Prov: BRUCE GARZON APRN 12/10/20 BRUCE GARZON APRN Dec 10, 2020 12:07
--- NOTE | 2020-12-10 12:51 | RAD ---
Bilateral knees 4 views each. HISTORY: Pain Left knee 4 views were taken left knee. There is evidence of osteoarthritis. There is joint space narrowing in the medial joint compartment. There is hypertrophic spurring in all 3 compartments. There is no acute fracture. Right knee 4 views were taken of the right knee. There is mild joint space narrowing medially. There is no acute fracture. There is slight spurring. There is mild spurring on the patella. IMPRESSION: 1. Severe osteoarthritis left knee. 2. Mild arthritis right knee. Electronically signed by: Rojelio Hdez MD (12/10/2020 12:48 PM) [id number]
[2020-12-10] MEDS ORDERED: METH4TAB2 PO (13:01)
[2020-12-10] MEDS ORDERED: DICL50TA2 PO (13:01)
== END 2020-12-10 13:15 | disposition home or self-care (01) ==
LOC: ER 11:42
DX: M17.0 Bilateral primary osteoarthritis of knee (principal); M19.90 Unspecified osteoarthritis, unspecified site; E11.9 Type 2 diabetes mellitus without complications; I10 Essential (primary) hypertension; Z98.890 Other specified postprocedural states; Z88.7 Allergy status to serum and vaccine
CPT/HCPCS: 99283; 73564-50

== ENCOUNTER 2021-05-02 19:39 | Emergency (ER) | payer OTHER ==
[~2021-05-02] VITALS: Ht 182.9 cm; Wt 115.0 kg
[~2021-05-02 19:39] MED LIST changes: +DICL50TA2 PO; +METH4TAB2 PO
[2021-05-02] MEDS ORDERED: IV NORMAL SALINE 1000ML BAG 1,000 ML IV ONE (20:30)
[2021-05-03 01:00] VITALS: BP 182/99
[2021-05-03] MEDS ORDERED: CYCL10TA2 PO (01:02)
[2021-05-03] MEDS ORDERED: HYDR-2759 PO (01:02)
--- NOTE | 2021-05-03 01:03 | PHYS DOC ---
Past Medical History Past Medical History: Arthritis, CHF, Diabetes-Type II, Hypertension, Other Additional Past Medical Histor: apnea Past Surgical History: No Surgical History Additional Past Surgical Histo: HAND, FINGERS, TOES, BX CARPAL TUNNEL, L KNEE, Head inj as child Smoking Status: Never Smoker Alcohol Use: None Drug Use: None General Adult EDM: Chief Complaint: BACK PAIN OR INJURY HPI: HPI: Patient is a 50 year old male past medical history of chronic back pain related to a previous accident presents with a chief complaint of lower back pain. Patient states back pain has been ongoing for x3 weeks progressively becoming worse. Patient pain is located L4-L5 midline and bilateral paraspinal. Patient's pain is exacerbated with movement twisting and turning of the torso and lifting objects. Patient denies any saddle anesthesia or loss of bowel or bladder. Patient has been using [id number] medications with no relief. Review of Systems: Review of Systems: Constitutional: Denies fever or chills. [] Eyes: Denies change in visual acuity. [] HENT: Denies nasal congestion or sore throat. [] Respiratory: Denies cough or shortness of breath. [] Cardiovascular: Denies chest pain or edema. [] GI: Denies abdominal pain, nausea, vomiting, bloody stools or diarrhea. [] : Denies dysuria. [] Musculoskeletal: Positive back pain Integument: Denies rash. [] Neurologic: Denies headache, focal weakness or sensory changes. [] Endocrine: Denies polyuria or polydipsia. [] Lymphatic: Denies swollen glands. [] Psychiatric: Denies depression or anxiety. [] Heart Score: C/O Chest Pain: N/A Risk Factors: Risk Factors: DM, Current or recent (<one month) smoker, HTN, HLP, family history of CAD, obesity. Risk Scores: Score 0 - 3: 2.5% MACE over next 6 weeks - Discharge Home Score 4 - 6: 20.3% MACE over next 6 weeks - Admit for Clinical Observation Score 7 - 10: 72.7% MACE over next 6 weeks - Early Invasive Strategies Current Medications: Current Medications Medications (Trade) Dose Ordered Sig/Sandra Start Time Stop Time Status Last Admin Dose Admin Sodium Chloride 1,000 ml @ 1,000 mls/hr 1X ONCE 05/02/21 20:30 05/02/21 20:23 DC Allergies: Allergies: Allergies Coded Allergies Type Severity Reaction Last Updated Verified Influenza Virus Vaccines Allergy Severe 05/02/21 Yes Physical Exam: PE: General: alert, no acute distress. Skin: warm, dry and intact, no erythema, no rash. HENT: bilateral external ears normal, oropharynx moist, nose normal. Head:: Normocephalic, atraumatic. Neck: Trachea midline. Eyes: EOMI, Normal conjunctiva, No drainage CARDIOVASCULAR: Regular rate and rhythm RESPIRATORY: No respiratory distress Back: Full range of motion. With pain tenderness to palpation L4-5 paraspinal no midline T-spine L-spine step-off or deformities MUSCULOSKELETAL: Full range of motion of bilateral upper and lower extremities. GASTROINTESTINAL: Abdomen soft without rebound or guarding. NEUROLOGICAL: Alert and noted to person, place and time. No neurological deficits observed Psychiatric: Cooperative. Normal judgment Current Patient Data: Vital Signs: Vital Signs Date Time Temp Pulse Resp B/P (MAP) Pulse Ox O2 Delivery O2 Flow Rate FiO2 05/02/21 20:43 97.9 94 16 199/117 95 Room Air 97.9 EKG: EKG: [] Radiology/Procedures: Radiology/Procedures: [] Course & Med Decision Making: Course & Med Decision Making Pertinent Labs and Imaging studies reviewed. (See chart for details) [] Based upon history of present illness and physical exam no emergent radiologi c imaging ordered. Patient with a history of chronic back pain. Suspect acute exacerbation of chronic back pain. Patient without any saddle anesthesia or loss of bowel or bladder. Patient ambulated into the ER. Patient advised to take Tylenol ibuprofen as needed for pain. Patient prescribed hydrocodone and Flexeril. Patient given a work excuse. Dragon Disclaimer: [place] Disclaimer: This electronic medical record was generated, in whole or in part, using a voice recognition dictation system. Departure Departure Impression: Primary Impression: Lumbar back pain Disposition: HOME / SELF CARE / HOMELESS Condition: STABLE Referrals: LUZ MARIA DONOVAN APRN (PCP) Patient Instructions: Back Pain, Adult Scripts Cyclobenzaprine Hcl (CYCLOBENZAPRINE HCL) 10 Mg Tablet 1 TAB PO QHS, #20 TAB Prov: LATONYA STORM I DO 05/03/21 Hydrocodone/Acetaminophen (Hydrocodone-Acetamin 5-325 mg) 1 Each Tablet 1 EACH PO Q4-6HRS, #14 TAB Prov: LATONYA STORM DO 05/03/21 LATONYA STORM DO May 03, 2021 01:03
--- NOTE | 2021-05-03 06:25 | EKG ---
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
== END 2021-05-03 01:12 | disposition home or self-care (01) ==
LOC: ER 19:39
DX: M54.5 Low back pain (principal); G89.29 Other chronic pain; M19.90 Unspecified osteoarthritis, unspecified site; E11.9 Type 2 diabetes mellitus without complications; I11.0 Hypertensive heart disease with heart failure; I50.9 Heart failure, unspecified; Z88.7 Allergy status to serum and vaccine
CPT/HCPCS: 93005; 99285

== ENCOUNTER 2021-08-28 16:01 | Observation (INO) | payer SELFPAY ==
[~2021-08-28] VITALS: Ht 175.3 cm; Wt 122.7 kg
[~2021-08-28 16:01] MED LIST changes: +CYCL10TA19 PO; +HYDR-2759 PO; +POTA-121 PO
[2021-08-28] MEDS ORDERED: ASPIRIN CHEWABLE 81 MG TABLET. PO ONE (16:30)
--- NOTE | 2021-08-28 16:40 | PHYS DOC ---
Past Medical History Past Medical History: Arthritis, CHF, Diabetes-Type II, Hypertension, Other Additional Past Medical Histor: apnea Past Surgical History: No Surgical History, Other Additional Past Surgical Histo: HAND, FINGERS, TOES, BX CARPAL TUNNEL, L KNEE, Head inj as child Smoking Status: Never Smoker Alcohol Use: None Drug Use: None General Adult EDM: Chief Complaint: SHORTNESS OF BREATH HPI: HPI: Patient is a 50-year-old male who presents to the emergency department with multiple complaints. Patient reports that 4 days ago he experienced shortness of breath and lightheadedness. He states that 2 days ago he started experiencing nausea and vomiting as well as abdominal pain that he attributed due to the vomiting. He is also complaining of nasal congestion and drainage, productive cough, loss of smell and left-sided chest pain. Patient reports that the chest pain started 4 days ago. It is a 7 out of 10. The pain does not radiate. No alleviating or aggravating factors. The pain is not reproducible. He states it feels like "someone hit him in the chest". Patient has a history of diabetes, hypertension, CHF, obesity. Patient states that he is on blood thinners to prevent blood clots. Patient denies any sick exposures, travel, fevers, increased edema. He reports that he has been taking all of his medications as directed. His blood pressure is elevated in the emergency department today, he is afebrile and not tachycardic or hypoxic. Review of Systems: Review of Systems: 14 body systems of the review of systems have been reviewed. See HPI for pertinent positive and negative responses, otherwise all other systems are negative, nonpertinent or noncontributory Heart Score: C/O Chest Pain: Yes HEART Score for Chest Pain: HEART Score for Chest Pain Response (Comments) Value History Moderately Suspicious 1 ECG Normal 0 Age >45 - < 65 1 Risk Factors >3 Risk Factors or Hx CAD 2 Troponin < Normal Limit 0 Total 4 Risk Factors: Risk Factors: DM, Current or recent (<one month) smoker, HTN, HLP, family history of CAD, obesity. Risk Scores: Score 0 - 3: 2.5% MACE over next 6 weeks - Discharge Home Score 4 - 6: 20.3% MACE over next 6 weeks - Admit for Clinical Observation Score 7 - 10: 72.7% MACE over next 6 weeks - Early Invasive Strategies Current Medications: Current Medications Medications (Trade) Dose Ordered Sig/Sandra Start Time Stop Time Status Last Admin Dose Admin Aspirin (Aspirin Chewable) 324 mg 1X ONCE 08/28/21 16:30 08/28/21 16:31 UNV Nitroglycerin (Nitrostat) 0.4 mg PRN Q5MIN PRN 08/28/21 16:30 08/29/21 16:29 UNV Allergies: Allergies: Allergies Coded Allergies Type Severity Reaction Last Updated Verified Influenza Virus Vaccines Allergy Severe 05/02/21 Yes Physical Exam: PE: Constitutional: Well developed, well nourished, no acute distress, non-toxic appearance. [] HENT: Normocephalic, atraumatic, bilateral external ears normal, oropharynx moist, no oral exudates, nose normal. [] Eyes: PERRL, EOMI, conjunctiva normal, no discharge. [] Neck: Normal range of motion, no tenderness,no nuchal rigidity, no carotid bruit, supple, no stridor. [] Cardiovascular:Heart rate regular rhythm, no murmur [] Lungs & Thorax: Bilateral breath sounds clear to auscultation [] Abdomen: Bowel sounds normal, soft, obese, pain with palpation to right lower quadrant, no rebound tenderness, negative Shelby sign, negative Rovsing sign, no guarding or abdominal rigidity, no masses, no pulsatile masses. [] Skin: Warm, dry, no erythema, no rash. [] Back: Normal range of motion Extremities: No tenderness, no cyanosis, no clubbing, ROM intact, trace edema noted to bilateral lower extremities Neurologic: Alert and oriented X 3, normal motor function, normal sensory function, no focal deficits noted. [] Psychologic: Affect normal, judgement normal, mood normal. [] Current Patient Data: Vital Signs: Vital Signs Date Time Temp Pulse Resp B/P (MAP) Pulse Ox O2 Delivery O2 Flow Rate FiO2 08/28/21 16:19 99.6 99 22 180/118 (138) 95 Room Air 99.6 EKG: EKG: [] EKG performed by ER staff at 1650 shows sinus rhythm with a heart rate of 89, AR of 218, QTC of 456, no STEMI read by Dr. Mi at 1652 Radiology/Procedures: Radiology/Procedures: []PROCEDURE: PORTABLE CHEST 1V Site ID: [id number] EXAMINATION: XR CHEST 1V. HISTORY: 50 years Male Reason: soa, cp / . COMPARISON: September 12, 2019. Findings: The lungs are clear. The heart size is slightly prominent. There is no effusion or pneumothorax. The mediastinum and ivett appear unremarkable. Impression: No acute process. Electronically signed by: Mariano Tompkins MD (08/28/2021 4:54 PM) [id number] DICTATED and SIGNED BY: MARIANO TOMPKINS MD DATE: 08/28/21 [id number] Course & Med Decision Making: Course & Med Decision Making Pertinent Labs and Imaging studies reviewed. (See chart for details) [] Patient presents to the emergency department for multiple complaints. Patient is reporting shortness of breath and lightheadedness along with chest pain that started 4 days ago. He is also reporting a 2-day history of nausea, vomiting, right lower quadrant abdominal pain, productive cough, loss of smell and nasal drainage. Patient has an extensive history. Work-up in the ER consisted of blood work, EKG, chest x-ray. Imaging also performed of patient's abdomen and pelvis as he is complaining of nausea and vomiting having tenderness with palpation to right lower quadrant. Patient will also be tested for influenza and COVID-19. Patient treated with aspirin and nitro. Patient CBC is unremarkable. Troponin is 18. Potassium was 3.3 and this was replaced in the ER. Patient's magnesium was 1.6 and this was replaced in the emergency department. Patient BNP was 217. Negative influenza and Covid testing. Chest x- ray and CT abdomen pelvis showed no acute findings. Patient's blood pressure continues to be elevated in the emergency department with last reading 205/113, patient treated with nitroglycerin for his chest pain and elevated blood pressure. Patient's heart score is 4 due to his hypertension although he is taking medications he is symptomatic. He does not have any elevated BUN or creatinine. Patient will be admitted for cardiac observation. I discussed these findings with patient he is agreeable at this time. I discussed patient's case with Dr. Garcia who agreed to meet the patient for chest pain observation and hypertension. ER bridge orders placed. Dragon Disclaimer: [place] Disclaimer: This electronic medical record was generated, in whole or in part, using a voice recognition dictation system. Departure Departure Impression: Primary Impression: Chest pain Qualified Codes: R07.9 - Chest pain, unspecified Additional Impression: Hypertension Qualified Codes: I10 - Essential (primary) hypertension Disposition: 09 ADMITTED INPATIENT Condition: STABLE Referrals: LUZ MARIA DONOVAN APRN (PCP) ALEXIS CLEARY APRN Aug 28, 2021 16:40
[2021-08-28 16:42] LABS: BASO # 0.1 x10^3/uL (0.0-0.2); BASO % 1 % (0-3); EOS # 0.1 x10^3/uL (0.0-0.7); EOS % 1 % (0-3); HEMATOCRIT 39.6 % (39.0-53.0); HEMOGLOBIN 13.1 g/dL (13.0-17.5); LYMPH # 2.4 x10^3/uL (1.0-4.8); LYMPH % 27 % (24-48); MEAN CORPUSCULAR HEMOGLOBIN 27 pg (25-35); MEAN CORPUSCULAR HGB CONC 33 g/dL (31-37); MEAN CORPUSCULAR VOLUME 81 fL (79-100); MONO # 0.6 x10^3/uL (0.0-1.1); MONO % 6 % (0-9); NEUT % 65 % (31-73); PLATELET COUNT 251 x10^3/uL (140-400); RED BLOOD COUNT 4.91 x10^6/uL (4.30-5.70); RED CELL DISTRIBUTION WIDTH 13.6 % (11.5-14.5); WHITE BLOOD COUNT 9.1 x10^3/uL (4.0-11.0)
[2021-08-28 16:52] LABS: CALCIUM 8.6 mg/dL (8.5-10.1); GFR 94.9; POTASSIUM 3.3 mmol/L (3.5-5.1)
--- NOTE | 2021-08-28 16:56 | RAD ---
Site ID: [id number] EXAMINATION: XR CHEST 1V. HISTORY: 50 years Male Reason: soa, cp / . COMPARISON: September 12, 2019. Findings: The lungs are clear. The heart size is slightly prominent. There is no effusion or pneumoth orax. The mediastinum and ivett appear unremarkable. Impression: No acute process. Electronically signed by: Hernandez Tompkins MD (08/28/2021 4:54 PM) [id number]
[2021-08-28 16:58] LABS: ALBUMIN 3.2 g/dL (3.4-5.0); ALBUMIN/GLOBULIN RATIO 0.7 (1.0-1.7); TOTAL BILIRUBIN 0.4 mg/dL (0.2-1.0); TOTAL PROTEIN 7.5 g/dL (6.4-8.2)
[2021-08-28] MEDS: NITROGLYCERIN SUBLINGUAL 0.4 MG BOTTLE OF 25. SL PRN ×2 (17:00→18:31)
[2021-08-28] MEDS ORDERED: IOHEXOL 300 MG/ML 100ML VIAL. IV ONE (17:15)
[2021-08-28] MEDS ORDERED: CONTRAST GIVEN. MC PRN (17:15)
[2021-08-28 17:35] LABS: INFLUENZA A PATIENT NEGATIVE (NEGATIVE); INFLUENZA B PATIENT NEGATIVE (NEGATIVE)
--- NOTE | 2021-08-28 17:38 | RAD ---
CT abdomen pelvis with contrast dated 08/28/2021. COMPARISON: 12/26/2019. CLINICAL INDICATION: Right lower quadrant pain. TECHNIQUE: Contiguous axial imaging of the abdomen pelvis performed after the administration of 75 cc Omnipaque 300. One or more of the following individualized dose reduction techniques were utilized for this examinat ion: 1. Automated exposure control 2. Adjustment of the mA and/or kV according to patient size 3. Use of iterative reconstruction technique FINDINGS: Limited images of lung bases are clear. Heart size is mildly enlarged. No pleural or pericardial effu krissy. Liver, spleen, pancreas, adrenal glands, gallbladder and kidneys are unremarkable. No hydronephrosis. Unopacified GI tract normal in caliber and contour. No bowel wall thickening. No inflammatory strandi ng in the mesentery. The appendix is normal in caliber. No ascites or lymphadenopathy. Abdominal aort a normal in caliber. Images of pelvis show nondistended urinary bladder. Mild diffuse bladder wall thickening. No free flu id or lymphadenopathy. Prostate gland is normal in size. Bone window show no acute finding. Multilevel spondylosis. IMPRESSION: 1. No acute abnormality of abdomen or pelvis. Normal appendix. 2. Mild diffuse wall thickening of the urinary bladder, nonspecific. Consider acute or chronic cystit is. Electronically signed by: Francisco Morrissey MD (08/28/2021 5:36 PM) LUDY
[2021-08-28] MEDS ORDERED: MAGNESIUM OXIDE 400 MG TABLET PO ONE (18:00)
[2021-08-28] MEDS ORDERED: POTASSIUM CHLORIDE 20 MEQ TABLET.ER. PO ONE (18:00)
[2021-08-28] MEDS ORDERED: CARVEDILOL 12.5 MG TABLET. PO ONE (19:30)
[2021-08-28 19:44] LABS: BILIRUBIN,URINE NEGATIVE (NEG); CLARITY,URINE CLEAR; COLOR,URINE YELLOW; NITRITE,URINE NEGATIVE (NEG); PROTEIN,URINE 30 mg/dL (NEG-TRACE)
[2021-08-28 19:53] LABS: BACTERIA,URINE FEW /HPF (0-FEW); HYALINE CASTS, URINE FEW /HPF
[2021-08-28 19:54] LABS: RBC,URINE 0 /HPF (0-2)
[2021-08-28 23:00] VITALS: BP 185/118
[2021-08-29] MEDS ORDERED: LISI20TA18 PO (00:58)
[2021-08-29 03:00] VITALS: BP 183/113
[2021-08-29] MEDS ORDERED: ANTI-COAG MONITOR BY PHARMACY. MC PRN (04:15)
[2021-08-29] MEDS ORDERED: LISINOPRIL 20 MG TABLET PO SCH (05:00)
[2021-08-29] MEDS: CARVEDILOL 12.5 MG TABLET. PO SCH ×2 (05:11→09:21)
--- NOTE | 2021-08-29 06:18 | EKG ---
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
--- NOTE | 2021-08-29 06:21 | EKG ---
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
[2021-08-29 07:00] VITALS: BP 180/111
[2021-08-29 07:18] LABS: BASO % 0 % (0-3); EOS # 0.1 x10^3/uL (0.0-0.7); EOS % 1 % (0-3); HEMATOCRIT 39.5 % (39.0-53.0); HEMOGLOBIN 12.8 g/dL (13.0-17.5); LYMPH # 2.3 x10^3/uL (1.0-4.8); LYMPH % 29 % (24-48); MEAN CORPUSCULAR HEMOGLOBIN 26 pg (25-35); MEAN CORPUSCULAR HGB CONC 32 g/dL (31-37); MEAN CORPUSCULAR VOLUME 81 fL (79-100); MONO # 0.5 x10^3/uL (0.0-1.1); MONO % 6 % (0-9); NEUT # 4.9 x10^3/uL (1.8-7.7); NEUT % 63 % (31-73); PLATELET COUNT 236 x10^3/uL (140-400); RED BLOOD COUNT 4.88 x10^6/uL (4.30-5.70); RED CELL DISTRIBUTION WIDTH 13.8 % (11.5-14.5); WHITE BLOOD COUNT 7.8 x10^3/uL (4.0-11.0)
[2021-08-29 07:49] LABS: ALBUMIN/GLOBULIN RATIO 0.8 (1.0-1.7); CALCIUM 8.7 mg/dL (8.5-10.1); CREATININE 0.8 mg/dL (0.7-1.3); GFR 122.8; POTASSIUM 3.5 mmol/L (3.5-5.1); TOTAL BILIRUBIN 0.5 mg/dL (0.2-1.0); TOTAL PROTEIN 6.7 g/dL (6.4-8.2)
[2021-08-29] MEDS ORDERED: POTASSIUM CHLORIDE 20 MEQ TABLET.ER. PO SCH (09:00)
[2021-08-29] MEDS ORDERED: FUROSEMIDE 40 MG TABLET. PO SCH (09:00)
[2021-08-29] MEDS ORDERED: APIXABAN 5 MG TABLET. PO SCH (09:00)
[2021-08-29] MEDS ORDERED: GLIMEPIRIDE 2 MG TABLET. PO SCH (09:00)
[2021-08-29] MEDS ORDERED: ASPIRIN CHEWABLE 81 MG TABLET. PO SCH (09:00)
--- NOTE | 2021-08-29 10:41 | NUR ---
SW following. Discussed with RN, pt from home, room air, cardiac diet, COVID-19 and Flu negative. Cardiology consulted. Pt denying any chest pain today. Med Assist following for self pay status. RN anticipates possible discharge home today. SW will continue to follow.
[2021-08-29 11:00] VITALS: BP 156/97
--- NOTE | 2021-08-29 11:35 | PDOC2 ---
CARDIAC CONSULT DATE OF CONSULT Date of Consult DATE: 08/29/21 TIME: 11:22 REASON FOR CONSULT Reason for Consult: Chest pain REFERRING PHYSICIAN Referring Physician: Dr. Orellana SOURCE Source: Chart review, Patient HISTORY OF PRESENT ILLNESS HISTORY OF PRESENT ILLNESS This is a 50 yo male who presented secondary to multiple complaints including abdominal pain, nausea/vomiting, shortness of breath, dizziness, and chest pain. Has also has had nasal congestion, cough, and loss of smell for the last week. Reports pain in his central chest (soreness) when he coughs. No dizziness, diaphoresis, or palpitations. Is feeling better today. PAST MEDICAL HISTORY Past Medical History Cardiovascular: HTN, Hyperlipidemia, cardiomyopathy, PAFIB, CHF Pulmonary: Other (YANG), pneumonia Musculoskeletal: Osteoarthritis, Other (morbid obesity) Rheumatologic: Gout Endocrine: Diabetes (2) PAST SURGICAL HISTORY Past Surgical History Left knee arthroscopy carpal tunnel decompression FAMILY HISTORY Family History: Hypertension SOCIAL HISTORY Social History Smoke: No ALCOHOL: none Drugs: None Lives: with Family CURRENT MEDICATIONS CURRENT MEDICATIONS Current Medications Medications (Trade) Dose Ordered Sig/Sandra Route PRN Reason Start Time Stop Time Status Last Admin Dose Admin Aspirin (Aspirin Chewable) 324 mg 1X ONCE PO 08/28/21 16:30 08/28/21 16:33 DC 08/28/21 17:04 Nitroglycerin (Nitrostat) 0.4 mg PRN Q5MIN PRN SL CP RATING > 1/10 08/28/21 16:30 08/29/21 16:29 08/28/21 18:31 Iohexol (Omnipaque 300 Mg/ml) 75 ml 1X ONCE IV 08/28/21 17:15 08/28/21 17:16 DC 08/28/21 17:22 Potassium Chloride (Klor-Con) 20 meq 1X ONCE PO 08/28/21 18:00 08/28/21 18:01 DC 08/28/21 18:28 Magnesium Oxide (Magnesium Oxide) 400 mg 1X ONCE PO 08/28/21 18:00 08/28/21 18:01 DC 08/28/21 18:29 Carvedilol (Coreg) 12.5 mg 1X ONCE PO 08/28/21 19:30 08/28/21 19:31 DC 08/28/21 19:45 Hydralazine HCl (Apresoline) 50 mg 1X ONCE PO 08/28/21 19:30 08/28/21 19:31 DC 08/28/21 19:45 Amlodipine Besylate (Norvasc) 10 mg DAILY PO 08/29/21 05:00 08/29/21 05:10 Apixaban (Eliquis) 5 mg BID PO 08/29/21 09:00 08/29/21 09:20 Aspirin (Aspirin Chewable) 81 mg DAILY PO 08/29/21 09:00 08/29/21 09:20 Carvedilol (Coreg) 12.5 mg BIDWMEALS PO 08/29/21 05:00 08/29/21 09:21 Furosemide (Lasix) 40 mg DAILY PO 08/29/21 09:00 08/29/21 09:21 Hydralazine HCl (Apresoline) 50 mg BID PO 08/29/21 05:00 08/29/21 09:21 Lisinopril (Prinivil) 20 mg DAILY PO 08/29/21 05:00 08/29/21 05:11 Potassium Chloride (Klor-Con) 20 meq DAILY PO 08/29/21 09:00 08/29/21 09:21 Glimepiride (Amaryl) 4 mg DAILY PO 08/29/21 09:00 08/29/21 09:20 Diltiazem HCl (Cardizem 24hr Cd) 240 mg DAILY PO 08/29/21 05:00 08/29/21 05:10 Info (Anti-Coagulation Monitoring By Pharmacy) 1 each PRN DAILY PRN MC PER PROTOCOL 08/29/21 04:15 08/29/21 05:27 ALLERGIES ALLERGIES: Coded Allergies: No Known Drug Allergies (Unverified , 08/29/21) ROS Review of System 14 point ROS conducted with pertinent positives noted above in HPI PHYSICAL EXAM PHYSICAL EXAM General: Alert, Oriented X3, Cooperative, No acute distress HEENT: Atraumatic, Mucous membr. moist/pink Lungs: Clear to auscultation, Normal air movement Heart: Regular rate Abdomen: Soft, No tenderness Extremities: No cyanosis Skin: No breakdown, No significant lesion Neuro: Normal speech, Sensation intact Psych/Mental Status: Mental status NL, Mood NL MUSCULOSKELETAL: Osteoarthritic changes both hands VITALS/I&O VITALS/I&O: Vital Signs Date Time Temp Pulse Resp B/P (MAP) Pulse Ox O2 Delivery O2 Flow Rate FiO2 12/16/21 09:21 81 180/111 08/29/21 07:00 97.5 93 97.5 08/29/21 03:00 20 Room Air LABS Lab: Laboratory Tests Test 08/28/21 16:20 08/28/21 17:05 08/28/21 19:35 08/28/21 19:45 White Blood Count 9.1 x10^3/uL (4.0-11.0) Red Blood Count 4.91 x10^6/uL (4.30-5.70) Hemoglobin 13.1 g/dL (13.0-17.5) Hematocrit 39.6 % (39.0-53.0) Mean Corpuscular Volume 81 fL (79-100) Mean Corpuscular Hemoglobin 27 pg (25-35) Mean Corpuscular Hemoglobin Concent 33 g/dL (31-37) Red Cell Distribution Width 13.6 % (11.5-14.5) Platelet Count 251 x10^3/uL (140-400) Neutrophils (%) (Auto) 65 % (31-73) Lymphocytes (%) (Auto) 27 % (24-48) Monocytes (%) (Auto) 6 % (0-9) Eosinophils (%) (Auto) 1 % (0-3) Basophils (%) (Auto) 1 % (0-3) Neutrophils # (Auto) 6.0 x10^3/uL (1.8-7.7) Lymphocytes # (Auto) 2.4 x10^3/uL (1.0-4.8) Monocytes # (Auto) 0.6 x10^3/uL (0.0-1.1) Eosinophils # (Auto) 0.1 x10^3/uL (0.0-0.7) Basophils # (Auto) 0.1 x10^3/uL (0.0-0.2) Sodium Level 134 mmol/L (136-145) L Potassium Level 3.3 mmol/L (3.5-5.1) L Chloride Level 98 mmol/L (98-107) Carbon Dioxide Level 34 mmol/L (21-32) H Anion Gap 2 (6-14) L Blood Urea Nitrogen 13 mg/dL (8-26) Creatinine 1.0 mg/dL (0.7-1.3) Estimated GFR (Cockcroft-Gault) 94.9 BUN/Creatinine Ratio 13 (6-20) Glucose Level 317 mg/dL (70-99) H Calcium Level 8.6 mg/dL (8.5-10.1) Magnesium Level 1.6 mg/dL (1.8-2.4) L Total Bilirubin 0.4 mg/dL (0.2-1.0) Aspartate Amino Transferase (AST) 7 U/L (15-37) L Alanine Aminotransferase (ALT) 29 U/L (16-63) Alkaline Phosphatase 110 U/L (46-116) Troponin I High Sensitivity 18 ng/L (4-75) 19 ng/L (4-75) XD-Rph-I-Type Natriuretic Peptide 217 pg/mL (0-124) H Total Protein 7.5 g/dL (6.4-8.2) Albumin 3.2 g/dL (3.4-5.0) L Albumin/Globulin Ratio 0.7 (1.0-1.7) L Influenza Type A Antigen Negative (NEGATIVE) Influenza Type B Antigen Negative (NEGATIVE) SARS-CoV-2 RNA (MAKAYLA) Negative (Negative) SARS-CoV-2 Antigen (Rapid) Negative (NEGATIVE) Urine Collection Type Unknown Urine Color Yellow Urine Clarity Clear Urine pH 6.0 (<5.0-8.0) Urine Specific [place] >=1.030 (1.000-1.030) Urine Protein 30 mg/dL (NEG-TRACE) Urine Glucose (UA) >=1000 mg/dL (NEG) Urine Ketones (Stick) Trace mg/dL (NEG) Urine Blood Negative (NEG) Urine Nitrite Negative (NEG) Urine Bilirubin Negative (NEG) Urine Urobilinogen Dipstick 1.0 mg/dL (0.2 mg/dL) Urine Leukocyte Esterase Negative (NEG) Urine RBC 0 /HPF (0-2) Urine WBC 1-4 /HPF (0-4) Urine Bacteria Few /HPF (0-FEW) Urine Hyaline Casts Few /HPF Urine Mucus Slight /LPF Test 08/29/21 00:44 08/29/21 06:15 08/29/21 07:29 Troponin I High Sensitivity 17 ng/L (4-75) White Blood Count 7.8 x10^3/uL (4.0-11.0) Red Blood Count 4.88 x10^6/uL (4.30-5.70) Hemoglobin 12.8 g/dL (13.0-17.5) L Hematocrit 39.5 % (39.0-53.0) Mean Corpuscular Volume 81 fL (79-100) Mean Corpuscular Hemoglobin 26 pg (25-35) Mean Corpuscular Hemoglobin Concent 32 g/dL (31-37) Red Cell Distribution Width 13.8 % (11.5-14.5) Platelet Count 236 x10^3/uL (140-400) Neutrophils (%) (Auto) 63 % (31-73) Lymphocytes (%) (Auto) 29 % (24-48) Monocytes (%) (Auto) 6 % (0-9) Eosinophils (%) (Auto) 1 % (0-3) Basophils (%) (Auto) 0 % (0-3) Neutrophils # (Auto) 4.9 x10^3/uL (1.8-7.7) Lymphocytes # (Auto) 2.3 x10^3/uL (1.0-4.8) Monocytes # (Auto) 0.5 x10^3/uL (0.0-1.1) Eosinophils # (Auto) 0.1 x10^3/uL (0.0-0.7) Basophils # (Auto) 0.0 x10^3/uL (0.0-0.2) Sodium Level 136 mmol/L (136-145) Potassium Level 3.5 mmol/L (3.5-5.1) Chloride Level 98 mmol/L (98-107) Carbon Dioxide Level 30 mmol/L (21-32) Anion Gap 8 (6-14) Blood Urea Nitrogen 12 mg/dL (8-26) Creatinine 0.8 mg/dL (0.7-1.3) Estimated GFR (Cockcroft-Gault) 122.8 BUN/Creatinine Ratio 15 (6-20) Glucose Level 247 mg/dL (70-99) H Calcium Level 8.7 mg/dL (8.5-10.1) Total Bilirubin 0.5 mg/dL (0.2-1.0) Aspartate Amino Transferase (AST) 10 U/L (15-37) L Alanine Aminotransferase (ALT) 29 U/L (16-63) Alkaline Phosphatase 102 U/L (46-116) Total Protein 6.7 g/dL (6.4-8.2) Albumin 3.0 g/dL (3.4-5.0) L Albumin/Globulin Ratio 0.8 (1.0-1.7) L Glucose (Fingerstick) 280 mg/dL (70-99) H Laboratory Tests 08/28/21 16:20 12 06:15 Laboratory Tests 08/28/21 16:20 08/29/21 06:15 ECHOCARDIOGRAM ECHOCARDIOGRAM <Conclusion> The left ventricular systolic function is normal and the ejection fraction is within normal range. The Ejection Fraction is 50-55%. There is normal LV segmental wall motion. DATE: 07/02/20 1259 STRESS TEST STRESS TEST Conclusion 1. Abnormal baseline EKG but no EKG evidence of stressed induced ischemia. 2. Nuclear imaging shows no reversible ischemia. 3. Nuclear imaging shows fixed inferior wall thinning probably due to diaphragmatic attenuation but a small infarct cannot be excluded. 4. LV systolic function is decreased on a global basis with an ejection fraction of 40%. 5. Moderate to moderately low risk Lexiscan nuclear stress test. DATE: 08/29/17 1340 HEART CATH HEART CATH Findings. Hemodynamics. Left ventricular pressures of 150/6, 14. Aortic root pressure 148/86. Coronaries. Left main. Left main was a normal-size vessel with no lesions. Left anterior descending. The left anterior descending was a moderate to moderately large vessel with normal distribution. It had a proximal 25% lesion, a mid 20% lesion and a distal 25% lesion. Left circumflex. The left circumflex was a large dominant vessel. Obtuse marginal 1 branch had a 20% lesion. In the mid left circumflex there is a 20% lesion. Right coronary artery. The right coronary was a moderately large vessel but nondominant. It had a mid 3035% lesion. Left ventriculogram. The left ventricle showed global hypokinesis most significant near the apex. Ejection fraction was 35-40%. <Conclusion> Mild coronary artery disease in the left anterior descending and left circumflex vessels. Moderate coronary artery disease in the right coronary artery. Decreased ejection fraction at 35-40%. DATE: 12/29/18 1645 ASSESSMENT/PLAN ASSESSMENT/PLAN 1. Chest pain, atypical. AMI ruled out. 2. Abdominal pain, nausea/vomiting; resolved 3. Hypertensive urgency; labile 4. CAD; cath 2019 with Mild disease of the LAD and LCx and moderate disease of the RCA 5. Chronic diastolic CHF; appears compensated 6. H/o Cardiomyopathy; most recent echo 07/03 with LVEF recovery with an EF of 50-55% 7. PAFIB: SR 8. Hyperlipidemia; statin 9. Diabetes, II 10. Morbid obesity/YANG; noted previously as not complaint with CPAP 11. Hypokalemia, hypomagnesemia Recommendations Secondary prevention Increase Coreg, lisinopril for better BP control. Discontinue amlodipine as patient is on Cardizem. Add Imdur Outpatient ischemic evaluation Follow up in our office with DOUG Son APRN Aug 29, 2021 11:35
[2021-08-29] MEDS ORDERED: NITR0.4T24 SL (13:58)
--- NOTE | 2021-08-29 14:25 | SSS ---
DATE OF SERVICE: 08/29/2021 ADMIT DATE: 08/28/2021 CHIEF COMPLAINT: Chest pain and shortness of breath. HISTORY OF PRESENT ILLNESS: The patient is a pleasant 50-year-old male who has a long history of CHF. Once again he presents with shortness of breath and some slight chest discomfort. He was admitted. We have consulted Cardiology. Today, I saw him and examined him. He is doing well and wants to get home. His troponin is 0. His BNP level is only 217. His chest x-ray does not show any acute process. I plan to discharge this afternoon if he is seen by Cardiology and they agree. PAST MEDICAL AND SURGICAL HISTORY: CHF; arthritis; diabetes; hypertension; apnea; hand, finger and toe surgery; carpal tunnel surgery; left knee surgery; head injury as a child. ALLERGIES: None. FAMILY HISTORY: Hypertension. SOCIAL HISTORY: He does not drink, smoke or take drugs. 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 REVIEW OF SYSTEMS: GENERAL: No history of weight change, weakness or fevers. SKIN: No bruising, hair changes or rashes. EYES: No blurred, double or loss of vision. NOSE AND THROAT: No history of nosebleeds, hoarseness or sore throat. HEART: No history of palpitations. LUNGS: Denies cough, hemoptysis, wheezing. GASTROINTESTINAL: Denies changes in appetite, nausea, vomiting, diarrhea or constipation. GENITOURINARY: No history of frequency, urgency, hesitancy or nocturia. NEUROLOGIC: Denies history of numbness, tingling, tremor or weakness. PSYCHIATRIC: No history of panic, anxiety or depression. ENDOCRINE: No history of heat or cold intolerance, polyuria or polydipsia. EXTREMITIES: Denies muscle weakness, joint pain, pain on walking or stiffness. PHYSICAL EXAMINATION: VITALS: Within normal limits and are stable. GENERAL: No apparent distress. Alert and oriented. HEENT: Normal cephalic atraumatic, external auditory canals are patent EYES: Extraocular muscles are intact, pupils are equally round and reactive to light and accommodation MUSKULOSKELETAL: Well developed, well nourished, good range of motion ENDOCRINE: No thyromegaly was palpated LYMPHATICS: No cervical chain or axillary nodes were noted HEMATOPOIETIC: No bruising NECK: Supple, no JVD, no thyromegaly was noted. LUNGS: Clear to auscultation in all lung mccarthy without rhonchi or wheezing. HEART: RRR, S1, S2 present. Peripheral pulses intact, no obvious murmurs were noted. ABDOMEN: Soft, nontender. Positive bowel sounds no organomegaly, normal bowel sounds. EXTREMITIES: Without any cyanosis, clubbing, or edema. Pedal pulses intact, Homans sign is negative. NEUROLOGIC: Normal speech, normal tone. A and O x 3, moves all extremities, no obvious focal deficits. PSYCHIATRIC: Normal affect, normal mood. Stable. SKIN: No ulcerations or rashes, good skin turgor, no jaundice. VASCULAR: Good capillary refill, neurovascular bundle appears to be intact. ASSESSMENT AND PLAN: Resolving acute on chronic systolic and diastolic heart failure. Clinically he looks great. Suspect he could go home. For now, we are doing cardiac monitoring. We are awaiting Cardiology's team. We will continue his home meds. DISPOSITION: Home. ACTIVITY: As tolerated. DIET: Low sodium. MEDICATIONS: Please see the MRAD. Total time 32 minutes. EUFEMIA/RAJNI DR: Marcelino TID: [id number]
[2021-08-29 15:00] VITALS: BP 182/115
[2021-08-29] MEDS ORDERED: ISOS30TA68 PO (15:28)
[2021-08-29] MEDS ORDERED: CARV25TA PO (15:28)
[2021-08-29] MEDS ORDERED: LISI-130 PO (15:28)
[2021-08-29] MEDS ORDERED: LISINOPRIL 10 MG TABLET PO ONE (15:30)
[2021-08-29] MEDS ORDERED: ISOSORBIDE MONONITRATE ER 30 MG TAB.ER.24H PO SCH (15:30)
[2021-08-29 16:01] VITALS: BP 182/115
[2021-08-29] MEDS ORDERED: CARVEDILOL 12.5 MG TABLET. PO SCH (17:00)
--- NOTE | 2021-08-29 17:00 | NUR ---
patient discharged home via private vehicle. 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 meds and follow up reviewed. pt stable upon dc. IV removed intact.
[2021-08-29] MEDS ORDERED: ATORVASTATIN CALCIUM 40 MG TABLET. PO SCH (21:00)
[2021-08-30] MEDS ORDERED: LISINOPRIL 20 MG TABLET PO SCH (09:00)
[2021-08-31] MEDS ORDERED: metFORMIN 500 MG TABLET PO SCH (08:00)
== END 2021-08-29 17:02 | disposition home or self-care (01) ==
LOC: ER 16:01 → ED HOLD 17:55 → 5 SOUTH 23:17
PROVIDERS: ADMIT Student in an Organized Health Care Education/Training Program; ATTEND Student in an Organized Health Care Education/Training Program
DX: I16.0 Hypertensive urgency (principal); Z20.822 Contact with and (suspected) exposure to COVID-19; I11.0 Hypertensive heart disease with heart failure; I50.43 Acute on chronic combined systolic (congestive) and diastolic (congestive) heart failure; I25.10 Atherosclerotic heart disease of native coronary artery without angina pectoris; I42.9 Cardiomyopathy, unspecified; I48.0 Paroxysmal atrial fibrillation; M19.90 Unspecified osteoarthritis, unspecified site; E11.9 Type 2 diabetes mellitus without complications; E78.5 Hyperlipidemia, unspecified; E83.42 Hypomagnesemia; M10.9 Gout, unspecified; E66.01 Morbid (severe) obesity due to excess calories; R11.2 Nausea with vomiting, unspecified; E87.6 Hypokalemia; Z87.828 Personal history of other (healed) physical injury and trauma; Z79.899 Other long term (current) drug therapy; Z98.890 Other specified postprocedural states; Z79.82 Long term (current) use of aspirin; Z68.39 Body mass index [BMI] 39.0-39.9, adult
CPT/HCPCS: 36415; 71045; 74177; 80053; 81001; 82962; 83735; 83880; 84484; 85025; 87426; 87804; 93005; 99285; G0378; Q9967; U0003; U0005; G0379

== ENCOUNTER → 2021-09-04 | Emergency (ER) | payer SELFPAY ==
[~2021-09-04] VITALS: Ht 175.3 cm; Wt 125.0 kg
[~2021-09-04] MED LIST changes: +CARV25TA PO; +COLC0.6T45 PO; +LISI-130 PO
[2021-09-04 15:56] LABS: CALCIUM 8.4 mg/dL (8.5-10.1); GFR 94.9; POTASSIUM 3.9 mmol/L (3.5-5.1)
--- NOTE | 2021-09-04 16:07 | PHYS DOC ---
Past Medical History Past Medical History: Arthritis, CHF, Diabetes-Type II, Hypertension, Other Additional Past Medical Histor: apnea Past Surgical History: Other Additional Past Surgical Histo: HAND, FINGERS, TOES, BX CARPAL TUNNEL, L KNEE, Head inj as child Smoking Status: Never Smoker Alcohol Use: Occasionally Drug Use: None General Adult EDM: Chief Complaint: UPPER EXTREMITY PAIN HPI: HPI: Patient is a 50 year old male with history of HTN, HLD, DM, CHF, arthritis who presents with swelling and discomfort in his bilateral wrists and hands. Has been increasing over the past several weeks. States the swelling is intermittent, and sometimes dissipates. Has more soreness when the swelling is there and shortness of is relieved of swelling improves. Feels the swelling is most prominent in the dorsal right forearm just proximal to the wrist, and has the same symptoms on the left but less severe. He is anticoagulated on Eliquis, denies any missed doses. Was recently admitted for a short stay for CHF and was discharged after some changes were made to his HTN meds. He has been on a stable dose of lasix 40mg daily. Denies any overlying skin changes, fever, or chills. No lower extremity edema. 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 No injuries or overuse that he is aware of, but states loading truck may aggravate it. No chest pain, shortness of breath, cough, runny nose, congestion, sore throat or other acute symptoms. Review of Systems: Review of Systems: Constitutional: Denies fever or chills. [] Eyes: Denies change in visual acuity. [] HENT: Denies nasal congestion or sore throat. [] Respiratory: Denies cough or shortness of breath. [] Cardiovascular: Denies chest pain or edema. [] GI: Denies abdominal pain, nausea, vomiting, bloody stools or diarrhea. [] : Denies dysuria. [] Musculoskeletal: Reports hand and wrist swelling and aching pain. Integument: Denies rash. [] Neurologic: Denies headache, focal weakness or sensory changes. [] Endocrine: Denies polyuria or polydipsia. [] Lymphatic: Denies swollen glands. [] Psychiatric: Denies depression or anxiety. [] Heart Score: C/O Chest Pain: No Risk Factors: Risk Factors: DM, Current or recent (<one month) smoker, HTN, HLP, family history of CAD, obesity. Risk Scores: Score 0 - 3: 2.5% MACE over next 6 weeks - Discharge Home Score 4 - 6: 20.3% MACE over next 6 weeks - Admit for Clinical Observation Score 7 - 10: 72.7% MACE over next 6 weeks - Early Invasive Strategies Allergies: Allergies: Allergies Coded Allergies Type Severity Reaction Last Updated Verified No Known Drug Allergies 08/29/21 No Physical Exam: PE: Constitutional: Well developed, well nourished, no acute distress, non-toxic appearance. [] HENT: Normocephalic, atraumatic Neck: Normal range of motion, no tenderness, supple, no stridor. [] Cardiovascular:Heart rate regular rhythm, no murmur [] Lungs & Thorax: Bilateral breath sounds clear to auscultation [] Skin: Warm, dry, no erythema, no rash. [] Extremities: No overlying skin changes over the bilateral hands/wrists. Mild swelling of the distal forearm just proximal to the wrist. Soft compartments, but has tenderness over the area of swelling. Has pain in the dorsal forearm with passive wrist flexion. Trace lower extremity edema. Neurologic: Alert and oriented X 3, normal motor function, normal sensory function, no focal deficits noted. [] Psychologic: Affect normal, judgement normal, mood normal. [] Current Patient Data: Vital Signs: Vital Signs Date Time Temp Pulse Resp B/P (MAP) Pulse Ox O2 Delivery O2 Flow Rate FiO2 09/04/21 15:06 98.6 79 19 160/100 (120) 99 Room Air 98.6 EKG: EKG: [] Radiology/Procedures: Radiology/Procedures: [] Course & Med Decision Making: Course & Med Decision Making Pertinent Labs and Imaging studies reviewed. (See chart for details) Patient 50-year-old male with history of HTN, CHF who presents with bilateral h and and wrist swelling and discomfort over the past week. Mild amount of swelling evident on exam with some dorsal forearm tenderness to palpation. No trauma to suggest fracture. Do not feel x-rays would be helpful. No evidence of cellulitic changes or infectious symptoms to suggest osteomyelitis. Compartments are soft. No evidence of CHF or systemic volume overload. Given bilateral nature and anticoagulation status, doubt upper extremity DVT. Considered nontraumatic rhabdo and/or renal insufficiency will check BMP, UA, CK. Also considered other rheumatologic conditions/myositis etc but will defer further work up in the ED. 1600 labs unremarkable. CK normal. On re-evaluation the patient states he has had gout in his ankles before. This feels similar, however, he has no hx of gout in wrist. He is requesting colchicine, which I feel would be appropriate to trial. He has no insurance until September (9 days), when he plans on following up with his old PCP. [address] Disclaimer: [place] Disclaimer: This electronic medical record was generated, in whole or in part, using a voice recognition dictation system. Departure Departure Impression: Primary Impression: Bilateral wrist pain Disposition: HOME / SELF CARE / HOMELESS Condition: STABLE Referrals: LUZ MARIA DONOVAN APRN (PCP) Additional Instructions: Please take 2 tabs of colchicine for your first dose followed by 1 tab once a day until your symptoms are improved. At that time you can discontinue the medication. If you develop high fevers, shaking chills, severe swelling at the wrist or other joints please return to the emergency department for reevaluation. Please follow-up with your PCP or please call the number for the [facility] at [phone]. Scripts Colchicine (Colchicine) 0.6 Mg Tablet 1 TAB PO DAILY for gout pain for 20 Days, #20 TAB 0 Refills Take 2 tabs, initally followed by 1 tab daily. Prov: ANUP KAMARA MD 09/04/21 ANUP KAMARA MD Sep 04, 2021 16:07
[2021-09-04 16:41] LABS: BILIRUBIN,URINE SMALL (NEG); CLARITY,URINE CLEAR; NITRITE,URINE NEGATIVE (NEG); PH,URINE 5.5 (<5.0-8.0); PROTEIN,URINE 100 mg/dL (NEG-TRACE)
[2021-09-04 16:53] LABS: BACTERIA,URINE 0 /HPF (0-FEW); COLOR,URINE YELLOW; RBC,URINE OCC /HPF (0-2); WBC,URINE OCC /HPF (0-4)
[2021-09-04 16:54] LABS: HYALINE CASTS, URINE MODERATE /HPF
[2021-09-04 17:32] VITALS: BP 174/111
== END ==
LOC: ER 14:07
DX: M25.532 Pain in left wrist (principal); M25.531 Pain in right wrist; E11.9 Type 2 diabetes mellitus without complications; I11.0 Hypertensive heart disease with heart failure; I50.9 Heart failure, unspecified
CPT/HCPCS: 36415; 80048; 81001; 82550; 99283